=== PATIENT | male | born 1955 | race Caucasian/White ===

== ENCOUNTER 2021-10-06 07:58 | Outpatient (CLI) | payer MEDICARE, SELFPAY | END 2021-10-06 07:59 | disposition home or self-care (01) | LOC: ANHAUDIO 08:00 | PROVIDERS: PCP Physician Assistant; Visit Provider Physician Assistant | DX: H90.3 Sensorineural hearing loss, bilateral (principal) | CPT/HCPCS: 92557; 92567 ==

== ENCOUNTER 2022-01-31 09:22 | Outpatient (CLI) | payer MEDICARE, SELFPAY ==
[2022-01-31 09:41] LABS: Hematocrit 38.2 % (42.0-52.0); Hemoglobin 13.4 g/dL (14.0-18.0); Mean Corpuscular HGB Conc 35.1 g/dl (32-36); Mean Corpuscular Hemoglobin 31.8 pg (26-34); Mean Corpuscular Volume 90.5 fl (80-100); Mean Platelet Volume 9.3 fl (7.4-10.4); Platelet Count Result 197 k/mm3 (150-375); Red Blood Count 4.22 M/mm3 (4.6-6.20); Red Cell Distribution Width 12.7 % (11.5-14.5); White Blood Count 8.3 K/mm3 (4.5-10.0)
[2022-01-31 11:00] LABS: Hepatitis C Virus Antibody Reactive (Negative)
[2022-01-31 11:58] LABS: Alanine Aminotransferase 15 U/L (4-50); Alkaline Phosphatase 75 U/L (38-126); Anion Gap 5 mmol/L (8-16); Aspartate Amino Transferase 23 U/L (17-59); Bilirubin,Total 0.6 mg/dL (0.2-1.3); Blood Urea Nitrogen 18 mg/dL (9-20); Calcium 8.5 mg/dL (8.4-10.2); Carbon Dioxide 29 mmol/L (22-30); Chloride 105 mmol/L (98-107); Cholesterol 138 mg/dL (0-200); Estimated Glomerular Filt Rate 55; Glucose 91 mg/dL (65-110); HDL Direct 40 mg/dL; Potassium 3.2 mmol/L (3.4-5.0); Sodium 139 mmol/L (137-145); Triglycerides 73 mg/dL (<150)
[2022-01-31 12:09] LABS: LDL Cholesterol Direct 70 mg/dL
[2022-01-31 12:27] LABS: Prostate Specific Antigen 1.9 ng/mL (< OR = 4.0)
[2022-01-31 13:02] LABS: Folic Acid 4.2 ng/mL (2.76->20)
== END 2022-01-31 09:23 | disposition home or self-care (01) ==
LOC: ANHLAB 09:26
PROVIDERS: PCP Physician Assistant; Visit Provider Physician Assistant
DX: R53.83 Other fatigue (principal); Z11.59 Encounter for screening for other viral diseases; Z91.89 Other specified personal risk factors, not elsewhere classified; E78.5 Hyperlipidemia, unspecified; Z12.5 Encounter for screening for malignant neoplasm of prostate
CPT/HCPCS: 36415; 80053; 80061; 82607; 82746; 84153; 84443; 85027; 86803; 87522; G0103

== ENCOUNTER 2022-02-15 13:30 | Outpatient (CLI) | payer MEDICARE, SELFPAY ==
--- NOTE | 2022-02-16 10:00 | P.PCNPFT_ITS ---
PFT Procedure Performed PFT Procedure Performed Spirometry with Pre/Post Bronchodilator Plethysmography (Lung Vol) Diffusing Cap (DLCO) Flow Vol Loop PFT Interpretation Lung volumes were measured with the body plethysmography method. The elevated FRC and RV are indicative of air trapping. Spirometry showed diminished e xpiratory flow rates and a diminished FEV1 to FVC ratio 41% consistent with obstructive airway disease. Following administration of a bronchodilator there was no significant increase in expiratory flow rates. Lung diffusion capacity severely reduced at 36% predicted. The flow volume loop is consistent with emphysema. Impression: Moderately severe obstructive airway disease with evidence of air trapping and no response to bronchodilators on this testing. Severely reduced lung diffusion capacity.
== END 2022-02-15 13:31 | disposition home or self-care (01) ==
PROVIDERS: PCP Physician Assistant; Visit Provider Physician Assistant
DX: J44.9 Chronic obstructive pulmonary disease, unspecified (principal); R94.2 Abnormal results of pulmonary function studies
CPT/HCPCS: 94060; 94726; 94729

== ENCOUNTER 2022-05-02 18:21 | Observation (INO) | payer MEDICARE, MEDICAID, SELFPAY ==
[2022-05-02] VITALS (9 sets, daily range): BP systolic 108–147; BP diastolic 68–87; PULSE 83–108; RESP 16–29; TEMP 36.9–37.4; O2SAT 92–98; BMI 29.2
--- NOTE | ~2022-05-02 | XR_ITS ---
EXAMINATION: XR chest 2V Exam Date/Time: 05/02/2022 18:35 CDT HISTORY: shortness of breath, HX COPD Comparison: X-ray RIBS 07/21/2016. RESULT: Lines, tubes, and devices: None. Lungs and pleura: Emphysematous change. Cardiomediastinal silhouette: Stable. Other: No acute osseous or upper abdominal finding. IMPRESSION: No acute cardiopulmonary process. Reviewed, dictated and finalized at location K.
--- NOTE | 2022-05-02 18:32 | ECG_ITS ---
Measurements Intervals [place] Rate: 85 P: 62 TN: 112 QRS: 79 QRSD: 134 T: 37 QT: 379 QTc: 452 Interpretive Statements SINUS RHYTHM WITH SHORT [place] INTERVAL WITH OCCASIONAL PREMATURE ATRIAL AND VENTRICULAR CONTRACTIONS RIGHT BUNDLE BRANCH BLOCK ST DEVIATION AND MARKED T-WAVE ABNORMALITY, CONSIDER ANTERIOR ISCHEMIA ABNORMAL ECG NO PREVIOUS ECG AVAILABLE FOR COMPARISON Electronically Signed On 05-03-2022 12:20:56 CDT by Iván Nicholson M.D.
[2022-05-02 18:49] LABS: Basophils Percent Auto 0.3 % (0.2-1.2); Eosinophils Absolute Auto 0.1 K/mm3 (0-0.3); Eosinophils Percent Auto 0.4 % (0-4.4); Hematocrit 39.4 % (42.0-52.0); Hemoglobin 14.2 g/dL (14.0-18.0); Immature Granulocyte Absolute 0.07 K/mm3 (0.00-0.031); Immature Granulocyte Percent A 0.5 % (0-0.5); Lymphocytes Absolute Auto 2.32 K/mm3 (0.9-3.2); Lymphocytes Percent Auto 16.2 % (18.3-44.2); Mean Corpuscular Hemoglobin 32.2 pg (26-34); Mean Corpuscular Volume 89.3 fl (80-100); Mean Platelet Volume 9.5 fl (7.4-10.4); Monocytes Absolute Auto 1.8 K/mm3 (0.1-0.6); Monocytes Percent Auto 12.9 % (2.6-8.5); Neutrophils Percent Auto 69.7 % (45.5-73.1); Platelet Count Result 219 k/mm3 (150-375); Red Blood Count 4.41 M/mm3 (4.6-6.20); Red Cell Distribution Width 12.2 % (11.5-14.5); White Blood Count 14.3 K/mm3 (4.5-10.0)
--- NOTE | 2022-05-02 18:49 | ED.SOB ---
HPI - SOB/Dyspnea General Chief Complaint: Shortness of Breath/Dyspnea Stated Complaint: Shortnesss of breath Time Seen by Provider: 05/02/22 18:25 History of Present Illness HPI Narrative: Patient is a 66-year-old male with a history of COPD, hypertension, HLD here for evaluation of shortness of breath of the past week. Reports profound dyspnea while doing his daily activities; only able to take several steps before needing to stop. Additionally reports dyspnea at rest which is new over past week. Denies relief after home inhaler and breathing treatments; has no home O2 requirement. Additionally reporting a productive cough of white sputum, and pain diffusely across his lower ribs when he coughs, none at rest. Denies leg swelling, fevers, chills, hemoptysis, immobilization. He has a [id number] smoking history. He had PFTs done at end of January with FEV1 to FVC ratio 41%. Related Data Home Medications Medication Instructions Recorded Confirmed atorvastatin 20 mg tablet 20 mg PO DAILY 04/29/21 05/02/22 finasteride 5 mg tablet 5 mg PO DAILY 04/29/21 05/02/22 tamsulosin 0.4 mg capsule 0.4 mg PO HS 04/29/21 05/02/22 amlodipine 10 mg tablet 10 mg PO DAILY 05/02/22 05/02/22 aspirin 325 mg tablet,delayed 325 mg PO DAILY 05/02/22 05/02/22 release budesonide-formoterol HFA 160 2 puff inhalation BID 05/02/22 05/02/22 mcg-4.5 mcg/actuation aerosol inhaler (Symbicort) glecaprevir 100 mg-pibrentasvir 40 3 tablet PO DAILY 05/02/22 05/02/22 mg tablet (Mavyret) loratadine 10 mg tablet 10 mg PO DAILY 05/02/22 05/02/22 meloxicam 7.5 mg tablet 7.5 mg PO DAILY PRN .arthritis 05/02/22 05/02/22 trazodone 50 mg tablet 0.5 mg PO HS PRN Sleep 05/02/22 05/02/22 Allergies Allergy/AdvReac Type Severity Reaction Status Date / Time codeine Allergy Unknown SEE COMMENT Verified 05/02/22 18:30 No Known Drug Allergies Allergy Unknown .unknown Verified 03/08/22 09:30 Penicillins Allergy Unknown unknown Verified 05/02/22 18:30 Review of Systems Review of Systems: Gen: Denies fevers or chills Eyes: Denies eye pain or visual change ENT: Denies congestion Respiratory: Denies shortness of breath or cough CV: Denies chest pain or palpitations GI: Denies abdominal pain nausea, emesis or diarrhea denies burning, urgency, frequency or hematuria Musculoskeletal: Denies back pain or muscle pain Neuro: Denies numbness, tingling, weakness or focal weakness Skin: Denies rash Except as documented, all other systems reviewed and negative [facility] Past Medical History Medical History (Updated 05/02/22 @ 21:26 by María Elena Bedoya DO) Benign prostatic hyperplasia with nocturia COPD (chronic obstructive pulmonary disease) PFT 02/16/2022: Moderately severe obstructive airway disease with evidence of air trapping without bronchodilator response. Severely reduced lung diffusion capacity. FEV1 to FVC ratio 41% Essential hypertension Hepatitis C Hyperlipidemia Left inguinal hernia Small not surgically corrected Smoker Umbilical hernia without obstruction or gangrene Surgical History Surgical History (Updated 05/02/22 @ 21:19 by María Elena Bedoya DO) History of umbilical hernia repair (01/27/19) With mesh Family History Family History Mother Patient's mother is in good health Sibling Cerebrovascular accident, Onset Age: 57 Diabetes mellitus Hypertension Heart disease Father Diabetes mellitus Hypertension Heart disease Social History Social History (Updated 05/02/22 @ 21:21 by María Elena Bedoya DO) Social History: He has smoked as much as 1 pack of cigarettes per day for 60 years. He is now smoking about half a pack of cigarettes per day. Smoking packs per day: 1 Smoking cigarettes per day: 20.0 Years smoked: 60 Smoking pack-years: 60.00 Smoking status: Current every day smoker Tobacco type: cigarettes Alcohol intake: never Substance use: never
[2022-05-02] MEDS: ALBUTEROL SULFATE NEB 2.5 MG/3 ML INH INHALATION (19:08)
[2022-05-02 19:20] LABS: Lactic Acid Reflex 1.3 mmol/L (0.7-2.0)
[2022-05-02 19:20] LABS: Alveolar/Arterial O2 Gradient 41.1 mmHg; Base Excess ABG 1.4 mEq/l (+/-2.0); Fractional Inspired Oxygen 21 %; HCO3 ABG 24.2 mEq/l (22.0-26.0); Oxygen Saturation ABG 95.1 % (95.0-100.0); Oxyhemoglobin 92.6 % THb (90.0-100.0); PCO2 ABG 33.3 mmHg (35.0-45.0); PO2 ABG 68.8 mmHg (80.0-100.0); PO2 FiO2 Ratio Arterial Blood 3.28 %; Total Hemoglobin 14.6 g/dL (12.0-18.0)
[2022-05-02 19:21] LABS: Device ROOM AIR; Modified Allen's Test Pass; Site Drawn LEFT RADIAL
[2022-05-02 19:22] LABS: INR 1.1
[2022-05-02 19:23] LABS: Partial Thromboplastin Time 33.9 SECONDS (22.3-36.8)
[2022-05-02 19:27] LABS: Alanine Aminotransferase 39 U/L (6-50); Albumin Level 4.3 g/dL (3.5-5.1); Alkaline Phosphatase 151 U/L (38-126); Anion Gap 11 mmol/L (8-16); Aspartate Amino Transferase 28 U/L (17-59); Bilirubin,Total 1.2 mg/dL (0.2-1.3); Blood Urea Nitrogen 30 mg/dL (9-20); Calcium 8.8 mg/dL (8.4-10.2); Carbon Dioxide 26 mmol/L (22-30); Chloride 98 mmol/L (98-107); Estimated CRCL calculation 36 ml/min; Estimated Glomerular Filt Rate 43; Glucose 112 mg/dL (65-110); Potassium 3.6 mmol/L (3.4-5.0); Sodium 135 mmol/L (137-145)
[2022-05-02 19:29] LABS: Troponin I 0.024 ng/mL (0.000-0.034)
[2022-05-02 19:30] LABS: NT Pro B Type Natriuretic Pept 676 pg/mL (5-100)
[2022-05-02 19:46] LABS: SARS-CoV-2 RNA PCR Negative
[2022-05-02] MEDS: SODIUM CHLORIDE 0.9% IV 1,000 ML 999 ML IV CONT (19:51)
[2022-05-02] MEDS: methylPREDNISolone SOD SUCC 125 MG VIAL IV PUSH (19:51)
--- NOTE | 2022-05-02 21:10 | PM.IMHP ---
H&P: HPI History of Present Illness Date/Time: 05/02/22 21:10 Chief Complaint: Shortness of breath Narrative: 66-year-old male with past medical history of COPD, continued tobacco abuse, hyperlipidemia, hypertension, BPH and hepatitis C presented to the ER with shortness of breath. The patient reported that this shortness of breath has been ongoing for the last 4-6 months. He reports that he can usually only walk from the ER bedside to the ER desk before he has to stop to catch his breath. But now at rest he feels significantly more short of breath than when he usually does when he walks. Has acutely worsened the last 1 week. It has been accompanied by a change in his cough. He has new sputum production that is bethea and yellow in color. He denies any fevers. He reports that he is cold natured and is always cold. He denies any or rigors. He denies any chest pain but has been having some lower rib pain associated with increased coughing. He has some tenderness to his abdominal wall associated with increased coughing. His abdomen is slightly distended but he denies any true abdominal pain. He has had significantly decreased appetite over the last week. He has had occasional post-tussive nausea and dry heaves but no emesis. He reports essentially no oral intake for the last week. He has had 1 bowel movement that was nonbloody. He has noticed that his urine has been darker for the last week but denies any dysuria. He does have history of BPH but denies any sensation of incomplete bladder emptying. He has not been vaccinated against COVID and refuses the vaccine. He has never had COVID infection. He still smokes 1 pack per day. He has smoked since the age of 5. He reports that he tries to quit smoking every day. He has not smoked in the last week due to his symptoms. His family reports that the patient's appetite has decreased since he was started on Mavyret for his hepatitis-C. He has been on Mavyret for 3 weeks. He has not taken a dose of this medication in 3 days. He reports that if he tries to take the medication on empty stomach and makes him extremely ill. Since he has not eaten he has not taken the medication. Is chronically hard of hearing and states that his hearing aids are just about ready to so this is made obtaining information more difficult. Source of information: ER records and past medical records. The patient himself is a fair historian at best. His daughter and grandson are at bedside. The patient gave permission to discuss his care with his family members at bedside. Review of Systems Review of Systems: 12 systems were reviewed with pertinent positives and negatives per HPI. Except as documented in the HPI, all other systems were reviewed and are negative. [facility] Past Medical History Medical History (Updated 05/02/22 @ 21:26 by María Elena Bedoya DO) Benign prostatic hyperplasia with nocturia COPD (chronic obstructive pulmonary disease) PFT 02/16/2022: Moderately severe obstructive airway disease with evidence of air trapping without bronchodilator response. Severely reduced lung diffusion capacity. FEV1 to FVC ratio 41% Essential hypertension Hepatitis C Hyperlipidemia Left inguinal hernia Small not surgically corrected Smoker Umbilical hernia without obstruction or gangrene Surgical History Surgical History (Updated 05/02/22 @ 21:19 by María Elena Bedoya DO) History of umbilical hernia repair (01/27/19) With mesh Family History Family History (Updated 05/03/22 @ 00:27 by María Elena Bedoya DO) Mother Cerebrovascular accident Sibling Cerebrovascular accident, Onset Age: 57 Diabetes mellitus Hypertension Heart disease Father Diabetes mellitus Hypertension Heart disease Social History Social History (Updated 05/03/22 @ 00:32 by María Elena Bedoya DO) Social History: He has smoked as much as 1 pack of cigarettes per day for 60 years. He is now smoking ab
[2022-05-02 22:00] LABS: Troponin I 0.019 ng/mL (0.000-0.034)
--- NOTE | 2022-05-02 22:37 | ADMGEN ---
This patient, Seth Guajardo, was admitted to Medical Room 244-. Patient/family oriented to hospital policies and general routines including ID bracelet, bed and alarms, visiting hours, pain management, procedures, bathroom and other care routines, personal items, smoking policy, room service/diet, and visiting hours. Information on how to activate the Rapid Response Team has been discussed. Patient/Family are encouraged to report perceived risks to care and to ask questions if they do not understand what they are told or what they should do.
[2022-05-03] VITALS (16 sets, daily range): BP systolic 106–115; BP diastolic 54–67; PULSE 53–113; RESP 16–20; TEMP 36.2–36.4; O2SAT 92–96
[2022-05-03] MEDS: SODIUM CHLORIDE 0.9% IV 1,000 ML 100 ML IV CONT ×2 (00:45→11:02)
[2022-05-03] MEDS: ALBUTEROL SULFATE NEB 2.5 MG/3 ML INH 5 MG INHALATION ×3 (02:01→20:20)
[2022-05-03] MEDS: IPRATROPIUM BR 0.02% INH SOLN 0.5 MG/2.5 ML VIAL INHALATION ×3 (02:01→20:21)
[2022-05-03 05:36] LABS: Basophils Percent Auto 0.1 % (0.2-1.2); Hematocrit 32.5 % (42.0-52.0); Hemoglobin 11.3 g/dL (14.0-18.0); Immature Granulocyte Absolute 0.06 K/mm3 (0.00-0.031); Immature Granulocyte Percent A 0.6 % (0-0.5); Lymphocytes Absolute Auto 0.77 K/mm3 (0.9-3.2); Lymphocytes Percent Auto 7.8 % (18.3-44.2); Mean Corpuscular HGB Conc 34.8 g/dl (32-36); Mean Corpuscular Hemoglobin 31.6 pg (26-34); Mean Corpuscular Volume 90.8 fl (80-100); Mean Platelet Volume 9.8 fl (7.4-10.4); Monocytes Absolute Auto 0.2 K/mm3 (0.1-0.6); Monocytes Percent Auto 1.8 % (2.6-8.5); Neutrophils Absolute Auto 8.9 K/mm3 (1.3-6.7); Neutrophils Percent Auto 89.7 % (45.5-73.1); Platelet Count Result 171 k/mm3 (150-375); Red Blood Count 3.58 M/mm3 (4.6-6.20); Red Cell Distribution Width 12.5 % (11.5-14.5); White Blood Count 9.9 K/mm3 (4.5-10.0)
[2022-05-03] MEDS: methylPREDNISolone SOD SUCC 125 MG VIAL 60 MG IV PUSH ×3 (05:44→20:59)
[2022-05-03 06:02] LABS: Anion Gap 9 mmol/L (8-16); Blood Urea Nitrogen 27 mg/dL (9-20); Calcium 7.9 mg/dL (8.4-10.2); Carbon Dioxide 24 mmol/L (22-30); Chloride 99 mmol/L (98-107); Estimated CRCL calculation 38 ml/min; Estimated Glomerular Filt Rate 51; Glucose 155 mg/dL (65-110); Potassium 3.3 mmol/L (3.4-5.0); Sodium 132 mmol/L (137-145)
[2022-05-03] MEDS: POTASSIUM CHLORIDE 20 MEQ TABLET 40 MEQ PO (09:21)
[2022-05-03] MEDS: POTASSIUM CHLORIDE 10 MEQ TABLET.ER PO (09:22)
[2022-05-03] MEDS: ATORVASTATIN 20 MG TABLET PO (09:22)
[2022-05-03] MEDS: FINASTERIDE 5 MG TABLET PO (09:22)
[2022-05-03] MEDS: LORATADINE 10 MG TABLET PO (09:23)
[2022-05-03] MEDS: amLODIPine BESYLATE 5 MG TABLET 10 MG PO (09:23)
[2022-05-03] MEDS: PANTOPRAZOLE 40 MG TABLET PO (09:23)
[2022-05-03] MEDS: ENOXAPARIN 40 MG/0.4 ML SYRINGE SUB-Q (09:23)
[2022-05-03] MEDS: ASPIRIN 325 MG ENTERIC TABLET PO (09:23)
--- NOTE | 2022-05-03 16:13 | PM.IMPN ---
Progress Note: A&P Assessment and Plan (1) COPD exacerbation: Code(s): J44.1 - Chronic obstructive pulmonary disease with (acute) exacerbation Status: Acute Assessment and Plan: Patient presented with wheezing, consistent with COPD exacerbation Continue IV Solu-Medrol, wean to 40 mg q8h Will add doxycycline for 5 days due to increased sputum production Continue bronchodilators (2) Acute kidney injury: Code(s): N17.9 - Acute kidney failure, unspecified Status: Acute Assessment and Plan: Creatinine elevated at 1.6 on arrival Baseline appears to be 1.3 Improved to 1.4 today following IV fluid rehydration Will discontinue IV fluids as patient is euvolemic at this time. Continue to encourage PO intake Hold home irbesartan-HCTZ and meloxicam Monitor BMP (3) Abnormal EKG: Code(s): R94.31 - Abnormal electrocardiogram [ECG] [EKG] Status: Acute Assessment and Plan: The patient's EKG is abnormal and demonstrates ST depression and T-wave abnormalities in multiple leads. He is asymptomatic. Denies chest pain. Troponin negative Continue to monitor on telemetry. (4) Hypokalemia: Code(s): E87.6 - Hypokalemia Status: Acute Assessment and Plan: Potassium 3.3 today Received 40 mEq p.o. KCl Continue with daily 10 mEq potassium supplementation= Subjective Date/time seen: 05/03/22 16:13 Interval history: Date of service: 05/03/2022 Seth Guajardo is a 66-year-old male with a history of COPD, continued tobacco abuse, hypertension, hyperlipidemia BPH, hepatitis-C who is seen in follow-up for COPD exacerbation. The patient states he is feeling a bit better today. At the time my evaluation, he states he is feeling pretty good, however he continues to have episodes where he goes back and forth between feeling good and very poorly. He has been having coughing fits every 10-15 minutes that make him feel very bad. He is coughing up copious amounts of yellowish mucus. After a as a coughing spell he feels very short of breath. He also states that he feels hot, sweaty, and clammy after a coughing spell. He denies wheezing. Denies nausea, vomiting, fever, chills, dizziness, lightheadedness, weakness. This morning he states he lost his balance while he was trying to get up to go the bathroom but he was able to regain his balance and has had no further issues. States his appetite is good but he does not like the food here. His family member brought him a burger for lunch and he ate it all. Review of Systems Review of Systems: All systems reviewed & are unremarkable except as noted in HPI and below Exam Narrative: General: Thin, frail 66year-old male, sitting up in bed, comfortable, NARD Neuro: awake, alert and oriented x4, speech clear, no focal neuro deficits noted HEENMT: normocephalic, atraumatic, EOMI, sclerae anicteric, moist oral mucosa Respiratory: Diminished breath sounds bilaterally without crackles, rhonchi, or wheezes, nonlabored breathing Cardio: regular rate, regular rhythm with S1-S2 Abdomen: nondistended, normoactive bowel sounds, soft, nontender to palpation Extremities: no edema, erythema, or tenderness to palpation, DP pulses 2+ bilaterally Skin: no rashes or lesions, warm and dry Psych: appropriate mood and affect, judgment and insight intact Objective Data Vital Signs Vital Signs: Vital Signs - 24 hr 05/02/22 18:25 05/02/22 19:04 05/02/22 18:30 Temperature 99.4 F Pulse Rate 102 H 108 H Respiratory Rate 29 H 24 H Blood Pressure 110/68 110/68 Pulse Oximetry 96 96 98 Oxygen Delivery Room Air Room Air 05/02/22 18:31 05/02/22 18:45 05/02/22 19:00 Temperature Pulse Rate 104 H 95 Respiratory Rate 16 22 H Blood Pressure 108/71 Pulse Oximetry 96 97 92 Oxygen Delivery 05/02/22 19:08 05/02/22 19:25 05/02/22 22:46 Temperature Pulse Rate 83 91 Respiratory Rate 22 H 21 H Blood
[2022-05-03] MEDS: DOXYCYCLINE HYCLATE 100 MG TABLET PO (18:03)
[2022-05-03] MEDS: FLUTICASONE/SALMETEROL 115-21 MCG INHALER 1 PUFF 2 PUFF INHALATION (20:21)
[2022-05-03] MEDS: TAMSULOSIN HCL 0.4 MG CAPSULE PO (20:59)
[2022-05-04] VITALS (17 sets, daily range): BP systolic 113–130; BP diastolic 54–64; PULSE 69–101; RESP 16–20; TEMP 36.4–36.8; O2SAT 93–95
[2022-05-04] MEDS: ALBUTEROL SULFATE NEB 2.5 MG/3 ML INH 5 MG INHALATION ×4 (02:20→20:50)
[2022-05-04] MEDS: IPRATROPIUM BR 0.02% INH SOLN 0.5 MG/2.5 ML VIAL INHALATION ×4 (02:20→20:50)
[2022-05-04 05:31] LABS: Hematocrit 31.2 % (42.0-52.0); Mean Corpuscular HGB Conc 35.3 g/dl (32-36); Mean Corpuscular Volume 90.7 fl (80-100); Mean Platelet Volume 9.7 fl (7.4-10.4); Platelet Count Result 220 k/mm3 (150-375); Red Blood Count 3.44 M/mm3 (4.6-6.20); Red Cell Distribution Width 12.6 % (11.5-14.5); White Blood Count 20.3 K/mm3 (4.5-10.0)
[2022-05-04 05:47] LABS: Anion Gap 10 mmol/L (8-16); Blood Urea Nitrogen 24 mg/dL (9-20); Calcium 8.3 mg/dL (8.4-10.2); Carbon Dioxide 21 mmol/L (22-30); Chloride 104 mmol/L (98-107); Estimated CRCL calculation 40 ml/min; Estimated Glomerular Filt Rate 55; Glucose 180 mg/dL (65-110); Potassium 3.3 mmol/L (3.4-5.0); Sodium 135 mmol/L (137-145)
[2022-05-04] MEDS: DOXYCYCLINE HYCLATE 100 MG TABLET PO ×2 (06:41→17:41)
[2022-05-04] MEDS: methylPREDNISolone SOD SUCC 125 MG VIAL 60 MG IV PUSH (06:41)
[2022-05-04] MEDS: LORATADINE 10 MG TABLET PO (09:16)
[2022-05-04] MEDS: amLODIPine BESYLATE 5 MG TABLET 10 MG PO (09:16)
[2022-05-04] MEDS: guaiFENesin 12 HR 600 MG TABCR PO ×2 (09:16→20:46)
[2022-05-04] MEDS: FINASTERIDE 5 MG TABLET PO (09:16)
[2022-05-04] MEDS: ATORVASTATIN 20 MG TABLET PO (09:16)
[2022-05-04] MEDS: PANTOPRAZOLE 40 MG TABLET PO (09:16)
[2022-05-04] MEDS: ASPIRIN 325 MG ENTERIC TABLET PO (09:16)
[2022-05-04] MEDS: POTASSIUM CHLORIDE 20 MEQ TABLET PO (09:16)
[2022-05-04] MEDS: POTASSIUM CHLORIDE 10 MEQ TABLET.ER PO (09:16)
[2022-05-04] MEDS: ENOXAPARIN 40 MG/0.4 ML SYRINGE SUB-Q (09:17)
[2022-05-04] MEDS: FLUTICASONE/SALMETEROL 115-21 MCG INHALER 1 PUFF 2 PUFF INHALATION ×2 (09:43→20:55)
[2022-05-04] MEDS: methylPREDNISolone SOD SUCC 40 MG VIAL IV PUSH ×2 (14:17→20:47)
--- NOTE | 2022-05-04 16:27 | PM.IMPN ---
Progress Note: A&P Assessment and Plan (1) COPD exacerbation: Code(s): J44.1 - Chronic obstructive pulmonary disease with (acute) exacerbation Status: Acute Assessment and Plan: Patient presented with wheezing, consistent with COPD exacerbation Continue IV Solu-Medrol, wean to 40 mg q812h Plan to transition to p.o. prednisone tomorrow with discharge if continued improvement Continue doxycycline #2 for total of 5 days due to increased sputum production Continue bronchodilators and expectorants Leukocytosis secondary to steroids noted today (2) Acute kidney injury: Code(s): N17.9 - Acute kidney failure, unspecified Status: Acute Assessment and Plan: Creatinine elevated at 1.6 on arrival Renal function appears to be back to baseline following IV fluid hydration Hold home irbesartan-HCTZ and meloxicam Monitor BMP (3) Abnormal EKG: Code(s): R94.31 - Abnormal electrocardiogram [ECG] [EKG] Status: Acute Assessment and Plan: The patient's EKG is abnormal and demonstrates ST depression and T-wave abnormalities in multiple leads. He is asymptomatic. Denies chest pain. Troponin negative Monitored on telemetry overnight. Will discontinue at this time (4) Hypokalemia: Code(s): E87.6 - Hypokalemia Status: Acute Assessment and Plan: Potassium 3.3 today Received 20 mEq p.o. KCl Continue with daily 10 mEq potassium supplementation (5) Tobacco use: Code(s): Z72.0 - Tobacco use Status: Acute Assessment and Plan: Patient has cut down to half a pack a day Continue to encourage complete smoking cessation Subjective Date/time seen: 05/04/22 16:27 Interval history: Date of service: 05/04/2022 Seth Guajardo is a 66-year-old male with a history of COPD, continued tobacco abuse, hypertension, hyperlipidemia BPH, hepatitis-C who is seen in follow-up for COPD exacerbation. He states he feels ?a tousand times better today.? He did have trouble sleeping last night, stating the steroids kept him awake. This morning about 2:30 a.m. he woke up with a coughing fit and felt like he could not breathe and was sweaty. The symptoms resolved after he took a breathing treatment. He has been comfortable today. He still has yellow sputum production. He denies wheezing. Denies nausea, vomiting, fever, chills, dizziness, lightheadedness. Review of Systems Review of Systems: All systems reviewed & are unremarkable except as noted in HPI and below Exam Narrative: General: Thin, frail 66year-old male, sitting up in bed, comfortable, NARD Neuro: awake, alert and oriented x4, speech clear, no focal neuro deficits noted HEENMT: normocephalic, atraumatic, EOMI, sclerae anicteric, moist oral mucosa Respiratory: Clear to auscultation bilaterally without crackles, rhonchi, or wheezes, nonlabored breathing Cardio: regular rate, regular rhythm with S1-S2 Abdomen: nondistended, normoactive bowel sounds, soft, nontender to palpation Extremities: no edema, erythema, or tenderness to palpation, DP pulses 2+ bilaterally Skin: no rashes or lesions, warm and dry Psych: appropriate mood and affect, judgment and insight intact Objective Data Vital Signs Vital Signs: Vital Signs - 24 hr 05/03/22 16:55 05/03/22 17:10 05/03/22 20:21 Temperature Pulse Rate 76 79 64 Respiratory Rate 20 20 20 Blood Pressure Pulse Oximetry Oxygen Delivery 05/03/22 20:26 05/03/22 20:38 05/03/22 22:00 Temperature 97.3 F L Pulse Rate 64 66 94 Respiratory Rate 20 18 Blood Pressure 115/54 L Pulse Oximetry 92 95 Oxygen Delivery Room Air 05/03/22 20:00 05/04/22 00:00 05/04/22 02:20 Temperature Pulse Rate 70 84 101 H Respiratory Rate 20 Blood Pressure Pulse Oximetry Oxygen Delivery 05/04/22 02:30 05/04/22 04:00 05/04/22 06:00 Temperature 97.6 F Pulse Rate 89 70 72 Respiratory Rate 20 16 Blo
[2022-05-04] MEDS: traZODone HCL 25 MG TABLET PO (20:47)
[2022-05-04] MEDS: TAMSULOSIN HCL 0.4 MG CAPSULE PO (20:47)
[2022-05-05] VITALS (9 sets, daily range): BP systolic 137; BP diastolic 63; PULSE 60–108; RESP 18–20; TEMP 36.6; O2SAT 91–96
[2022-05-05] MEDS: ALBUTEROL SULFATE NEB 2.5 MG/3 ML INH 5 MG INHALATION ×2 (02:20→08:07)
[2022-05-05] MEDS: IPRATROPIUM BR 0.02% INH SOLN 0.5 MG/2.5 ML VIAL INHALATION ×2 (02:20→08:07)
[2022-05-05 05:50] LABS: Hemoglobin 11.2 g/dL (14.0-18.0); Mean Corpuscular Hemoglobin 32.3 pg (26-34); Mean Corpuscular Volume 92.2 fl (80-100); Mean Platelet Volume 10.1 fl (7.4-10.4); Platelet Count Result 256 k/mm3 (150-375); Red Blood Count 3.47 M/mm3 (4.6-6.20); White Blood Count 19.1 K/mm3 (4.5-10.0)
[2022-05-05 06:10] LABS: Anion Gap 9 mmol/L (8-16); Blood Urea Nitrogen 22 mg/dL (9-20); Calcium 8.4 mg/dL (8.4-10.2); Carbon Dioxide 22 mmol/L (22-30); Chloride 103 mmol/L (98-107); Estimated CRCL calculation 43 ml/min; Estimated Glomerular Filt Rate 60; Glucose 144 mg/dL (65-110); Sodium 134 mmol/L (137-145)
[2022-05-05] MEDS: DOXYCYCLINE HYCLATE 100 MG TABLET PO (06:43)
[2022-05-05] MEDS: methylPREDNISolone SOD SUCC 40 MG VIAL IV PUSH (06:43)
[2022-05-05] MEDS: FLUTICASONE/SALMETEROL 115-21 MCG INHALER 1 PUFF 2 PUFF INHALATION (08:07)
--- NOTE | 2022-05-05 09:46 | PM.DS ---
DS: Admitting Diagnosis Discharge Date 05/05/2022 Admitting Diagnosis COPD exacerbation DS: Discharge Diagnosis Discharge Diagnosis (1) COPD exacerbation: Code(s): J44.1 - Chronic obstructive pulmonary disease with (acute) exacerbation Status: Acute Assessment and Plan: Patient presented with wheezing, consistent with COPD exacerbation received IV Solu-Medrol with clinical improvement IV steroids weaned inpatient was transition to p.o. prednisone continue p.o. prednisone 40 mg daily for 5 days started on p.o. doxycycline due to increased sputum production and will continue this for a total of 5 days as an outpatient continue albuterol nebs as needed and rescue inhaler may benefit from pulmonology evaluation/referral (2) Acute kidney injury: Code(s): N17.9 - Acute kidney failure, unspecified Status: Acute Assessment and Plan: Creatinine elevated at 1.6 on arrival kidney function returned to baseline following IV fluid rehydration home irbesartan-HCTZ was held to avoid further kidney injury. follow-up with PCP (3) Abnormal EKG: Code(s): R94.31 - Abnormal electrocardiogram [ECG] [EKG] Status: Acute Assessment and Plan: The patient's EKG on presentation was abnormal and demonstrated ST depression and T-wave abnormalities in multiple leads. He is asymptomatic. Denied chest pain. ACS ruled out by negative troponins (4) SVT (supraventricular tachycardia): Code(s): I47.1 - Supraventricular tachycardia Status: Acute Assessment and Plan: noted on telemetry patient entirely asymptomatic reviewed results with Cardiology plan for 48 hour event monitor she be obtained and follow-up with PCP for results patient's PCP made aware (5) Hypokalemia: Code(s): E87.6 - Hypokalemia Status: Acute Assessment and Plan: potassium was monitored and supplemented Continue with daily 10 mEq potassium supplementation (6) Tobacco use: Code(s): Z72.0 - Tobacco use Status: Acute Assessment and Plan: Patient has cut down to half a pack a day patient educated on smoking cessation for 4 minutes he is motivated to quit smoking this is imperative given his COPD DS: Summary Hospital Course Hospital Course: Date of admission: 05/02/2022 Date of discharge: 05/05/2022 Seth Guajardo is a 66-year-old male with a history of COPD, continued tobacco abuse, hypertension, hyperlipidemia BPH, hepatitis-C who presented to the emergency department on 05/02/2022 with complaints of shortness of breath ongoing for 1 week with increased dyspnea with daily activities. Also complained of productive cough. On presentation to the ED, he had mild leukocytosis, creatinine slightly elevated at 1.6, troponin negative, and CXR showed no acute cardiopulmonary findings. He was admitted to the hospitalist service for further evaluation management. Please see above for further details. He had symptomatic improvement following IV steroids and will continue p.o. prednisone to complete a 5 day course at home in addition to p.o. doxycycline. His renal function returned to baseline. Home irbesartan-hydrochlorothiazide was held due to WILLOW and blood pressure was stable off of this medication. He will follow-up with his primary care provider in 1 week and will have a blood pressure check at that time. Patient was educated on smoking cessation. Patient is motivated to quit smoking. He states his hospitalization has been eye opening experience for him and he does plan to quit smoking due to this. he was monitored on telemetry and just prior to discharge had an episode of SVT. patient remained in higher early asymptomatic. Telemetry results reviewed with Cardiology. The patient will have a 48 hour event monitor and will follow-up with his primary care provider. I spoke with his PCP, Hamlet FAROOQ via phone to inform o
[2022-05-05] MEDS: amLODIPine BESYLATE 5 MG TABLET 10 MG PO (10:03)
[2022-05-05] MEDS: POTASSIUM CHLORIDE 10 MEQ TABLET.ER PO (10:03)
[2022-05-05] MEDS: LORATADINE 10 MG TABLET PO (10:04)
[2022-05-05] MEDS: ATORVASTATIN 20 MG TABLET PO (10:04)
[2022-05-05] MEDS: ASPIRIN 325 MG ENTERIC TABLET PO (10:04)
[2022-05-05] MEDS: guaiFENesin 12 HR 600 MG TABCR PO (10:04)
[2022-05-05] MEDS: ENOXAPARIN 40 MG/0.4 ML SYRINGE SUB-Q (10:04)
[2022-05-05] MEDS: FINASTERIDE 5 MG TABLET PO (10:04)
[2022-05-05] MEDS: PANTOPRAZOLE 40 MG TABLET PO (10:05)
== END 2022-05-05 11:24 | disposition home or self-care (01) ==
LOC: ANHED 21:03 → ANH2MED 22:31
PROVIDERS: Physician Assistant; Admitting Provider Internal Medicine; Emergency Provider Family Medicine; PCP Physician Assistant; Visit Provider Family Medicine
DX: J44.1 Chronic obstructive pulmonary disease with (acute) exacerbation (principal); N17.9 Acute kidney failure, unspecified; R94.31 Abnormal electrocardiogram [ECG] [EKG]; E87.6 Hypokalemia; F17.210 Nicotine dependence, cigarettes, uncomplicated; B19.20 Unspecified viral hepatitis C without hepatic coma; I10 Essential (primary) hypertension; I47.1 Supraventricular tachycardia; I45.10 Unspecified right bundle-branch block; E78.5 Hyperlipidemia, unspecified; D72.829 Elevated white blood cell count, unspecified; N40.0 Benign prostatic hyperplasia without lower urinary tract symptoms; K40.90 Unilateral inguinal hernia, without obstruction or gangrene, not specified as recurrent; K42.9 Umbilical hernia without obstruction or gangrene; Z20.822 Contact with and (suspected) exposure to COVID-19; Z79.82 Long term (current) use of aspirin; Z28.310 Unvaccinated for COVID-19; Z79.51 Long term (current) use of inhaled steroids; Z79.899 Other long term (current) drug therapy; Z82.49 Family history of ischemic heart disease and other diseases of the circulatory system
CPT/HCPCS: 36415; 36600; 71046; 80048; 80053; 82805; 83605; 83735; 83880; 84484; 85025; 85027; 85610; 85730; 87040; 93005; 94640; 96361; 96365; 96367; 96372; 96375; 96376; 99285; A9270; C9803; G0378; J0456; J0696; J1650; J2920; J2930; J7030; U0003; U0005

== ENCOUNTER 2022-09-22 21:24 | Observation (INO) | payer MEDICARE, MEDICAID, SELFPAY ==
[2022-09-22] VITALS (7 sets, daily range): BP systolic 139–146; BP diastolic 72–89; PULSE 81–101; RESP 21–28; TEMP 36.4; O2SAT 95–99
--- NOTE | ~2022-09-22 | XR_ITS ---
XR chest 2V DATE: 09/22/2022 22:03 INDICATION: Shortness of breath, cough, dizziness TECHNIQUE: AP and lateral views COMPARISON: 05/02/2022 PA and lateral chest FINDINGS: There is bilateral hyperinflation and relative flattening of the diaphragm, increased retro sternal airspace, consistent with COPD. Normal heart size. Aortic arch calcification. No pulmonary infiltrate or consolidation, pleural effusion or pulmonary vascular congestion or pneumo thorax. Included skeletal structures are unremarkable other than mild degenerative change of the thoracic spi ne, degenerative change at the acromioclavicular joints. IMPRESSION: COPD No active cardiopulmonary disease Reviewed, dictated and finalized at location [facility]
--- NOTE | 2022-09-22 21:46 | ECG_ITS ---
Measurements Intervals [place] Rate: 104 P: 87 [place]: 107 QRS: 79 QRSD: 133 T: 13 QT: 357 QTc: 470 Interpretive Statements SINUS TACHYCARDIA WITH SHORT [place] INTERVAL BASELINE [employer]IF[employer] RIGHT BUNDLE BRANCH BLOCK ST DEVIATION AND MARKED T-WAVE ABNORMALITY, CONSIDER ANTERIOR ISCHEMIA ABNORMAL ECG COMPARED TO ECG 05/02/2022 18:35:05 SINUS TACHYCARDIA NOW PRESENT IN PVCS NO LONGER APPRECIATED Electronically Signed On 09-23-2022 13:32:53 [employer] by Iván Nicholson M.D.
--- NOTE | 2022-09-22 22:13 | ED.SOB ---
HPI - SOB/Dyspnea General Chief Complaint: Shortness of Breath/Dyspnea Stated Complaint: SOB Time Seen by Provider: 09/22/22 22:04 History of Present Illness HPI Narrative: Patient is a 67-year-old male with history of COPD here for evaluation of dyspnea on exertion and at rest for the past 2 weeks, worse over the past day. Patient states that he has been unable to complete his daily activities due to dyspnea. Also notes productive cough of yellow/green sputum. Has been using his inhalers without relief. Was told by PCP to come to the ED for presumed COPD exacerbation. Denies chest pain, leg swelling, fevers, chills. Was hospitalized in May for COPD exacerbation. Still smoking but has cut back significantly. Related Data Home Medications Medication Instructions Recorded Confirmed finasteride 5 mg tablet 5 mg PO DAILY 04/29/21 06/07/22 tamsulosin 0.4 mg capsule 0.4 mg PO HS 04/29/21 09/23/22 loratadine 10 mg tablet 10 mg PO DAILY 05/02/22 06/07/22 trazodone 50 mg tablet 25 mg PO HS PRN Sleep 05/02/22 06/07/22 aspirin 81 mg tablet,delayed 81 mg PO DAILY 05/09/22 09/23/22 release Allergies Allergy/AdvReac Type Severity Reaction Status Date / Time codeine Allergy Unknown SEE COMMENT Verified 09/23/22 02:27 Penicillins Allergy Unknown unknown Verified 09/23/22 02:27 Review of Systems Review of Systems: Gen: Denies fevers or chills Eyes: Denies eye pain or visual change ENT: Denies congestion Respiratory: Reports shortness of breath and cough CV: Denies chest pain or palpitations GI: Denies abdominal pain nausea, emesis or diarrhea : denies burning, urgency, frequency or hematuria Musculoskeletal: Denies back pain or muscle pain Neuro: Denies numbness, tingling, weakness or focal weakness Skin: Denies rash Except as documented, all other systems reviewed and negative [facility] Past Medical History Medical History Benign prostatic hyperplasia with nocturia COPD (chronic obstructive pulmonary disease) PFT 02/16/2022: Moderately severe obstructive airway disease with evidence of air trapping without bronchodilator response. Severely reduced lung diffusion capacity. FEV1 to FVC ratio 41% Essential hypertension Hepatitis C Hyperlipidemia Left inguinal hernia Small not surgically corrected Smoker Umbilical hernia without obstruction or gangrene Surgical History Surgical History History of umbilical hernia repair (01/27/19) With mesh Family History Family History Mother Cerebrovascular accident Sibling Cerebrovascular accident, Onset Age: 57 Diabetes mellitus Hypertension Heart disease Father Diabetes mellitus Hypertension Heart disease Social History Social History Social History: He has smoked as much as 1 pack of cigarettes per day for 60 years. He is now smoking about half a pack of cigarettes per day. He reports that he quit school in the 3rd grade and is functionally illiterate. 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 Code status: DNR/DNI Surrogate decision maker: Daughter Smoking packs per day: 1 Smoking cigarettes per day: 20.0 Years smoked: 60 Smoking pack-years: 60.00 Smoking status: Light tobacco smoker Tobacco type: cigarettes Second hand tobacco smoke exposure: Yes Alcohol intake: never Substance use: never Lack of Transportation: No Lack of Food: Never True Current Housing: I Have Housing Concerned About Future Housing: No Difficulty Paying Gas/Electric Bills: No Difficulty Paying for Meds: No Currently Unemployed: No Education: Grade School Difficulty w/ Childcare or Family Care: No Spiritual care concerns: No Exam Narrative:
[2022-09-22] MEDS: predniSONE 20 MG TABLET 60 MG PO (22:35)
[2022-09-22 22:36] LABS: Basophils Absolute Auto 0.1 K/mm3 (0.0-0.1); Basophils Percent Auto 0.4 % (0.2-1.2); Eosinophils Absolute Auto 0.2 K/mm3 (0-0.3); Eosinophils Percent Auto 1.1 % (0-4.4); Hematocrit 38.5 % (42.0-52.0); Hemoglobin 13.3 g/dL (14.0-18.0); Immature Granulocyte Absolute 0.11 K/mm3 (0.00-0.031); Immature Granulocyte Percent A 0.8 % (0-0.5); Lymphocytes Absolute Auto 1.87 K/mm3 (0.9-3.2); Lymphocytes Percent Auto 14.3 % (18.3-44.2); Mean Corpuscular HGB Conc 34.5 g/dl (32-36); Mean Corpuscular Hemoglobin 30.6 pg (26-34); Mean Corpuscular Volume 88.5 fl (80-100); Mean Platelet Volume 8.9 fl (7.4-10.4); Monocytes Absolute Auto 1.5 K/mm3 (0.1-0.6); Monocytes Percent Auto 11.7 % (2.6-8.5); Neutrophils Absolute Auto 9.4 K/mm3 (1.3-6.7); Neutrophils Percent Auto 71.7 % (45.5-73.1); Platelet Count Result 263 k/mm3 (150-375); Red Blood Count 4.35 M/mm3 (4.6-6.20); Red Cell Distribution Width 13.3 % (11.5-14.5); White Blood Count 13.1 K/mm3 (4.5-10.0)
[2022-09-22] MEDS: IPRATROPIUM BR 0.02% INH SOLN 0.5 MG/2.5 ML VIAL INHALATION (22:43)
[2022-09-22] MEDS: ALBUTEROL SULFATE NEB 2.5 MG/3 ML INH 5 MG INHALATION (22:43)
[2022-09-22 22:49] LABS: Alanine Aminotransferase 15 U/L (6-50); Alkaline Phosphatase 84 U/L (38-126); Anion Gap 7 mmol/L (8-16); Aspartate Amino Transferase 18 U/L (17-59); Bilirubin,Total 0.7 mg/dL (0.2-1.3); Blood Urea Nitrogen 23 mg/dL (9-20); Calcium 8.4 mg/dL (8.4-10.2); Carbon Dioxide 29 mmol/L (22-30); Chloride 104 mmol/L (98-107); Estimated CRCL calculation 39 ml/min; Estimated Glomerular Filt Rate 51; Glucose 112 mg/dL (65-110); Potassium 3.6 mmol/L (3.4-5.0); Sodium 140 mmol/L (137-145)
[2022-09-22 22:59] LABS: Troponin I 0.015 ng/mL (0.000-0.034)
--- NOTE | 2022-09-22 23:10 | PC.NURSE ---
Report received from VELVET Dewitt. Assumed care of patient at this time.
[2022-09-22 23:13] LABS: Influenza A QL RT-PCR Negative (Negative); Influenza B QL RT-PCR Negative (Negative); RSV RNA, RT-PCR Negative (Negative); SARS-CoV-2 RNA PCR Negative
[2022-09-23] VITALS (23 sets, daily range): BP systolic 119–136; BP diastolic 46–77; PULSE 62–992; RESP 14–26; TEMP 36.2–36.8; O2SAT 93–98; BMI 23.8
[2022-09-23] MEDS: SODIUM CHLORIDE 0.9% IV 1,000 ML 999 ML IV CONT (00:18)
[2022-09-23] MEDS: MAGNESIUM SULF 2 GM/WATER 50ML 2 GM/50 ML BAG IVPB (00:46)
--- NOTE | 2022-09-23 01:41 | ADMGEN ---
This patient, Seth Guajardo, was admitted to Medical Room 251-. Patient/family oriented to hospital policies and general routines including ID bracelet, bed and alarms, visiting hours, pain management, procedures, bathroom and other care routines, personal items, smoking policy, room service/diet, and visiting hours. Information on how to activate the Rapid Response Team has been discussed. Patient/Family are encouraged to report perceived risks to care and to ask questions if they do not understand what they are told or what they should do.
[2022-09-23] MEDS: IPRATROPIUM BR 0.02% INH SOLN 0.5 MG/2.5 ML VIAL INHALATION ×3 (03:28→15:56)
[2022-09-23] MEDS: ALBUTEROL SULFATE NEB 2.5 MG/3 ML INH 5 MG INHALATION ×3 (03:28→15:55)
[2022-09-23 03:42] LABS: Troponin I 0.013 ng/mL (0.000-0.034)
--- NOTE | 2022-09-23 04:13 | PM.IMHP ---
H&P: HPI History of Present Illness Date/Time: 09/23/22 04:13 Chief Complaint: Shortness of breath and cough Narrative: 67-year-old male with past medical history of COPD with continued tobacco use who presented to the ER with shortness of breath and cough ongoing for 3 weeks. The patient reports that he called his primary care doctor proximally 2 weeks ago and his primary care doctor would not give him prescriptions for prednisone and were antibiotics over the phone sella patient refused to come in for evaluation. He did manage to get a refill on his albuterol and Atrovent nebulizers at home but has only been using these once a day. Is nebulizers warm providing much in form of relief. He denies any fevers or chills. He denies any recent ill contacts. He refuses to received the influenza or COVID vaccines. His influenza and flu PCR were negative in the ER. The patient received albuterol and Atrovent treatment in the ER and 1 dose of Rocephin and azithromycin as well as 60 mg of prednisone. The patient reports that since he received his 2nd albuterol treatment after arriving on the medical floor he has managed to clear a lot of his mucus after a significant coughing episode. He reports that he feels remarkably better compared to when he came in. The patient would be interested in going home if he remains stable this afternoon. He reports that he has been compliant with his long-acting inhalers but had not been using his nebulizers except for once a day. He reports that he has successfully quit smoking will for in the past but when he sits at home alone he gets stressed out and or board and start smoking again. He is truly interested in quitting smoking at this time and does not want a nicotine patch as he states that he is not interested in smoking lays in the hospital. His last cigarette was 6 days ago. He reports perceptual disturbances with prednisone use. He denies actual hallucinations but states that when he wakes up he feels like he has to repeat the same actions that he did as he fell asleep. He denies any recent confusion. He denies any falls or head injury. Review of Systems Review of Systems: 12 systems were reviewed with pertinent positives and negatives per HPI. Except as documented in the HPI, all other systems were reviewed and are negative. [facility] Past Medical History Medical History (Updated 09/23/22 @ 11:33 by Usha Silvestre PA-C) Benign prostatic hyperplasia with nocturia Chronic kidney disease, stage 3 COPD (chronic obstructive pulmonary disease) PFT 02/16/2022: Moderately severe obstructive airway disease with evidence of air trapping without bronchodilator response. Severely reduced lung diffusion capacity. FEV1 to FVC ratio 41% Essential hypertension Hepatitis C Hyperlipidemia Left inguinal hernia Small not surgically corrected Smoker SVT (supraventricular tachycardia) Umbilical hernia without obstruction or gangrene Surgical History Surgical History History of umbilical hernia repair (01/27/19) With mesh Family History Family History Mother Cerebrovascular accident Sibling Cerebrovascular accident, Onset Age: 57 Diabetes mellitus Hypertension Heart disease Father Diabetes mellitus Hypertension Heart disease Social History Social History Social History: He has smoked as much as 1 pack of cigarettes per day for 60 years. He is now smoking about half a pack of cigarettes per day. He reports that he quit school in the 3rd grade and is functionally illiterate. 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 Code status: DNR/DNI Surrogate decision maker: Daughter Smoking packs per day: 1 Smoking cigarettes per day: 20.0 Years smoked: 60 Smoking pack-
[2022-09-23 05:30] LABS: Troponin I 0.013 ng/mL (0.000-0.034)
[2022-09-23] MEDS: FLUTICASONE/UMECLIDIN/VILANTER 100-62.5-25 MCG ELLIPTA 1 PUFF INHALATION (09:20)
[2022-09-23] MEDS: predniSONE 20 MG TABLET 40 MG PO (09:41)
[2022-09-23] MEDS: ASPIRIN 81 MG ENTERIC TABLET PO (09:42)
[2022-09-23] MEDS: IRBESARTAN 150 MG TABLET 300 MG PO (09:42)
[2022-09-23] MEDS: hydroCHLOROthiazide 12.5 MG CAPSULE PO (09:42)
--- NOTE | 2022-09-23 11:26 | PM.IMPN ---
Progress Note: A&P Assessment and Plan (1) COPD exacerbation: Code(s): J44.1 - Chronic obstructive pulmonary disease with (acute) exacerbation Status: Acute Assessment and Plan: X-ray:no evidence of pneumonia, no active cardiopulmonary process No fever leukocytosis Patient given 1 dose of Rocephin and azithromycin in the ER Continue on azithromycin Prednisone 40 mg a day for 5 days Encouraged more frequent use of nebulizer machine when ill at home Patient has diffuse mild wheezing on auscultation Continue current treatment regimen (2) Tobacco use: Code(s): Z72.0 - Tobacco use Status: Acute Assessment and Plan: Patient interested in quitting Last cigarette 6 days ago Denies nicotine patch (3) Headache: Code(s): R51.9 - Headache, unspecified Status: Acute Assessment and Plan: Tylenol p.r.n. Time Spent With Patient Time with patient: Greater than 35 minutes Subjective Date/time seen: 09/23/22 11:26 Interval history: 67-year-old with history of COPD, hepatitis-C and chronic tobacco use. Patient admitted due to COPD exacerbation. When interviewed the patient he is sitting up in bed comfortably with breathing treatment on. Patient states that he does feel much better with the breathing treatments. States that he is no longer short of breath and has been able to cough up some ?gunk?. Although patient shortness of breath has not improved he is still having diffuse wheezing throughout the lungs. Patient denies fever, nausea, vomiting, diarrhea. Review of Systems Review of Systems: All systems reviewed & are unremarkable except as noted in HPI and below Exam Narrative: GENERAL: Comfortable, no acute distress HENMT: moist mucous membranes EYES: EOM intact b/l NECK: no lymphadenopathy RESPIRATORY: Mild diffuse wheezing, distant lung sounds CARDIO: Distant heart sounds, RRR GI: soft, nontender, bowel sounds present SKIN: no rashes EXTREMITIES: no edema, redness or tenderness Objective Data Vital Signs Vital Signs: Vital Signs - 24 hr 09/22/22 21:29 09/22/22 21:38 09/22/22 22:30 Temperature 97.6 F Pulse Rate 100 96 95 Respiratory Rate 28 H 25 H Blood Pressure 146/72 H 139/81 Pulse Oximetry 95 98 97 Oxygen Delivery Room Air 09/22/22 22:15 09/22/22 22:47 09/23/22 00:25 Temperature Pulse Rate 101 H 87 Respiratory Rate 27 H 21 H Blood Pressure 140/89 Pulse Oximetry 97 95 Oxygen Delivery Room Air 09/22/22 23:07 09/22/22 23:15 09/23/22 00:21 Temperature Pulse Rate 84 81 88 Respiratory Rate 21 H 23 H 23 H Blood Pressure 129/73 Pulse Oximetry 99 95 97 Oxygen Delivery 09/23/22 00:30 09/23/22 00:31 09/23/22 00:57 Temperature Pulse Rate 80 94 84 Respiratory Rate 23 H 22 H Blood Pressure 125/59 L Pulse Oximetry 94 93 94 Oxygen Delivery 09/23/22 01:00 09/23/22 01:01 09/23/22 01:15 Temperature Pulse Rate 82 81 100 Respiratory Rate 21 H 22 H 26 H Blood Pressure 121/73 Pulse Oximetry 93 Oxygen Delivery 09/23/22 01:30 09/23/22 03:29 09/23/22 03:29 Temperature 98 F Pulse Rate 97 992 H Respiratory Rate 14 20 Blood Pressure 132/77 Pulse Oximetry 97 97 Oxygen Delivery Room Air 09/23/22 03:59 09/23/22 04:16 09/23/22 05:20 Temperature 97.4 F L Pulse Rate 82 84 85 Respiratory Rate 14 Blood Pressure 128/68 Pulse Oximetry 98 Oxygen Delivery 09/23/22 09:14 09/23/22 09:14 09/23/22 09:28 Temperature Pulse Rate 70 78 Respiratory Rate 20 20 Blood Pressure Pulse Oximetry 95 Oxygen Delivery Room Air Intake/Output Intake/Output: Intake & Output 09/20/22 09/21/22 09/22/22 09/23/22 23:59 23:59 23:59 23:59 Intake Total 1390 Balance 1390 Meds/Results Medications: Active Medications Generic Name Dose Route Start Last Admin Trade Name Freq PRN Reason Stop Dose Admin Albuterol 5 mg 09/23/22 02:00 09/23/22 09:13 Albut
[2022-09-23] MEDS: TAMSULOSIN HCL 0.4 MG CAPSULE PO (20:59)
[2022-09-24] VITALS: PULSE 73
[2022-09-24 03:02] VITALS: BP 128/55; PULSE 74; RESP 18; TEMP 36.6; O2SAT 98
[2022-09-24 04:00] VITALS: PULSE 54
[2022-09-24 05:11] LABS: Hematocrit 29.9 % (42.0-52.0); Hemoglobin 10.5 g/dL (14.0-18.0); Mean Corpuscular HGB Conc 35.1 g/dl (32-36); Mean Corpuscular Hemoglobin 30.3 pg (26-34); Mean Corpuscular Volume 86.4 fl (80-100); Mean Platelet Volume 9.5 fl (7.4-10.4); Platelet Count Result 256 k/mm3 (150-375); Red Blood Count 3.46 M/mm3 (4.6-6.20); Red Cell Distribution Width 13.1 % (11.5-14.5); White Blood Count 12.6 K/mm3 (4.5-10.0)
[2022-09-24 05:33] LABS: Alanine Aminotransferase 15 U/L (6-50); Albumin Level 3.2 g/dL (3.5-5.1); Alkaline Phosphatase 57 U/L (38-126); Anion Gap 5 mmol/L (8-16); Aspartate Amino Transferase 18 U/L (17-59); Bilirubin,Total 0.5 mg/dL (0.2-1.3); Blood Urea Nitrogen 20 mg/dL (9-20); Calcium 8.2 mg/dL (8.4-10.2); Carbon Dioxide 29 mmol/L (22-30); Chloride 100 mmol/L (98-107); Estimated CRCL calculation 50 ml/min; Estimated Glomerular Filt Rate > 60; Glucose 108 mg/dL (65-110); Potassium 3.3 mmol/L (3.4-5.0); Sodium 134 mmol/L (137-145)
[2022-09-24] MEDS: IRBESARTAN 150 MG TABLET 300 MG PO (09:01)
[2022-09-24] MEDS: ASPIRIN 81 MG ENTERIC TABLET PO (09:01)
[2022-09-24] MEDS: hydroCHLOROthiazide 12.5 MG CAPSULE PO (09:01)
[2022-09-24] MEDS: predniSONE 20 MG TABLET 40 MG PO (09:01)
[2022-09-24 09:14] VITALS: PULSE 74; RESP 20; O2SAT 94
[2022-09-24] MEDS: IPRATROPIUM BR 0.02% INH SOLN 0.5 MG/2.5 ML VIAL INHALATION (09:14)
[2022-09-24] MEDS: ALBUTEROL SULFATE NEB 2.5 MG/3 ML INH 5 MG INHALATION (09:14)
[2022-09-24 09:32] VITALS: PULSE 81; RESP 22
--- NOTE | 2022-09-24 10:33 | PM.DS ---
DS: Admitting Diagnosis Discharge Date 09/24/22 Admitting Diagnosis COPD exacerbation DS: Discharge Diagnosis Discharge Diagnosis (1) COPD exacerbation: Code(s): J44.1 - Chronic obstructive pulmonary disease with (acute) exacerbation Status: Acute Assessment and Plan: X-ray:no evidence of pneumonia, no active cardiopulmonary process No fever leukocytosis Patient given 1 dose of Rocephin and azithromycin in the ER Continue on azithromycin Prednisone 40 mg a day for 5 days Encouraged more frequent use of nebulizer machine when ill at home Patient has diffuse mild wheezing on auscultation Continue current treatment regimen (2) Tobacco use: Code(s): Z72.0 - Tobacco use Status: Acute Assessment and Plan: Patient interested in quitting Last cigarette 6 days ago Denies nicotine patch (3) Headache: Code(s): R51.9 - Headache, unspecified Status: Acute Assessment and Plan: Tylenol p.r.n. DS: Summary Hospital Course Reason for hospitalization: COPD exacerbation Hospital Course: C7 year old male with history of COPD arrived to the ER on 09/22/2022 due to dip see a on exertion. Patient unable to complete ADLs due to dyspnea. Patient also states he has a productive cough of yellow-green sputum. Patient using inhalers without relief at home although is only using inhalers once a day. Patient admitted and given nebulizer treatment. Treatments provided relief. Patient put on azithromycin and prednisone for 5 days. When patient seen next day he was still having diffuse wheezing. Patient did not require any additional oxygen and was satting in the 90s on room air. Patient was eager to be discharge and he was stable. Discussed with him the importance of using home inhalers. Patient is a current cigarette smoker but is trying to quit. Patient was wanting to try Chantix. Discussed with patient the risks and benefits on this medication. Patient verbalizes understanding and is willing to try medication for smoking cessation. Time spent discussing smoking cessation with patient: more than 10 minutes Time Spent with Patient Time attestation: Total time spent providing and/or coordinating discharge services: DS: Data Data Completed and Pending Labs on day of discharge: Labs from last 24 hours 09/24/22 09/24/22 04:45 04:45 WBC 12.6 H RBC 3.46 L Hgb 10.5 L Hct 29.9 L MCV 86.4 MCH 30.3 MCHC 35.1 RDW 13.1 Plt Count 256 MPV 9.5 Sodium 134 L Potassium 3.3 L Chloride 100 Carbon Dioxide 29 Anion Gap 5 L BUN 20 Creatinine 1.10 Estim Creat Clear Calc 50 Estimated GFR > 60 Glucose 108 Calcium 8.2 L Total Bilirubin 0.5 AST 18 ALT 15 Alkaline Phosphatase 57 Total Protein 6.0 L Albumin 3.2 L Preliminary micro results at discharge 09/23/22 02:59 Sputum Culture - Preliminary Sputum 09/23/22 00:02 Blood Culture - Preliminary Blood 09/23/22 00:13 Blood Culture - Preliminary Blood Discharge Plan Discharge Attending physician on discharge: Jannet Springer Discharging Clinician: Usha Silvestre Patient Disposition: Home, Self-Care Activity: as tolerated Diet: as tolerated Discharge Instructions: Discharge disposition: Take medications as prescribed Increase use of home inhalers as needed. Encourage smoking cessation. Prescribed Varenicline (Chantix) for smoking cessation. Follow the instructions on the dose pack. Side affects: abnormal dreams and nightmares, nausea, depression, suicidal ideation, suicidal behavior, seizures. Most of these side effects are present in high medication doses and/or during the first 1-2 months of medication use. If experiencing any of these side effects please contact your provider and discontinue the medication. Avoid social areas, you wear a mask when in social settings Encouraged to continue with yearly vaccinations Return to the emergency d
== END 2022-09-24 11:38 | disposition home or self-care (01) ==
LOC: ANHED 23:29 → ANH2MED 09-23 02:22
PROVIDERS: Internal Medicine Critical Care Medicine; Physician Assistant; Admitting Provider Internal Medicine; Emergency Provider Emergency Medicine; PCP Physician Assistant; Visit Provider Student in an Organized Health Care Education/Training Program
DX: J44.1 Chronic obstructive pulmonary disease with (acute) exacerbation (principal); N40.0 Benign prostatic hyperplasia without lower urinary tract symptoms; K40.90 Unilateral inguinal hernia, without obstruction or gangrene, not specified as recurrent; K42.9 Umbilical hernia without obstruction or gangrene; E78.5 Hyperlipidemia, unspecified; I10 Essential (primary) hypertension; R51.9 Headache, unspecified; R94.31 Abnormal electrocardiogram [ECG] [EKG]; R06.82 Tachypnea, not elsewhere classified; Z20.822 Contact with and (suspected) exposure to COVID-19; F17.210 Nicotine dependence, cigarettes, uncomplicated; Z86.19 Personal history of other infectious and parasitic diseases; Z66 Do not resuscitate; R00.0 Tachycardia, unspecified; I45.10 Unspecified right bundle-branch block; Z71.6 Tobacco abuse counseling; Z79.51 Long term (current) use of inhaled steroids; Z79.82 Long term (current) use of aspirin; Z79.52 Long term (current) use of systemic steroids; Z79.899 Other long term (current) drug therapy; Z82.49 Family history of ischemic heart disease and other diseases of the circulatory system
CPT/HCPCS: 36415; 71046; 80053; 84484; 85025; 85027; 87040; 87070; 87205; 87637; 93005; 94640; 96361; 96365; 96375; 96376; 99285; A9270; G0378; J0456; J0696; J3475; J7030; J7512

== ENCOUNTER 2022-10-21 14:56 | Observation (INO) | payer MEDICARE, MEDICAID, SELFPAY ==
[2022-10-21] VITALS (11 sets, daily range): BP systolic 93–123; BP diastolic 62–73; PULSE 63–85; RESP 16–20; TEMP 36.2–36.4; O2SAT 97–100; BMI 23.3
--- NOTE | ~2022-10-21 | US_ITS ---
EXAMINATION: US carotid duplex BI DATE: 10/22/2022 09:51 INDICATION: Syncope. TECHNIQUE: Grayscale, color Doppler, and pulsed Doppler images of the cervical carotid arteries were obtained. The degree of vessel stenosis is placed in one of the following categories: normal, <50%, 5 0-69%, >=70% but less than near-occlusion, near-occlusion, or total occlusion. Note that percent sten osis relative to normal distal artery lumen diameter is indirectly measured from velocity measurement s as described by Josr, et al. Radiology 2003; 229:[id number]. COMPARISON: None. FINDINGS: RIGHT: The right common carotid artery (CCA) peak systolic velocity (PSV) is 58 cm/s. The right internal car otid artery (ICA) PSV is 81 cm/s. The right ICA end-diastolic velocity (EDV) is 32 cm/s. The right IC A/CCA PSV ratio is 1.4. Grayscale and color Doppler images yield an estimate of <50% diameter reducti on from plaque in the ICA. There is antegrade flow in the right vertebral artery. LEFT: The left CCA PSV is 65 cm/s. The left ICA PSV is 92 cm/s. The left ICA EDV is 35 cm/s. The left ICA/C CA PSV ratio is 1.4. Grayscale and color Doppler images yield an estimate of <50% diameter reduction from plaque in the ICA. There is antegrade flow in the left vertebral artery. IMPRESSION: 1. <50% stenosis in the right internal carotid artery. 2. <50% stenosis in the left internal carotid artery. Reviewed, dictated and finalized at location A. OR HRIS ANALYST
--- NOTE | ~2022-10-21 | XR_ITS ---
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 RESULT: Lines, tubes, and devices: None. Lungs and pleura: Emphysematous/senescent change. No focal consolidation, pneumothorax, or large eff usion. Cardiomediastinal silhouette: Stable. Other: No acute osseous or upper abdominal finding. IMPRESSION: No acute cardiopulmonary process. Reviewed, dictated and finalized at location K. SEAM ENVELOPE MACHINE OPERATOR
--- NOTE | 2022-10-21 15:20 | ECG_ITS ---
Measurements Intervals [place] Rate: 62 P: -62 MT: 126 QRS: 85 QRSD: 142 T: 68 QT: 426 QTc: 433 Interpretive Statements SINUS OR ECTOPIC ATRIAL RHYTHM WITH SHORT MT INTERVAL RIGHT BUNDLE BRANCH BLOCK BASELINE ARTIFACT- I, II, III, AVR, AVL, AVF ABNORMAL ECG COMPARED TO ECG 09/22/2022 22:16:31 NO SIGNIFICANT CHANGES Electronically Signed On 10-21-2022 17:32:03 [place] [employer] by Edmar Zhou D.O.
[2022-10-21 15:29] LABS: Glucose Point of Care 113 mg/dl (65-105)
[2022-10-21] MEDS: SODIUM CHLORIDE 0.9% IV 1,000 ML 999 ML IV CONT ×2 (15:38→16:34)
[2022-10-21] MEDS: ASPIRIN 81 MG CHEWABLE TABLET 324 MG PO (15:39)
[2022-10-21 15:50] LABS: Basophils Percent Auto 0.3 % (0.2-1.2); Eosinophils Absolute Auto 0.1 K/mm3 (0-0.3); Eosinophils Percent Auto 1.7 % (0-4.4); Hematocrit 37.9 % (42.0-52.0); Hemoglobin 13.6 g/dL (14.0-18.0); Immature Granulocyte Absolute 0.02 K/mm3 (0.00-0.031); Immature Granulocyte Percent A 0.3 % (0-0.5); Immature Platelet Fraction Pct 4.5 % (0.9-11.2); Lymphocytes Absolute Auto 3.18 K/mm3 (0.9-3.2); Lymphocytes Percent Auto 48.4 % (18.3-44.2); Mean Corpuscular HGB Conc 35.9 g/dl (32-36); Mean Corpuscular Hemoglobin 30.4 pg (26-34); Mean Corpuscular Volume 84.6 fl (80-100); Mean Platelet Volume 10.4 fl (7.4-10.4); Monocytes Absolute Auto 0.7 K/mm3 (0.1-0.6); Monocytes Percent Auto 11.3 % (2.6-8.5); Neutrophils Absolute Auto 2.5 K/mm3 (1.3-6.7); Platelet Count Result 146 k/mm3 (150-375); Red Blood Count 4.48 M/mm3 (4.6-6.20); Red Cell Distribution Width 13.5 % (11.5-14.5); White Blood Count 6.6 K/mm3 (4.5-10.0)
[2022-10-21 16:00] LABS: Alanine Aminotransferase 21 U/L (6-50); Albumin Level 3.7 g/dL (3.5-5.1); Alkaline Phosphatase 79 U/L (38-126); Anion Gap 9 mmol/L (8-16); Aspartate Amino Transferase 31 U/L (17-59); Bilirubin,Total 0.3 mg/dL (0.2-1.3); Blood Urea Nitrogen 31 mg/dL (9-20); Calcium 7.9 mg/dL (8.4-10.2); Carbon Dioxide 21 mmol/L (22-30); Chloride 102 mmol/L (98-107); Estimated CRCL calculation 32 ml/min; Estimated Glomerular Filt Rate 36; Glucose 102 mg/dL (65-110); Lipase 140 U/L (23-300); Potassium 4.1 mmol/L (3.4-5.0); Sodium 132 mmol/L (137-145)
[2022-10-21 16:03] LABS: INR 0.9; Partial Thromboplastin Time 27.1 SECONDS (22.3-36.8); Prothrombin Time 12.2 Seconds (11.1-14.7)
[2022-10-21 16:11] LABS: Troponin I 0.032 ng/mL (0.000-0.034)
--- NOTE | 2022-10-21 16:43 | ED.CHESTPAIN ---
HPI - Chest Pain General Chief Complaint: Chest Pain Stated Complaint: chest pain Time Seen by Provider: 10/21/22 15:28 History of Present Illness HPI narrative: Patient is a 67-year-old male who presents ER with chest pain. Reports chest pain for 3 days. Central and burning. No radiation. Patient was then waiting room and went to triage when he had a syncopal episode and was brought to the back. Patient incontinent of urine. Partial while in the 90s. Patient woke up after lying down and being put in Trendelenburg. Patient reports pain is been continuous. Cannot describe aggravating or alleviating factors. Reports he had a heart cath 8 years ago that showed a 70% lesion but he has no stents. He does not follow with a doctor. Patient has had a couple admissions in the last year for COPD. Related Data Home Medications Medication Instructions Recorded Confirmed tamsulosin 0.4 mg capsule 0.4 mg PO HS 04/29/21 10/06/22 loratadine 10 mg tablet 10 mg PO DAILY 05/02/22 10/06/22 trazodone 50 mg tablet 25 mg PO HS PRN Sleep 05/02/22 10/06/22 aspirin 81 mg tablet,delayed 81 mg PO DAILY 05/09/22 10/06/22 release Allergies Allergy/AdvReac Type Severity Reaction Status Date / Time Penicillins Allergy Unknown unknown Verified 10/21/22 15:53 Review of Systems Review of Systems: All systems reviewed & are unremarkable except as noted in HPI and below Constitutional: Constitutional: Denies chills, Denies fatigue and Denies fever(s) ENT: Denies nasal congestion and Denies sore throat Cardiovascular: Cardiovascular: Reports chest pain, Denies rapid heart rate and Denies radiating jaw, neck or arm pain Respiratory: Respiratory: Denies cough and Denies wheezing Gastrointestinal: Gastrointestinal: Denies abdominal pain, Denies nausea and Denies vomiting Neurologic: Reports syncope, Denies focal weakness and Denies numbness PMF Past Medical History Medical History Benign prostatic hyperplasia with nocturia Chronic kidney disease, stage 3 COPD (chronic obstructive pulmonary disease) PFT 02/16/2022: Moderately severe obstructive airway disease with evidence of air trapping without bronchodilator response. Severely reduced lung diffusion capacity. FEV1 to FVC ratio 41% Essential hypertension Hepatitis C Hyperlipidemia Left inguinal hernia Small not surgically corrected Smoker SVT (supraventricular tachycardia) Umbilical hernia without obstruction or gangrene Surgical History Surgical History History of umbilical hernia repair (01/27/19) With mesh Family History Family History Mother Cerebrovascular accident Sibling Cerebrovascular accident, Onset Age: 57 Diabetes mellitus Hypertension Heart disease Father Diabetes mellitus Hypertension Heart disease Social History Social History Social History: He has smoked as much as 1 pack of cigarettes per day for 60 years. He is now smoking about half a pack of cigarettes per day. He reports that he quit school in the 3rd grade and is functionally illiterate. 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 Code status: DNR/DNI Surrogate decision maker: Daughter Smoking packs per day: 1 Smoking cigarettes per day: 20.0 Years smoked: 60 Smoking pack-years: 60.00 Smoking status: Light tobacco smoker Tobacco type: cigarettes Second hand tobacco smoke exposure: Yes Alcohol intake: never Substance use: never Lack of Transportation: No Lack of Food: Never True Current Housing: I Have Housing Concerned About Future Housing: No Difficulty Paying Gas/Electric Bills: No Difficulty Paying for Meds: No Currently Unemployed: No Education: Grade School
[2022-10-21 17:23] LABS: Influenza A QL RT-PCR Negative (Negative); Influenza B QL RT-PCR Negative (Negative); SARS-CoV-2 RNA PCR Positive
--- NOTE | 2022-10-21 17:30 | PM.IMHP ---
H&P: HPI History of Present Illness Date/Time: 10/21/22 17:30 Chief Complaint: Chest pain and weakness. Narrative: This is a pleasant 67-year-old male smoker with COPD, chronic kidney disease stage 3, hypertension, and coronary artery disease who presented to the emergency department from home for evaluation of chest pain and weakness. The patient provides the following history though he is somewhat vague with his complaints. From what I can gather he has not been feeling well for about 3 days with decreased appetite and poor oral intake, decreased smell and taste, and generalized malaise and weakness. He has also been experiencing discomfort in the mid to lower chest region that he has difficulties describing to me however he told the ED physician that it felt like a burning discomfort. It does not radiate and he has not noticed any significant aggravating or alleviating factors. He has not been taking any medications at home for his symptoms and he has not been previously evaluated. His sister encouraged him to come in today for evaluation. The patient was in the waiting room for quite some time before being called back to triage and when he got into triage she started to feel very weak and lightheaded and he had a syncopal episode. He came to quite quickly after being placed in Trendelenburg. Blood pressure at that time was 96/67 and it has improved with IV fluids. The rest of his vital signs were stable. Labs were significant for WBC of 6.6, sodium 132, BUN 31, creatinine 1.90 (baseline 1.10 to 1.30), troponin 0.032, lipase 140. He was positive for SARS-CoV-2 by PCR. Chest x-ray showed no acute cardiopulmonary process. EKG showed sinus or ectopic atrial rhythm with short [place] interval and right bundle branch block, not significantly changed from prior tracings. At the time my evaluation he is in his room in IMU and is feeling a bit better. He has no specific complaints. Review of Systems Review of Systems: Twelve systems were reviewed. No fever. No significant sinus congestion or sore throat. He denies productive cough. No vomiting or diarrhea. No dysuria. No melena or hematochezia. He has occasional sensations of racing heart and was previously hospitalized and noted to have paroxysmal supraventricular tachycardia. He was supposed to follow-up with cardiology as an outpatient for an event monitor but that never came to fruition. Except as documented, all other systems were reviewed and are negative. [facility] Past Medical History Medical History Benign prostatic hyperplasia with nocturia Chronic kidney disease, stage 3 COPD (chronic obstructive pulmonary disease) PFT 02/16/2022: Moderately severe obstructive airway disease with evidence of air trapping without bronchodilator response. Severely reduced lung diffusion capacity. FEV1 to FVC ratio 41% Coronary artery disease Per patient a cardiac catheterization done 8 years ago showed 70% blockage in an unknown artery, no intervention undertaken. Essential hypertension Hepatitis C Hyperlipidemia Left inguinal hernia Small not surgically corrected Smoker SVT (supraventricular tachycardia) Umbilical hernia without obstruction or gangrene Surgical History Surgical History History of cardiac catheterization History of umbilical hernia repair (01/27/19) With mesh Family History Family History Mother Cerebrovascular accident Sibling Cerebrovascular accident, Onset Age: 57 Diabetes mellitus Hypertension Heart disease Father Diabetes mellitus Hypertension Heart disease Social History Social History Social History: He has smoked as much as 1 pack of cigarettes per day for 60 years. He is now smoking about half a pack of cigarettes
--- NOTE | 2022-10-21 18:40 | ADMGEN ---
This patient, Seth Guajardo, was admitted to IMU Room 231-01. Patient/family oriented to hospital policies and general routines including ID bracelet, bed and alarms, visiting hours, pain management, procedures, bathroom and other care routines, personal items, smoking policy, room service/diet, and visiting hours. Information on how to activate the Rapid Response Team has been discussed. Patient/Family are encouraged to report perceived risks to care and to ask questions if they do not understand what they are told or what they should do.
[2022-10-21 19:06] LABS: Troponin I 0.027 ng/mL (0.000-0.034)
[2022-10-21] MEDS: SODIUM CHLORIDE 0.9% IV 1,000 ML 125 ML IV CONT (21:28)
[2022-10-21 22:23] LABS: Troponin I 0.024 ng/mL (0.000-0.034)
[2022-10-22] VITALS (17 sets, daily range): BP systolic 114–142; BP diastolic 62–75; PULSE 59–92; RESP 16–20; TEMP 35.9–36.9; O2SAT 98–100
[2022-10-22] MEDS: SODIUM CHLORIDE 0.9% IV 1,000 ML 125 ML IV CONT (05:18)
[2022-10-22 06:44] LABS: Hematocrit 31.6 % (42.0-52.0); Hemoglobin 10.9 g/dL (14.0-18.0); Immature Platelet Fraction Pct 3.4 % (0.9-11.2); Mean Corpuscular HGB Conc 34.5 g/dl (32-36); Mean Corpuscular Hemoglobin 30.3 pg (26-34); Mean Corpuscular Volume 87.8 fl (80-100); Mean Platelet Volume 9.6 fl (7.4-10.4); Platelet Count Result 105 k/mm3 (150-375); Red Cell Distribution Width 13.7 % (11.5-14.5); White Blood Count 2.9 K/mm3 (4.5-10.0)
[2022-10-22 06:58] LABS: Anion Gap 2 mmol/L (8-16); Blood Urea Nitrogen 20 mg/dL (9-20); Calcium 7.2 mg/dL (8.4-10.2); Carbon Dioxide 23 mmol/L (22-30); Chloride 106 mmol/L (98-107); Estimated CRCL calculation 40 ml/min; Estimated Glomerular Filt Rate 51; Glucose 84 mg/dL (65-110); Magnesium 1.9 mg/dL (1.6-2.3); Sodium 131 mmol/L (137-145)
[2022-10-22] MEDS: FLUTICASONE/UMECLIDIN/VILANTER 100-62.5-25 MCG ELLIPTA 1 PUFF INHALATION (09:16)
--- NOTE | 2022-10-22 09:25 | PM.CNCAR ---
Assessment and Plan Assessment and plan (1) Coronary artery disease: Code(s): I25.10 - Atherosclerotic heart disease of [place] coronary artery without angina pectoris Status: Acute Assessment and Plan: soft reported history of CAD on left heart catheterization approximately 10 years ago he reports 70% blockage without intervention has not followed with Cardiology in several years. Continue aspirin 81 mg daily, statin therapy with goal LDL less than 70. Smoking cessation counseling performed. Advised patient will require ongoing cardiovascular follow-up in the future. He is welcome to follow with us as an outpatient he desires. -2D echocardiogram to assess LV size/ function, valve pathology, chamber size and pulmonary pressures. Recommendation to follow. -No indication to proceed with ischemic evaluation at this time as patient has atypical likely noncardiac symptoms without new or acute ECG changes and negative serial troponins with admission. Continue aggressive secondary risk factor modification as discussed. Given the extent of his wheezing will hold off beta-reina therapy at this time. RBBB on ECG is chronic. -Reduce aspirin to 81 mg daily. -Continue telemetry for now. -Check fasting lipid panel in a.m.. (2) Chest pain: Code(s): R07.9 - Chest pain, unspecified Status: Acute Assessment and Plan: No evidence patient ss suffering from acute myocardial infarction at this time. While his chest pain Persists this is improved and is atypical most likely musculoskeletal less likely cardiac or anginal equivalent. However, given reported underlying CAD with risk factors outpatient ischemic evaluation warranted for further risk stratification but would recommend after further recovery from COVID and stabilization in this regard provided patient remains stable. (3) Syncope: Code(s): R55 - Syncope and collapse Status: Acute Assessment and Plan: Clinically consistent with vasovagal etiology and orthostatic hypotension in setting of intravascular volume depletion consistent with acute on chronic renal failure, relative hypotension due to COVID. hemodynamically stable with IV fluid resuscitation. Ambulate with caution. Check orthostatic vital signs. Hold diuretic therapy and antihypertensives until BP is further stabilized. (4) Acute on chronic kidney failure: Code(s): N17.9 - Acute kidney failure, unspecified; N18.9 - Chronic kidney disease, unspecified Status: Acute Assessment and Plan: Improved with IV fluids. Hold antihypertensive and avoid nephrotoxic agents. Continue to monitor renal function electrolytes closely. If patient becomes hypertensive may consider resumption of antihypertensive therapy without hydrochlorothiazide initially. (5) COVID-19: Code(s): U07.1 - COVID-19 Status: Acute Assessment and Plan: Reasonably stable. Continue supportive care, isolation, remdesivir. Telemetry. DVT prophylaxis. (6) COPD exacerbation: Code(s): J44.1 - Chronic obstructive pulmonary disease with (acute) exacerbation Status: Acute Assessment and Plan: Continue bronchodilator therapy, supportive care as above. Smoking cessation counseling. (7) Tobacco use: Code(s): Z72.0 - Tobacco use Status: Acute Assessment and Plan: Smoking cessation counseling. (8) Thrombocytopenia: Code(s): D69.6 - Thrombocytopenia, unspecified Status: Acute Assessment and Plan: monitor closely. May be secondary to acute illness along with leukopenia. No evidence for bleeding , continue to monitor. Continue to follow H&H and platelet count. Reasonable to continue aspirin daily but would reduce to 81 mg. History of Present Illness History of Present Illness Consult date/time: Date of service: 10/22/22 09:25 Requesting physician: Lucie Barraza PA-C Consult reason: chest pain Reason Fo
--- NOTE | 2022-10-22 09:36 | PM.IMPN ---
Progress Note: A&P Assessment and Plan (1) Syncope: Code(s): R55 - Syncope and collapse Status: Acute (2) COVID-19: Code(s): U07.1 - COVID-19 Status: Acute (3) Chest pain: Code(s): R07.9 - Chest pain, unspecified Status: Acute (4) [place] (acute kidney injury): Code(s): N17.9 - Acute kidney failure, unspecified Status: Acute (5) COPD exacerbation: Code(s): J44.1 - Chronic obstructive pulmonary disease with (acute) exacerbation Status: Acute (6) Coronary artery disease: Code(s): I25.10 - Atherosclerotic heart disease of [place] coronary artery without angina pectoris Status: Acute Plan Patient admitted with a syncope episode. Cardiology consult. 2D echo, carotid Dopplers. Resume all home medications. Patient has COVID but is not hypoxic ambulating well no need for remdesivir or steroids. Resume atorvastatin, aspirin, Proscar, Protonix Patient advice to quit smoking. Bronchodilators. As home chest x-ray no acute findings H&H 10.9/31.6 creatinine 1.9-1.4 Avoid nephrotoxic drugs. Monitor antihypertensive drugs Avoid NSAIDs. Routine CMP monitor GFR. 51 Monitor electrolytes potassium levels. Smoking cessation counseling For disease management to follow GOLD guidelines. Screen for Vitamine D deficency. Repeat hospitilaztion risk evaluation per CAT. Evaluation for home O2 if saturations less than 88% on room air Subjective Date/time seen: 10/22/22 09:36 Objective Data Vital Signs Vital Signs: Vital Signs - 24 hr 10/21/22 15:16 10/21/22 15:32 10/21/22 15:50 Temperature 36.2 C L Pulse Rate 78 76 Respiratory Rate 16 Blood Pressure Pulse Oximetry 97 97 Oxygen Delivery Room Air 10/21/22 15:53 10/21/22 15:54 10/21/22 18:07 Temperature Pulse Rate 63 85 Respiratory Rate 16 18 Blood Pressure 96/67 L 93/63 L Pulse Oximetry 100 100 97 Oxygen Delivery Room Air 10/21/22 18:14 10/21/22 19:04 10/21/22 20:06 Temperature 36.3 C L Pulse Rate 85 76 Respiratory Rate 20 20 Blood Pressure 113/70 123/73 Pulse Oximetry 100 99 Oxygen Delivery Room Air 10/21/22 23:33 10/21/22 20:00 10/21/22 20:00 Temperature 36.4 C Pulse Rate 77 68 Respiratory Rate 20 Blood Pressure 120/62 Pulse Oximetry 99 Oxygen Delivery Room Air 10/21/22 22:00 10/22/22 00:00 10/22/22 00:00 Temperature Pulse Rate 71 62 Respiratory Rate Blood Pressure Pulse Oximetry Oxygen Delivery Room Air 10/22/22 02:00 10/22/22 05:17 10/22/22 04:00 Temperature 36.4 C Pulse Rate 60 66 59 L Respiratory Rate 20 Blood Pressure 116/70 Pulse Oximetry 98 Oxygen Delivery 10/22/22 04:00 10/22/22 06:00 10/22/22 08:00 Temperature 36.7 C Pulse Rate 67 75 Respiratory Rate 20 Blood Pressure 131/69 Pulse Oximetry 99 Oxygen Delivery Room Air 10/22/22 08:00 10/22/22 09:35 10/22/22 09:36 Temperature 35.9 C L Pulse Rate 63 Respiratory Rate Blood Pressure 138/68 119/74 114/70 Pulse Oximetry 98 Oxygen Delivery Intake/Output Intake/Output: Intake & Output 10/19/22 10/20/22 10/21/22 10/22/22 23:59 23:59 23:59 23:59 Intake Total 1999 1400 Output Total 450 Balance 1999 950 Meds/Results Medications: Active Medications Generic Name Dose Route Start Last Admin Trade Name Freq PRN Reason Stop Dose Admin Acetaminophen 650 mg 10/21/22 23:38 Acetaminophen 325 Mg Tablet PO Q6H PRN Mild Pain (1-3) or Fever Hydrocodone Bitart/Acetaminophen 1 tab 10/21/22 16:49 Hydrocodone/Acetaminophen (*Crx) 5-325 Mg Tablet PO Q4H PRN Pain Rated 4-6 Aspirin 325 mg 10/22/22 09:00 Aspirin 325 Mg Enteric Tablet PO DAILY [facility] Atorvastatin Calcium 20 mg 10/22/22 09:00 Atorvastatin 20 Mg Tablet BY MOUTH DAILY [facility] Finasteride 5 mg 10/22/22 09:00 Finasteride 5 Mg Tablet PO DAILY [facility] Fluticasone/Ume
[2022-10-22] MEDS: POTASSIUM CHLORIDE 10 MEQ TABLET.ER PO (09:58)
[2022-10-22] MEDS: PANTOPRAZOLE 40 MG TABLET PO (09:58)
[2022-10-22] MEDS: FINASTERIDE 5 MG TABLET PO (09:58)
[2022-10-22] MEDS: ASPIRIN 325 MG ENTERIC TABLET PO (09:58)
[2022-10-22] MEDS: ATORVASTATIN 20 MG TABLET BY MOUTH (09:58)
[2022-10-22] MEDS: VARENICLINE 1 MG TABLET PO (10:00)
[2022-10-22 11:35] LABS: Cholesterol 108 mg/dL (0-200); HDL Direct 23 mg/dL; Triglycerides 161 mg/dL (<150)
[2022-10-22 11:45] LABS: LDL Cholesterol Direct 55 mg/dL
[2022-10-23] VITALS (10 sets, daily range): BP systolic 139–145; BP diastolic 74–79; PULSE 49–71; RESP 18–22; TEMP 36.4–36.9; O2SAT 99–100
[2022-10-23] MEDS: POTASSIUM CHLORIDE 10 MEQ TABLET.ER PO (09:29)
[2022-10-23] MEDS: FINASTERIDE 5 MG TABLET PO (09:29)
[2022-10-23] MEDS: ASPIRIN 325 MG ENTERIC TABLET PO (09:29)
[2022-10-23] MEDS: PANTOPRAZOLE 40 MG TABLET PO (09:29)
[2022-10-23] MEDS: VARENICLINE 1 MG TABLET PO (09:29)
[2022-10-23] MEDS: ATORVASTATIN 20 MG TABLET BY MOUTH (09:29)
[2022-10-23] MEDS: FLUTICASONE/UMECLIDIN/VILANTER 100-62.5-25 MCG ELLIPTA 1 PUFF INHALATION (09:45)
--- NOTE | 2022-10-23 14:07 | PM.DS ---
DS: Admitting Diagnosis Discharge Date 10/24/2022 Admitting Diagnosis Chest pain and weakness. DS: Discharge Diagnosis Discharge Diagnosis (1) Syncope: Code(s): R55 - Syncope and collapse Status: Acute Assessment and Plan: Patient has COVID but is not hypoxic ambulating well no need for remdesivir or steroids.? Resume atorvastatin, aspirin, Proscar, Protonix Patient advice to quit smoking. Bronchodilators.? As home chest x-ray no acute findings (2) Acute on chronic kidney failure: Code(s): N17.9 - Acute kidney failure, unspecified; N18.9 - Chronic kidney disease, unspecified Status: Acute Assessment and Plan: creatinine 1.4 (3) Chest pain: Code(s): R07.9 - Chest pain, unspecified Status: Acute Assessment and Plan: Patient admitted with a syncope episode.? Cardiology consult.? 2D echo, carotid Dopplers.? Resume all home medications.? smoking cessation adviced ? (4) COVID-19: Code(s): U07.1 - COVID-19 Status: Acute Assessment and Plan: This is a pleasant 67-year-old male smoker with COPD, chronic kidney disease stage 3, hypertension, and coronary artery disease who presented to the emergency department from home for evaluation of chest pain and weakness. The patient provides the following history though he is somewhat vague with his complaints. From what I can gather he has not been feeling well for about 3 days with decreased appetite and poor oral intake, decreased smell and taste, and generalized malaise and weakness. He has also been experiencing discomfort in the mid to lower chest region that he has difficulties describing to me however he told the ED physician that it felt like a burning discomfort. It does not radiate and he has not noticed any significant aggravating or alleviating factors. He has not been taking any medications at home for his symptoms and he has not been previously evaluated. His sister encouraged him to come in today for evaluation. The patient was in the waiting room for quite some time before being called back to triage and when he got into triage she started to feel very weak and lightheaded and he had a syncopal episode. He came to quite quickly after being placed in Trendelenburg. Blood pressure at that time was 96/67 and it has improved with IV fluids. The rest of his vital signs were stable. Labs were significant for WBC of 6.6, sodium 132, BUN 31, creatinine 1.90 (baseline 1.10 to 1.30), troponin 0.032, lipase 140. He was positive for SARS-CoV-2 by PCR. Chest x-ray showed no acute cardiopulmonary process. EKG showed sinus or ectopic atrial rhythm with short [place] interval and right bundle branch block, not significantly changed from prior tracings. Pt stable or dc not needing oxygen cardiology have reviewed his echo and recommend discharge. Pt has a history of CAD on left heart catheterization approximately 10 years ago he reports 70% blockage without intervention has not followed with Cardiology in several years.? Continue aspirin 81 mg daily, statin therapy with goal LDL less than 70.? Smoking cessation and pt is welcome to follow with us as an outpatient he desires. (5) Mild dehydration: Code(s): E86.0 - Dehydration Status: Resolved Assessment and Plan: Resolved with iv fluids (6) Tobacco use: Code(s): Z72.0 - Tobacco use Status: Acute (7) Coronary artery disease: Code(s): I25.10 - Atherosclerotic heart disease of [place] coronary artery without angina pectoris Status: Acute DS: Summary Hospital Course Hospital Course: The patient presented to the emergency department for evaluation of mid to lower chest pain and weakness the last several days. His appetite has also been poor with decreased smell and taste and generalized weakness and malaise. He tested positive for COVID which may very well explain some of his symptoms. Patient may benefit from remdesivir as he is at higher r
--- NOTE | 2022-10-23 23:39 | ECHO_ITS ---
Patient Info Name: Seth Guajardo Age: 67 years : 1955 Gender: Male Ht: 65 in Wt: 140 lbs BSA: 1.71 m2 HR: 61 bpm BP: 145 / 74 mmHg Heart Rhythm: Sinus Rhythm Exam Date: 10/23/2022 10:21 AM Exam Location: [facility] Pulmonary Patient Status: Inpatient Admit Date: 10/21/2022 Staff Ordering Physician: Lucie Barraza PA-C Milk Tanker Driver: Star Chaney, MIAN, RT Attending Provider: Kenneth Lau MD Referring Physician: Christi ALCOCER; Exam Type: CA echo doppler color flow Study Info Indications I10 - Essential (primary) hypertension - CAD R07.9 - Chest pain, unspecified Complete two-dimensional, color flow and Doppler transthoracic echocardiogram is performed. Strain analysis performed. Summary 1. Complete two-dimensional, color flow and Doppler transthoracic echocardiogram is performed. 2. Normal left ventricular size thickness and systolic function. 3. Normal diastolic function. 4. Trivial amounts of mitral regurgitation. 5. Mild tricuspid and pulmonic regurgitation. Left Ventricle Left ventricular chamber dimension is normal. Left ventricular systolic function is normal, estimated at 50-55%. The left ventricular diastolic function is normal. Right Ventricle Right ventricular chamber dimension is normal. Left Atria Left atrial chamber dimension is normal. Right Atria Right atrial chamber dimension is normal. Aortic Valve The aortic valve is normal. Pulmonic Valve The pulmonic valve is normal. There is mild pulmonic regurgitation. Mitral Valve The mitral valve has normal leaflets. There is trace mitral valve regurgitation. Tricuspid Valve The tricuspid valve leaflets are normal. There is mild tricuspid valve regurgitation. Pericardium/Pleural The pericardium appears normal. Aorta The aortic root size at the sinus of Valsalva is normal. Left Ventricular Outflow Tract Name Value Normal LVOT 2D LVOT Diameter 2.0 cm LVOT Doppler LVOT Peak Gradient 3 mmHg LVOT Mean Gradient 1 mmHg LVOT VTI 18 cm LVOT VTI/AV VTI Ratio 0.6 LVOT Stroke Volume 53 ml LVOT CO 2.9 l/min LVOT CI 1.7 l/min/m2 Mitral Valve Name Value Normal MV Doppler MV Decel [place] 297 cm/s2 MV PHT 76 ms MV Area (PHT) 2.9 cm2 4.0-5.0 MV Diastolic Function MV E Peak Velocity 77 cm/s MV A Peak Velocity 35 cm/s MV E/A 2.2 MV Decel Time
== END 2022-10-23 14:59 | disposition home or self-care (01) ==
LOC: ANHED 17:13 → ANHIMU 19:05
PROVIDERS: Internal Medicine Cardiovascular Disease; Physician Assistant; Admitting Provider Family Medicine; Emergency Provider Emergency Medicine; PCP Physician Assistant; Visit Provider Family Medicine
DX: R55 Syncope and collapse (principal); N17.9 Acute kidney failure, unspecified; R07.9 Chest pain, unspecified; U07.1 COVID-19; E86.0 Dehydration; I12.9 Hypertensive chronic kidney disease with stage 1 through stage 4 chronic kidney disease, or unspecified chronic kidney disease; N18.30 Chronic kidney disease, stage 3 unspecified; I25.10 Atherosclerotic heart disease of native coronary artery without angina pectoris; I07.1 Rheumatic tricuspid insufficiency; I37.1 Nonrheumatic pulmonary valve insufficiency; J44.1 Chronic obstructive pulmonary disease with (acute) exacerbation; D69.6 Thrombocytopenia, unspecified; N40.1 Benign prostatic hyperplasia with lower urinary tract symptoms; R35.1 Nocturia; Z86.19 Personal history of other infectious and parasitic diseases; E78.5 Hyperlipidemia, unspecified; K40.90 Unilateral inguinal hernia, without obstruction or gangrene, not specified as recurrent; I47.1 Supraventricular tachycardia; I45.10 Unspecified right bundle-branch block; K42.9 Umbilical hernia without obstruction or gangrene; R94.31 Abnormal electrocardiogram [ECG] [EKG]; Z66 Do not resuscitate; F17.210 Nicotine dependence, cigarettes, uncomplicated; Z79.82 Long term (current) use of aspirin; Z79.899 Other long term (current) drug therapy; Z82.49 Family history of ischemic heart disease and other diseases of the circulatory system
CPT/HCPCS: 36415; 71046; 80048; 80053; 80061; 82948; 83690; 83735; 84484; 85025; 85027; 85055; 85610; 85730; 86850; 86900; 86901; 87636; 93005; 93306; 93880; 96360; 96361; 99285; A9270; G0378; G0379; J7030

== ENCOUNTER 2022-12-14 07:52 | Outpatient (CLI) | payer MEDICARE, MEDICAID, SELFPAY ==
--- NOTE | ~2022-12-14 | CT_ITS ---
CT Scan of the Chest without Contrast: Clinical Indication: Lung cancer screening, current smoker Technique: Contiguous sections were acquired throughout the chest without intravenous contrast. Dose reduction technique was used on this scan by utilizing automated exposure control and iterative recon struction technique. The dose-length product (DLP) was 89.42 mGy-cm. Findings: There is no evidence of any significant mediastinal, hilar or axillary lymphadenopathy. Coronary nani ry calcifications are present. There are atherosclerotic calcifications of the aorta. There is no evidence of pleural or pericardial effusion. Calcified right upper lobe granuloma noted. Probable mild emphysema. Images through the upper abdomen reveal probable tiny gallstones. Impression: Lung-RADS 2: Benign appearance. [address] advised. Probable mild emphysema. Reviewed, dictated and finalized at location . Impression: Lung-RADS 2: Benign appearance. [address] advised. Probable mild emphysema.
--- NOTE | 2022-12-14 13:57 | WPDSIXMINUTE ---
Six Minute Walk Procedure Procedure Performed Pulmonary Stress Test (6 min walk) Six Minute Walk Six Minute Walk: This is a 6 minute walk test. The test was performed and interpreted in accordance with the 2014 ERS/ATS task force guidelines. Findings: The patient's resting room air oxygen saturation measured by pulse oximetry was 95% and heart rate was 75 bpm. Patient ambulated for 366 meters and oxygen saturation remained 93 to 96%. Heart rate at the end of the study was 103 bpm. The patient did not qualify for supplemental oxygen at rest or with ambulation. There are no prior studies for comparison.
== END 2022-12-14 07:53 | disposition home or self-care (01) ==
LOC: ANHPFT 07:53
PROVIDERS: PCP Physician Assistant; Visit Provider Internal Medicine Pulmonary Disease
DX: Z12.2 Encounter for screening for malignant neoplasm of respiratory organs (principal); Z87.891 Personal history of nicotine dependence
CPT/HCPCS: 71271; 94618

== ENCOUNTER 2023-04-17 13:21 | Outpatient (CLI) | payer MEDICARE, MEDICAID, SELFPAY ==
--- NOTE | ~2023-04-17 | XR_ITS ---
Right Shoulder Technique: AP and scapular Y views were obtained. Clinical History: Pain Findings: No fracture or dislocation is seen. Osseous alignment is anatomic. Mild AC joint degenerati ve changes present. Soft tissues are unremarkable. Impression: Mild AC joint degenerative change. Reviewed, dictated and finalized at location . Impression: Mild AC joint degenerative change.
--- NOTE | ~2023-04-17 | XR_ITS ---
Right wrist Technique: PA, oblique, lateral, and ulnar deviation views were obtained. Clinical History: Pain Findings: No acute fracture or dislocation is seen. Questional subtle erosions at the lunate and triq uetrum. Osseous alignment is anatomic. Joint spaces are preserved. Soft tissues are unremarkable. Impression: No fracture or dislocation. Questionable subtle erosive changes at the lunate and triquetrum. Correlate for any possibility of in flammatory arthropathy. Reviewed, dictated and finalized at location M. Impression: No fracture or dislocation. Questionable subtle erosive changes at the lunate and triquetrum. Correlate for any possibility of inflammatory arthropathy.
--- NOTE | ~2023-04-17 | XR_ITS ---
Left Shoulder Technique: AP and scapular Y views were obtained. Clinical History: Pain Findings: No fracture or dislocation is seen. Osseous alignment is anatomic. There is minimal AC join t degenerative change. Soft tissues are unremarkable. Impression: Minimal AC joint degenerative change. Reviewed, dictated and finalized at location . Impression: Minimal AC joint degenerative change.
== END 2023-04-17 13:22 | disposition home or self-care (01) ==
PROVIDERS: PCP Physician Assistant; Visit Provider Physician Assistant
DX: M25.531 Pain in right wrist (principal); M19.011 Primary osteoarthritis, right shoulder; M19.012 Primary osteoarthritis, left shoulder
CPT/HCPCS: 73030; 73110

== ENCOUNTER 2023-12-06 09:59 | Outpatient (CLI) | payer MEDICARE, MEDICAID, SELFPAY ==
--- NOTE | ~2023-12-06 | CT_ITS ---
CT of the Abdomen and Pelvis: Indication: Abdominal pain Technique: 2.5 mm axial scans were obtained through the abdomen and pelvis prior to and following in travenous administration of 100 cc of Omnipaque 350. Dose reduction technique was used on this scan b y utilizing automated exposure control and iterative reconstruction technique. The dose-length produc t (DLP) was 389.18 mGy-cm. Findings: Scans through the lung bases are unremarkable. Several tiny hypodense hepatic lesions are present, too small to accurately characterize. The spleen, pancreas, gallbladder, adrenals and kidneys are within normal limits. Infrarenal abdominal aortic an eurysm measures up to 4.2 cm in diameter extending to the bifurcation. There are extensive atheroscle rotic calcifications of the aorta and iliac vessels. No lymphadenopathy. There is circumferential area of wall thickening at the distal sigmoid colon with shouldering, highly suspicious for colonic adenocarcinoma, measuring approximately 4.5 cm in length (axial image 136). T here is large amount of stool obscuring from this lesion, compatible with constipation, but no alexi high-grade bowel obstruction evident at this time. Small fat-containing umbilical hernia noted. Images through the pelvis were performed. Probable urinary bladder wall thickening. Prostate gland is enlarged and appears to and into the bladder base. Impression: Findings most consistent with colonic adenocarcinoma at the distal sigmoid colon, as detailed above, measuring approximately 4.5 cm in length. There is large amount of stool upstream from this lesion, s uggestive of possible early partial obstruction. No high-grade large bowel obstruction present at thi s time. 4.2 cm infrarenal abdominal aortic aneurysm. Possible cystitis. Enlarged prostate gland indents the bladder base. Reviewed, dictated and finalized at location . 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 There is large amount of stool upstream from this lesion, suggestive of possible early partial obstruction. No high-grade large bowel obstruction present at this time. 4.2 cm infrarenal abdominal aortic aneurysm. Possible cystitis. Enlarged prostate gland indents the bladder base.
[2023-12-06 10:28] LABS: Estimated Glomerular Filt Rate 50
== END 2023-12-06 10:00 | disposition home or self-care (01) ==
LOC: ANHIMG 10:01
PROVIDERS: PCP Physician Assistant; Visit Provider Physician Assistant
DX: K52.9 Noninfective gastroenteritis and colitis, unspecified (principal); R10.9 Unspecified abdominal pain; R19.5 Other fecal abnormalities; I71.43 Infrarenal abdominal aortic aneurysm, without rupture
CPT/HCPCS: 74178; Q9967

== ENCOUNTER 2023-12-06 17:06 | Emergency (ER) | payer MEDICARE, MEDICAID, SELFPAY ==
[2023-12-06 18:48] VITALS: BP 136/104; PULSE 78; RESP 16; TEMP 36.4; O2SAT 96
[2023-12-06 20:38] VITALS: BP 147/75; PULSE 88; RESP 18; TEMP 36.8; O2SAT 97
--- NOTE | 2023-12-06 21:00 | PC.NURSE ---
Patient to the desk and states he is done waiting . Patient was A&Ox4 and ambulated out of department with steady gate. This RN tried to talk to patient to stay, but patient walked out of department.
== END 2023-12-06 21:21 | disposition left against medical advice (07) ==
LOC: ANHED 21:18
PROVIDERS: PCP Physician Assistant
DX: K63.9 Disease of intestine, unspecified (principal)
CPT/HCPCS: 99199

== ENCOUNTER 2023-12-07 10:44 | Emergency (ER) | payer MEDICARE, MEDICAID, SELFPAY ==
[2023-12-07 11:02] VITALS: BP 115/75; PULSE 86; RESP 20; TEMP 36.2; O2SAT 96
--- NOTE | 2023-12-07 12:08 | ED.GENADULT ---
HPI - General Adult General Chief complaint: Recheck/Abnormal Lab/Rx Stated complaint: colon mass Time Seen by Provider: 12/07/23 11:19 History of Present Illness HPI narrative: Patient 68-year-old gentleman who presents emergency department with chief complaint of abnormal CT scan. The patient was found to have a 4.5 cm mass in the sigmoid patient is having no abdominal pain no vomiting and is still having bowel movements. Patient was sent to the emergency department try to set up for earlier follow-up. Related Data Home Medications Medication Instructions Recorded Confirmed aspirin 81 mg tablet,delayed 325 mg PO DAILY 05/09/22 11/28/23 release Allergies Allergy/AdvReac Type Severity Reaction Status Date / Time Penicillins Allergy Unknown unknown Verified 12/07/23 10:45 Review of Systems Review of Systems: A 10 system review of systems was completed on the patient and is negative except for what is stated in the HPI. Nursing and ancillary documentation was reviewed. [facility] Past Medical History Medical History Benign prostatic hyperplasia with nocturia Chronic kidney disease, stage 3 COPD (chronic obstructive pulmonary disease) PFT 02/16/2022: Moderately severe obstructive airway disease with evidence of air trapping without bronchodilator response. Severely reduced lung diffusion capacity. FEV1 to FVC ratio 41% Coronary artery disease Per patient a cardiac catheterization done 8 years ago showed 70% blockage in an unknown artery, no intervention undertaken. Essential hypertension Family history of lupus erythematosus Hepatitis C Hyperlipidemia Left inguinal hernia Small not surgically corrected Smoker SVT (supraventricular tachycardia) Syncope Umbilical hernia without obstruction or gangrene Surgical History Surgical History History of cardiac catheterization History of umbilical hernia repair (01/27/19) With mesh Family History Family History Mother Cerebrovascular accident Sibling Cerebrovascular accident, Onset Age: 57 Diabetes mellitus Hypertension Heart disease Father Diabetes mellitus Hypertension Heart disease Other Family history of lupus erythematosus Social History Social History Social History: He has smoked as much as 1 pack of cigarettes per day for 60 years. He is now smoking about half a pack of cigarettes per day. He reports that he quit school in the 3rd grade and is functionally illiterate. 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 Code status: DNR/DNI Surrogate decision maker: Daughter Smoking packs per day: 1 Smoking cigarettes per day: 20.0 Years smoked: 60 Smoking pack-years: 60.00 Smoking status: Former smoker (quit 3 days ago) Tobacco type: cigarettes Second hand tobacco smoke exposure: Yes Alcohol intake: never Substance use: never Substance use type: does not use Lack of Transportation: No Lack of Food: Never True Current Housing: I Have Housing Concerned About Future Housing: No Difficulty Paying Gas/Electric Bills: No Difficulty Paying for Meds: No Currently Unemployed: No Education: Don't Know Difficulty w/ Childcare or Family Care: No Spiritual care concerns: No Exam Narrative: GENERAL: Well-appearing, well-nourished, and in no acute distress. HEAD: Normocephalic, atraumatic. EYES: PERRLA and EOMI. ENT: Nares clear, no rhinorrhea or epistaxis. Mucous membranes moist. NECK: Supple. CHEST: Clear to auscultation. No respiratory distress. HEART: Regular rate and rhythm. No murmur heard. Normal peripheral pulses. ABDOMEN: Soft, nontender, nondistended, normal active bowel sounds
[2023-12-07 12:36] VITALS: BP 132/80; PULSE 82; RESP 16; TEMP 36.6; O2SAT 98
== END 2023-12-07 12:38 | disposition home or self-care (01) ==
LOC: ANHED 12:19
PROVIDERS: Emergency Provider Emergency Medicine; PCP Physician Assistant
DX: K63.89 Other specified diseases of intestine (principal); J44.9 Chronic obstructive pulmonary disease, unspecified; I12.9 Hypertensive chronic kidney disease with stage 1 through stage 4 chronic kidney disease, or unspecified chronic kidney disease; N18.30 Chronic kidney disease, stage 3 unspecified; I25.10 Atherosclerotic heart disease of native coronary artery without angina pectoris; E78.5 Hyperlipidemia, unspecified; N40.1 Benign prostatic hyperplasia with lower urinary tract symptoms; R35.1 Nocturia; F17.210 Nicotine dependence, cigarettes, uncomplicated; Z86.19 Personal history of other infectious and parasitic diseases; Z66 Do not resuscitate; Z79.82 Long term (current) use of aspirin
CPT/HCPCS: 99281

== ENCOUNTER 2023-12-17 02:03 | Day surgery (SDC) | payer MEDICARE, MEDICAID, SELFPAY ==
[2023-12-10 16:09] VITALS: BMI 21.2
--- NOTE | 2023-12-14 09:21 | SUR.PREOP ---
Patient called regarding upcoming procedure. Voicemail left regarding appointment times.
[2023-12-17 09:07] VITALS: BP 166/102; PULSE 105; RESP 16; TEMP 36.3; O2SAT 97
[2023-12-17] MEDS: LACTATED RINGERS 1,000 ML 150 ML IV CONT (09:18)
--- NOTE | 2023-12-17 09:22 | WPDANESEPPF ---
Anes - Initial Pre Proc Eval Procedure: Operation Date: 12/17/23 10:00 Proposed Procedures p Colonoscopy - Trenton Miramontes MD Date/Time: 12/17/23 09:22 Surgeon: Trenton Miramontes MD Pre Op Diagnosis: abnormal findings on Imaging Patient Data Age: 68 Gender: M Height: 1.65 m Weight: 55.8 kg Last Vital Signs Temp 97.4 F L 12/17/23 09:07 Pulse 105 H 12/17/23 09:07 Resp 16 12/17/23 09:07 BP 166/102 H 12/17/23 09:07 Pulse Ox 97 12/17/23 09:07 O2 Del Method Room Air 12/17/23 09:07 Allergies Allergy/AdvReac Type Severity Reaction Status Date / Time Penicillins Allergy Severe Swelling Verified 12/17/23 09:04 Home Medications Medication Instructions Recorded Confirmed Type aspirin 81 mg tablet,delayed 81 mg PO DAILY 05/09/22 12/17/23 History release albuterol sulfate 90 mcg/actuation See Rx Instructions .Route 08/27/23 12/17/23 Rx aerosol inhaler .COMPLEX #8.5 ea budesonide 160 mcg-glycopyr 9 2 inh inhalation BID #32.1 grams 10/16/23 12/17/23 Rx mcg-formot 4.8 mcg/actuation HFA inhaler ([employer]) atorvastatin 20 mg tablet See Rx Instructions .Route 10/18/23 12/17/23 Rx .COMPLEX #90 tabs finasteride 5 mg tablet 5 mg PO DAILY #90 tabs 10/18/23 12/17/23 Rx tamsulosin 0.4 mg capsule 0.4 mg PO HS #90 caps 10/18/23 12/17/23 Rx irbesartan 300 1 tablet PO DAILY #90 tabs 11/14/23 12/17/23 Rx mg-hydrochlorothiazide 12.5 mg tablet omeprazole 40 mg capsule,delayed 40 mg PO DAILY #90 caps 11/14/23 12/17/23 Rx release potassium chloride 10 mEq 10 meq PO DAILY #90 tabs 11/14/23 12/17/23 Rx tablet,extended release albuterol sulfate 2.5 mg/3 mL 2.5 mg (3 mL) inhalation Q6H PRN 11/27/23 12/17/23 Rx (0.083 %) solution for nebulization shortness of breath or wheezing #180 mL diphenhydramine 25 1 - 2 tablet PO HS PRN Insomnia 12/10/23 12/17/23 History mg-acetaminophen 500 mg tablet (Tylenol PM Extra Strength) Patient hx anesthesia problems: none Family hx anesthesia problems: none Results Review: All pre-operative results and documents have been reviewed as part of the pre-operative evaluation. [facility] Past Medical History Medical History Benign prostatic hyperplasia with nocturia Chronic kidney disease, stage 3 COPD (chronic obstructive pulmonary disease) PFT 02/16/2022: Moderately severe obstructive airway disease with evidence of air trapping without bronchodilator response. Severely reduced lung diffusion capacity. FEV1 to FVC ratio 41% Coronary artery disease Per patient a cardiac catheterization done 8 years ago showed 70% blockage in an unknown artery, no intervention undertaken. Essential hypertension Family history of lupus erythematosus Hepatitis C Hyperlipidemia Left inguinal hernia Small not surgically corrected Smoker SVT (supraventricular tachycardia) Syncope Umbilical hernia without obstruction or gangrene Surgical History Surgical History History of cardiac catheterization History of umbilical hernia repair (01/27/19) With mesh Family History Family History Mother Cerebrovascular accident Sibling Cerebrovascular accident, Onset Age: 57 Diabetes mellitus Hypertension Heart disease Father Diabetes mellitus Hypertension Heart disease Other Family history of lupus erythematosus Social History Social History Social History: He has smoked as much as 1 pack of cigarettes per day for 60 years. He is now smoking about half a pack of cigarettes per day. He reports that he quit school in the 3rd grade and is functionally illiterate. 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
[2023-12-17] MEDS: ONDANSETRON INJ 4 MG/2 ML VIAL IV PUSH (09:27)
--- NOTE | 2023-12-17 09:30 | PM.HPGS ---
History of Present Illness History of Present Illness Consent: Risks, benefits, and alternatives have been discussed and questions answered. Patient agrees to proceed with procedure. Chief complaint: abnormal findings on Imaging Narrative: Seth Guajardo is a 68 year old male with abdominal pain and change in bowel habits (last few weeks noted loose stool), also weight loss last 6 months, never had colonoscopy. Finally had CT scan that showed mass in sigmoid concerning for malignancy. He took bowel prep but did not have much of bm. Here for colonoscopy. Review of Systems Review of Systems: All systems reviewed & are unremarkable except as noted in HPI and below PMFSH Past Medical History Medical History Benign prostatic hyperplasia with nocturia Chronic kidney disease, stage 3 COPD (chronic obstructive pulmonary disease) PFT 02/16/2022: Moderately severe obstructive airway disease with evidence of air trapping without bronchodilator response. Severely reduced lung diffusion capacity. FEV1 to FVC ratio 41% Coronary artery disease Per patient a cardiac catheterization done 8 years ago showed 70% blockage in an unknown artery, no intervention undertaken. Essential hypertension Family history of lupus erythematosus Hepatitis C Hyperlipidemia Left inguinal hernia Small not surgically corrected Smoker SVT (supraventricular tachycardia) Syncope Umbilical hernia without obstruction or gangrene Surgical History Surgical History History of cardiac catheterization History of umbilical hernia repair (01/27/19) With mesh Family History Family History Mother Cerebrovascular accident Sibling Cerebrovascular accident, Onset Age: 57 Diabetes mellitus Hypertension Heart disease Father Diabetes mellitus Hypertension Heart disease Other Family history of lupus erythematosus Social History Social History Social History: He has smoked as much as 1 pack of cigarettes per day for 60 years. He is now smoking about half a pack of cigarettes per day. He reports that he quit school in the 3rd grade and is functionally illiterate. 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 Code status: DNR/DNI Surrogate decision maker: Daughter Smoking packs per day: 1 Smoking cigarettes per day: 20.0 Years smoked: 60 Smoking pack-years: 60.00 Smoking status: Current every day smoker Tobacco type: cigarettes Second hand tobacco smoke exposure: Yes Alcohol intake: never Substance use: never Substance use type: does not use Lack of Transportation: No Lack of Food: Never True Current Housing: I Have Housing Concerned About Future Housing: No Difficulty Paying Gas/Electric Bills: No Difficulty Paying for Meds: No Currently Unemployed: No Education: Don't Know Difficulty w/ Childcare or Family Care: No Living arrangements: alone Spiritual care concerns: No Meds Home Medications and Allergies Home Medications Medication Instructions Recorded Confirmed Type aspirin 81 mg tablet,delayed 81 mg PO DAILY 05/09/22 12/17/23 History release albuterol sulfate 90 mcg/actuation See Rx Instructions .Route 08/27/23 12/17/23 Rx aerosol inhaler .COMPLEX #8.5 ea budesonide 160 mcg-glycopyr 9 2 inh inhalation BID #32.1 grams 10/16/23 12/17/23 Rx mcg-formot 4.8 mcg/actuation HFA inhaler ([employer]) atorvastatin 20 mg tablet See Rx Instructions .Route 10/18/23 12/17/23 Rx .COMPLEX #90 tabs finasteride 5 mg tablet 5 mg PO DAILY #90 tabs 10/18/23 12/17/23 Rx tamsulosin 0.4 mg capsule 0.4 mg PO HS #90 caps 10/18/23 12/17/23 Rx irbesartan 300 1 tablet PO DAILY #90 tabs 11/14
[2023-12-17 09:57] VITALS: BP 142/72; PULSE 102; RESP 24; O2SAT 100
[2023-12-17 10:07] VITALS: BP 148/63; PULSE 110; RESP 18; O2SAT 95
[2023-12-17 10:17] VITALS: BP 130/75; PULSE 111; RESP 21; O2SAT 98
== END 2023-12-17 10:42 | disposition home or self-care (01) ==
PROVIDERS: PCP Physician Assistant; Visit Provider Internal Medicine Gastroenterology
PROC: 0DJD8ZZ Inspection of Lower Intestinal Tract, Via Natural or Artificial Opening Endoscopic (ICD-10-PCS; CPT 45378; principal; 2023-12-17 10:00)
DX: C18.7 Malignant neoplasm of sigmoid colon (principal); E78.5 Hyperlipidemia, unspecified; I12.9 Hypertensive chronic kidney disease with stage 1 through stage 4 chronic kidney disease, or unspecified chronic kidney disease; N18.30 Chronic kidney disease, stage 3 unspecified; N40.1 Benign prostatic hyperplasia with lower urinary tract symptoms; F17.210 Nicotine dependence, cigarettes, uncomplicated; Z79.82 Long term (current) use of aspirin; Z79.51 Long term (current) use of inhaled steroids; Z98.61 Coronary angioplasty status; Z86.79 Personal history of other diseases of the circulatory system; Z82.49 Family history of ischemic heart disease and other diseases of the circulatory system
CPT/HCPCS: 45331; 45335; 88305; 88342; J0330; J2405; J2704; J7120

== ENCOUNTER 2023-12-27 10:22 | Outpatient (CLI) | payer MEDICARE, MEDICAID, SELFPAY ==
--- NOTE | ~2023-12-27 | CT_ITS ---
EXAMINATION: CT diagnostic chest w con DATE: 12/27/2023 10:47 INDICATION: Malignant neoplasm of the sigmoid colon TECHNIQUE: Transaxial computed tomographic images of the chest were obtained after the administration of 75 cc of Omnipaque 350 intravenous contrast. The dose-length product (DLP) was 139.51 mGy-cm. Ite rative reconstruction was used. COMPARISON: 12/14/2022 FINDINGS: There is moderate emphysema. There is a stable 3 mm nodule of the left lower lobe. The lung s are free of acute opacities. No pleural effusion or pneumothorax. There is moderate thoracic spondy losis. The colon is distended and fluid-filled. Stones are present in the gallbladder. IMPRESSION: 1. No evidence of thoracic metastatic disease. 2. Distended fluid-filled colon, likely at least partial distal obstruction. Reviewed, dictated and finalized at location A.
== END 2023-12-27 10:23 | disposition home or self-care (01) ==
PROVIDERS: PCP Physician Assistant; Visit Provider Surgery
DX: C18.7 Malignant neoplasm of sigmoid colon (principal)
CPT/HCPCS: 71260; Q9967

== ENCOUNTER 2023-12-28 09:58 | Outpatient (CLI) | payer MEDICARE, MEDICAID, SELFPAY ==
--- NOTE | 2023-12-28 11:08 | ECG_ITS ---
Measurements Intervals [place] Rate: 81 P: 81 ID: 125 QRS: 82 QRSD: 145 T: 62 QT: 420 QTc: 488 Interpretive Statements SINUS RHYTHM TRANSIENT ATRIAL TACHYCARDIA AND ATRIAL PREMATURE COMPLEX RIGHT BUNDLE BRANCH BLOCK BASELINE ARTIFACT- I, II, III, AVR, AVL, AVF, V4-V6 ABNORMAL ECG COMPARED TO ECG 10/21/2022 15:29:30 TRANSIENT ATRIAL TACHYCARDIA NOW PRESENT Electronically Signed On 12-28-2023 11:59:04 CDT by Edmar Zhou D.O.
[2023-12-28 11:51] LABS: Anion Gap 5 mmol/L (4-12); Blood Urea Nitrogen 14 mg/dL (9-20); Calcium 8.4 mg/dL (8.4-10.2); Carbon Dioxide 30 mmol/L (22-30); Chloride 100 mmol/L (98-107); Estimated Glomerular Filt Rate > 60; Glucose 94 mg/dL (65-110); Potassium 2.5 mmol/L (3.4-5.0); Sodium 135 mmol/L (137-145)
[2023-12-28 12:12] LABS: Partial Thromboplastin Time 30.6 Seconds (22.3-36.8)
[2023-12-28 12:19] LABS: Carcinoembryonic Antigen 4.8 ng/mL (0.0-3.0)
== END 2023-12-28 09:59 | disposition home or self-care (01) ==
LOC: ANHSURGERY 10:04
PROVIDERS: Anesthesiology; PCP Physician Assistant; Visit Provider Surgery
DX: C18.7 Malignant neoplasm of sigmoid colon (principal); N28.9 Disorder of kidney and ureter, unspecified; I12.9 Hypertensive chronic kidney disease with stage 1 through stage 4 chronic kidney disease, or unspecified chronic kidney disease; Z51.81 Encounter for therapeutic drug level monitoring
CPT/HCPCS: 36415; 80048; 82378; 85610; 85730; 86850; 86900; 86901; 93005

== ENCOUNTER 2023-12-31 09:31 | Inpatient (IN) | payer MEDICARE, MEDICAID, SELFPAY ==
[2023-12-28 10:25] VITALS: BP 119/78; PULSE 68; RESP 16; TEMP 36.5; O2SAT 100; BMI 20.7
--- NOTE | 2023-12-28 10:45 | PC.NURSE ---
Report to the Outpatient Waiting Room, entrance under the green pavilion located off [facility], at time ___7:00AM____ on date ___12/31/23____. Planned Procedure Time: __9:00AM . Time changes happen often and if your time is changed the preop area will call you the afternoon before. - You and your visitor will be asked to self-screen and do not enter if you have any COVID symptoms. - A mask is optional within the hospital at this time. BOWEL PREP PER DR RODRIGES Patients may have clear liquids (water, carbonated beverages, clear teas, apple juice) until 3 hours prior to surgery with a maximum of 20 ounces. Take the following medications with a SIP of water the morning of surgery: __BRESTRI INHALER. USE ALBUTEROL INHALER NEEDED DO NOT STOP ANY OF YOUR OTHER PRESCRIPTION MEDICATIONS PRIOR TO SURGERY ?EXCEPT THE FOLLOWING Medications to discontinue per physician NONE Date to take last dose Please no make-up, nail romanian, hairspray, perfume, deodorant, or body powder the day of surgery. No jewelry (including any body piercings) or valuables the day of surgery, leave them at home. Please take a shower or bath the night before, or the morning of, surgery with an antibacterial soap. Wear comfortable, loose fitting clothing. - Jewelry must be removed prior to entering the operating room. Rings and piercings that are not removed may be cut off. - The hospital will not accept responsibility for valuables. - Please leave all valuables, including medications, at home the day of surgery. If you are going home after surgery, a licensed intermodal owner operator truck driver must drive you home. - NO public transportation without another adult if you receive anesthesia. - We recommend that an adult stay with you for 24 hours following discharge. - We also recommend that you do not drive, make important decision, drink alcoholic beverages, or take any drugs that were not prescribed by your health care provider for at least 24 hours after your discharge time. Follow any additional instructions given to you from your surgeon. ENSURE BUNDLE ANTIBIOTICS FOR DAY BEFORE SURGERY HIBICLENS SHOWER DAY BEFORE AND MORNING OF SURGERY BOWEL PREP If you or anyone in your household have experienced Covid symptoms in the past week, please notify your surgeon or the nurse liaison at the phone number below for possible testing. Telephone instructions given to ___PATIENT & DAUGHTER and asked if any additional questions and then verbalized understanding. Patient advised to call surgeon office or pre surgery nurse liaison [phone] if any additional questions.
--- NOTE | 2023-12-28 12:33 | SUR.PREOP ---
1225 - Dr. Gimenez notified of critical potassium of 2.5. Verbal orders for pt to hold HCTZ and take 20 meq of KCl this weekend. Spoke with pt daughter, Valentina, and notified of results and orders. Valentina states understanding.
[2023-12-31] VITALS (12 sets, daily range): BP systolic 54–156; BP diastolic 40–93; PULSE 64–148; RESP 14–40; TEMP 36.3–36.8; O2SAT 92–100; BMI 20.3
--- NOTE | 2023-12-31 | ECG_ITS ---
Measurements Intervals [place] Rate: 132 P: 76 AR: 102 QRS: 83 QRSD: 122 T: 60 QT: 292 QTc: 433 Interpretive Statements SINUS TACHYCARDIA WITH SHORT AR INTERVAL WITH OCCASIONAL SUPRAVENTRICULAR PREMATURE COMPLEXES RIGHT BUNDLE BRANCH BLOCK [120+ ms QRS DURATION, UPRIGHT V1, 40+ ms S IN I/aVL/V4/V5/V6] COMPARED TO ECG 12/31/2023 10:19:48 SINUS TACHYCARDIA NOW PRESENT Electronically Signed On 01-01-2024 8:50:26 CDT by Fili Rudolph M.D.
--- NOTE | ~2023-12-31 | XR_ITS ---
EXAM: XR abdomen gastric tube insert DATE: 12/31/2023 21:09 HISTORY: NG TUBE PLACEMENT . COMPARISON: X-ray chest and obstructive series, same date. FINDINGS: NG tube tip terminates at the GE junction. Clear lung bases. Dilated loops of large bowel in the upper abdomen. Positive Rigler's sign. No organomegaly. No abnormal abdominal calcification. R egional bones and soft tissues normal for age. IMPRESSION: Shallow positioning of the NG tube, consider advancing by 8 cm. Pneumoperitoneum. Dilated large bowel. Reviewed, dictated and finalized at location K. IMPRESSION: Shallow positioning of the NG tube, consider advancing by 8 cm. Pne umoperitoneum. Dilated large bowel.
--- NOTE | ~2023-12-31 | XR_ITS ---
Portable chest x-ray Comparison: 01/01/2024 Clinical History: Tube placement Findings: Endotracheal tube, NG tube, and right IJ line are in satisfactory positions. Lungs remain clear. Cardiomediastinal silhouette is stable. Bones and soft tissues are unremarkable. Impression: Clear lungs. Stable support tubes. Reviewed, dictated and finalized at location . Impression: Clear lungs. Stable support tubes.
--- NOTE | ~2023-12-31 | XR_ITS ---
XR chest 1V portable 01/11/2024 14:08 Indication: Aspiration pneumonia Procedure: AP portable chest Comparison: Comparison to multiple prior studies sequentially, with oldest reviewed study dated 12/2023. Findings: Left basilar infiltrates. Heart size normal. No pleural effusion, edema or pneumothorax. Impression: 1: Left basilar infiltrates may represent atelectasis or developing pneumonia. Reviewed, dictated and finalized at location A. Impression: 1: Left basilar infiltrates may represent atelectasis or developing pneumonia.
--- NOTE | ~2023-12-31 | XR_ITS ---
Portable chest x-ray Comparison: 01/05/2024 Clinical History: Shortness of breath Findings: Right IJ line is unchanged. Lungs are clear, without focal consolidation or definite pleur al effusion. Cardiomediastinal silhouette is stable. Bones and soft tissues are unremarkable. Impression: Clear lungs. Right IJ line in place. Reviewed, dictated and finalized at location . Impression: Clear lungs. Right IJ line in place.
--- NOTE | ~2023-12-31 | US_ITS ---
Renal-Bladder ultrasound Clinical History: Acute renal sufficiency Technique: Real-time sonographic imaging of the kidneys and urinary bladder was performed. Findings: The right kidney measures 10.6 cm in length and the left kidney measures 11.4 cm. There is no hydronephrosis or renal calculus identified. Renal cortical echogenicity is within normal limits. No renal mass lesion is identified. The urinary bladder is collapsed around a Arguello catheter, limiting evaluation. Impression: Unremarkable ultrasound of the kidneys. Collapsed urinary bladder limits evaluation. Reviewed, dictated and finalized at location M. Impression: Unremarkable ultrasound of the kidneys. Collapsed urinary bladder limits evalua tion.
--- NOTE | ~2023-12-31 | XR_ITS ---
EXAMINATION: XR abdomen obstructive series DATE: 12/31/2023 12:29 INDICATION: Abdominal distention. TECHNIQUE: Upright and supine views of the abdomen were obtained. COMPARISON: CT abdomen and pelvis 12/06/2023 FINDINGS: There is gaseous distention of the colon. There is liquid stool in colon suggesting diarrhe a. The small bowel is normal in caliber. No free intraperitoneal gas. IMPRESSION: 1. Gaseous distention of the colon, consistent with distal obstruction. Reviewed, dictated and finalized at location A.
--- NOTE | ~2023-12-31 | XR_ITS ---
EXAMINATION: XR barium swallow modified DATE: 01/10/2024 10:58 INDICATION: Choking. TECHNIQUE: The patient was given barium-containing material of multiple consistencies to swallow by t keiko speech pathologist while I performed fluoroscopy. Fluoroscopy exposure time was 0.8 minutes. The n umber of fluoroscopy images saved to the PACS was 1. Dose-area product was 0.42 Gy-cm^2. FINDINGS: There is reduced laryngeal elevation, reduced laryngeal adduction, and reduced tongue base retraction . There is aspiration of thin liquids via spoon and cup. There is laryngeal penetration with mildly a nd moderately thick liquids by spoon and cup. IMPRESSION: 1. Aspiration. 2. Please refer to the speech therapy report for recommendations. Reviewed, dictated and finalized at location A.
--- NOTE | ~2023-12-31 | XR_ITS ---
Portable chest x-ray Comparison: 12/31/2023 Clinical History: Tube placement Findings: Endotracheal tube, NG tube, and right IJ line are in satisfactory positions. Lungs are karoline ar, without focal consolidation or pleural effusion. Cardiomediastinal silhouette is stable. Bones a nd soft tissues are unremarkable. Impression: Support tubes, as above. Clear lungs. Reviewed, dictated and finalized at location M. Impression: Support tubes, as above. Clear lungs.
--- NOTE | ~2023-12-31 | XR_ITS ---
EXAMINATION: XR chest 1V portable DATE: 01/04/2024 05:41 INDICATION: Intubation. TECHNIQUE: A single frontal view of the chest was obtained on 2 radiographs. COMPARISON: Chest view 01/03/2024, chest CT 11/2723 FINDINGS: The patient is rotated to his right. There are lucencies in the lungs, consistent with emph ysema. There are airspace opacities in the lower lung zones. No pleural effusion or pneumothorax. The heart size is normal. The endotracheal tube tip is 4.4 cm above the kandace. A right internal jugular central venous catheter is seen with tip at the superior cavoatrial junction. The nasogastric tube t ip is in the stomach. IMPRESSION: 1. Airspace opacities in the lower lung zones, consistent with atelectasis versus pneumonia. 2. Emphysema. Reviewed, dictated and finalized at location A. IMPRESSION: 1. Airspace opacities in the lower lung zones, consistent with atelectasis vers us pneumonia. 2. Emphysema.
--- NOTE | ~2023-12-31 | CT_ITS ---
EXAMINATION: CT brain wo con DATE: 01/10/2024 22:11 INDICATION: Dysphagia TECHNIQUE: Computed tomography (CT) of the head was performed without intravenous contrast. The dose- length product was 605.33 mGy-cm. Automated exposure control and iterative reconstruction technique were employed. COMPARISON: None FINDINGS: There are scattered moderate periventricular and subcortical white matter changes, most lik aliya related to small vessel ischemic disease (microangiopathy). No ventriculomegaly or midline shift. Basilar cisterns are patent. There is intracranial atherosclerosis. Paranasal sinuses and mastoids a re pneumatized. No depressed skull fractures. No acute infarction, hemorrhage, mass or mass effect. IMPRESSION: 1. No acute intracranial abnormality. 2: Chronic age-related findings. Reviewed, dictated and finalized at location A.
--- NOTE | ~2023-12-31 | XR_ITS ---
Portable chest x-ray Comparison: 01/11/2024 Clinical History: Shortness of breath Findings: Lungs are clear, without focal consolidation or pleural effusion. Cardiomediastinal silho uette is stable. Bones and soft tissues are unremarkable. Impression: Clear lungs. Reviewed, dictated and finalized at location . Impression: Clear lungs.
--- NOTE | ~2023-12-31 | XR_ITS ---
XR chest 1V portable DATE: 01/05/2024 08:15 INDICATION: Cough, wheezing TECHNIQUE: Portable AP chest on January 05, 2024 at 0813 hours COMPARISON: January 04, 2024 portable AP chest at 0515 hours FINDINGS: Right internal jugular central venous catheter tip overlies the lower superior vena cava. NG tube in stomach. Normal heart size. There is mild pulmonary vascular prominence, mild prominence of the minor fissure and some Nnamdi B-l richie, minimal blunting of the costophrenic angles, suggesting congestive changes including subpleural and pulmonary interstitial edema. Mild infiltrate or atelectasis in the left lower lung and to a lesser extent right lower lung. IMPRESSION: Congestive changes and mild infiltrate or atelectasis in the left and to a lesser extent right lower lungs Reviewed, dictated and finalized at location A. IMPRESSION: Congestive changes and mild infiltrate or atelectasis in the left a nd to a lesser extent right lower lungs
--- NOTE | ~2023-12-31 | XR_ITS ---
EXAMINATION: XR chest ET placement Exam Date/Time: 12/31/2023 21:00 CDT HISTORY: intubation Comparison: Same date at 7:11 PM. RESULT: Lines, tubes, and devices: Endotracheal tube, terminating 4.9 cm above the kandace. Shallow positione d NG tube. Right IJ central line terminating in the distal SVC. Lungs and pleura: Clear. Cardiomediastinal silhouette: Stable. Other: No acute osseous or upper abdominal finding. IMPRESSION: No acute cardiopulmonary process. Endotracheal tube, 4.9 cm above the kandace. Shallow NG tube, consid er advancing by 8 cm. Right IJ central venous line in good position Reviewed, dictated and finalized at location K. IMPRESSION: No acute cardiopulmonary process. Endotracheal tube, 4.9 cm above the kandace. S hallow NG tube, consider advancing by 8 cm. Right IJ central venous line in goo d position
--- NOTE | ~2023-12-31 | XR_ITS ---
Portable chest x-ray Comparison: 01/02/2024 Clinical History: Tube placement Findings: Endotracheal tube, NG tube, and right IJ line remain in place. Lungs remain clear. Cardio mediastinal silhouette is stable. Bones and soft tissues are unremarkable. Impression: Clear lungs. Stable support tubes. Reviewed, dictated and finalized at [facility]. Impression: Clear lungs. Stable support tubes.
--- NOTE | ~2023-12-31 | XR_ITS ---
MODIFIED ESOPHAGRAM HISTORY: Dysphagia. TECHNIQUE: Modified barium esophagram was performed on 01/16/2024. I administered fluoroscopy and perf ormed the exam with speech pathologist. Patient was seated for lateral fluoroscopic imaging for lindsay stion of thin liquids, pudding, solids and quantified amounts, followed by thin liquids in uncontroll ed amounts. This was recorded on tape. A single fluoroscopic spot image was also recorded. The DAP fo r this procedure was 0.432 Gycm2. The amount of fluoroscopy time used during this procedure was 0.6 m inutes. FINDINGS: Oral stage: Adequate function. Pharyngeal stage: Reduced laryngeal elevation, tongue base retraction and pharyngeal squeeze. There i s piriform sinus and pharyngeal wall residue. There is laryngeal penetration which is expected to isaias ntually result in aspiration. Cervical/esophageal stage: Adequate function. IMPRESSION: Pharyngeal dysphagia with laryngeal penetration which is expected to result in aspiration . Please correlate with speech pathologist findings and specific feeding recommendations. Reviewed, dictated and finalized at location A. IMPRESSION: Pharyngeal dysphagia with laryngeal penetration which is expected t o result in aspiration. Please correlate with speech pathologist findings and s pecific feeding recommendations.
--- NOTE | ~2023-12-31 | CT_ITS ---
EXAMINATION: CT chest abdomen pelvis wo con DATE: 01/05/2024 09:51 INDICATION: Post op, Leukocytosis . TECHNIQUE: Computed tomography (CT) of the chest, abdomen, and pelvis was performed with 100 mL Omnip aque-350 intravenous contrast. Automated exposure control and iterative reconstruction technique were employed. The dose-length product was 574.43 mGy-cm. COMPARISON: X-ray chest, same date; CT chest 12/27/2023; CT abdomen pelvis 12/06/2023 FINDINGS: CHEST: Thoracic aorta: No significant dilation. Low-density blood pool as can be seen with anemia. Lung parenchyma and airways: Airway debris in the distal trachea right mainstem bronchus and right in terlobar bronchi. Emphysematous change. Dependent atelectasis. Thoracic inlet, axillae and chest wall: No thyroid or soft tissue mass. No axillary lymphadenopathy. Diffuse thoracic wall edema. Right IJ central line, terminating in the distal SVC. Mediastinum: No mass or lymphadenopathy. Heart and pericardium: Mild cardiomegaly. No pericardial effusion. Aortic valve calcification. Coronary artery calcifications: Mild. Pleura: Small volume left and moderate volume right simple appearing pleural fluid collections. Thoracic bones: No acute osseous finding in the chest. ABDOMEN/PELVIS: Liver: Normal. Biliary/Gallbladder: Gallbladder contains excreted contrast and likely gallstones. No wall thickening or inflammatory change. No bile duct dilation. Pancreas: Mild atrophy and fatty infiltration. No mass or duct dilation. Spleen: Granulomatous calcifications. Adrenals:No mass. Kidneys: No suspicious mass, obstructing stone, or hydronephrosis. GI tract: NG tube terminates in the gastric antrum. No small or large bowel dilation. Appendix not co nfidently visualized. Uncomplicated appearing cecal anastomosis. Uncomplicated suture line at the dis dario sigmoid. Moderate colonic wall edema. Left lower quadrant colostomy. Mesentery/Peritoneum: Small volume free air. Mild diffuse mesenteric edema. Minimal peritoneal fluid. Surgical drain in the left lower quadrant. Retroperitoneum: No mass Atherosclerotic abdominal aortic and/or arterial calcifications. Fusiform di lation of the distal aorta and iliac bifurcation measuring up to 4.2 cm. 20 mm distal right iliac art marcio aneurysm. Pelvis: The urinary bladder is drained by a Arguello catheter. Prostatomegaly. Presacral edema. Soft Tissues: Severe diffuse body wall edema. Midline surgical incision with skin randal. Mild anter ior subcutaneous gas. Small fat-containing incisional and umbilical hernias. Abdominopelvic bones: No acute osseous finding in the abdomen/pelvis. IMPRESSION: Airway debris/secretions in the distal trachea, right main stem bronchus and right interlobar bronchu s. Moderate right and small left pleural effusions. 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 Postsurgical changes in the abdomen status post partial colonic resection and diverting colostomy. Diffuse colonic wall edema may reflect a component of colitis. Mild mesenteric edema and diffuse body wall edema. Reviewed, dictated and finalized at location K. IMPRESSION: Airway debris/secretions in the distal trachea, right main stem bronchus and ri ght interlobar bronchus. Moderate right and small left pleural effusions. 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 Postsurgical changes in the abdomen status post partial colonic resection and d iverting colostomy. Diffuse colonic wall edema may reflect a component of colitis. Mild mesenteric edema and diffuse body wall edema.
--- NOTE | ~2023-12-31 | XR_ITS ---
EXAMINATION: XR chest 1V portable Exam Date/Time: 12/31/2023 19:10 CDT HISTORY: hypoxia Comparison: X-ray obstructive series same date, images only; CT chest 12/27/2023. RESULT: Lines, tubes, and devices: None. Lungs and pleura: Clear. Cardiomediastinal silhouette: Stable. Other: Moderate volume free air under the diaphragm. No acute osseous finding. IMPRESSION: No acute cardiopulmonary process. Moderate pneumoperitoneum. Results reported telephonically to Lee Agarwal RN by Dr. Venegas at 7:52 PM on 12/31/2023. Reviewed, dictated and finalized at location K.
[2023-12-31 07:41] LABS: Hematocrit 36.7 % (42.0-52.0); Hemoglobin 12.7 g/dL (14.0-18.0)
[2023-12-31] MEDS: KETOROLAC 15 MG/ML VIAL (*BKC) IV PUSH (07:50)
[2023-12-31] MEDS: ACETAMINOPHEN 500 MG TABLET 1000 MG PO (07:50)
[2023-12-31 07:56] LABS: Anion Gap 6 mmol/L (4-12); Blood Urea Nitrogen 12 mg/dL (9-20); Calcium 8.5 mg/dL (8.4-10.2); Carbon Dioxide 27 mmol/L (22-30); Chloride 102 mmol/L (98-107); Estimated CRCL calculation 51 ml/min; Estimated Glomerular Filt Rate > 60; Glucose 98 mg/dL (65-110); Potassium 2.8 mmol/L (3.4-5.0); Sodium 135 mmol/L (137-145)
--- NOTE | 2023-12-31 08:19 | SUR.PREOP ---
dr vanessa aware of critical low potassium. pt is being admitted by dr vanessa.
--- NOTE | 2023-12-31 09:33 | ECG_ITS ---
Measurements Intervals [place] Rate: 75 P: 82 VA: 136 QRS: 83 QRSD: 128 T: 63 QT: 409 QTc: 458 Interpretive Statements SINUS RHYTHM WITH OCCASIONAL SUPRAVENTRICULAR PREMATURE COMPLEXES RIGHT BUNDLE BRANCH BLOCK [120+ ms QRS DURATION, UPRIGHT V1, 40+ ms S IN I/aVL/V4/V5/V6] ABNORMAL ECG COMPARED TO ECG 12/28/2023 11:29:29 NO SIGNIFICANT CHANGES Electronically Signed On 12-31-2023 13:13:14 CDT by Rodger Mcnair M.D.
--- NOTE | 2023-12-31 10:19 | PM.IMHP ---
H&P: HPI History of Present Illness Date/Time: 12/31/23 10:19 Chief Complaint: sigmoid colon cancer, hypokalemia Narrative: this is a 68-year-old man who is being directly admitted for treatment of his colon cancer. He was scheduled for hand assisted laparoscopic sigmoid colectomy today, but surgery was canceled due to critically low potassium levels. Since his preoperative labs showed a potassium level of 2.5, and it only came up to 2.8 by this morning. He is being admitted for treatment of his hypokalemia prior to proceeding with sigmoid colectomy. The patient was complaining of some abdominal pain recently and underwent CT of his abdomen and pelvis which showed evidence of the near obstructing mass in his sigmoid colon. He then underwent flexible sigmoidoscopy and was found to have a near obstructing mass in the sigmoid that could not be traversed with the scope. Biopsies confirmed adenocarcinoma. He has no other signs of metastatic disease on his imaging. The patient has been experiencing significant problems with eating ever since the colonoscopy. He states that he can only tolerate small amounts liquid without feeling very bloated and nauseated. He is still having some small bowel movements. He denies any vomiting. Review of Systems Review of Systems: All systems reviewed & are unremarkable except as noted in HPI and below Eyes: Eyes: Denies change in vision ENT: Denies hearing loss, Denies neck pain and Denies sore throat Cardiovascular: Cardiovascular: Denies chest pain and Denies dyspnea Respiratory: Respiratory: Denies cough, Denies dyspnea and Denies wheezing Gastrointestinal: Gastrointestinal: Reports as per HPI Genitourinary: Genitourinary: Denies hematuria and Denies dysuria Musculoskeletal: Musculoskeletal: Denies arthralgias, Denies joint swelling and Denies neck pain Allergic/Immunologic: Allergic/Immunologic: Denies wheezing [facility] Past Medical History Medical History Abnormal CT scan, colon Benign prostatic hyperplasia with nocturia Cancer of sigmoid Chronic kidney disease, stage 3 COPD (chronic obstructive pulmonary disease) PFT 02/16/2022: Moderately severe obstructive airway disease with evidence of air trapping without bronchodilator response. Severely reduced lung diffusion capacity. FEV1 to FVC ratio 41% Coronary artery disease Per patient a cardiac catheterization done 8 years ago showed 70% blockage in an unknown artery, no intervention undertaken. Essential hypertension Family history of lupus erythematosus Hepatitis C Hyperlipidemia Left inguinal hernia Small not surgically corrected Smoker SVT (supraventricular tachycardia) Syncope Umbilical hernia without obstruction or gangrene Surgical History Surgical History History of cardiac catheterization History of umbilical hernia repair (01/27/19) With mesh Family History Family History Mother Cerebrovascular accident Sibling Cerebrovascular accident, Onset Age: 57 Diabetes mellitus Hypertension Heart disease Father Diabetes mellitus Hypertension Heart disease Other Family history of lupus erythematosus Social History Social History Social History: He has smoked as much as 1 pack of cigarettes per day for 60 years. He is now smoking about half a pack of cigarettes per day. He reports that he quit school in the 3rd grade and is functionally illiterate. 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 Code status: DNR/DNI Surrogate decision maker: Daughter Smoking packs per day: 1 Smoking cigarettes per day: 20.0 Years smoked: 60 Smoking pack-years: 60.00 Smoking status: Current every day smoker Tobacco type: cigarett
[2023-12-31 10:22] LABS: Magnesium 1.7 mg/dL (1.6-2.3); Phosphorus 2.8 mg/dL (2.5-4.5)
[2023-12-31] MEDS: KCL 20 MEQ/D5/0.45% SOD CHL 1,000 ML 100 ML IV CONT (11:01)
[2023-12-31] MEDS: FINASTERIDE 5 MG TABLET PO (11:02)
[2023-12-31] MEDS: POTASSIUM CHLORIDE INJ 40 MEQ in SODIUM CHLORIDE 0.9% IV 500 ML 130 MEQ IVPB (11:02)
[2023-12-31] MEDS: hydroCHLOROthiazide 12.5 MG CAPSULE PO (11:02)
[2023-12-31] MEDS: ASPIRIN 81 MG ENTERIC TABLET PO (11:03)
[2023-12-31] MEDS: IRBESARTAN 150 MG TABLET 300 MG PO (11:03)
[2023-12-31] MEDS: PANTOPRAZOLE 40 MG TABLET PO (11:04)
[2023-12-31] MEDS: ATORVASTATIN 20 MG TABLET PO (11:04)
[2023-12-31] MEDS: TAMSULOSIN HCL 0.4 MG CAPSULE PO (11:04)
--- NOTE | 2023-12-31 13:48 | WPDCN ---
Assessment and Plan Assessment and plan (1) Perforated viscus: Code(s): R19.8 - Other specified symptoms and signs involving the digestive system and abdomen Status: Acute Assessment and Plan: Patient has a firm, rigid abdomen on exam and chest x-ray showed free air under the diaphragm. Call placed to the surgeon immediately after this was seen. Plans for emergent surgery tonight. (2) Septic shock: Code(s): A41.9 - Sepsis, unspecified organism; R65.21 - Severe sepsis with septic shock Status: Acute Assessment and Plan: Patient is in septic shock from perforated viscus with hypotension, tachycardia, and lactic acidosis. Central line inserted and he has been started on vasopressors. Maintain systolic blood pressures of at least 95 with a goal MAP of 70 for adequate end-organ perfusion. Blood cultures have been obtained and are pending. Continue cefepime and metronidazole. (3) Acute respiratory failure: Code(s): J96.00 - Acute respiratory failure, unspecified whether with hypoxia or hypercapnia Status: Acute Assessment and Plan: Patient was intubated for impending respiratory failure. Vent settings and sedation per fire technology instructor. (4) Hypokalemia: Code(s): E87.6 - Hypokalemia Status: Acute Assessment and Plan: Preop potassium was 2.5 but only improved to 2.8 after supplementation. 40 mEq potassium chloride IV x1. Repeat potassium and magnesium thereafter. Hold hydrochlorothiazide. (5) Cancer of sigmoid colon: Code(s): C18.7 - Malignant neoplasm of sigmoid colon Status: Acute Assessment and Plan: Nearly obstructing mass noted in the distal sigmoid colon noted on recent imaging and sigmoidoscopy. (6) Chronic obstructive pulmonary disease: Code(s): J44.9 - Chronic obstructive pulmonary disease, unspecified Status: Acute Assessment and Plan: No acute issues; continue maintenance inhalers. (7) Tobacco abuse: Code(s): Z72.0 - Tobacco use Status: Acute Assessment and Plan: Smoking cessation is encouraged and was discussed. Plan Thank you for allowing us to participate in this patient's care. Please do not hesitate to contact us with any questions. HPI Data of Consult Date/Time: 12/31/23 18:30 Requesting Physician: To Pinto, Consult Narrative Reason for consult: Hypokalemia. Narrative: This is a 68-year-old male with recent diagnosis of sigmoid colon cancer, chronic obstructive pulmonary disease, coronary artery disease, abdominal aortic aneurysm, hypertension, and chronic kidney disease whom the hospitalist service has been consulted after he was found to have pretty significant hypokalemia. The patient provides the following history. He was seen by his primary care provider about 6 months ago for evaluation of abdominal discomfort, decreased appetite, and weight loss. Abdominal CT showed findings consistent with colonic adenocarcinoma at the distal sigmoid colon and the area was biopsied via flexible sigmoidoscopy shortly thereafter confirming moderately differentiated invasive adenocarcinoma. He was scheduled for hand assisted laparoscopic sigmoid colectomy today but surgery was canceled due to critically low potassium levels. EKG demonstrated a sinus rhythm with a rate of 75 without T-wave changes. At the time of my evaluation he complains of severe abdominal pain and abdominal distension which started about an hour and a half prior to my entering the room. He complains of being ?freezing? and says that he thinks he is dying. He has severe nausea but continues to refuse NG-tube insertion. He has had a few small, soft stools but nothing significant even know he has been doing bowel prep for a couple of days. He feels more short of breath when compared to his baseline. He denies chest and pleuritic pain, palpitations, cough, and vomiting. STAT KUB and chest x
--- NOTE | 2023-12-31 17:00 | PC.NURSE ---
Pt C/O increased abdominal pain rated 10/10. Nausea but no emesis. Zofran given IVP. Call out to surgeon for orders for pain meds.
[2023-12-31] MEDS: ONDANSETRON INJ 4 MG/2 ML VIAL IV PUSH (17:04)
--- NOTE | 2023-12-31 17:20 | PC.NURSE ---
Pt assisted to BR with SBA. Small, mushy BM. Assisted back to bed.
[2023-12-31] MEDS: MORPHINE SULFATE (*CRX) 2 MG/ML INJ IV PUSH ×2 (17:38→19:11)
[2023-12-31 19:12] LABS: Alveolar/Arterial O2 Gradient 39.7 mmHg; Base Excess ABG -4.1 mEq/l (+/-2.0); Carboxyhemoglobin 0.6 % THb (0-2.0); Fractional Inspired Oxygen 21 %; HCO3 ABG 19.6 mEq/l (22.0-26.0); Methemoglobin ABG 0.4 %THb (0-1.5); Oxygen Content ABG 19.6 %vol (16.0-22.0); Oxygen Saturation ABG 94.6 % (95.0-100.0); Oxyhemoglobin 92.3 % THb (90.0-100.0); PCO2 ABG 32.2 mmHg (35.0-45.0); PO2 ABG 71.5 mmHg (80.0-100.0); Reduced Hemoglobin 6.7 %THb (0-5.0); Site Drawn RIGHT BRACHIAL; Total Hemoglobin 15.1 g/dL (12.0-18.0); pH ABG 7.402 (7.350-7.450)
[2023-12-31 19:13] LABS: Device ROOM AIR
[2023-12-31 19:23] LABS: Basophils Percent Auto 0.3 % (0.2-1.2); Eosinophils Absolute Auto 0.1 K/mm3 (0-0.3); Hematocrit 46.1 % (42.0-52.0); Hemoglobin 15.2 g/dL (14.0-18.0); Immature Granulocyte Absolute 0.03 K/mm3 (0.00-0.031); Immature Granulocyte Percent A 0.3 % (0-0.5); Lymphocytes Absolute Auto 1.58 K/mm3 (0.9-3.2); Mean Corpuscular Volume 93.9 fl (80-100); Mean Platelet Volume 8.9 fl (7.4-10.4); Monocytes Absolute Auto 0.1 K/mm3 (0.1-0.6); Monocytes Percent Auto 1.5 % (2.6-8.5); Neutrophils Absolute Auto 7.4 K/mm3 (1.3-6.7); Neutrophils Percent Auto 79.9 % (45.5-73.1); Platelet Count Result 339 k/mm3 (150-375); Red Blood Count 4.91 M/mm3 (4.6-6.20); Red Cell Distribution Width 13.8 % (11.5-14.5); White Blood Count 9.3 K/mm3 (4.5-10.0)
[2023-12-31 19:38] LABS: Lactic Acid Reflex 3.6 mmol/L (0.7-2.0)
[2023-12-31 19:39] LABS: Alanine Aminotransferase 14 U/L (6-50); Albumin Level 3.6 g/dL (3.5-5.1); Alkaline Phosphatase 104 U/L (38-126); Anion Gap 9 mmol/L (4-12); Aspartate Amino Transferase 22 U/L (17-59); Bilirubin,Total 1.2 mg/dL (0.2-1.3); Blood Urea Nitrogen 13 mg/dL (9-20); Calcium 8.3 mg/dL (8.4-10.2); Carbon Dioxide 23 mmol/L (22-30); Chloride 104 mmol/L (98-107); Estimated CRCL calculation 42 ml/min; Estimated Glomerular Filt Rate 60; Glucose 114 mg/dL (65-110); Magnesium 1.7 mg/dL (1.6-2.3); Potassium 3.6 mmol/L (3.4-5.0); Sodium 136 mmol/L (137-145)
--- NOTE | 2023-12-31 20:15 | PC.NURSE ---
pt transfered into room for intubation and central line placement pt alert with eyes closed complaining of abdominal pain. place on monitor first bp 54/[address] davidson for levo and dolores
[2023-12-31] MEDS: PHENYLEPHRINE 1,000 MCG/10 ML SYRINGE 100 MCG IV PUSH (20:30)
[2023-12-31] MEDS: NOREPINEPHRINE 8 MG/D5W 250 ML 8 MG/250 ML BAG 9.38 MG IV CONT (20:30)
[2023-12-31] MEDS: VASOPRESSIN INJ 100 UNITS in DEXTROSE 5% 95 ML IV CONT (20:55)
[2023-12-31] MEDS: SODIUM CHLORIDE 0.9% IV 1,000 ML 999 ML IV CONT ×2 (20:57→21:00)
--- NOTE | 2023-12-31 21:10 | SUR.OPER ---
[id number]-Called ICU for report. Spoke with Tyler. He said pt is not ready to come down yet and they will call when he is ready. Ext [phone] given for callback [id number]-Called ICU back. Still have not received a callback from ICU. Pt ready now. Waiting for pt to be transferred to OR
--- NOTE | 2023-12-31 21:30 | WPDPROCEDUR ---
Procedures Central Line Placement Right IJ: Central Line Date: 12/31/23 Central Line Time: 20:45 Consent: I have discussed with the patient and/or surrogate, the non-emergent placement of a central venous catheter, including its clinical necessity/indication and associated potential risks and complications. The patient and/or surrogate understand(s) and acknowledge(s) the need to proceed with central venous catheter insertion as an important element of the patient's clinical management. Time Out Performed: Yes Patient Position: other (Vascular) Patient placed on monitor/pulse ox: Yes Provider Prep: mask, sterile gown, sterile gloves, Max. sterile barrier precautions, cap and hand hygiene with conventional soap/water or alcohol based hand rub Central line prep: 2% Chlorhexidine scrub Sterile US Technique with sterile gel/sterile probe covers: Yes Central line lumen inserted: triple Bahraini: 7 Length (cm): 20 Depth of Insertion (cm): 16 Post Procedure: sutured in place, good blood return, all ports aspirated, flushed, capped, transparent dressing, hemostatic product, antimicrobial product, securement product and aseptic technique maintained throughout procedure Post procedure x-ray: tip of catheter in good position and no pneumothorax seen Patient tolerated procedure: no complications Additional comments: Chest x-ray personally reviewed no pneumothorax line in appropriate position
--- NOTE | 2023-12-31 21:45 | PC.NURSE ---
matheus pt to OR on vent with levo and vasopressing going via central line rt IJ. Report given to Dr Gimenez
--- NOTE | 2023-12-31 21:45 | WPDPROCEDUR ---
Procedures Intubation Intubation Date: 12/31/23 Intubation Time: 20:30 Consent: Patient gave verbal consent. A pre-procedural Time-Out was completed immediately before starting the procedure and confirmed: Patient Identification, Site, Procedure, Patient Position and the Availability of Requisite Equipment: Yes Sedative: etomidate Mg given: 20 Paralytic: succinylcholine Mg given: 100 Laryngoscope: fiber optic video scope Assist device used: fiber optic device ET tube size: 7.5 Tube secured depth (cm): 24 Tube secured location: lips Tube placement confirmation: visualized tube passing through cords, no breath sounds over epigastrium and confirmation by capnometry Patient tolerated procedure: well Intubation complications: none
--- NOTE | 2023-12-31 21:50 | SUR.OPER ---
7-Continue to wait for ICU to bring pt to OR
--- NOTE | 2023-12-31 22:01 | WPDANESEPP ---
Anes - Eval Pre Procedure Procedure: Operation Date: 12/31/23 21:00 Proposed Procedures p Exploratory Laparotomy with possible Bowel Resection, possible ostomy placement - Britney Paris MD Operation Date: 01/01/24 12:00 Proposed Procedures p Hand Assisted Laparoscopic Sigmoidectomy, Possible Open - To Pinto DO Date/Time: 12/31/23 22:01 Pre Op Diagnosis: Sigmoid Colon Cancer Patient Data Age: 68 Gender: M Height: 1.67 m Weight: 56.8 kg Last Vital Signs Temp 36.8 C 12/31/23 20:45 Pulse 125 H 12/31/23 21:00 Resp 22 H 12/31/23 21:00 BP 107/74 12/31/23 20:45 Pulse Ox 100 12/31/23 21:00 O2 Del Method Mechanical Ventilation 12/31/23 21:00 FiO2 100 12/31/23 21:00 Allergies Allergy/AdvReac Type Severity Reaction Status Date / Time Penicillins Allergy Severe Swelling Verified 12/31/23 08:19 Home Medications Medication Instructions Recorded Confirmed Type aspirin 81 mg tablet,delayed 81 mg PO DAILY 05/09/22 12/28/23 History release budesonide 160 mcg-glycopyr 9 2 inh inhalation BID #32.1 grams 10/16/23 12/28/23 Rx mcg-formot 4.8 mcg/actuation HFA inhaler (Breztri Aerosphere) atorvastatin 20 mg tablet See Rx Instructions .Route 10/18/23 12/28/23 Rx .COMPLEX #90 tabs finasteride 5 mg tablet 5 mg PO DAILY #90 tabs 10/18/23 12/28/23 Rx omeprazole 40 mg capsule,delayed 40 mg PO DAILY #90 caps 11/14/23 12/28/23 Rx release potassium chloride 10 mEq 10 meq PO DAILY #90 tabs 11/14/23 12/28/23 Rx tablet,extended release albuterol sulfate 2.5 mg/3 mL 2.5 mg (3 mL) inhalation Q6H PRN 11/27/23 12/28/23 Rx (0.083 %) solution for nebulization shortness of breath or wheezing #180 mL diphenhydramine 25 2 tablet PO HS PRN Insomnia 12/10/23 12/28/23 History mg-acetaminophen 500 mg tablet (Tylenol PM Extra Strength) ciprofloxacin HCl 500 mg tablet 500 mg PO .COMPLEX #1 tablet 12/26/23 12/28/23 Rx metronidazole 500 mg tablet 500 mg PO .COMPLEX #3 tabs 12/26/23 12/28/23 Rx albuterol sulfate 2.5 mg/3 mL 2.5 mg inhalation Q4-6H PRN 12/28/23 12/28/23 History (0.083 %) solution for nebulization Shortness Of Breath Or Wheezing irbesartan 300 1 tablet PO QAM 12/28/23 12/28/23 History mg-hydrochlorothiazide 12.5 mg tablet tamsulosin 0.4 mg capsule 0.4 mg PO QAM 12/28/23 12/28/23 History Laboratory Tests 12/31/23 12/31/23 12/31/23 07:36 19:00 19:03 WBC 9.3 K/mm3 (4.5-10.0) RBC 4.91 M/mm3 (4.6-6.20) Hgb 12.7 L g/dL 15.2 g/dL (14.0-18.0) (14.0-18.0) Hct 36.7 L % 46.1 % (42.0-52.0) (42.0-52.0) MCV 93.9 fl (80-100) MCH 31.0 pg (26-34) MCHC 33.0 g/dl (32-36) RDW 13.8 % (11.5-14.5) Plt Count 339 D k/mm3 (150-375) MPV 8.9 fl (7.4-10.4) Immature Gran % (Auto) 0.3 % (0-0.5) Neut % (Auto) 79.9 H % (45.5-73.1) Lymph % (Auto) 17.0 L % (18.3-44.2) [place] % (Auto) 1.5 L % (2.6-8.5) Eos % (Auto) 1.0 % (0-4.4) Baso % (Auto) 0.3 % (0.2-1.2) Lymph # (Auto) 1.58 K/mm3 (0.9-3.2) [place] # (Auto) 0.1 K/mm3 (0.1-0.6) Eos # (Auto) 0.1 K/mm3 (0-0.3) Baso # (Auto) 0.0 K/mm3 (0.0-0.1) Abs Immat Gran (auto) 0.03 K/mm3 (0.00-0.031) Absolute Neuts (auto) 7.4 H K/mm3 (1.3-6.7) Absolute Nucleated RBC 0.000 K/mm3 (0.0-0.012) Nucleated RBC % 0.0 % (0.0-0.2) Puncture Site Right brachial ABG pH 7.402 (7.350-7.450) ABG pCO2 32.2 L mmHg (35.0-45.0) ABG pO2 71.5 L mmHg (80.0-100.0) ABG PO2/FiO2 Ratio 3.40 % ABG HCO3 19.6 L mEq/l (22.0-26.0) ABG O2 Saturation 94.6 L % (95.0-100.0) ABG O2 Content 19.6 %vol (16.0-22.0) ABG Base Excess -4.1 mEq/l (+/-2.0) A-a Gradient 39.7 mmHg Oxyhemoglobin
[2023-12-31 22:20] LABS: Reflex Lactic Acid Yes or No Add Lactic
[2023-12-31] MEDS: ceFAZolin 2 GM/D5W 50 ML 2 GM/50 ML BAG IVPB (22:20)
[2023-12-31] MEDS: metroNIDAZOLE 500 MG/ISO 100ML 500 MG/100 ML BAG 100 MG IVPB (22:25)
--- NOTE | 2023-12-31 22:28 | P.PNAN_ITS ---
Anes - Initial Pre Proc Eval Procedure: Operation Date: 12/31/23 21:00 Proposed Procedures p Exploratory Laparotomy with possible Bowel Resection, possible ostomy placement - Britney Paris MD Operation Date: 01/01/24 12:00 Proposed Procedures p Hand Assisted Laparoscopic Sigmoidectomy, Possible Open - To Pinto DO Date/Time: 12/31/23 22:28 Surgeon: To Pinto DO Pre Op Diagnosis: Sigmoid Colon Cancer Patient Data Age: 68 Gender: M Height: 1.67 m Weight: 56.8 kg Last Vital Signs Temp 36.8 C 12/31/23 20:45 Pulse 125 H 12/31/23 21:00 Resp 22 H 12/31/23 21:00 BP 107/74 12/31/23 20:45 Pulse Ox 100 12/31/23 21:00 O2 Del Method Mechanical Ventilation 12/31/23 21:00 FiO2 100 12/31/23 21:00 Allergies Allergy/AdvReac Type Severity Reaction Status Date / Time Penicillins Allergy Severe Swelling Verified 12/31/23 08:19 Home Medications Medication Instructions Recorded Confirmed Type aspirin 81 mg tablet,delayed 81 mg PO DAILY 05/09/22 12/28/23 History release budesonide 160 mcg-glycopyr 9 2 inh inhalation BID #32.1 grams 10/16/23 12/28/23 Rx mcg-formot 4.8 mcg/actuation HFA inhaler (Breztri Aerosphere) atorvastatin 20 mg tablet See Rx Instructions .Route 10/18/23 12/28/23 Rx .COMPLEX #90 tabs finasteride 5 mg tablet 5 mg PO DAILY #90 tabs 10/18/23 12/28/23 Rx omeprazole 40 mg capsule,delayed 40 mg PO DAILY #90 caps 11/14/23 12/28/23 Rx release potassium chloride 10 mEq 10 meq PO DAILY #90 tabs 11/14/23 12/28/23 Rx tablet,extended release albuterol sulfate 2.5 mg/3 mL 2.5 mg (3 mL) inhalation Q6H PRN 11/27/23 12/28/23 Rx (0.083 %) solution for nebulization shortness of breath or wheezing #180 mL diphenhydramine 25 2 tablet PO HS PRN Insomnia 12/10/23 12/28/23 History mg-acetaminophen 500 mg tablet (Tylenol PM Extra Strength) ciprofloxacin HCl 500 mg tablet 500 mg PO .COMPLEX #1 tablet 12/26/23 12/28/23 Rx metronidazole 500 mg tablet 500 mg PO .COMPLEX #3 tabs 12/26/23 12/28/23 Rx albuterol sulfate 2.5 mg/3 mL 2.5 mg inhalation Q4-6H PRN 12/28/23 12/28/23 History (0.083 %) solution for nebulization Shortness Of Breath Or Wheezing irbesartan 300 1 tablet PO QAM 12/28/23 12/28/23 History mg-hydrochlorothiazide 12.5 mg tablet tamsulosin 0.4 mg capsule 0.4 mg PO QAM 12/28/23 12/28/23 History Laboratory Tests 12/31/23 12/31/23 12/31/23 07:36 19:00 19:03 WBC 9.3 K/mm3 (4.5-10.0) RBC 4.91 M/mm3 (4.6-6.20) Hgb 12.7 L g/dL 15.2 g/dL (14.0-18.0) (14.0-18.0) Hct 36.7 L % 46.1 % (42.0-52.0) (42.0-52.0) MCV 93.9 fl (80-100) MCH 31.0 pg (26-34) MCHC 33.0 g/dl (32-36) RDW 13.8 % (11.5-14.5) Plt Count 339 D k/mm3 (150-375) MPV 8.9 fl (7.4-10.4) Immature Gran % (Auto) 0.3 % (0-0.5) Neut % (Auto) 79.9 H % (45.5-73.1)
--- NOTE | 2023-12-31 22:30 | P.PCNANE_ITS ---
Arterial Cath Proc Note Consent: Given emergent patient conditions, temporal constraints may have precluded informed consent. Time-Out: A pre-procedural Time-Out was completed immediately before starting the procedure and confirmed: Patient Identification, Site, Procedure, Patient Position and the Availability of Requisite Equipment. Procedure Note Problems: hypotension pressors Patient position: supine Insertion site: right radial (placed one attempt) Method of insertion: surface landmarks Glue Jointer Feeder prep: mask and hat Site prep: chlorahexadine Skin anesthesia: general anesthesia Gauge: 20 gauge Length (cm): 4.4 cm Closure/Dressing: antimicrobial disc and tegaderm Complications: None immediately noted/suspected. left attempted no access to artery
--- NOTE | 2023-12-31 23:29 | W.PM.PROC2 ---
Procedure Note - Detailed Date of Procedure 12/31/23 Pre-op Diagnosis septic shock secondary to bowel perforation, obstructing sigmoid colon cancer Post-op Diagnosis Other ( perforated cecum, obstructing sigmoid colon cancer) Procedure Performed exploratory laparotomy, right colectomy with ileocolic anastomosis, sigmoid colectomy, creation of end colostomy Surgeon Britney Paris MD Anesthesia General Indications 68-year-old male with septic shock secondary to bowel perforation. Patient was set up for sigmoid colectomy secondary to obstructing sigmoid colon cancer. Findings Perforation of the cecum, obstructing mass in the distal sigmoid colon Description of Procedure The patient was taken to the operating room and placed in the supine position. Please note the patient was severely ill prior to surgery and was transferred from the intensive care unit intubated and on pressor support. The patient had a previously placed right internal jugular central venous catheter. After adequate induction of general anesthesia, the patient was prepped and draped in the normal sterile fashion. A time-out was then done to verify the patient's identity, as well as the procedure being performed. A generous midline incision was made to gain access into the peritoneal cavity. There was noted to be a piece of midline mesh around the periumbilical area. Upon getting into the peritoneal cavity, there was noted to be a gush pneumoperitoneum and a moderate amount of feculent contamination. There were some adhesions to the midline and these were taken down sharply with the Bovie. I was able to quickly identify the area of perforation in the cecum. Using a 3-0 silk suture, I quickly whipstitched the area closed. I then proceeded to free up the ileocecal area which was noted to be very dilated. There was also quite an amount of inflammation secondary to the perforation in the area. I took down the lateral attachments of the right colon by taking down the white line of Toldt. I did go ahead and free up the hepatic flexure at this point as well. I was able to transect the terminal ileum approximate 5-10 cm from the ileo colic valve. The ileum was largely unremarkable although dilated. I then transected the ascending colon distally using the 75 DYLAN stapler. I then took down the mesenteric attachments using the LigaSure device. I then completed [id number] functional end-to-end ileocolic anastomosis using the 75 DYLAN stapler followed by the TX 60. I then oversewed the staple line using interrupted 3-0 silk sutures. The anastomosis was noted to be widely patent and tension-free. I then copiously washed out the abdominal cavity. No other areas of perforation were noted. I then was able to identify the area of obstruction in the distal sigmoid colon. This was approximately 15-20 cm from the upper rectum. Using very careful dissection, I was able to free the distal sigmoid colon from the lateral attachments. I was also able to free up the upper rectum. I then freed up the lateral attachments of the sigmoid colon as well as the descending colon by taking down the white line of Toldt. I was then able to identify the left ureter and kept this posterior to our dissection field. I was then able to transect the distal sigmoid using a blue contour stapler. This was done approximately 5-10 cm distal to tumor. I then transected proximally at the proximal sigmoid/ distal ascending colon approximately 10-15 cm to the tumor using a 75 DYLAN stapler. At this point I marked the rectal stump using Prolene suture x2. I again copiously irrigated the abdomen and a 19 Belgian drain was left in the pelvis. I then picked a left lower quadrant colostomy site through the rectus muscle and the incision was made for the colostomy. I was able to easily bring the colostomy through this site. I then closed the fascia including the old mesh using a 0 looped PDS suture x2. The skin was closed with skin
[2024-01-01] VITALS (107 sets, daily range): BP systolic 53–172; BP diastolic 37–93; PULSE 68–124; RESP 20–28; TEMP 36.1–38.1; O2SAT 92–100
[2024-01-01] MEDS: SODIUM CHLORIDE 0.9% IV 1,000 ML 999 ML IV CONT (00:10)
[2024-01-01] MEDS: CEFEPIME 2 GM/NS 50 ML 2 GM/50 ML BAG IVPB ×2 (00:30→11:03)
[2024-01-01 00:32] LABS: Alveolar/Arterial O2 Gradient 77.1 mmHg; Base Excess ABG -8.5 mEq/l (+/-2.0); Carboxyhemoglobin 0.2 % THb (0-2.0); Fractional Inspired Oxygen 30 %; HCO3 ABG 20.1 mEq/l (22.0-26.0); Methemoglobin ABG 0.4 %THb (0-1.5); Oxygen Content ABG 17.1 %vol (16.0-22.0); Oxygen Saturation ABG 90.7 % (95.0-100.0); Oxyhemoglobin 89.4 % THb (90.0-100.0); PCO2 ABG 54.2 mmHg (35.0-45.0); PO2 ABG 73.1 mmHg (80.0-100.0); PO2 FiO2 Ratio Arterial Blood 2.44 %; Total Hemoglobin 13.6 g/dL (12.0-18.0)
[2024-01-01 00:36] LABS: Site Drawn ARTLINE; pH ABG 7.186 (7.350-7.450)
[2024-01-01 00:37] LABS: Arterial Blood Gas Ventilator rate 22 /MIN; Device VENTILATOR; Modified Allen's Test Pass
[2024-01-01 00:38] LABS: Arterial Blood Gas PEEP 5 cmH2O; Arterial Blood Gas Tidal Volume 380 ml; Arterial Blood Gas Vent Mode CMV
[2024-01-01] MEDS: CENTRAL LINE FLUSH 10 ML IV PUSH ×4 (00:50→21:13)
[2024-01-01] MEDS: MINERAL OIL/WHITE PETROLATUM OINTMENT 1 APPLIC EACH EYE ×3 (00:50→21:13)
[2024-01-01] MEDS: FENTANYL 2,500MCG/NS250ML(*CRX 2,500 MCG/250 ML BAG IV CONT (00:53)
[2024-01-01] MEDS: MIDAZOLAM 100MG/NS 100ML(*CRX) 100 MG/100 ML BAG IV CONT (00:54)
--- NOTE | 2024-01-01 01:52 | P.PNCROSS_ITS ---
Event Note Event Note Event Note: Prior to going to surgery the patient was started on Levophed. While was placed in the central line patient's blood pressures were still in the 70s systolic. I ordered vasopressin. Patient was receiving a L fluid bolus at the time. I provided initial ventilator settings tidal volume 380 rate 22 peep of 500%. Central line placement was confirmed. The patient went to surgery. Have bowel resection with ostomy placement. When patient came back from surgery was on 30/5 Levophed and vasopressin. Pressures were still dropping into the 70s. An order was given for 2 amps of sodium bicarb and Jw-Synephrine. ABG was obtained which demonstrated pH 7.18 pCO2 54 PO2 of 73 and bicarb of 20. I increase the patient's rate on ventilator to 26 and repeat ABG has been ordered for a.m. will start the patient on bicarb drip. Repeat lactic acid has been ordered. Repeat CBC CMP and ABG have been ordered for a.m.. The did call and update paper cone machine tender as to the patient's clinical condition just prior to the patient departing for surgery. 35 minute spent in critical care activities. Due to a high probability of clinically significant, life threatening deterioration, the patient required my highest level of preparedness to intervene emergently and I personally spent this critical care time directly and personally managing the patient. This critical care time included obtaining a history; examining the patient; pulse oximetry; ordering and review of studies; arranging urgent treatment with development of a management plan; evaluation of patient's response to treatment; frequent reassessment; and discussions with other providers. It was exclusive of separately billable procedures and treating other patients and teaching time. Please see Assessment and Plan section and the rest of the note for further information on patient assessment and treatment.
[2024-01-01 01:54] LABS: Hematocrit 37.9 % (42.0-52.0); Hemoglobin 12.7 g/dL (14.0-18.0); Mean Corpuscular HGB Conc 33.5 g/dl (32-36); Mean Corpuscular Hemoglobin 31.3 pg (26-34); Mean Corpuscular Volume 93.3 fl (80-100); Platelet Count Result 190 k/mm3 (150-375); Red Blood Count 4.06 M/mm3 (4.6-6.20); Red Cell Distribution Width 14.1 % (11.5-14.5); White Blood Count 5.7 K/mm3 (4.5-10.0)
[2024-01-01] MEDS: HYDROCORTISONE SODIUM SUCCINATE 100 MG/2 ML VIAL IV PUSH ×3 (02:11→17:32)
[2024-01-01] MEDS: SODIUM BICARBONATE 8.4% 50 MEQ/50 ML SYRINGE 100 MEQ IV PUSH (02:11)
[2024-01-01 02:12] LABS: Lactic Acid 2.7 mmol/L (0.7-2.0)
[2024-01-01] MEDS: SODIUM BICARBONATE 8.4% 150 MEQ in DEXTROSE 5% 1,000 ML 950 ML 100 MEQ IV CONT (02:30)
[2024-01-01 03:03] LABS: INR 1.4; Prothrombin Time 17.7 Seconds (11.1-14.7)
[2024-01-01 03:04] LABS: Partial Thromboplastin Time 37.5 Seconds (22.3-36.8)
[2024-01-01] MEDS: NOREPINEPHRINE 8 MG/D5W 250 ML 8 MG/250 ML BAG 93.75 MG IV CONT ×2 (03:51→06:06)
[2024-01-01 04:22] LABS: Alanine Aminotransferase 10 U/L (6-50); Albumin Level 1.7 g/dL (3.5-5.1); Alkaline Phosphatase 48 U/L (38-126); Anion Gap 1 mmol/L (4-12); Aspartate Amino Transferase 23 U/L (17-59); Bilirubin,Total 0.6 mg/dL (0.2-1.3); Blood Urea Nitrogen 14 mg/dL (9-20); Calcium 6.6 mg/dL (8.4-10.2); Carbon Dioxide 25 mmol/L (22-30); Chloride 109 mmol/L (98-107); Estimated CRCL calculation 42 ml/min; Estimated Glomerular Filt Rate 60; Glucose 145 mg/dL (65-110); Magnesium 1.5 mg/dL (1.6-2.3); Potassium 3.8 mmol/L (3.4-5.0); Sodium 135 mmol/L (137-145)
[2024-01-01 05:39] LABS: Alveolar/Arterial O2 Gradient 247.2 mmHg; Base Excess ABG -15.5 mEq/l (+/-2.0); Carboxyhemoglobin 0.1 % THb (0-2.0); Fractional Inspired Oxygen 75 %; HCO3 ABG 9.1 mEq/l (22.0-26.0); Oxygen Content ABG 9.4 %vol (16.0-22.0); Oxygen Saturation ABG 99.6 % (95.0-100.0); Oxyhemoglobin 96.5 % THb (90.0-100.0); PO2 ABG 268.4 mmHg (80.0-100.0); PO2 FiO2 Ratio Arterial Blood 3.58 %; Reduced Hemoglobin 2.4 %THb (0-5.0); pH ABG 7.322 (7.350-7.450)
[2024-01-01] MEDS: metroNIDAZOLE 500 MG/ISO 100ML 500 MG/100 ML BAG 100 MG IVPB ×3 (05:41→21:13)
[2024-01-01 05:44] LABS: Total Hemoglobin 6.4 g/dL (12.0-18.0)
[2024-01-01 05:47] LABS: Arterial Blood Gas Ventilator rate 26 /MIN; Device VENTILATOR; Modified Allen's Test Pass; Site Drawn ARTLINE
[2024-01-01 05:48] LABS: Arterial Blood Gas PEEP 5 cmH2O; Arterial Blood Gas Tidal Volume 420 ml; Arterial Blood Gas Vent Mode CMV
[2024-01-01 06:00] LABS: Alveolar/Arterial O2 Gradient 87.3 mmHg; Base Excess ABG -5.4 mEq/l (+/-2.0); Fractional Inspired Oxygen 30 %; HCO3 ABG 21.1 mEq/l (22.0-26.0); Methemoglobin ABG 0.4 %THb (0-1.5); Oxygen Content ABG 17.9 %vol (16.0-22.0); Oxygen Saturation ABG 93.2 % (95.0-100.0); Oxyhemoglobin 92.6 % THb (90.0-100.0); PCO2 ABG 44.9 mmHg (35.0-45.0); PO2 ABG 73.8 mmHg (80.0-100.0); PO2 FiO2 Ratio Arterial Blood 2.46 %; Total Hemoglobin 13.7 g/dL (12.0-18.0)
[2024-01-01] MEDS: ALBUMIN HUMAN 25% 25 GM/100 ML 100 ML IVPB ×3 (06:00→17:32)
[2024-01-01 06:04] LABS: Device VENTILATOR; Modified Allen's Test Pass; Site Drawn ARTLINE
[2024-01-01 06:05] LABS: Arterial Blood Gas PEEP 5 cmH2O; Arterial Blood Gas Tidal Volume 420 ml; Arterial Blood Gas Vent Mode CMV; Arterial Blood Gas Ventilator rate 26 /MIN
[2024-01-01] MEDS: MAGNESIUM SULF 2 GM/WATER 50ML 2 GM/50 ML BAG IVPB ×2 (06:19→08:11)
--- NOTE | 2024-01-01 07:46 | WPDANESPN ---
Anes - Prog Note Post-Op Date/Time: 01/01/24 07:46 Cardiovascular status: normal Respiratory status: other (intubated) Airway patency: other Mental status: other (shaina) Post-Op hydration status: other Vital Signs: Last Vital Signs Temp 100.3 F H 01/01/24 05:44 Pulse 109 H 01/01/24 06:08 Resp 26 H 01/01/24 06:08 BP 104/57 L 01/01/24 06:06 Pulse Ox 100 01/01/24 05:51 O2 Del Method Mechanical Ventilation 01/01/24 05:51 FiO2 30 01/01/24 05:51 Pain Score (VAS): SHAINA I/O: Intake & Output 12/31/23 12/31/23 01/01/24 15:59 23:59 07:59 Intake Total 520 2851.4 1097.1 Output Total 400 380 Balance 520 2451.4 717.1 Laboratory Tests 01/01/24 01:41 01/01/24 01:41 12/31/23 12/31/23 12/31/23 07:36 19:00 19:03 WBC 9.3 RBC 4.91 Hgb 15.2 Hct 46.1 MCV 93.9 MCH 31.0 MCHC 33.0 RDW 13.8 Plt Count 339 D MPV 8.9 Immature Gran % (Auto) 0.3 Neut % (Auto) 79.9 H Lymph % (Auto) 17.0 L [place] % (Auto) 1.5 L Eos % (Auto) 1.0 Baso % (Auto) 0.3 Lymph # (Auto) 1.58 [place] # (Auto) 0.1 Eos # (Auto) 0.1 Baso # (Auto) 0.0 Abs Immat Gran (auto) 0.03 Absolute Neuts (auto) 7.4 H Absolute Nucleated RBC 0.000 Nucleated RBC % 0.0 PT INR APTT Puncture Site Right brachial ABG pH 7.402 ABG pCO2 32.2 L ABG pO2 71.5 L ABG PO2/FiO2 Ratio 3.40 ABG HCO3 19.6 L ABG O2 Saturation 94.6 L ABG O2 Content 19.6 ABG Base Excess -4.1 A-a Gradient 39.7 Oxyhemoglobin 92.3 Carboxyhemoglobin 0.6 Methemoglobin 0.4 Reduced Hemoglobin 6.7 H Total Hemoglobin 15.1 O2 Delivery Device Room air O2 Liters/Min Not Reportable Minute Volume Vent Rate Vent Mode FiO2 21 Tidal Volume PEEP Peak Inspir Pressure Pressure Support Sodium 135 L Potassium 2.8 L* Chloride 102 Carbon Dioxide 27 Anion Gap 6 L BUN 12 Creatinine 1.00 Estim Creat Clear Calc 51 Estimated GFR > 60 Glucose 98 Lactic Acid 3.6 H Calcium 8.5 Phosphorus 2.8 Magnesium 1.7 Total Bilirubin AST ALT Alkaline Phosphatase Total Protein Albumin 12/31/23 01/01/24 01/01/24 19:04 00:24 01:40 WBC RBC Hgb Hct MCV MCH MCHC RDW Plt Count MPV Immature Gran % (Auto) Neut % (Auto) Lymph % (Auto) [place] % (Auto) Eos % (Auto) Baso % (Auto) Lymph # (Auto) [place] # (Auto) Eos # (Auto) Baso # (Auto) Abs Immat Gran (auto) Absolute Neuts (auto) Absolute Nucleated RBC Nucleated RBC % PT INR APTT Puncture Site Artline ABG pH 7.186 L* ABG pCO2 54.2 H ABG pO2 73.1 L ABG PO2/FiO2 Ratio 2.44 ABG HCO3 20.1 L ABG O2 Saturation 90.7 L ABG O2 Content 17.1 ABG Base Excess -8.5 A-a Gradient 77.1 Oxyhemoglobin 89.4 L Carboxyhemoglobin 0.2 Methemoglobin 0.4 Reduced Hemoglobin 10.0 H Total Hemoglobin 13.6 O2 Delivery Device Ventilator O2 Liters/Min Not Reportable Minute Volume Not Reportable Vent Rate 22 Vent Mode Cmv FiO2 30 Tidal Volume 380 PEEP 5 Peak Inspir Pressure Not Reportable Pressure Support Not Reportable Sodium 136 L Potassium 3.6 Chloride 104 Carbon Dioxide 23 Anion Gap 9 BUN 13 Creatinine 1.20 Estim Creat Clear Calc 42 Estimated GFR 60 Glucose 114 H Lactic Acid 2.7 H Calcium 8.3 L Phosphorus Magnesium 1.7 Total Bilirubin 1.2 AST 22 ALT 14 Alkaline Phosphatase 104 Total Protein 6.0 L Albumin 3.6 01/01/24 01/01/24 01/01/24 01:41 05:28 05:56 WBC 5.7 RBC 4.06 L Hgb 12.7 L Hct 37.9 L MCV 93.3 MCH 31.3 MCHC 33.5 RDW 14.1 Plt Count 190 MPV 9.0 Immature Gran % (Auto) Neut % (Auto) Lymph % (Auto) [place] % (Auto) Eos % (Auto) Baso % (Auto) Lymph # (Auto) M
--- NOTE | 2024-01-01 07:58 | ECG_ITS ---
Measurements Intervals [place] Rate: 98 P: 87 MI: 131 QRS: 73 QRSD: 120 T: 34 QT: 298 QTc: 382 Interpretive Statements SINUS RHYTHM WITH SINUS ARRHYTHMIA RIGHT BUNDLEBRANCH BLOCK WARNING: DATA QUALITY MAY AFFECT INTERPRETATION INTERPRETATION BASED ON A DEFAULT AGE OF 40 YEARS COMPARED TO ECG 12/31/2023 18:53:03 SINUS RHYTHM NOW PRESENT Electronically Signed On 01-01-2024 8:54:22 CDT by Fili Rudolph M.D.
[2024-01-01] MEDS: PANTOPRAZOLE SODIUM IV 40 MG VIAL IV PUSH (08:09)
[2024-01-01] MEDS: LACTATED RINGERS 1,000 ML 100 ML IV CONT ×2 (08:10→17:32)
[2024-01-01] MEDS: LACTATED RINGERS 1,000 ML 999 ML IV CONT (08:10)
[2024-01-01] MEDS: ENOXAPARIN 40 MG/0.4 ML SYRINGE SUB-Q (08:11)
--- NOTE | 2024-01-01 08:23 | WPDCNINT ---
Assessment and Plan Assessment and plan (1) Septic shock: Code(s): A41.9 - Sepsis, unspecified organism; R65.21 - Severe sepsis with septic shock Status: Acute Assessment and Plan: Secondary to perforated viscus and peritonitis Now status post exploratory laparotomy, right colectomy with ileocolic anastomosis, sigmoid colectomy, creation of end colostomy continue Levophed vasopressin and phenylephrine DC IV fluids with bicarb and switch to LR 1 L LR bolus Stress dose hydrocortisone and albumin Continue fluid resuscitation and frequent evaluation for titration of the vasopressors to maintain perfusion of vital organs and prevent end organ ischemia and (2) Acute respiratory failure: Code(s): J96.00 - Acute respiratory failure, unspecified whether with hypoxia or hypercapnia Status: Acute Assessment and Plan: Acute Respiratory failure secondary to perforated viscus, septic shock, general anesthesia Continue full mechanical ventilation support to prevent hypoxemia/hypercarbia and end organ damage. ABG and PCXR reviewed and will repeat in am. Increase tidal volume to 450 and rate to 28 Will wait for hemodynamic stabilization before attempting SBT Added Bronchodilators (3) Perforated viscus: Code(s): R19.8 - Other specified symptoms and signs involving the digestive system and abdomen Status: Acute Assessment and Plan: See above (4) Chronic obstructive pulmonary disease: Code(s): J44.9 - Chronic obstructive pulmonary disease, unspecified Status: Acute Assessment and Plan: Bronchodilators (5) Cancer of sigmoid colon: Code(s): C18.7 - Malignant neoplasm of sigmoid colon Status: Acute Assessment and Plan: Status post exploratory laparotomy, right colectomy with ileocolic anastomosis, sigmoid colectomy, creation of end colostomy Colostomy management per General surgery (6) Metabolic acidosis: Code(s): E87.20 - Acidosis, unspecified Status: Acute Assessment and Plan: Improved. Will discontinue IV fluids with bicarb (7) Electrolyte abnormality: Code(s): E87.8 - Other disorders of electrolyte and fluid balance, not elsewhere classified Status: Acute Assessment and Plan: Replace low calcium and magnesium Plan DVT prophylaxis -Lovenox Stress ulcer prophylaxis -Protonix Nutrition - npo Code Status - Full Code Spoke patient's family at bedside updated them with patient's current status including septic shock respiratory failure and guarded prognosis Total Critical Care Time - 35 minutes Due to a high probability of clinically significant, life threatening deterioration, the patient required my highest level of preparedness to intervene emergently and I personally spent this critical care time directly and personally managing the patient. This critical care time included obtaining a history; examining the patient; pulse oximetry; ordering and review of studies; arranging urgent treatment with development of a management plan; evaluation of patient's response to treatment; frequent reassessment; and discussions with other providers. It was exclusive of separately billable procedures and treating other patients and teaching time. Please see Assessment and Plan section and the rest of the note for further information on patient assessment and treatment Cnc Specialist Consult Note Consult date: 01/01/24 Reason for consult: Respiratory failure, septic shock HPI: Seth Guajardo is a 68 year old male who was recently diagnosed with sigmoid colon cancer, chronic obstructive pulmonary disease, coronary artery disease, abdominal aortic aneurysm, hypertension, and chronic kidney disease was admitted yesterday on the floor prior to his elective colectomy due to hyperkalemia. Patient was seen by his primary care provider about 6 months ago for evaluation of abdominal discomfort, decreased appetite, and weight l
[2024-01-01] MEDS: CALCIUM CHLOR 1,000MG/100ML NS 1,000 MG/100 ML BAG 100 MG IVPB (08:25)
[2024-01-01] MEDS: NOREPINEPHRINE 8 MG/D5W 250 ML 8 MG/250 ML BAG 84.38 MG IV CONT (08:38)
[2024-01-01] MEDS: IPRATROPIUM 0.5 MG/ALBUTEROL SULFATE 2.5 MG AMPUL.NEB 3 ML INHALATION ×2 (09:00→20:04)
--- NOTE | 2024-01-01 11:17 | PCFNICU ---
ICU Rounding Note: Pt current nutrition is NPO. Last recorded weight is 58.6 kg. Bowel Motility: Last reported BM 12/30 Labs Reviewed:Mg 1.5, Glu 145, Na 135, Alb 1.7, Hct 37.9,Hgb 12.7 Meds Noted: Vasopressin, Fentanyl, Levophed, Versed, Phenylephrine. Skin: WNL Additional Notes: Patient is current with mechanical vent. No plans for nutrition today. Will continue to monitor for daily with plan of care. Following daily in ICU rounds. .
[2024-01-01 11:52] LABS: Glucose Point of Care 210 mg/dl (65-105)
[2024-01-01 12:01] LABS: Alveolar/Arterial O2 Gradient 83.2 mmHg; Base Excess ABG -7.1 mEq/l (+/-2.0); Fractional Inspired Oxygen 30 %; HCO3 ABG 16.1 mEq/l (22.0-26.0); Oxygen Content ABG 14.5 %vol (16.0-22.0); Oxygen Saturation ABG 97.8 % (95.0-100.0); Oxyhemoglobin 96.1 % THb (90.0-100.0); PCO2 ABG 25.4 mmHg (35.0-45.0); PO2 ABG 100.9 mmHg (80.0-100.0); PO2 FiO2 Ratio Arterial Blood 3.36 %; Total Hemoglobin 10.6 g/dL (12.0-18.0); pH ABG 7.419 (7.350-7.450)
[2024-01-01 12:02] LABS: Device VENTILATOR; Modified Allen's Test Pass; Site Drawn RIGHT RADIAL
[2024-01-01 12:03] LABS: Arterial Blood Gas PEEP 5 cmH2O; Arterial Blood Gas Vent Mode CMV; Arterial Blood Gas Ventilator rate 28 /MIN
[2024-01-01 12:04] LABS: Arterial Blood Gas Tidal Volume 450 ml
[2024-01-01 12:11] LABS: Hematocrit 30.3 % (42.0-52.0); Hemoglobin 10.1 g/dL (14.0-18.0); Mean Corpuscular HGB Conc 33.3 g/dl (32-36); Mean Corpuscular Hemoglobin 31.7 pg (26-34); Mean Platelet Volume 9.9 fl (7.4-10.4); Platelet Count Result 138 k/mm3 (150-375); Red Blood Count 3.19 M/mm3 (4.6-6.20); Red Cell Distribution Width 14.1 % (11.5-14.5); White Blood Count 13.1 K/mm3 (4.5-10.0)
[2024-01-01 12:19] LABS: Lactic Acid Reflex 3.9 mmol/L (0.7-2.0)
[2024-01-01 12:21] LABS: Anion Gap 5 mmol/L (4-12); Blood Urea Nitrogen 16 mg/dL (9-20); Calcium 6.9 mg/dL (8.4-10.2); Carbon Dioxide 18 mmol/L (22-30); Chloride 106 mmol/L (98-107); Estimated CRCL calculation 40 ml/min; Estimated Glomerular Filt Rate 55; Glucose 194 mg/dL (65-110); Magnesium 2.3 mg/dL (1.6-2.3); Potassium 3.4 mmol/L (3.4-5.0); Sodium 129 mmol/L (137-145)
[2024-01-01] MEDS: NOREPINEPHRINE 8 MG/D5W 250 ML 8 MG/250 ML BAG 56.25 MG IV CONT (13:26)
--- NOTE | 2024-01-01 13:29 | PM.PNGS ---
Progress Note: A&P Assessment and Plan (1) Septic shock: Code(s): A41.9 - Sepsis, unspecified organism; R65.21 - Severe sepsis with septic shock Status: Acute Assessment and Plan: Secondary to bowel perforation, peritonitis. S/p?exploratory laparotomy, right colectomy with ileocolic anastomosis, sigmoid colectomy, creation of end colostomy. Continue IV antibiotics, critical care management. Wean vasopressors as tolerated. 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 Pathology pending. Await return of bowel function. Continue NG tube decompression, bowel rest, IV fluids. (3) Acute respiratory failure: Code(s): J96.00 - Acute respiratory failure, unspecified whether with hypoxia or hypercapnia Status: Acute Assessment and Plan: Continue critical care management per Application Integration Engineer, wean vent as tolerated (4) Perforated viscus: Code(s): R19.8 - Other specified symptoms and signs involving the digestive system and abdomen Status: Acute Assessment and Plan: Cecal perforation with right colectomy emergently last night. Continue IV antibiotics, see plan above. Await return of bowel function, continue NG tube decompression, IV fluids, and bowel rest (5) COPD (chronic obstructive pulmonary disease): Qualifiers: COPD type: unspecified COPD Qualified Code(s): J44.9 - Chronic obstructive pulmonary disease, unspecified Code(s): J44.9 - Chronic obstructive pulmonary disease, unspecified Status: Acute Plan I have discussed the patient's case and plan of care with Dr. Paris. Subjective Subjective Date/Time Seen: 01/01/24 13:29 Post Op day: 1 ( exploratory laparotomy, right colectomy with ileocolic anastomosis, sigmoid colectomy, creation of end colostomy) Interval history: This is a 68-year-old man who was directly admitted yesterday from our service for treatment of his colon cancer. He was scheduled for a hand assisted laparoscopic sigmoid colectomy yesterday but surgery was canceled due to critically low potassium levels. Potassium was being replaced an on a chest x-ray ordered for hypoxia from the hospitalist last night, he was found to have moderate pneumoperitoneum. He developed septic shock secondary to bowel perforation was taken to the OR last night. He was found to have a cecal perforation as well as an obstructing mass in the distal sigmoid colon. He remained intubated after surgery and was transferred to the ICU. He is now seen in the ICU intubated and sedated. Per nursing, they have been able to wean down on some of his vasopressors. He is currently on 3 separate vasopressors. He is receiving additional IV fluids today. Review of Systems Review of Systems: ROS unobtainable: Yes unobtainable due to endotracheal tube Exam Const: General: ill appearing Orientation/consciousness: patient obtunded Other: Intubated and sedated GI: Inspection: incision (dressing dry and intact) and other (ostomy dusky, no stool or gas ) GI Palp: Yes Soft to palpation and Yes Tenderness to palpation present (GI) (limited exam, but patient guarding and very agitated when palpating the abd) Auscultation: absent bowel sounds Urinary Catheter: Urinary Catheter: patent and draining Objective Data Vital Signs Vital Signs: Vital Signs - 24 hr 12/31/23 19:59 12/31/23 20:30 12/31/23 20:45 Temperature 97.8 F 98.2 F Pulse Rate 148 H 129 H 125 H Respiratory Rate 40 H 22 H Blood Pressure 81/68 L 107/74 Pulse Oximetry 97 100 100 Oxygen Delivery Mechanical Ventilation Fraction of Inspired Oxygen 100 12/31/23 20:15 12/31/23 21:00 12/31/23 20:30 Temperature Pulse Rate 135 H 125 H 124 H Respiratory Rate 28 H 22 H Blood Pressure 55/40 L 5
[2024-01-01 15:08] LABS: Reflex Lactic Acid Yes or No Add Lactic
[2024-01-01 16:11] LABS: Lactic Acid 3.3 mmol/L (0.7-2.0)
[2024-01-01] MEDS: NOREPINEPHRINE 8 MG/D5W 250 ML 8 MG/250 ML BAG 16.88 MG IV CONT (22:05)
[2024-01-02] VITALS (98 sets, daily range): BP systolic 80–126; BP diastolic 42–87; PULSE 66–119; RESP 9–27; TEMP 36.2–37.9; O2SAT 96–99; BMI 21.9
[2024-01-02] MEDS: ALBUMIN HUMAN 25% 25 GM/100 ML 100 ML IVPB (00:07)
[2024-01-02] MEDS: CEFEPIME 2 GM/NS 50 ML 2 GM/50 ML BAG IVPB ×2 (00:07→12:46)
[2024-01-02] MEDS: IPRATROPIUM 0.5 MG/ALBUTEROL SULFATE 2.5 MG AMPUL.NEB 3 ML INHALATION ×4 (02:07→20:22)
[2024-01-02] MEDS: HYDROCORTISONE SODIUM SUCCINATE 100 MG/2 ML VIAL IV PUSH ×3 (02:18→18:38)
[2024-01-02 04:24] LABS: Hematocrit 26.8 % (42.0-52.0); Hemoglobin 9.1 g/dL (14.0-18.0); Immature Platelet Fraction Pct 7.1 % (0.9-11.2); Mean Corpuscular Hemoglobin 31.4 pg (26-34); Mean Corpuscular Volume 92.4 fl (80-100); Mean Platelet Volume 10.4 fl (7.4-10.4); Platelet Count Result 112 k/mm3 (150-375); Red Cell Distribution Width 14.4 % (11.5-14.5); White Blood Count 16.3 K/mm3 (4.5-10.0)
[2024-01-02 04:30] LABS: Alanine Aminotransferase 15 U/L (6-50); Albumin Level 2.9 g/dL (3.5-5.1); Alkaline Phosphatase 29 U/L (38-126); Anion Gap 7 mmol/L (4-12); Aspartate Amino Transferase 70 U/L (17-59); Bilirubin,Total 0.9 mg/dL (0.2-1.3); Blood Urea Nitrogen 21 mg/dL (9-20); Calcium 7.4 mg/dL (8.4-10.2); Carbon Dioxide 21 mmol/L (22-30); Chloride 100 mmol/L (98-107); Estimated CRCL calculation 35 ml/min; Estimated Glomerular Filt Rate 47; Glucose 85 mg/dL (65-110); Magnesium 2.3 mg/dL (1.6-2.3); Phosphorus 3.7 mg/dL (2.5-4.5); Potassium 4.2 mmol/L (3.4-5.0); Sodium 128 mmol/L (137-145)
[2024-01-02 05:18] LABS: Alveolar/Arterial O2 Gradient 100.9 mmHg; Base Excess ABG -4.7 mEq/l (+/-2.0); Carboxyhemoglobin 0.3 % THb (0-2.0); Fractional Inspired Oxygen 30 %; HCO3 ABG 19.3 mEq/l (22.0-26.0); Methemoglobin ABG 0.3 %THb (0-1.5); Oxygen Content ABG 13.3 %vol (16.0-22.0); Oxygen Saturation ABG 95.4 % (95.0-100.0); Oxyhemoglobin 92.7 % THb (90.0-100.0); PCO2 ABG 31.8 mmHg (35.0-45.0); PO2 ABG 75.6 mmHg (80.0-100.0); PO2 FiO2 Ratio Arterial Blood 2.52 %; Reduced Hemoglobin 6.7 %THb (0-5.0); Total Hemoglobin 10.1 g/dL (12.0-18.0); pH ABG 7.401 (7.350-7.450)
[2024-01-02 05:19] LABS: Device VENTILATOR; Site Drawn ARTLINE
[2024-01-02 05:20] LABS: Arterial Blood Gas PEEP 5 cmH2O; Arterial Blood Gas Tidal Volume 450 ml; Arterial Blood Gas Vent Mode CMV; Arterial Blood Gas Ventilator rate 22 /MIN
[2024-01-02] MEDS: metroNIDAZOLE 500 MG/ISO 100ML 500 MG/100 ML BAG 100 MG IVPB ×3 (05:32→21:39)
[2024-01-02] MEDS: LACTATED RINGERS 1,000 ML 100 ML IV CONT (05:32)
[2024-01-02] MEDS: CENTRAL LINE FLUSH 10 ML IV PUSH ×3 (05:33→21:39)
[2024-01-02] MEDS: CALCIUM GLUC 2,000 MG/NS 100ML 2,000 MG/100 ML BAG 100 MG IVPB (08:33)
[2024-01-02] MEDS: ENOXAPARIN 40 MG/0.4 ML SYRINGE SUB-Q (08:33)
[2024-01-02] MEDS: PANTOPRAZOLE SODIUM IV 40 MG VIAL IV PUSH (08:33)
[2024-01-02] MEDS: MINERAL OIL/WHITE PETROLATUM OINTMENT 1 APPLIC EACH EYE ×2 (08:33→21:39)
--- NOTE | 2024-01-02 09:03 | WPDINTPN ---
Progress Note: A&P Assessment and Plan (1) Septic shock: Code(s): A41.9 - Sepsis, unspecified organism; R65.21 - Severe sepsis with septic shock Status: Acute Assessment and Plan: Secondary to perforated viscus and peritonitis Now status post exploratory laparotomy, right colectomy with ileocolic anastomosis, sigmoid colectomy, creation of end colostomy continue Levophed. Will DC Vasopressin. off phenylephrine now Continue LR but decrease rate Stress dose hydrocortisone and albumin Continue fluid resuscitation and frequent evaluation for titration of the vasopressors to maintain perfusion of vital organs and prevent end organ ischemia and (2) Acute respiratory failure: Code(s): J96.00 - Acute respiratory failure, unspecified whether with hypoxia or hypercapnia Status: Acute Assessment and Plan: Acute Respiratory failure secondary to perforated viscus, septic shock, general anesthesia Continue full mechanical ventilation support to prevent hypoxemia/hypercarbia and end organ damage. ABG and PCXR reviewed and will repeat in am. Decreased tidal volume to 420 and rate rate is at 22 Will do sedation holiday and evaluate for SBT Continue Bronchodilators (3) Perforated viscus: Code(s): R19.8 - Other specified symptoms and signs involving the digestive system and abdomen Status: Acute Assessment and Plan: See above (4) Chronic obstructive pulmonary disease: Code(s): J44.9 - Chronic obstructive pulmonary disease, unspecified Status: Acute Assessment and Plan: Bronchodilators (5) Cancer of sigmoid colon: Code(s): C18.7 - Malignant neoplasm of sigmoid colon Status: Acute Assessment and Plan: Status post exploratory laparotomy, right colectomy with ileocolic anastomosis, sigmoid colectomy, creation of end colostomy Colostomy management per General surgery (6) Metabolic acidosis: Code(s): E87.20 - Acidosis, unspecified Status: Acute Assessment and Plan: Improved. Off IV fluids with bicarb (7) Electrolyte abnormality: Code(s): E87.8 - Other disorders of electrolyte and fluid balance, not elsewhere classified Status: Acute Assessment and Plan: Replace low calcium Plan DVT prophylaxis -Lovenox Stress ulcer prophylaxis -Protonix Nutrition - npo Code Status - Full Code Total Critical Care Time - 32 minutes Due to a high probability of clinically significant, life threatening deterioration, the patient required my highest level of preparedness to intervene emergently and I personally spent this critical care time directly and personally managing the patient. This critical care time included obtaining a history; examining the patient; pulse oximetry; ordering and review of studies; arranging urgent treatment with development of a management plan; evaluation of patient's response to treatment; frequent reassessment; and discussions with other providers. It was exclusive of separately billable procedures and treating other patients and teaching time. Please see Assessment and Plan section and the rest of the note for further information on patient assessment and treatment Subjective Date/time seen: 01/02/24 Overnight events reviewed. Afebrile Continues to be on mechanical ventilation 30% FiO2 Continues to be on vasopressors but decrease requirement of Levophed, continues to be on vasopressin, off Jw-Synephrine Continues to be sedated with Versed and fentanyl Other Vitals acceptable Low urine output Patient is arousable and moving all 4 extremity but does not follow any commands Review of Systems Review of Systems: ROS unobtainable: Yes unobtainable due to endotracheal tube, unobtainable due to medical condition and unobtainable due to mental status Exam Narrative: General: Pt is sedated, intubated and on mechanical ventilation Lungs/Chest: Trachea central Coarse BS B/L, No crackles o
[2024-01-02] MEDS: fentaNYL CITRATE INJ (*CRX) 100 MCG/2 ML VIAL 25 MCG IV PUSH (09:45)
[2024-01-02] MEDS: dexmedeTOMIDine 400 MCG/100 ML 400 MCG/100 ML BAG IV CONT (10:26)
[2024-01-02] MEDS: MICAFUNGIN SODIUM 100 MG in SODIUM CHLORIDE 0.9% IV 100 ML IVPB (11:07)
[2024-01-02] MEDS: NOREPINEPHRINE 8 MG/D5W 250 ML 8 MG/250 ML BAG 18.75 MG IV CONT (12:45)
--- NOTE | 2024-01-02 13:46 | PM.PNGS ---
Progress Note: A&P Assessment and Plan (1) Septic shock: Code(s): A41.9 - Sepsis, unspecified organism; R65.21 - Severe sepsis with septic shock Status: Acute Assessment and Plan: Secondary to bowel perforation, peritonitis. S/p?exploratory laparotomy, right colectomy with ileocolic anastomosis, sigmoid colectomy, creation of end colostomy. Improving, vasopressors continue to wean down. Only requiring one vasopressor today. Continue IV antibiotics, critical care management. Wean vasopressors as tolerated. 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 Pathology pending. Ostomy with some stool today. Will start trickle tube feedings. (3) Acute respiratory failure: Code(s): J96.00 - Acute respiratory failure, unspecified whether with hypoxia or hypercapnia Status: Acute Assessment and Plan: Continue critical care management per Analytical Lead, wean vent as tolerated (4) Perforated viscus: Code(s): R19.8 - Other specified symptoms and signs involving the digestive system and abdomen Status: Acute Assessment and Plan: Cecal perforation with right colectomy emergently. Continue IV antibiotics, see plan above. Bowel function returning. Start trickle feeding through NG (5) COPD (chronic obstructive pulmonary disease): Qualifiers: COPD type: unspecified COPD Qualified Code(s): J44.9 - Chronic obstructive pulmonary disease, unspecified Code(s): J44.9 - Chronic obstructive pulmonary disease, unspecified Status: Acute Plan I have discussed the patient's case and plan of care with Dr. Paris. Subjective Subjective Date/Time Seen: 01/02/24 13:46 Post Op day: 2 (exploratory laparotomy, right colectomy with ileocolic anastomosis, sigmoid colectomy, creation of end colostomy) Interval history: Patient intubated and sedated. No acute events overnight per nursing staff. Vasopressors being weaned down and only requiring 1 vasopressor this morning. Two vasopressors have been completely weaned off. He failed his breathing trial this morning. Review of Systems Review of Systems: ROS unobtainable: Yes unobtainable due to endotracheal tube Exam Const: General: ill appearing Orientation/consciousness: patient obtunded Other: Intubated and sedated GI: Inspection: incision ([place] intact, no erythema or drainage) and other (Mildly distended) GI Palp: Yes Soft to palpation and Yes Tenderness to palpation present (GI) Auscultation: Hypoactive bowel sounds present Other: colostomy dark and dusky, still viable, has scant stool in bag Objective Data Vital Signs Vital Signs: Vital Signs - 24 hr 01/01/24 14:00 01/01/24 14:00 01/01/24 14:00 Temperature 100.2 F H Pulse Rate 86 84 84 Respiratory Rate 22 H Blood Pressure 104/62 104/62 Pulse Oximetry 100 Oxygen Delivery Fraction of Inspired Oxygen 01/01/24 14:05 01/01/24 14:30 01/01/24 14:15 Temperature Pulse Rate 84 85 85 Respiratory Rate Blood Pressure 107/63 107/64 105/63 Pulse Oximetry Oxygen Delivery Fraction of Inspired Oxygen 01/01/24 14:00 01/01/24 14:00 01/01/24 14:00 Temperature Pulse Rate 84 84 84 Respiratory Rate 22 H 22 H Blood Pressure 104/62 Pulse Oximetry Oxygen Delivery Fraction of Inspired Oxygen 01/01/24 14:40 01/01/24 14:46 01/01/24 16:00 Temperature Pulse Rate 86 86 88 Respiratory Rate Blood Pressure 108/65 110/66 Pulse Oximetry 99 Oxygen Delivery Mechanical Ventilation Fraction of Inspired Oxygen 30 01/01/24 15:00 01/01/24 15:05 01/01/24 15:10 Temperature Pulse Rate 85 86 84 Respiratory Rate Blood Pressure 112/66 111/66 112/66 Pulse Oximetry Oxygen Delivery Fraction of
[2024-01-02] MEDS: FENTANYL 2,500MCG/NS250ML(*CRX 2,500 MCG/250 ML BAG IV CONT (14:25)
[2024-01-03] VITALS (56 sets, daily range): BP systolic 79–123; BP diastolic 58–79; PULSE 59–105; RESP 8–22; TEMP 36.8–37.5; O2SAT 22–100
--- NOTE | 2024-01-03 | ECHO_ITS ---
Patient Info Name: Seth Guajardo Age: 68 years : 1955 Gender: Male Ht: 65 in Wt: 137 lbs BSA: 1.69 m2 HR: 71 bpm BP: 113 / 78 mmHg Heart Rhythm: Sinus Rhythm Technical Quality: Fair Exam Date: 01/03/2024 11:11 AM Exam Location: Echo Lab Patient Status: Inpatient Admit Date: 12/31/2023 Staff Ordering Physician: Johnny Clemente MD [employer]il[employer]aker Ship: Danita Wilson RDCS Attending Provider: To Pinto DO Exam Type: CA echo doppler color flow Study Info Indications - SHOCK Complete two-dimensional, color flow and Doppler transthoracic echocardiogram is performed. Summary 1. Complete two-dimensional, color flow and Doppler transthoracic echocardiogram is performed. 2. Left ventricular chamber dimension is normal. 3. Left ventricular systolic function is mildly reduced, estimated at 40-45%. 4. The left ventricular diastolic function is grade I diastolic dysfunction. 5. Right ventricular systolic function is normal. 6. There is mild tricuspid valve regurgitation. Left Ventricle Left ventricular chamber dimension is normal. Left ventricular systolic function is mildly reduced, estimated at 40-45%. There is no increased left ventricular wall thickness. The left ventricular diastolic function is grade I diastolic dysfunction. Right Ventricle Right ventricular chamber dimension is normal. Right ventricular systolic function is normal. Left Atria Left atrial chamber dimension is normal. Right Atria Right atrial chamber dimension is normal. Atrial Septum Intact interatrial septum visualized by color flow imaging. Aortic Valve The aortic valve is trileaflet. There is no aortic valve stenosis. There is no aortic valve regurgitation. There is mild aortic valve calcification. Pulmonic Valve The pulmonic valve is not well visualized. Mitral Valve There is trace mitral valve regurgitation. Tricuspid Valve There is mild tricuspid valve regurgitation. Pericardium/Pleural There is no pericardial effusion. Inferior Vena Cava Dilated inferior vena cava with <50% collapse upon inspiration consistent with elevated right atrial pressure, 15 mmHg. Aorta The aortic root size at the sinus of Valsalva is normal. Left Ventricular Outflow Tract Name Value Normal LVOT 2D LVOT Diameter 2.0 cm LVOT Doppler LVOT Peak Gradient 1 mmHg LVOT Mean Gradient 1 mmHg LVOT VTI 11 cm LVOT VTI/AV VTI Ratio 0.5 LVOT Stroke Volume 34 ml LVOT CO 2.1 l/min LVOT CI 1.2 l/min/m2 Pulmonic Valve Name Value Normal RVOT Doppler RVOT Peak Gradient 0 mmHg PV Doppler PV Peak Gradient 2 mmHg Mitral Valve
[2024-01-03] MEDS: CEFEPIME 2 GM/NS 50 ML 2 GM/50 ML BAG IVPB ×3 (00:35→23:57)
[2024-01-03] MEDS: HYDROCORTISONE SODIUM SUCCINATE 100 MG/2 ML VIAL IV PUSH ×3 (02:06→17:16)
[2024-01-03] MEDS: IPRATROPIUM 0.5 MG/ALBUTEROL SULFATE 2.5 MG AMPUL.NEB 3 ML INHALATION ×4 (02:41→19:56)
[2024-01-03] MEDS: LACTATED RINGERS 1,000 ML 50 ML IV CONT (02:55)
[2024-01-03 05:25] LABS: Alveolar/Arterial O2 Gradient 83.6 mmHg; Base Excess ABG -0.6 mEq/l (+/-2.0); Carboxyhemoglobin 0.3 % THb (0-2.0); Fractional Inspired Oxygen 30 %; HCO3 ABG 23.7 mEq/l (22.0-26.0); Methemoglobin ABG 0.3 %THb (0-1.5); Oxygen Content ABG 13.8 %vol (16.0-22.0); Oxygen Saturation ABG 96.7 % (95.0-100.0); Oxyhemoglobin 94.8 % THb (90.0-100.0); PCO2 ABG 37.7 mmHg (35.0-45.0); PO2 FiO2 Ratio Arterial Blood 2.87 %; Reduced Hemoglobin 4.6 %THb (0-5.0); Total Hemoglobin 10.3 g/dL (12.0-18.0); pH ABG 7.416 (7.350-7.450)
[2024-01-03 05:27] LABS: Device VENTILATOR; Modified Allen's Test Pass; Site Drawn LEFT RADIAL
[2024-01-03 05:28] LABS: Arterial Blood Gas PEEP 5 cmH2O; Arterial Blood Gas Tidal Volume 420 ml; Arterial Blood Gas Vent Mode CMV; Arterial Blood Gas Ventilator rate 20 /MIN
[2024-01-03] MEDS: metroNIDAZOLE 500 MG/ISO 100ML 500 MG/100 ML BAG 100 MG IVPB ×3 (05:48→21:23)
[2024-01-03 06:09] LABS: Hematocrit 27.1 % (42.0-52.0); Hemoglobin 9.1 g/dL (14.0-18.0); Immature Platelet Fraction Pct 8.3 % (0.9-11.2); Mean Corpuscular HGB Conc 33.6 g/dl (32-36); Mean Corpuscular Hemoglobin 31.4 pg (26-34); Mean Corpuscular Volume 93.4 fl (80-100); Platelet Count Result 79 k/mm3 (150-375); Red Cell Distribution Width 14.3 % (11.5-14.5)
[2024-01-03 06:57] LABS: Alanine Aminotransferase 24 U/L (6-50); Albumin Level 2.7 g/dL (3.5-5.1); Alkaline Phosphatase 48 U/L (38-126); Anion Gap 6 mmol/L (4-12); Aspartate Amino Transferase 150 U/L (17-59); Blood Urea Nitrogen 34 mg/dL (9-20); Calcium 7.4 mg/dL (8.4-10.2); Carbon Dioxide 24 mmol/L (22-30); Chloride 100 mmol/L (98-107); Estimated CRCL calculation 31 ml/min; Estimated Glomerular Filt Rate 38; Glucose 103 mg/dL (65-110); Magnesium 2.4 mg/dL (1.6-2.3); Phosphorus 4.3 mg/dL (2.5-4.5); Potassium 3.9 mmol/L (3.4-5.0); Sodium 130 mmol/L (137-145)
[2024-01-03] MEDS: dexmedeTOMIDine 400 MCG/100 ML 400 MCG/100 ML BAG IV CONT (07:01)
--- NOTE | 2024-01-03 08:26 | WPDINTPN ---
Progress Note: A&P Assessment and Plan (1) Septic shock: Code(s): A41.9 - Sepsis, unspecified organism; R65.21 - Severe sepsis with septic shock Status: Acute Assessment and Plan: Secondary to perforated viscus and peritonitis Now status post exploratory laparotomy, right colectomy with ileocolic anastomosis, sigmoid colectomy, creation of end colostomy continue Levophed titration which is currently pause. Off Vasopressin and phenylephrine now DC LR Will wean off Stress dose hydrocortisone and albumin is now off Continue cefepime and Flagyl. Micafungin was added 4/3 Cultures negative till now (2) Acute respiratory failure: Code(s): J96.00 - Acute respiratory failure, unspecified whether with hypoxia or hypercapnia Status: Acute Assessment and Plan: Acute Respiratory failure secondary to perforated viscus, septic shock, general anesthesia Continue full mechanical ventilation support to prevent hypoxemia/hypercarbia and end organ damage. ABG and PCXR reviewed and will repeat in am. Decreased tidal volume to 420 and rate rate is at 20 Patient failed his SBT yesterday and will try again today Continue Bronchodilators (3) Perforated viscus: Code(s): R19.8 - Other specified symptoms and signs involving the digestive system and abdomen Status: Acute Assessment and Plan: See above (4) Chronic obstructive pulmonary disease: Code(s): J44.9 - Chronic obstructive pulmonary disease, unspecified Status: Acute Assessment and Plan: Patient has history of COPD but not in exacerbation at this time. 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 Off IV fluids with bicarb (7) Electrolyte abnormality: Code(s): E87.8 - Other disorders of electrolyte and fluid balance, not elsewhere classified Status: Acute Assessment and Plan: Replace low calcium (8) WILLOW (acute kidney injury): Code(s): N17.9 - Acute kidney failure, unspecified Status: Acute Assessment and Plan: Creatinine further increased to 1.8 today. Likely secondary to sepsis and shock Check CK urine electrolytes renal ultrasound Monitor urine output electrolytes and creatinine Plan DVT prophylaxis -Lovenox Stress ulcer prophylaxis -Protonix Nutrition -trickle tube feeds as per surgery Code Status - Full Code Spoke to patient's daughter and sister at bedside updated them with patient's current status including respiratory failure, septic shock, worsening renal function, thrombocytopenia, plan to do a weaning trial today Total Critical Care Time - 30 minutes Due to a high probability of clinically significant, life threatening deterioration, the patient required my highest level of preparedness to intervene emergently and I personally spent this critical care time directly and personally managing the patient. This critical care time included obtaining a history; examining the patient; pulse oximetry; ordering and review of studies; arranging urgent treatment with development of a management plan; evaluation of patient's response to treatment; frequent reassessment; and discussions with other providers. It was exclusive of separately billable procedures and treating other patients and teaching time. Please see Assessment and Plan section and the rest of the note for further information on patient assessment and treatment Subjective Date/time seen: 01/03/24 Overnight events reviewed. Afebrile Continues to be on mechanical ventilation 30% FiO2 and 5 of PEEP Lev
[2024-01-03] MEDS: PANTOPRAZOLE SODIUM IV 40 MG VIAL IV PUSH (08:39)
[2024-01-03] MEDS: MICAFUNGIN SODIUM 100 MG in SODIUM CHLORIDE 0.9% IV 100 ML IVPB (08:39)
[2024-01-03] MEDS: MINERAL OIL/WHITE PETROLATUM OINTMENT 1 APPLIC EACH EYE ×2 (08:40→20:48)
[2024-01-03] MEDS: ENOXAPARIN 40 MG/0.4 ML SYRINGE SUB-Q (09:04)
[2024-01-03 09:38] LABS: Creatinine Urine 140.3 mg/dL; Sodium Urine Random 14 meq/L
--- NOTE | 2024-01-03 12:41 | PM.PNGS ---
Progress Note: A&P Assessment and Plan (1) Cancer of sigmoid colon: Code(s): C18.7 - Malignant neoplasm of sigmoid colon Status: Acute Assessment and Plan: path reviewed, ostomy +fxn, hopefully will be extubated today and can start clears, trickle feeds fo now (2) Perforated viscus: Code(s): R19.8 - Other specified symptoms and signs involving the digestive system and abdomen Status: Acute Assessment and Plan: path reviewed, exam benign, cont abx, local wound care (3) Septic shock: Code(s): A41.9 - Sepsis, unspecified organism; R65.21 - Severe sepsis with septic shock Status: Acute Assessment and Plan: resolving, cont abx, supportive care Subjective Subjective Date/Time Seen: 01/03/24 12:41 Interval history: no acute issues, doing SBT this am, off all pressors, rachel trickle feeds but high residuals, +ostomy fxn Review of Systems Review of Systems: ROS unobtainable: Yes unobtainable due to endotracheal tube Exam Const: General: cooperative, comfortable and no acute distress Resp: Auscultation: diminished lung sounds Cardio: Rate: regular rate Rhythm: regular rhythm GI: Inspection: normal to inspection, distended and incision GI Palp: Yes abdominal tenderness, Yes Soft to palpation and Yes Tenderness to palpation present (GI) Other: incision C/D/I, ostomy - +fxn Objective Data Vital Signs Vital Signs: Vital Signs - 24 hr 01/02/24 12:45 01/02/24 12:45 01/02/24 13:00 Temperature Pulse Rate 103 H 103 H 84 Respiratory Rate Blood Pressure 89/64 L 89/64 L 109/71 Pulse Oximetry Oxygen Delivery Fraction of Inspired Oxygen 01/02/24 13:15 01/02/24 13:24 01/02/24 13:24 Temperature Pulse Rate 92 103 H 103 H Respiratory Rate 22 H 22 H Blood Pressure 101/72 Pulse Oximetry Oxygen Delivery Fraction of Inspired Oxygen 01/02/24 13:30 01/02/24 13:37 01/02/24 13:41 Temperature Pulse Rate 79 84 86 Respiratory Rate 25 H Blood Pressure 87/57 L Pulse Oximetry 97 Oxygen Delivery Mechanical Ventilation Fraction of Inspired Oxygen 30 01/02/24 13:47 01/02/24 13:45 01/02/24 14:00 Temperature Pulse Rate 93 85 81 Respiratory Rate 20 Blood Pressure 93/60 L 93/63 L Pulse Oximetry Oxygen Delivery Fraction of Inspired Oxygen 01/02/24 14:25 01/02/24 14:25 01/02/24 14:15 Temperature Pulse Rate 77 77 84 Respiratory Rate 22 H 22 H Blood Pressure 94/67 L Pulse Oximetry Oxygen Delivery Fraction of Inspired Oxygen 01/02/24 14:30 01/02/24 14:45 01/02/24 15:00 Temperature Pulse Rate 88 80 76 Respiratory Rate Blood Pressure 101/69 89/61 L 108/68 Pulse Oximetry Oxygen Delivery Fraction of Inspired Oxygen 01/02/24 13:00 01/02/24 14:00 01/02/24 15:00 Temperature 37.3 C 37.4 C 37.4 C Pulse Rate 84 81 103 H Respiratory Rate 22 H 24 H 24 H Blood Pressure 109/71 93/63 L 108/68 Pulse Oximetry 96 97 98 Oxygen Delivery Fraction of Inspired Oxygen 01/02/24 15:15 01/02/24 15:30 01/02/24 14:00 Temperature Pulse Rate 78 75 81 Respiratory Rate Blood Pressure 92/64 L 93/64 L Pulse Oximetry Oxygen Delivery Fraction of Inspired Oxygen 01/02/24 16:35 01/02/24 16:00 01/02/24 16:00 Temperature Pulse Rate 85 78 Respiratory Rate Blood Pressure Pulse Oximetry 97 98 Oxygen Delivery Mechanical Ventilation Mechanical Ventilation Fraction of Inspired Oxygen 30 30 01/02/24 16:00 01/02/24 16:00 01/02/24 15:45 Temperature 37.4 C Pulse Rate 77 79 Respiratory Rate 20 Blood Pressure 100/67 97/71 L Pulse Oximetry 98 Oxygen Delivery Fraction of Inspired Oxygen 30 01/02/24 16:00 01/02/24 16:15 01/02/24 16:30 Temperature Pulse Rate 77 71 77 Respiratory Rate Blood Pressure 100/67 104/74 98/68 L Pulse Oximetry Oxygen Delivery Fraction of Inspired Oxygen 01/02/24 17:00 01/02/24
--- NOTE | 2024-01-03 13:12 | PCFNICU ---
ICU Rounding Note: Pt current nutrition is Vital AF 1.2 at 10 ml/hr. Last recorded weight is 62.2 kg up from 58.6 kg on admit. Bowel Motility: +BM reported 4/ Labs Reviewed:Cr 1.8,BUN 34, GFR 38, Alb 2.7,Na 130 Meds Noted: Precedex, Flagyl, Protonix Skin: WNL Additional Notes: Patient remains on mechanical vent. Breathing trail again today. Tube feedings continue at 10 ml/hr. Machine Repairman to discuss nutrition with Surgery today. Patient did have 250 ml and 170 ml residuals noted. If patient remains on tube feedings goal rate is recommended at 50 ml/hr at this time. Flush 30 ml q 4 hours. Following daily in ICU rounds. Will monitor weight, labs, skin, diet orders, meds every Sunday and Sunday.
--- NOTE | 2024-01-03 14:13 | PCRCNOTE ---
RT returned patient to CMV settings due to apenic episodes on spont trial that Dr. Brito placed patient on at 1245. ABG cancelled due to patient failing trial. RN informed. Dr. Clemente stated patient will be trialed on spont vent settings tomorrow 01/03.
[2024-01-03] MEDS: CENTRAL LINE FLUSH 10 ML IV PUSH ×2 (14:59→21:23)
[2024-01-03 20:39] LABS: Creatine Kinase 2006 U/L (55-170)
[2024-01-04] VITALS (39 sets, daily range): BP systolic 92–138; BP diastolic 57–85; PULSE 51–159; RESP 15–28; TEMP 36.3–37; O2SAT 90–100
[2024-01-04] MEDS: dexmedeTOMIDine 400 MCG/100 ML 400 MCG/100 ML BAG IV CONT (01:21)
[2024-01-04] MEDS: IPRATROPIUM 0.5 MG/ALBUTEROL SULFATE 2.5 MG AMPUL.NEB 3 ML INHALATION ×3 (02:03→13:15)
[2024-01-04 05:33] LABS: Hematocrit 26.5 % (42.0-52.0); Mean Corpuscular Hemoglobin 30.9 pg (26-34); Mean Corpuscular Volume 91.1 fl (80-100); Mean Platelet Volume 12.1 fl (7.4-10.4); Platelet Count Result 65 k/mm3 (150-375); Red Blood Count 2.91 M/mm3 (4.6-6.20); Red Cell Distribution Width 14.1 % (11.5-14.5); White Blood Count 17.8 K/mm3 (4.5-10.0)
[2024-01-04 05:38] LABS: Alveolar/Arterial O2 Gradient 92.5 mmHg; Base Excess ABG -2.7 mEq/l (+/-2.0); Carboxyhemoglobin 0.2 % THb (0-2.0); Fractional Inspired Oxygen 30 %; HCO3 ABG 20.3 mEq/l (22.0-26.0); Methemoglobin ABG 0.3 %THb (0-1.5); Oxygen Content ABG 13.9 %vol (16.0-22.0); Oxygen Saturation ABG 97.1 % (95.0-100.0); Oxyhemoglobin 94.6 % THb (90.0-100.0); PCO2 ABG 29.4 mmHg (35.0-45.0); PO2 ABG 86.9 mmHg (80.0-100.0); Reduced Hemoglobin 4.9 %THb (0-5.0); Total Hemoglobin 10.4 g/dL (12.0-18.0); pH ABG 7.457 (7.350-7.450)
[2024-01-04 05:51] LABS: Arterial Blood Gas Ventilator rate 20 /MIN; Device VENTILATOR; Modified Allen's Test Pass; Site Drawn LEFT RADIAL
[2024-01-04 05:52] LABS: Arterial Blood Gas PEEP 5 cmH2O; Arterial Blood Gas Tidal Volume 420 ml; Arterial Blood Gas Vent Mode CMV
[2024-01-04 05:52] LABS: Alanine Aminotransferase 29 U/L (6-50); Albumin Level 2.6 g/dL (3.5-5.1); Alkaline Phosphatase 79 U/L (38-126); Anion Gap 6 mmol/L (4-12); Aspartate Amino Transferase 120 U/L (17-59); Blood Urea Nitrogen 46 mg/dL (9-20); Carbon Dioxide 23 mmol/L (22-30); Chloride 100 mmol/L (98-107); Estimated CRCL calculation 33 ml/min; Estimated Glomerular Filt Rate 40; Glucose 105 mg/dL (65-110); Magnesium 2.8 mg/dL (1.6-2.3); Phosphorus 4.3 mg/dL (2.5-4.5); Potassium 3.9 mmol/L (3.4-5.0); Sodium 129 mmol/L (137-145)
[2024-01-04] MEDS: CENTRAL LINE FLUSH 10 ML IV PUSH ×3 (06:19→21:40)
[2024-01-04] MEDS: metroNIDAZOLE 500 MG/ISO 100ML 500 MG/100 ML BAG 100 MG IVPB ×3 (06:19→21:40)
--- NOTE | 2024-01-04 08:17 | PCWOUND ---
WOCN NOTE Patient still in ICU and not able to receive ostomy teaching at this time.
[2024-01-04] MEDS: PANTOPRAZOLE SODIUM IV 40 MG VIAL IV PUSH (08:27)
[2024-01-04] MEDS: ASPIRIN 325 MG TABLET FEED TUBE (08:28)
[2024-01-04] MEDS: MINERAL OIL/WHITE PETROLATUM OINTMENT 1 APPLIC EACH EYE ×2 (08:30→20:36)
[2024-01-04] MEDS: LACTATED RINGERS 1,000 ML 50 ML IV CONT (08:30)
[2024-01-04] MEDS: MICAFUNGIN SODIUM 100 MG in SODIUM CHLORIDE 0.9% IV 100 ML IVPB (08:30)
[2024-01-04 08:42] LABS: Base Excess ABG -0.7 mEq/l (+/-2.0); Fractional Inspired Oxygen 30 %; HCO3 ABG 22.6 mEq/l (22.0-26.0); Oxygen Content ABG 13.6 %vol (16.0-22.0); Oxygen Saturation ABG 95.4 % (95.0-100.0); Oxyhemoglobin 92.2 % THb (90.0-100.0); PCO2 ABG 32.3 mmHg (35.0-45.0); Total Hemoglobin 10.4 g/dL (12.0-18.0); pH ABG 7.462 (7.350-7.450)
[2024-01-04 08:43] LABS: Arterial Blood Gas PEEP 5 cmH2O; Arterial Blood Gas Pressure Support 5 cmH2O; Arterial Blood Gas Vent Mode SPONTANEOUS; Device VENTILATOR; Site Drawn RIGHT BRACHIAL
--- NOTE | 2024-01-04 08:51 | WPDINTPN ---
Progress Note: A&P Assessment and Plan (1) Septic shock: Code(s): A41.9 - Sepsis, unspecified organism; R65.21 - Severe sepsis with septic shock Status: Acute Assessment and Plan: Secondary to perforated viscus and peritonitis Now status post exploratory laparotomy, right colectomy with ileocolic anastomosis, sigmoid colectomy, creation of end colostomy Off vasopressors now Off IV fluid Off Stress dose hydrocortisone and albumin is now off Continue cefepime and Flagyl. Micafungin was added 4/3 Cultures negative till now WBC slightly elevated but patient was also on steroids Afebrile (2) Acute respiratory failure: Code(s): J96.00 - Acute respiratory failure, unspecified whether with hypoxia or hypercapnia Status: Acute Assessment and Plan: Acute Respiratory failure secondary to perforated viscus, septic shock, general anesthesia Continue full mechanical ventilation support to prevent hypoxemia/hypercarbia and end organ damage. ABG and PCXR reviewed and will repeat in am. Patient failed his SBT over last 2 days due to apnea events 4/5 5/5 PSV SBT done for more than 30 minutes. RSBI, ABGI and Vitals acceptable. Pt awake and following commands. Will extubate and monitor. NPO for now. Continue Bronchodilators (3) Perforated viscus: Code(s): R19.8 - Other specified symptoms and signs involving the digestive system and abdomen Status: Acute Assessment and Plan: See above (4) Chronic obstructive pulmonary disease: Code(s): J44.9 - Chronic obstructive pulmonary disease, unspecified Status: Acute Assessment and Plan: Patient has history of COPD but not in exacerbation at this time. 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 Off IV fluids with bicarb (7) Electrolyte abnormality: Code(s): E87.8 - Other disorders of electrolyte and fluid balance, not elsewhere classified Status: Acute Assessment and Plan: Replace low calcium (8) WILLOW (acute kidney injury): Code(s): N17.9 - Acute kidney failure, unspecified Status: Acute Assessment and Plan: Creatinine further increased to 1.8 today. Likely secondary to sepsis and shock CK 1999 renal ultrasound unremarkable Monitor urine output electrolytes and creatinine Will start LR at low rate (9) Rhabdomyolysis: Code(s): M62.82 - Rhabdomyolysis Status: Acute Assessment and Plan: CK 2000 Will start IV fluids at low rate as patient overall has significant why fluids Monitor CK level (10) Thrombocytopenia: Code(s): D69.6 - Thrombocytopenia, unspecified Status: Acute Assessment and Plan: Platelets worse today at 65. Likely secondary to sepsis and medication Hold Lovenox Monitor Plan DVT prophylaxis -hold Lovenox due to thrombocytopenia, SCDs Stress ulcer prophylaxis -Protonix Nutrition -on trickle tube feeds as per surgery. Post extubation will get a swallow evaluation Code Status - Full Code Total Critical Care Time - 30 minutes Due to a high probability of clinically significant, life threatening deterioration, the patient required my highest level of preparedness to intervene emergently and I personally spent this critical care time directly and personally managing the patient. This critical care time included obtaining a history; examining the patient; pulse oximetry; ordering and review of studies; arranging urgent treatment with development of a management plan; evaluation of patient's response to treatment; f
[2024-01-04] MEDS: METOPROLOL TARTRATE 25 MG TABLET PO ×2 (10:25→20:36)
--- NOTE | 2024-01-04 11:56 | PCNFU ---
Nutrition Follow-Up Complete: Increased Energy Needs as related to mechanical ventilation/colon cancer as evidenced by NPO. (Continue) Goal: meet estimated nutritional needs Pt current nutrition is no diet ordered. Nutrition recommendation: Advance diet as medically able to general (monitor for heart-healthy). Diet consistency per speech therapy. Send a oral nutrition supplement to help meet estimated nutrition needs with diet advancement. Last recorded weight is 63.1 kg. Patient weight is up 14 lbs/11% x 4 days. No edema documented per latest progress note. Bowel Motility: GI abd WNL. Hypoactive bowel sounds. Last BM: 01/03. Colostomy (functioning without problems per family) Labs Reviewed: Na 129, BUN 46, Cr 1.70 Meds Noted: Flagyl, Zofran, Protonix, [place] Skin: abdominal incision Additional Notes: Patient s/p exploratory laparotomy, right colectomy with ileocolic anastomosis, sigmoid colectomy, creation of end colostomy. Patient extubated today and TF held. Patient off vasopressors. Patient drinking Ensure Clear while appeals writer was in room this a.m. Patient requesting a ham and cheese sandwich. Speech ordered to see patient to evaluate swallow. NKFA. UBW: 150 lbs (per patient). NFPE: Patient with mild/moderate muscle loss in temporalis/clavicle region. Patient with mild fat loss in buccal fat pads. Will monitor diet advancement, weight, labs, skin, diet orders, medication every 3 days.
[2024-01-04] MEDS: CEFEPIME 2 GM/NS 50 ML 2 GM/50 ML BAG IVPB (12:23)
--- NOTE | 2024-01-04 13:14 | PM.PNGS ---
Progress Note: A&P Assessment and Plan (1) Perforated viscus: Code(s): R19.8 - Other specified symptoms and signs involving the digestive system and abdomen Status: Acute Assessment and Plan: cont to wean vent and hopefully extubate today, rachel trickle feeds, would increase if not extubated, cont abx, wound/ostomy care Subjective Subjective Date/Time Seen: 01/04/24 13:14 Interval history: no acute issues yesterday, still trying to wean off vent Review of Systems Review of Systems: ROS unobtainable: Yes unobtainable due to endotracheal tube Exam Const: General: cooperative, comfortable, no acute distress and ill appearing Resp: Auscultation: diminished lung sounds Cardio: Rate: tachycardic Rhythm: regular rhythm GI: Inspection: normal to inspection, distended and incision GI Palp: Yes abdominal tenderness, Yes Soft to palpation and Yes Tenderness to palpation present (GI) Other: ostomy - +output Objective Data Vital Signs Vital Signs: Vital Signs - 24 hr 01/03/24 13:15 01/03/24 13:16 01/03/24 13:22 Temperature Pulse Rate 59 L 67 66 Respiratory Rate 10 L 8 L Blood Pressure Pulse Oximetry 97 Oxygen Delivery Mechanical Ventilation Oxygen Flow Rate Fraction of Inspired Oxygen 30 01/03/24 14:11 01/03/24 13:30 01/03/24 15:30 Temperature Pulse Rate 63 88 105 H Respiratory Rate 15 18 Blood Pressure Pulse Oximetry 97 Oxygen Delivery Mechanical Ventilation Oxygen Flow Rate Fraction of Inspired Oxygen 30 01/03/24 14:00 01/03/24 15:00 01/03/24 16:00 Temperature 36.9 C 36.9 C 36.9 C Pulse Rate 80 70 64 Respiratory Rate 18 19 20 Blood Pressure 123/70 106/79 96/72 L Pulse Oximetry 98 96 100 Oxygen Delivery Oxygen Flow Rate Fraction of Inspired Oxygen 01/03/24 14:00 01/03/24 16:00 01/03/24 16:00 Temperature Pulse Rate 80 64 Respiratory Rate Blood Pressure Pulse Oximetry Oxygen Delivery Oxygen Flow Rate Fraction of Inspired Oxygen 30 01/03/24 16:00 01/03/24 17:00 01/03/24 17:21 Temperature 36.8 C Pulse Rate 64 72 70 Respiratory Rate 20 18 Blood Pressure 106/76 Pulse Oximetry 100 99 99 Oxygen Delivery Mechanical Ventilation Mechanical Ventilation Oxygen Flow Rate Fraction of Inspired Oxygen 30 30 01/03/24 17:30 01/03/24 17:46 01/03/24 18:00 Temperature Pulse Rate 71 102 H 67 Respiratory Rate 14 18 Blood Pressure Pulse Oximetry Oxygen Delivery Oxygen Flow Rate Fraction of Inspired Oxygen 01/03/24 18:00 01/03/24 19:29 01/03/24 19:34 Temperature 36.8 C Pulse Rate 67 69 61 Respiratory Rate 18 20 Blood Pressure 107/66 Pulse Oximetry 96 99 Oxygen Delivery Mechanical Ventilation Oxygen Flow Rate Fraction of Inspired Oxygen 30 01/03/24 19:37 01/03/24 19:00 01/03/24 20:06 Temperature 36.9 C Pulse Rate 61 73 Respiratory Rate 19 18 Blood Pressure 103/73 Pulse Oximetry 98 Oxygen Delivery Oxygen Flow Rate Fraction of Inspired Oxygen 30 01/03/24 20:20 01/03/24 20:10 01/03/24 20:00 Temperature 36.9 C Pulse Rate 74 74 63 Respiratory Rate 18 20 Blood Pressure 102/72 Pulse Oximetry 100 99 Oxygen Delivery Mechanical Ventilation Oxygen Flow Rate Fraction of Inspired Oxygen 30 01/03/24 20:00 01/03/24 20:00 01/03/24 21:00 Temperature 37.0 C Pulse Rate 66 66 65 Respiratory Rate 22 H 20 20 Blood Pressure 115/74 Pulse Oximetry 98 Oxygen Delivery Oxygen Flow Rate Fraction of Inspired Oxygen 01/03/24 22:00 01/03/24 22:00 01/03/24 22:11 Temperature 37.0 C Pulse Rate 60 62 67 Respiratory Rate 20 20 Blood Pressure 113/76 Pulse Oximetry 98 Oxygen Delivery Oxygen Flow Rate Fraction of Inspired Oxygen 01/03/24 22:00 01/03/24 23:06 01/03/24 23:00 Temperature 37.0 C Pulse Rate 62 61 59 L Respiratory Rate 20 20 Blood Pressure 113/73 Pulse Oximetry 99 99 Oxy
[2024-01-04] MEDS: MORPHINE SULFATE (*CRX) 2 MG/ML INJ IV PUSH (13:30)
--- NOTE | 2024-01-04 17:38 | PM.IMPN ---
Progress Note: A&P Assessment and Plan (1) Perforated viscus: Code(s): R19.8 - Other specified symptoms and signs involving the digestive system and abdomen Status: Acute (2) Septic shock: Code(s): A41.9 - Sepsis, unspecified organism; R65.21 - Severe sepsis with septic shock Status: Acute (3) Acute respiratory failure: Code(s): J96.00 - Acute respiratory failure, unspecified whether with hypoxia or hypercapnia Status: Acute (4) Hypokalemia: Code(s): E87.6 - Hypokalemia Status: Acute (5) Cancer of sigmoid colon: Code(s): C18.7 - Malignant neoplasm of sigmoid colon Status: Acute (6) Chronic obstructive pulmonary disease: Code(s): J44.9 - Chronic obstructive pulmonary disease, unspecified Status: Acute (7) Tobacco abuse: Code(s): Z72.0 - Tobacco use Status: Acute Plan 68-year-old male with recent diagnosis sigmoid colon COPD artery disease aneurysm hypertension CKD was scheduled for hand assisted laparoscopic sigmoid colectomy however was canceled due to critical low potassium. 2.5. Hospice team was consulted time admission started having severe abdominal pain. He had previously near obstructing mass in sigmoid colon biopsies confirmed adenocarcinoma. Surgeon x-ray was obtained which showed pneumoperitoneum and subsequently taken for urgent exploratory laparotomy. This was performed on 12/31/2023. With findings of perforated cecum an obstructing sigmoid colon cancer. He is status post right colectomy with ileocolic anastomosis, sigmoid colectomy and creation of end colostomy. He was subsequent admitted to ICU with septic shock and respiratory failure. On broad-spectrum antibiotics with cefepime Flagyl and micafungin. Status post extubation on 01/04/2024. Underlying COPD thrombocytopenia DVT prophylaxis hold Lovenox due to thrombocytopenia Code status full code Subjective Date/time seen: 01/04/24 17:38 Interval history: Patient extubated earlier today. Tried to get out of the bed. Discussed with nursing staff. Review of Systems Review of Systems: All systems reviewed & are unremarkable except as noted in HPI and below Exam Narrative: General: Pt is awake and alert not in acute distress Lungs/Chest: Trachea central Coarse BS B/L, No crackles or wheezing. Decreased air entry throughout Cardiac: RRR. Normal S1 S2. No murmurs Abdomen: Dressing in the midline, ELIANE drain with serosanguineous output, colostomy in the left lower quadrant with small amount of brownish fluid output, bowel sounds present but decreased Soft. Extremities: No clubbing, cyanosis or edema. : Arguello in place Neurologic: Alert and conversant no gross motor deficit Objective Data Vital Signs Vital Signs: Vital Signs - 24 hr 01/03/24 17:46 01/03/24 18:00 01/03/24 18:00 Temperature 98.3 F Pulse Rate 102 H 67 67 Respiratory Rate 18 18 Blood Pressure 107/66 Pulse Oximetry 96 Oxygen Delivery Oxygen Flow Rate Fraction of Inspired Oxygen 01/03/24 19:29 01/03/24 19:34 01/03/24 19:37 Temperature Pulse Rate 69 61 Respiratory Rate 20 Blood Pressure Pulse Oximetry 99 Oxygen Delivery Mechanical Ventilation Oxygen Flow Rate Fraction of Inspired Oxygen 30 30 01/03/24 19:00 01/03/24 20:06 01/03/24 20:20 Temperature 98.4 F Pulse Rate 61 73 74 Respiratory Rate 19 18 18 Blood Pressure 103/73 Pulse Oximetry 98 Oxygen Delivery Oxygen Flow Rate Fraction of Inspired Oxygen 01/03/24 20:10 01/03/24 20:00 01/03/24 20:00 Temperature 98.4 F Pulse Rate 74 63 66 Respiratory Rate 20 22 H Blood Pressure 102/72 Pulse Oximetry 100 99 Oxygen Delivery Mechanical Ventilation Oxygen Flow Rate Fraction of Inspired Oxygen 30 01/03/24 20:00 01/03/24 21:00 01/03/24 22:00 Temperature 98.6 F Pulse Rate 66 65 60 Respiratory Rate 20 20 Blood Pressure 115/74 Pulse Oximetry 98 Oxy
[2024-01-05] VITALS (19 sets, daily range): BP systolic 116–150; BP diastolic 71–101; PULSE 60–92; RESP 18–25; TEMP 36.9–37.3; O2SAT 90–99
[2024-01-05] MEDS: CEFEPIME 2 GM/NS 50 ML 2 GM/50 ML BAG IVPB ×2 (00:49→11:49)
[2024-01-05] MEDS: LACTATED RINGERS 1,000 ML 50 ML IV CONT (05:58)
[2024-01-05] MEDS: metroNIDAZOLE 500 MG/ISO 100ML 500 MG/100 ML BAG 100 MG IVPB ×3 (05:59→21:25)
[2024-01-05] MEDS: CENTRAL LINE FLUSH 10 ML IV PUSH ×3 (05:59→21:26)
[2024-01-05 06:15] LABS: Hematocrit 33.3 % (42.0-52.0); Hemoglobin 11.2 g/dL (14.0-18.0); Immature Platelet Fraction Pct 11.6 % (0.9-11.2); Mean Corpuscular HGB Conc 33.6 g/dl (32-36); Mean Corpuscular Hemoglobin 30.7 pg (26-34); Mean Corpuscular Volume 91.2 fl (80-100); Mean Platelet Volume 12.1 fl (7.4-10.4); Platelet Count Result 97 k/mm3 (150-375); Red Blood Count 3.65 M/mm3 (4.6-6.20); Red Cell Distribution Width 14.6 % (11.5-14.5); White Blood Count 33.7 K/mm3 (4.5-10.0)
[2024-01-05 06:22] LABS: Alanine Aminotransferase 39 U/L (6-50); Alkaline Phosphatase 113 U/L (38-126); Anion Gap 6 mmol/L (4-12); Aspartate Amino Transferase 162 U/L (17-59); Bilirubin,Total 1.2 mg/dL (0.2-1.3); Blood Urea Nitrogen 49 mg/dL (9-20); Calcium 8.5 mg/dL (8.4-10.2); Carbon Dioxide 23 mmol/L (22-30); Chloride 106 mmol/L (98-107); Creatine Kinase 1479 U/L (55-170); Estimated CRCL calculation 47 ml/min; Estimated Glomerular Filt Rate 60; Glucose 89 mg/dL (65-110); Magnesium 2.7 mg/dL (1.6-2.3); Phosphorus 3.8 mg/dL (2.5-4.5); Potassium 3.5 mmol/L (3.4-5.0); Sodium 135 mmol/L (137-145)
--- NOTE | 2024-01-05 07:28 | PC.NURSE ---
Updated sister, Huma, on patient condition.
[2024-01-05] MEDS: METOPROLOL TARTRATE 25 MG TABLET PO ×2 (08:01→21:26)
[2024-01-05] MEDS: ASPIRIN 325 MG TABLET FEED TUBE (08:01)
[2024-01-05] MEDS: PANTOPRAZOLE SODIUM IV 40 MG VIAL IV PUSH (08:01)
[2024-01-05] MEDS: IPRATROPIUM 0.5 MG/ALBUTEROL SULFATE 2.5 MG AMPUL.NEB 3 ML INHALATION (08:02)
[2024-01-05] MEDS: MICAFUNGIN SODIUM 100 MG in SODIUM CHLORIDE 0.9% IV 100 ML IVPB (08:30)
--- NOTE | 2024-01-05 09:13 | WPDINTPN ---
Progress Note: A&P Assessment and Plan (1) Septic shock: Code(s): A41.9 - Sepsis, unspecified organism; R65.21 - Severe sepsis with septic shock Status: Acute Assessment and Plan: Secondary to perforated viscus and peritonitis Now status post exploratory laparotomy, right colectomy with ileocolic anastomosis, sigmoid colectomy, creation of end colostomy Off vasopressors now and Off IV fluid Off Stress dose hydrocortisone and albumin is now off Continue cefepime and Flagyl. Micafungin was added 4/3 Cultures negative till now Patient is afebrile but WBC further increased today. Will repeat CT to re-evaluate Afebrile (2) Acute respiratory failure: Code(s): J96.00 - Acute respiratory failure, unspecified whether with hypoxia or hypercapnia Status: Acute Assessment and Plan: Acute Respiratory failure secondary to perforated viscus, septic shock, general anesthesia Continue full mechanical ventilation support to prevent hypoxemia/hypercarbia and end organ damage. ABG and PCXR reviewed and will repeat in am. Patient failed his SBT over last 2 days due to apnea events 4/5 5/5 PSV SBT done for more than 30 minutes. RSBI, ABGI and Vitals acceptable. Pt awake and following commands. Will extubate and monitor. NPO for now. 4/6 wheezing on exam today. Chest x-ray shows congestion and on exam patient has wheezing. Will start steroids and Continue Bronchodilators. He is saturating well on nasal cannula but has slightly increased work of breathing although he does not complain of any shortness of breath. I will hold IV fluids and will give a dose of Lasix (3) Perforated viscus: Code(s): R19.8 - Other specified symptoms and signs involving the digestive system and abdomen Status: Acute Assessment and Plan: See above (4) Chronic obstructive pulmonary disease: Code(s): J44.9 - Chronic obstructive pulmonary disease, unspecified Status: Acute Assessment and Plan: Patient has history of COPD and is on Bronchodilators He is weaning today (5) Cancer of sigmoid colon: Code(s): C18.7 - Malignant neoplasm of sigmoid colon Status: Acute Assessment and Plan: Status post exploratory laparotomy, right colectomy with ileocolic anastomosis, sigmoid colectomy, creation of end colostomy Colostomy management and feeding per General surgery (6) Metabolic acidosis: Code(s): E87.20 - Acidosis, unspecified Status: Acute Assessment and Plan: Improved. Off IV fluids with bicarb (7) Electrolyte abnormality: Code(s): E87.8 - Other disorders of electrolyte and fluid balance, not elsewhere classified Status: Acute Assessment and Plan: Replace low potassium (8) WILLOW (acute kidney injury): Code(s): N17.9 - Acute kidney failure, unspecified Status: Acute Assessment and Plan: Likely secondary to sepsis and shock CK 2000 renal ultrasound unremarkable Creatinine has improved and normalized Monitor urine output electrolytes and creatinine Hold further IV fluids (9) Rhabdomyolysis: Code(s): M62.82 - Rhabdomyolysis Status: Acute Assessment and Plan: CK improved Hold further IV fluid due to congestive changes on the chest x-ray Monitor CK level (10) Thrombocytopenia: Code(s): D69.6 - Thrombocytopenia, unspecified Status: Acute Assessment and Plan: Likely secondary to sepsis and medication Platelet count improving Resume Lovenox Monitor Plan DVT prophylaxis -resume Lovenox SCDs Stress ulcer prophylaxis -Protonix Nutrition -clear liquid diet. Further advancement per General surgery Code Status - Full Code Incentive spirometry Total Critical Care Time - 30 minutes Due to a high probability of clinically significant, life threatening deterioration, the patient required my highest level of preparedness to intervene emergently and I personally spent this critical care time
--- NOTE | 2024-01-05 10:08 | PC.NURSE ---
Transported to CT without issue. Returned to room without issue.
[2024-01-05] MEDS: FUROSEMIDE INJ 40 MG/4 ML VIAL IV PUSH (11:49)
[2024-01-05] MEDS: methylPREDNISolone SOD SUCC 40 MG VIAL IV PUSH (11:49)
[2024-01-05] MEDS: POTASSIUM CHLORIDE 20 MEQ PACKET (FOR LIQUID) 40 MEQ FEED TUBE (11:49)
[2024-01-05] MEDS: ENOXAPARIN 40 MG/0.4 ML SYRINGE SUB-Q (12:07)
--- NOTE | 2024-01-05 14:35 | PC.NURSE ---
Patient transfered back to bed with RN x 2. No issues noted.
--- NOTE | 2024-01-05 14:55 | PC.NURSE ---
RN to bedside, ELIANE drain dislodged from site. Dr Perry and Dr. Olivares notified of ELIANE removal. No new orders given.
--- NOTE | 2024-01-05 16:24 | PM.IMPN ---
Progress Note: A&P Assessment and Plan (1) Perforated viscus: Code(s): R19.8 - Other specified symptoms and signs involving the digestive system and abdomen Status: Acute (2) Septic shock: Code(s): A41.9 - Sepsis, unspecified organism; R65.21 - Severe sepsis with septic shock Status: Acute (3) Acute respiratory failure: Code(s): J96.00 - Acute respiratory failure, unspecified whether with hypoxia or hypercapnia Status: Acute (4) Hypokalemia: Code(s): E87.6 - Hypokalemia Status: Acute (5) Cancer of sigmoid colon: Code(s): C18.7 - Malignant neoplasm of sigmoid colon Status: Acute (6) Chronic obstructive pulmonary disease: Code(s): J44.9 - Chronic obstructive pulmonary disease, unspecified Status: Acute (7) Tobacco abuse: Code(s): Z72.0 - Tobacco use Status: Acute Plan 68-year-old male with recent diagnosis sigmoid colon COPD artery disease aneurysm hypertension CKD was scheduled for hand assisted laparoscopic sigmoid colectomy however was canceled due to critical low potassium. 2.5. Hospitalist team was consulted on admission started having severe abdominal pain. He had previously near obstructing mass in sigmoid colon biopsies confirmed adenocarcinoma. Abdominal x-ray was obtained which showed pneumoperitoneum and subsequently taken for urgent exploratory laparotomy. This was performed on 12/31/2023. With findings of perforated cecum an obstructing sigmoid colon cancer. He is status post right colectomy with ileocolic anastomosis, sigmoid colectomy and creation of end colostomy. He was subsequent admitted to ICU with septic shock and respiratory failure. On broad-spectrum antibiotics with cefepime Flagyl and micafungin. Status post extubation on 01/04/2024. On oxygen supplementation via nasal cannula. Chest x-ray with congestive changes and mild infiltrate and atelectasis in the left and to the lesser extent right lower lungs Worsening leukocytosis 01/05/2024 CT chest abdomen pelvis has been done which is pending which is awaited UnderlyingCOPD thrombocytopenia DVT prophylaxis hold Lovenox due to thrombocytopenia Code status full code Subjective Date/time seen: 01/05/24 16:24 Interval history: No overnight events. WBC count jumped up to 33,000 today. Reports soreness in his abdomen otherwise no other complaints, discussed with nursing staff Review of Systems Review of Systems: All systems reviewed & are unremarkable except as noted in HPI and below Exam Narrative: General: Pt is awake and alert not in acute distress Lungs/Chest: Trachea central Coarse BS B/L, No crackles or wheezing. Decreased air entry throughout Cardiac: RRR. Normal S1 S2. No murmurs Abdomen: Dressing in the midline, ELIANE drain with serosanguineous output, colostomy in the left lower quadrant with small amount of brownish fluid output, bowel sounds present but decreased Soft. Extremities: No clubbing, cyanosis or edema. : Arguello in place Neurologic: Alert and conversant no gross motor deficit Objective Data Vital Signs Vital Signs: Vital Signs - 24 hr 01/04/24 17:00 01/04/24 18:00 01/04/24 18:00 Temperature 98.1 F 98.1 F Pulse Rate 87 82 82 Respiratory Rate 21 H 20 Blood Pressure 138/85 130/70 Pulse Oximetry 100 100 Oxygen Delivery Oxygen Flow Rate Fraction of Inspired Oxygen 01/04/24 19:00 01/04/24 19:50 01/04/24 20:00 Temperature 98.2 F Pulse Rate 88 88 76 Respiratory Rate 23 H 23 H Blood Pressure 126/79 Pulse Oximetry 95 95 Oxygen Delivery Nasal Cannula Oxygen Flow Rate 1 Fraction of Inspired Oxygen 30 01/04/24 20:00 01/04/24 22:00 01/04/24 22:00 Temperature 98.3 F 98.5 F Pulse Rate 76 83 83 Respiratory Rate 19 18 Blood Pressure 132/79 124/77 Pulse Oximetry 97 90 Oxygen Delivery Oxygen Flow Rate Fraction of Inspired Oxygen 01/04/24 20:36 01/05/24 00:00 01/05/24 00:00 Temperat
--- NOTE | 2024-01-05 19:22 | PC.NURSE ---
This patient, Seth Guajardo, was transferred to [facility] on 01/05/24 at 1915. Personal belongings sent with patient. Report given to VELVET Gill. Appropriate documentation sent with patient.
--- NOTE | 2024-01-05 23:15 | WPDPN ---
Progress Note: A&P Assessment and Plan (1) Acute respiratory failure: Code(s): J96.00 - Acute respiratory failure, unspecified whether with hypoxia or hypercapnia Status: Acute Assessment and Plan: Pt successfully extubated yesterday. Bilateral pleural effusions on CXR and CT scan today. ? [place] [id number]?, continue IV abx, may need thoracentesis of fluid to determine if infected. Otherwise continue aggressive diuresis. (2) Cancer of sigmoid: Code(s): C18.7 - Malignant neoplasm of sigmoid colon Status: Acute Assessment and Plan: Resected, Will remove NGT today as there is stool output from colostomy. Advance to full liquids and Ensure. Ok to transfer out of ICU today from general surgery standpoint. (3) Perforated viscus: Code(s): R19.8 - Other specified symptoms and signs involving the digestive system and abdomen Status: Acute Assessment and Plan: Continue IV abx, no evidence of abd/pelvic abscess on CT today. Subjective Date/time seen: 01/05/24 23:15 Interval history: Pt was successfully extubated yesterday. Sitting up in chair today. No significant abd pain. Having liquid stool output from colostomy. Tolerated clear liquids. [place] [id number] today, no obvious source. CT Chest/abdomen/pelvis today shows bilateral pleural effusions, post op changes in the abd, no abdominal abscess or suggestion of anastomotic leak. He was transferred out of ICU today. Unfortunately during transfer, his abdominal/pelvic drain pulled out. Prior output was mostly serous without any pus or feculent material. Exam GI: Other: Abdomen nondistended, soft, incision C/D/I, no drainage. LLQ colostomy viable, no retraction, + stool output. Objective Data Vital Signs Vital Signs: Vital Signs - 24 hr 01/05/24 00:00 01/05/24 00:00 01/05/24 00:00 Temperature 37.1 C Pulse Rate 75 83 76 Respiratory Rate 18 18 Blood Pressure 129/81 Pulse Oximetry 90 90 Oxygen Delivery Room Air Oxygen Flow Rate Fraction of Inspired Oxygen 30 01/05/24 02:00 01/05/24 02:00 01/05/24 04:00 Temperature 37.1 C Pulse Rate 90 60 60 Respiratory Rate 20 20 Blood Pressure 134/86 Pulse Oximetry 91 91 Oxygen Delivery Room Air Oxygen Flow Rate Fraction of Inspired Oxygen 30 01/05/24 04:00 01/05/24 04:00 01/05/24 06:00 Temperature 37.0 C Pulse Rate 79 79 74 Respiratory Rate 19 Blood Pressure 139/91 H Pulse Oximetry 93 Oxygen Delivery Oxygen Flow Rate Fraction of Inspired Oxygen 01/05/24 06:00 01/05/24 07:58 01/05/24 08:06 Temperature 36.9 C Pulse Rate 86 88 Respiratory Rate 19 23 H Blood Pressure 143/99 H Pulse Oximetry 95 98 Oxygen Delivery Nasal Cannula Oxygen Flow Rate 1 Fraction of Inspired Oxygen 01/05/24 08:01 01/05/24 08:00 01/05/24 08:20 Temperature 36.9 C Pulse Rate 79 85 75 Respiratory Rate 23 H 21 H Blood Pressure 136/87 Pulse Oximetry 99 Oxygen Delivery Oxygen Flow Rate Fraction of Inspired Oxygen 01/05/24 08:00 01/05/24 08:00 01/05/24 09:33 Temperature Pulse Rate 87 Respiratory Rate Blood Pressure Pulse Oximetry 99 94 Oxygen Delivery Nasal Cannula Room Air Oxygen Flow Rate 1 Fraction of Inspired Oxygen 01/05/24 09:59 01/05/24 10:14 01/05/24 10:00 Temperature Pulse Rate 73 Respiratory Rate Blood Pressure Pulse Oximetry Oxygen Delivery Room Air Room Air Oxygen Flow Rate Fraction of Inspired Oxygen 01/05/24 10:00 01/05/24 12:00 01/05/24 12:00 Temperature 36.9 C 37.2 C Pulse Rate 73 65 69 Respiratory Rate 23 H 20 Blood Pressure 138/71 139/82 Pulse Oximetry 91 91 Oxygen Delivery Oxygen Flow Rate Fraction of Inspired Oxygen 01/05/24 12:00 01/05/24 14:00 01/05/24 14:00 Temperature 37.3 C Pulse Rate 77 75 Respiratory Rate 25 H Blood Pressure 116/77 Pulse
[2024-01-06] VITALS (17 sets, daily range): BP systolic 145–158; BP diastolic 93–101; PULSE 71–103; RESP 16–24; TEMP 36.1–36.5; O2SAT 90–98
[2024-01-06] MEDS: CEFEPIME 2 GM/NS 50 ML 2 GM/50 ML BAG IVPB ×2 (00:41→13:56)
[2024-01-06 04:08] LABS: Hematocrit 37.7 % (42.0-52.0); Hemoglobin 12.6 g/dL (14.0-18.0); Mean Corpuscular HGB Conc 33.4 g/dl (32-36); Mean Corpuscular Hemoglobin 30.7 pg (26-34); Mean Platelet Volume 12.6 fl (7.4-10.4); Platelet Count Result 109 k/mm3 (150-375); Red Cell Distribution Width 14.4 % (11.5-14.5); White Blood Count 19.9 K/mm3 (4.5-10.0)
[2024-01-06 04:16] LABS: Alanine Aminotransferase 39 U/L (6-50); Albumin Level 2.9 g/dL (3.5-5.1); Alkaline Phosphatase 106 U/L (38-126); Anion Gap 8 mmol/L (4-12); Aspartate Amino Transferase 95 U/L (17-59); Bilirubin,Total 1.2 mg/dL (0.2-1.3); Blood Urea Nitrogen 55 mg/dL (9-20); Calcium 8.3 mg/dL (8.4-10.2); Carbon Dioxide 23 mmol/L (22-30); Chloride 104 mmol/L (98-107); Creatine Kinase 642 U/L (55-170); Estimated CRCL calculation 47 ml/min; Estimated Glomerular Filt Rate 60; Glucose 102 mg/dL (65-110); Magnesium 2.4 mg/dL (1.6-2.3); Phosphorus 4.6 mg/dL (2.5-4.5); Potassium 3.7 mmol/L (3.4-5.0); Sodium 135 mmol/L (137-145)
[2024-01-06] MEDS: metroNIDAZOLE 500 MG/ISO 100ML 500 MG/100 ML BAG 100 MG IVPB ×3 (06:49→21:44)
[2024-01-06] MEDS: CENTRAL LINE FLUSH 10 ML IV PUSH ×3 (06:54→21:48)
[2024-01-06] MEDS: MICAFUNGIN SODIUM 100 MG in SODIUM CHLORIDE 0.9% IV 100 ML IVPB (09:14)
[2024-01-06] MEDS: ENOXAPARIN 40 MG/0.4 ML SYRINGE SUB-Q (09:15)
[2024-01-06] MEDS: methylPREDNISolone SOD SUCC 40 MG VIAL IV PUSH (09:15)
[2024-01-06] MEDS: PANTOPRAZOLE SODIUM IV 40 MG VIAL IV PUSH (09:15)
[2024-01-06] MEDS: HYDROcodone/acetaminophen (*CRX) 5-325 MG TABLET 1 TAB PO (13:56)
[2024-01-06] MEDS: IPRATROPIUM 0.5 MG/ALBUTEROL SULFATE 2.5 MG AMPUL.NEB 3 ML INHALATION ×2 (14:14→20:15)
[2024-01-06] MEDS: DORNASE ALFA INH SOLN 1 MG/ML 2.5 ML AMP 2.5 MG INHALATION (14:15)
--- NOTE | 2024-01-06 15:48 | PM.IMPN ---
Progress Note: A&P Assessment and Plan (1) Perforated viscus: Code(s): R19.8 - Other specified symptoms and signs involving the digestive system and abdomen Status: Acute (2) Septic shock: Code(s): A41.9 - Sepsis, unspecified organism; R65.21 - Severe sepsis with septic shock Status: Acute (3) Acute respiratory failure: Code(s): J96.00 - Acute respiratory failure, unspecified whether with hypoxia or hypercapnia Status: Acute (4) Hypokalemia: Code(s): E87.6 - Hypokalemia Status: Acute (5) Cancer of sigmoid colon: Code(s): C18.7 - Malignant neoplasm of sigmoid colon Status: Acute (6) Chronic obstructive pulmonary disease: Code(s): J44.9 - Chronic obstructive pulmonary disease, unspecified Status: Acute (7) Tobacco abuse: Code(s): Z72.0 - Tobacco use Status: Acute Plan 68-year-old male with recent diagnosis sigmoid colon COPD artery disease aneurysm hypertension CKD was scheduled for hand assisted laparoscopic sigmoid colectomy however was canceled due to critical low potassium. 2.5. Hospitalist team was consulted on admission started having severe abdominal pain. He had previously near obstructing mass in sigmoid colon biopsies confirmed adenocarcinoma. Abdominal x-ray was obtained which showed pneumoperitoneum and subsequently taken for urgent exploratory laparotomy. This was performed on 12/31/2023. With findings of perforated cecum an obstructing sigmoid colon cancer. He is status post right colectomy with ileocolic anastomosis, sigmoid colectomy and creation of end colostomy. He was subsequent admitted to ICU with septic shock and respiratory failure. On broad-spectrum antibiotics with cefepime Flagyl and micafungin. Status post extubation on 01/04/2024. On oxygen supplementation via nasal cannula. Chest x-ray with congestive changes and mild infiltrate and atelectasis in the left and to the lesser extent right lower lungs Worsening leukocytosis 01/05/2024 CT chest abdomen pelvis has been done showed airway debris/secretions the disc ER right main stem bronchus and right interlobar bronchus. Moderate right and small left pleural effusions. 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 Postsurgical changes in the abdomen with show colonic resection and diverting colostomy with diffuse colon wall edema reflecting component of colitis, mild mesenteric edema and diffuse body wall edema. S. Add Pulmozyme will also diurese him with Lasix 40 mg IV x1 today. UnderlyingCOPD with possible COPD exacerbation on steroid IV. Leukocytosis: Improving cefepime a with micafungin. WILLOW improved being which is post surgical Thrombocytopenia improving DVT prophylaxis on Lovenox Code status full code Subjective Date/time seen: 01/06/24 15:48 Interval history: No overnight events. Remains afebrile. Off oxygen this a.m.. ELIANE drain has been accidentally removed yesterday. Some abdominal soreness which is similar to yesterday. Review of Systems Review of Systems: All systems reviewed & are unremarkable except as noted in HPI and below Exam Narrative: General: Pt is awake and alert not in acute distress Lungs/Chest: Trachea central Coarse BS B/L, No crackles or wheezing. Decreased air entry throughout Cardiac: RRR. Normal S1 S2. No murmurs Abdomen: Dressing in the midline, ELIANE drain with serosanguineous output, colostomy in the left lower quadrant with small amount of brownish fluid output, bowel sounds present Extremities: No clubbing, cyanosis or edema. : Arguello in place Neurologic: Alert and conversant no gross motor deficit Objective Data Vital Signs Vital Signs: Vital Signs - 24 hr 01/05/24 16:00 01/05/24 16:00 01/05/24 16:00 Temperature 99.1 F Pulse Rate 71 71 70 Respiratory Rate 22 H 22 H Blood Pressure 143/101 H Pulse Oximetry 97 97 Oxygen Delivery Nasal Cannula Oxyge
[2024-01-06] MEDS: FUROSEMIDE INJ 40 MG/4 ML VIAL IV PUSH (17:23)
--- NOTE | 2024-01-06 18:42 | PC.NURSE ---
This patient, Seth Guajardo, was received from [ [facility]] on 01/06/24 at 1840. Patient/family oriented to unit policies and routines
--- NOTE | 2024-01-06 18:52 | PC.NURSE ---
This patient, Seth Guajardo, was transferred to [[id number] ] on 01/06/24 at 1840. Personal belongings sent with patient. Report given to [Shahnaz VERDIN ]. Appropriate documentation sent with patient.
[2024-01-06] MEDS: ACETAMINOPHEN ELIXIR 325 MG/10.15 ML UDC 650 MG PO (20:11)
[2024-01-06] MEDS: METOPROLOL TARTRATE 25 MG TABLET PO (21:44)
[2024-01-07] VITALS (13 sets, daily range): BP systolic 140–147; BP diastolic 82–91; PULSE 61–79; RESP 16–20; TEMP 36.3–36.8; O2SAT 91–95
[2024-01-07] MEDS: CEFEPIME 2 GM/NS 50 ML 2 GM/50 ML BAG IVPB ×3 (00:13→23:33)
[2024-01-07] MEDS: IPRATROPIUM 0.5 MG/ALBUTEROL SULFATE 2.5 MG AMPUL.NEB 3 ML INHALATION ×4 (02:30→21:07)
[2024-01-07] MEDS: metroNIDAZOLE 500 MG/ISO 100ML 500 MG/100 ML BAG 100 MG IVPB ×3 (05:56→21:11)
[2024-01-07] MEDS: CENTRAL LINE FLUSH 10 ML IV PUSH ×3 (06:16→21:16)
[2024-01-07 06:59] LABS: Basophils Absolute Auto 0.1 K/mm3 (0.0-0.1); Basophils Percent Auto 0.4 % (0.2-1.2); Hematocrit 34.1 % (42.0-52.0); Hemoglobin 11.7 g/dL (14.0-18.0); Immature Granulocyte Absolute 0.65 K/mm3 (0.00-0.031); Immature Granulocyte Percent A 3.2 % (0-0.5); Lymphocytes Absolute Auto 1.38 K/mm3 (0.9-3.2); Lymphocytes Percent Auto 6.8 % (18.3-44.2); Mean Corpuscular HGB Conc 34.3 g/dl (32-36); Mean Corpuscular Hemoglobin 31.2 pg (26-34); Mean Corpuscular Volume 90.9 fl (80-100); Mean Platelet Volume 11.3 fl (7.4-10.4); Monocytes Absolute Auto 1.7 K/mm3 (0.1-0.6); Monocytes Percent Auto 8.2 % (2.6-8.5); Neutrophils Absolute Auto 16.6 K/mm3 (1.3-6.7); Neutrophils Percent Auto 81.4 % (45.5-73.1); Nucleated Red Blood Cells Perc 1.4 % (0.0-0.2); Platelet Count Result 135 k/mm3 (150-375); Red Blood Count 3.75 M/mm3 (4.6-6.20); Red Cell Distribution Width 14.6 % (11.5-14.5); White Blood Count 20.4 K/mm3 (4.5-10.0)
[2024-01-07 07:32] LABS: Alanine Aminotransferase 32 U/L (6-50); Albumin Level 2.5 g/dL (3.5-5.1); Alkaline Phosphatase 86 U/L (38-126); Anion Gap 5 mmol/L (4-12); Aspartate Amino Transferase 48 U/L (17-59); Blood Urea Nitrogen 64 mg/dL (9-20); Calcium 7.9 mg/dL (8.4-10.2); Carbon Dioxide 27 mmol/L (22-30); Chloride 104 mmol/L (98-107); Creatine Kinase 330 U/L (55-170); Estimated CRCL calculation 46 ml/min; Estimated Glomerular Filt Rate 60; Glucose 163 mg/dL (65-110); Magnesium 2.3 mg/dL (1.6-2.3); Potassium 2.7 mmol/L (3.4-5.0); Sodium 136 mmol/L (137-145)
[2024-01-07] MEDS: METOPROLOL TARTRATE 25 MG TABLET PO ×2 (08:29→21:09)
[2024-01-07] MEDS: KCL 40 MEQ/WATER 100 ML 100 ML 25 ML IVPB (08:29)
[2024-01-07] MEDS: POTASSIUM CHLORIDE 20 MEQ PACKET (FOR LIQUID) 40 MEQ PO (08:29)
[2024-01-07] MEDS: ENOXAPARIN 40 MG/0.4 ML SYRINGE SUB-Q (08:30)
[2024-01-07] MEDS: methylPREDNISolone SOD SUCC 40 MG VIAL IV PUSH (08:30)
[2024-01-07] MEDS: ASPIRIN 325 MG TABLET FEED TUBE (08:30)
[2024-01-07] MEDS: PANTOPRAZOLE SODIUM IV 40 MG VIAL IV PUSH (08:31)
[2024-01-07] MEDS: MICAFUNGIN SODIUM 100 MG in SODIUM CHLORIDE 0.9% IV 100 ML IVPB (08:32)
[2024-01-07] MEDS: DORNASE ALFA INH SOLN 1 MG/ML 2.5 ML AMP 2.5 MG INHALATION ×2 (09:10→21:07)
--- NOTE | 2024-01-07 09:42 | PM.PNGS ---
Progress Note: A&P Assessment and Plan (1) Acute respiratory failure: Code(s): J96.00 - Acute respiratory failure, unspecified whether with hypoxia or hypercapnia Status: Acute Assessment and Plan: Resolved. Extubated and moved out of ICU over the weekend. CT scan 2 days ago showed moderate right and small left pleural effusions. Diuresed yesterday. May need more diuresis today. Could consider thoracentesis to see if fluid is infected if leukocytosis does not improve. (2) Cancer of sigmoid: Code(s): C18.7 - Malignant neoplasm of sigmoid colon Status: Acute Assessment and Plan: S/p sigmoidectomy on 12/30 with path showing adenocarcinoma pT3 pN0 pM. ELIANE drain accidentally removed over the weekend. Ostomy functioning. Tolerating solid foods, but poor intake. Drinking plenty of fluids. Will change dietary supplements and encouraged PO intake. Albumin only 2.5. Potassium 2.7 and being replaced this morning. (3) Perforated viscus: Code(s): R19.8 - Other specified symptoms and signs involving the digestive system and abdomen Status: Acute Assessment and Plan: WBC count still at 20k today. CT from 2 days ago showed no intraabdominal source for the leukocytosis. Seems to be doing well from a surgical standpoint. Abdominal exam is benign. Incision healing well. Could be pulmonary related? Also he is still on IV steroids, which could be playing a role. Repeat labs again tomorrow. Continue IV antibiotics. Plan I have discussed the patient's case and plan of care with Dr. Paris. Subjective Subjective Date/Time Seen: 01/07/24 09:42 Post Op day: 7 (exploratory laparotomy, right colectomy with ileocolic anastomosis, sigmoid colectomy, creation of end colostomy) Interval history: Patient seen on the medical floor. Chart reviewed since seen last week. He was extubated and moved out of ICU. His diet has been advanced to low fiber. He is not eating much, less than 50% of meals. He denies poor appetite. He is drinking plenty of fluids. He does not like the Ensure clears and is not liking the food they are bringing him. Ostomy functioning well. He has some incisional soreness, but no abdominal pain, nausea or vomiting. He appears tachypneic with some labored breathing after talking. He is on room air. He does report some mild shortness of breath, but mostly is concerned about his dry mouth. Review of Systems Review of Systems: All systems reviewed & are unremarkable except as noted in HPI and below Exam Const: General: comfortable, no acute distress and tired appearing Orientation/consciousness: patient oriented x3 Resp: Effort & Inspection: able to speak in complete sentences, not labored and tachypneic Auscultation: rhonchi and wheezes expiratory wheezes and throughout Other: RLQ dressing dry and intact from previous ELIANE drain removal GI: Inspection: non-distended, incision (dry and randal intact, no erythema,part of incision covered by ostomy drsg) and other (ostomy viable and functioning with stool in bag) GI Palp: Yes Soft to palpation, Yes Tenderness to palpation present (GI) (incisional, mild RLQ tenderness), No Guarding due to palpation present (GI) and No Rebound tenderness present Auscultation: normal bowel sounds Objective Data Vital Signs Vital Signs: Vital Signs - 24 hr 01/06/24 12:00 01/06/24 14:17 01/06/24 15:25 Temperature 96.9 F L 97.3 F L Pulse Rate 82 81 91 Respiratory Rate 24 H 20 16 Blood Pressure 158/101 H 153/93 H Pulse Oximetry 90 98 Oxygen Delivery 01/06/24 10:00 01/06/24 12:00 01/06/24 12:00 Temperature Pulse Rate 89 77 Respiratory Rate Blood Pressure Pulse Oximetry Oxygen Delivery Room Air 01/06/24 18:58 01/06/24 19:55 01/06/24 20:00 Temperature 97.7 F 97.7 F Pulse Rate 103 H 89 Respiratory Rate 20 18 Blood Pressure 155/97 H 149/93 H Pulse Oximetry 94 94 Oxygen Delivery Room Air 01/06/24 21:44
--- NOTE | 2024-01-07 12:16 | PM.IMPN ---
Progress Note: A&P Assessment and Plan (1) Perforated viscus: Code(s): R19.8 - Other specified symptoms and signs involving the digestive system and abdomen Status: Acute (2) Septic shock: Code(s): A41.9 - Sepsis, unspecified organism; R65.21 - Severe sepsis with septic shock Status: Acute (3) Acute respiratory failure: Code(s): J96.00 - Acute respiratory failure, unspecified whether with hypoxia or hypercapnia Status: Acute (4) Hypokalemia: Code(s): E87.6 - Hypokalemia Status: Acute (5) Cancer of sigmoid colon: Code(s): C18.7 - Malignant neoplasm of sigmoid colon Status: Acute (6) Chronic obstructive pulmonary disease: Code(s): J44.9 - Chronic obstructive pulmonary disease, unspecified Status: Acute (7) Tobacco abuse: Code(s): Z72.0 - Tobacco use Status: Acute Plan 68-year-old male with recent diagnosis sigmoid colon COPD artery disease aneurysm hypertension CKD was scheduled for hand assisted laparoscopic sigmoid colectomy however was canceled due to critical low potassium. 2.5. Hospitalist team was consulted on admission started having severe abdominal pain. He had previously near obstructing mass in sigmoid colon biopsies confirmed adenocarcinoma. Abdominal x-ray was obtained which showed pneumoperitoneum and subsequently taken for urgent exploratory laparotomy. This was performed on 12/31/2023. With findings of perforated cecum an obstructing sigmoid colon cancer. He is status post right colectomy with ileocolic anastomosis, sigmoid colectomy and creation of end colostomy. He was subsequent admitted to ICU with septic shock and respiratory failure. On broad-spectrum antibiotics with cefepime Flagyl and micafungin. Status post extubation on 01/04/2024. On oxygen supplementation via nasal cannula. Chest x-ray with congestive changes and mild infiltrate and atelectasis in the left and to the lesser extent right lower lungs Worsening leukocytosis 01/05/2024 CT chest abdomen pelvis has been done showed airway debris/secretions the disc ER right main stem bronchus and right interlobar bronchus. Moderate right and small left pleural effusions. 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 Postsurgical changes in the abdomen with show colonic resection and diverting colostomy with diffuse colon wall edema reflecting component of colitis, mild mesenteric edema and diffuse body wall edema. S. Add Pulmozyme will also diurese him with Lasix 40 mg IV x1 4. Leukocytosis still persists could also be related to steroid use will continue to monitor. Replace Potassium. Hypoxemia has resolved and is been on room air UnderlyingCOPD with possible COPD exacerbation on steroid IV. Leukocytosis: Improving cefepime a with micafungin. WILLOW improved being which is post surgical Thrombocytopenia improving DVT prophylaxis on Lovenox Code status full code Subjective Date/time seen: 01/07/24 12:16 Interval history: Feels stronger. Feels better. Labs reviewed. Discussed with nursing staff. Leukocytosis still persists. Review of Systems Review of Systems: All systems reviewed & are unremarkable except as noted in HPI and below Exam Narrative: General: Pt is awake and alert not in acute distress Lungs/Chest: Trachea central Coarse BS B/L, No crackles or wheezing. Decreased air entry throughout Cardiac: RRR. Normal S1 S2. No murmurs Abdomen: Dressing in the midline, ELIANE drain with serosanguineous output, colostomy in the left lower quadrant with small amount of brownish fluid output, bowel sounds present Extremities: No clubbing, cyanosis or edema. : Arguello in place Neurologic: Alert and conversant no gross motor deficit Objective Data Vital Signs Vital Signs: Vital Signs - 24 hr 01/06/24 14:17 01/06/24 15:25 01/06/24 18:58 Temperature 97.3 F L 97.7 F Pulse Rate 81 91 103 H Respiratory
--- NOTE | 2024-01-07 13:08 | PCNFU ---
Nutrition Follow-Up Complete: Increased Energy Needs as related to mechanical ventilation as evidenced by NPO. - resolved Inadequate oral intake related to loss of appetite, altered GI function as evidenced by meal intake 0-10% Meet estimated nutritional needs - not meeting goal PO currently. Continue with same goal Goal: Pt current nutrition is Regular diet. Ensure Compact TID for additional 220 kcal and 9 g protein each. Nutrition recommendation: No new nutrition recommendations. Continue current nutrition care plan and orders. Last recorded weight is 62 kg. Bowel Motility: +1 BM 01/07/24 Labs Reviewed: Hgb 11.7, Hct 34.1, Alb 2.5, Na 136, K+ 2.7, BUN 64 Meds Noted: Precedex, flagyl, protonix Skin: No pressure injuries Additional Notes: Spoke to patient, he was not able to answer many questions about his appetite. He does not like the food. Just advanced to regular diet. Continue same nutrition care plan. Will monitor weight, labs, skin, diet orders, meds every 5 days.
--- NOTE | 2024-01-07 14:25 | PCWOUND ---
WOCN NOTE Patient not able to do ostomy teaching today, not able to focus or use scissors. Will try again.
[2024-01-07 14:36] LABS: Toxigenic C. Diff NEGATIVE (NEGATIVE)
[2024-01-07 23:40] LABS: Potassium 2.8 mmol/L (3.4-5.0)
[2024-01-08] VITALS (15 sets, daily range): BP systolic 142–164; BP diastolic 75–86; PULSE 68–90; RESP 15–22; TEMP 36–36.8; O2SAT 92–97
[2024-01-08] MEDS: POTASSIUM CHLORIDE 20 MEQ PACKET (FOR LIQUID) 40 MEQ PO (00:01)
[2024-01-08] MEDS: KCL 20 MEQ/SW 100 ML 100 ML 50 MEQ IVPB (00:03)
[2024-01-08] MEDS: IPRATROPIUM 0.5 MG/ALBUTEROL SULFATE 2.5 MG AMPUL.NEB 3 ML INHALATION ×4 (03:00→20:59)
[2024-01-08 05:19] LABS: Basophils Absolute Auto 0.1 K/mm3 (0.0-0.1); Basophils Percent Auto 0.3 % (0.2-1.2); Hematocrit 30.7 % (42.0-52.0); Hemoglobin 10.4 g/dL (14.0-18.0); Immature Granulocyte Absolute 0.64 K/mm3 (0.00-0.031); Immature Granulocyte Percent A 3.2 % (0-0.5); Lymphocytes Absolute Auto 0.74 K/mm3 (0.9-3.2); Lymphocytes Percent Auto 3.7 % (18.3-44.2); Mean Corpuscular HGB Conc 33.9 g/dl (32-36); Mean Corpuscular Hemoglobin 31.3 pg (26-34); Mean Corpuscular Volume 92.5 fl (80-100); Monocytes Absolute Auto 1.2 K/mm3 (0.1-0.6); Monocytes Percent Auto 6.1 % (2.6-8.5); Neutrophils Absolute Auto 17.5 K/mm3 (1.3-6.7); Neutrophils Percent Auto 86.7 % (45.5-73.1); Nucleated Red Blood Cells Perc 0.5 % (0.0-0.2); Platelet Count Result 108 k/mm3 (150-375); Red Blood Count 3.32 M/mm3 (4.6-6.20); Red Cell Distribution Width 15.1 % (11.5-14.5); White Blood Count 20.2 K/mm3 (4.5-10.0)
[2024-01-08 05:34] LABS: Anion Gap 6 mmol/L (4-12); Blood Urea Nitrogen 54 mg/dL (9-20); Calcium 8.1 mg/dL (8.4-10.2); Carbon Dioxide 25 mmol/L (22-30); Chloride 109 mmol/L (98-107); Creatine Kinase 239 U/L (55-170); Estimated CRCL calculation 55 ml/min; Estimated Glomerular Filt Rate > 60; Glucose 111 mg/dL (65-110); Magnesium 2.2 mg/dL (1.6-2.3); Phosphorus 3.5 mg/dL (2.5-4.5); Potassium 3.2 mmol/L (3.4-5.0); Sodium 140 mmol/L (137-145)
[2024-01-08] MEDS: metroNIDAZOLE 500 MG/ISO 100ML 500 MG/100 ML BAG 100 MG IVPB (05:59)
[2024-01-08] MEDS: CENTRAL LINE FLUSH 10 ML IV PUSH (06:02)
[2024-01-08] MEDS: DORNASE ALFA INH SOLN 1 MG/ML 2.5 ML AMP 2.5 MG INHALATION ×2 (07:15→21:10)
[2024-01-08] MEDS: METOPROLOL TARTRATE 25 MG TABLET PO ×2 (09:44→20:47)
[2024-01-08] MEDS: ASPIRIN 81 MG ENTERIC TABLET PO (09:45)
[2024-01-08] MEDS: ENOXAPARIN 40 MG/0.4 ML SYRINGE SUB-Q (09:49)
[2024-01-08] MEDS: PANTOPRAZOLE SODIUM IV 40 MG VIAL IV PUSH (09:56)
--- NOTE | 2024-01-08 09:58 | PC.NURSE ---
attempted to give pt PO potassium pills x2. pt attempted to swallow without success. pt spit pills back into medicine cup, states they dissolve too fast. i can't take them if they don't stay a pill. offered to give pt pudding to help with medication, pt refuses. will speak with RN about alternate form of potassium for pt
[2024-01-08] MEDS: MICAFUNGIN SODIUM 100 MG in SODIUM CHLORIDE 0.9% IV 100 ML IVPB (10:08)
--- NOTE | 2024-01-08 10:45 | PCOTNOTE ---
Attempted to see Patient for OT treatment session. Patient was required to have a dressing on his colostomy. Per RN, she is waiting for a part to be sent down to be able to change.
[2024-01-08] MEDS: KCL 40 MEQ/WATER 100 ML 100 ML 25 ML IVPB (11:20)
[2024-01-08] MEDS: CEFEPIME 2 GM/NS 50 ML 2 GM/50 ML BAG IVPB (11:35)
--- NOTE | 2024-01-08 13:29 | PM.PNGS ---
Progress Note: A&P Assessment and Plan (1) Acute respiratory failure: Code(s): J96.00 - Acute respiratory failure, unspecified whether with hypoxia or hypercapnia Status: Acute Assessment and Plan: Resolved. CXR yesterday showed clear lungs. Currently on room air. (2) Cancer of sigmoid: Code(s): C18.7 - Malignant neoplasm of sigmoid colon Status: Acute Assessment and Plan: S/p sigmoidectomy on 12/30 with path showing adenocarcinoma pT3 pN0 pM, path discussed with patient in detail. Ostomy functioning. Poor oral intake. Encouraged increasing intake for nutrition and supplements are ordered. Encouraged increasing activity, PT/OT following. CC discussed SNF options with patient. (3) Perforated viscus: Code(s): R19.8 - Other specified symptoms and signs involving the digestive system and abdomen Status: Acute Assessment and Plan: WBC count still at 20k today. Could be related to IV steroids that are now stopped. Chest x-ray negative. Continue to trend labs. Continue IV antibiotics. Plan I have discussed the patient's case and plan of care with Dr. Paris. Subjective Subjective Date/Time Seen: 01/08/24 13:29 Post Op day: 8 (exploratory laparotomy, right colectomy with ileocolic anastomosis, sigmoid colectomy, creation of end colostomy) Patient reports: no new complaints and afebrile Interval history: Patient with no specific complaints today. He reports having incisional pain only with movement. No abdominal pain while resting. No nausea, vomiting, or bloating. He tells me he is tolerating his diet and trying to eat, but it appears he has refused or only had 5% of his meals from yesterday and so far today. He feels that his breathing is improving daily. No diuresis yesterday. CXR yesterday showed lungs were clear. He is still on room air. Review of Systems Review of Systems: All systems reviewed & are unremarkable except as noted in HPI and below Exam Const: General: comfortable; No acute distress Orientation/consciousness: patient oriented x3 GI: Inspection: non-distended GI Palp: Yes Soft to palpation, Yes Tenderness to palpation present (GI) (incisional) and No Guarding due to palpation present (GI) Auscultation: normal bowel sounds Other: RLQ dressing removed, ELIANE drain site healing well and dry with no erythema. Suture still in place, asked nursing to remove. Scant cloudy serosanguineous drainage noted from bottom of incision and stool leaking around colostomy bag onto midline incision, ostomy appliance removed with stool overlying the incision, his entire abdomen was cleaned up. Stoma is viable and functioning with stool in the bag. There is another area of cloudy serosanguineous drainage from the middle of the incision, no surrounding erythema. Winnie intact. Extrem: General: no calf tenderness and edema bilateral (1-2+ pitting edema of bilateral lower extremities) Objective Data Vital Signs Vital Signs: Vital Signs - 24 hr 01/07/24 14:59 01/07/24 15:08 01/07/24 15:24 Temperature 98.3 F Pulse Rate 75 79 77 Respiratory Rate 20 20 16 Blood Pressure 147/91 H Pulse Oximetry 95 Oxygen Delivery 01/07/24 19:53 01/07/24 21:07 01/07/24 21:07 Temperature 98.3 F Pulse Rate 71 75 Respiratory Rate 17 20 Blood Pressure 143/84 H Pulse Oximetry 95 91 Oxygen Delivery Room Air 01/07/24 21:09 01/07/24 21:20 01/08/24 03:01 Temperature Pulse Rate 70 79 75 Respiratory Rate 20 22 H Blood Pressure Pulse Oximetry Oxygen Delivery 01/08/24 04:24 01/08/24 07:15 01/08/24 07:15 Temperature 98.3 F Pulse Rate 73 82 82 Respiratory Rate 17 18 18 Blood Pressure 144/75 H Pulse Oximetry 94 94 Oxygen Delivery Room Air 01/08/24 07:25 01/08/24 07:56 01/08/24 09:44 Temperature 96.8 F L Pulse Rate 84 88 88 Respiratory Rate 20 15 Blood Pressure 164/86 H Pulse Oximetry 96 Oxygen Delivery 01/08/24 08:00 T
--- NOTE | 2024-01-08 13:43 | PM.IMPN ---
Progress Note: A&P Assessment and Plan (1) Perforated viscus: Code(s): R19.8 - Other specified symptoms and signs involving the digestive system and abdomen Status: Acute (2) Septic shock: Code(s): A41.9 - Sepsis, unspecified organism; R65.21 - Severe sepsis with septic shock Status: Acute (3) Acute respiratory failure: Code(s): J96.00 - Acute respiratory failure, unspecified whether with hypoxia or hypercapnia Status: Acute (4) Hypokalemia: Code(s): E87.6 - Hypokalemia Status: Acute (5) Cancer of sigmoid colon: Code(s): C18.7 - Malignant neoplasm of sigmoid colon Status: Acute (6) Chronic obstructive pulmonary disease: Code(s): J44.9 - Chronic obstructive pulmonary disease, unspecified Status: Acute (7) Tobacco abuse: Code(s): Z72.0 - Tobacco use Status: Acute Plan 68-year-old male with recent diagnosis sigmoid colon COPD artery disease aneurysm hypertension CKD was scheduled for hand assisted laparoscopic sigmoid colectomy however was canceled due to critical low potassium. 2.5. Hospitalist team was consulted on admission started having severe abdominal pain. He had previously near obstructing mass in sigmoid colon biopsies confirmed adenocarcinoma. Abdominal x-ray was obtained which showed pneumoperitoneum and subsequently taken for urgent exploratory laparotomy. This was performed on 12/31/2023. With findings of perforated cecum an obstructing sigmoid colon cancer. He is status post right colectomy with ileocolic anastomosis, sigmoid colectomy and creation of end colostomy. He was subsequent admitted to ICU with septic shock and respiratory failure. On broad-spectrum antibiotics with cefepime Flagyl and micafungin. Status post extubation on 01/04/2024. On oxygen supplementation via nasal cannula. Chest x-ray with congestive changes and mild infiltrate and atelectasis in the left and to the lesser extent right lower lungs Worsening leukocytosis 01/05/2024 CT chest abdomen pelvis has been done showed airway debris/secretions the disc ER right main stem bronchus and right interlobar bronchus. Moderate right and small left pleural effusions. 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 Postsurgical changes in the abdomen with show colonic resection and diverting colostomy with diffuse colon wall edema reflecting component of colitis, mild mesenteric edema and diffuse body wall edema. S. Add Pulmozyme will also diurese him with Lasix 40 mg IV intermittently. Leukocytosis still persists could also be related to steroid use. Will since no wheezing will stop steroid today Replace Potassium. Hypoxemia has resolved and is been on room air UnderlyingCOPD with possible COPD exacerbation on steroid IV. Stop steroid and monitor Leukocytosis: Improving cefepime a with micafungin. Micafungin 7 days course. Will switch antibiotics to oral metronidazole and cefdinir WILLOW improved being which is post surgical Thrombocytopenia improving DVT prophylaxis on Lovenox Code status full code Subjective Date/time seen: 01/08/24 13:43 Interval history: No overnight events. Weak but getting stronger. Cough is improving. Abdominal soreness present Review of Systems Review of Systems: All systems reviewed & are unremarkable except as noted in HPI and below Exam Narrative: General: Pt is awake and alert not in acute distress Lungs/Chest: Trachea central Coarse BS B/L, No crackles or wheezing. Decreased air entry throughout Cardiac: RRR. Normal S1 S2. No murmurs Abdomen: Dressing in the midline, ELIANE drain with serosanguineous output, colostomy in the left lower quadrant with small amount of brownish fluid output, bowel sounds present Extremities: No clubbing, cyanosis or edema. : Arguello in place Neurologic: Alert and conversant no gross motor deficit Objective Data Vital Signs Vital Signs: Melissa
[2024-01-08] MEDS: metroNIDAZOLE 500 MG TABLET PO ×2 (13:52→20:47)
--- NOTE | 2024-01-08 14:39 | PCOTNOTE ---
Attempted occupational therapy treatment this date, first attempt dressing was being changed by RN, second attempt pt was in a meeting with his physicians. Following.
[2024-01-08] MEDS: CEFDINIR 300 MG CAPSULE PO (20:47)
[2024-01-09] VITALS (13 sets, daily range): BP systolic 132–139; BP diastolic 64–72; PULSE 63–78; RESP 16–18; TEMP 36.5–37.1; O2SAT 91–98
[2024-01-09] MEDS: IPRATROPIUM 0.5 MG/ALBUTEROL SULFATE 2.5 MG AMPUL.NEB 3 ML INHALATION ×4 (03:38→20:53)
[2024-01-09] MEDS: metroNIDAZOLE 500 MG TABLET PO ×3 (05:10→21:12)
[2024-01-09 05:11] LABS: Basophils Percent Auto 0.2 % (0.2-1.2); Eosinophils Percent Auto 0.1 % (0-4.4); Hematocrit 32.6 % (42.0-52.0); Hemoglobin 10.4 g/dL (14.0-18.0); Immature Granulocyte Absolute 0.29 K/mm3 (0.00-0.031); Immature Granulocyte Percent A 1.7 % (0-0.5); Lymphocytes Absolute Auto 1.12 K/mm3 (0.9-3.2); Lymphocytes Percent Auto 6.6 % (18.3-44.2); Mean Corpuscular HGB Conc 31.9 g/dl (32-36); Monocytes Percent Auto 6.1 % (2.6-8.5); Neutrophils Absolute Auto 14.4 K/mm3 (1.3-6.7); Neutrophils Percent Auto 85.3 % (45.5-73.1); Nucleated Red Blood Cells Perc 0.2 % (0.0-0.2); Platelet Count Result 67 k/mm3 (150-375); Red Blood Count 3.36 M/mm3 (4.6-6.20); Red Cell Distribution Width 16.8 % (11.5-14.5); White Blood Count 16.9 K/mm3 (4.5-10.0)
[2024-01-09 05:28] LABS: Alanine Aminotransferase 27 U/L (6-50); Albumin Level 2.6 g/dL (3.5-5.1); Alkaline Phosphatase 61 U/L (38-126); Anion Gap 4 mmol/L (4-12); Aspartate Amino Transferase 40 U/L (17-59); Bilirubin,Total 1.4 mg/dL (0.2-1.3); Blood Urea Nitrogen 42 mg/dL (9-20); Calcium 7.8 mg/dL (8.4-10.2); Carbon Dioxide 21 mmol/L (22-30); Chloride 111 mmol/L (98-107); Estimated CRCL calculation 67 ml/min; Estimated Glomerular Filt Rate > 60; Glucose 94 mg/dL (65-110); Magnesium 2.3 mg/dL (1.6-2.3); Potassium 3.3 mmol/L (3.4-5.0); Sodium 136 mmol/L (137-145)
[2024-01-09 05:54] LABS: Burr Cells 3+; Platelet Estimate Decreased (Adequate)
[2024-01-09 05:55] LABS: Anisocytosis 1+; Schistocytes Rare
[2024-01-09] MEDS: METOPROLOL TARTRATE 25 MG TABLET PO ×2 (08:28→21:11)
[2024-01-09] MEDS: ASPIRIN 81 MG ENTERIC TABLET PO (08:29)
[2024-01-09] MEDS: CEFDINIR 300 MG CAPSULE PO ×2 (08:30→21:11)
[2024-01-09] MEDS: PANTOPRAZOLE SODIUM IV 40 MG VIAL IV PUSH (08:30)
[2024-01-09] MEDS: DORNASE ALFA INH SOLN 1 MG/ML 2.5 ML AMP 2.5 MG INHALATION (09:03)
--- NOTE | 2024-01-09 10:16 | PCOTNOTE ---
Patient refused treatment this session. Patient was educated on the importance of continuing to participate in therapy.
--- NOTE | 2024-01-09 13:42 | PM.IMPN ---
Progress Note: A&P Assessment and Plan (1) Perforated viscus: Code(s): R19.8 - Other specified symptoms and signs involving the digestive system and abdomen Status: Acute (2) Septic shock: Code(s): A41.9 - Sepsis, unspecified organism; R65.21 - Severe sepsis with septic shock Status: Acute (3) Acute respiratory failure: Code(s): J96.00 - Acute respiratory failure, unspecified whether with hypoxia or hypercapnia Status: Acute (4) Hypokalemia: Code(s): E87.6 - Hypokalemia Status: Acute (5) Cancer of sigmoid colon: Code(s): C18.7 - Malignant neoplasm of sigmoid colon Status: Acute (6) Chronic obstructive pulmonary disease: Code(s): J44.9 - Chronic obstructive pulmonary disease, unspecified Status: Acute (7) Tobacco abuse: Code(s): Z72.0 - Tobacco use Status: Acute Plan 68-year-old male with recent diagnosis sigmoid colon COPD artery disease aneurysm hypertension CKD was scheduled for hand assisted laparoscopic sigmoid colectomy however was canceled due to critical low potassium. 2.5. Hospitalist team was consulted on admission started having severe abdominal pain. He had previously near obstructing mass in sigmoid colon biopsies confirmed adenocarcinoma. Abdominal x-ray was obtained which showed pneumoperitoneum and subsequently taken for urgent exploratory laparotomy. This was performed on 12/31/2023. With findings of perforated cecum an obstructing sigmoid colon cancer. He is status post right colectomy with ileocolic anastomosis, sigmoid colectomy and creation of end colostomy. He was subsequent admitted to ICU with septic shock and respiratory failure. On broad-spectrum antibiotics with cefepime Flagyl and micafungin. Status post extubation on 01/04/2024. On oxygen supplementation via nasal cannula. Chest x-ray with congestive changes and mild infiltrate and atelectasis in the left and to the lesser extent right lower lungs Worsening leukocytosis 01/05/2024 CT chest abdomen pelvis has been done showed airway debris/secretions the disc ER right main stem bronchus and right interlobar bronchus. Moderate right and small left pleural effusions. 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 Postsurgical changes in the abdomen with show colonic resection and diverting colostomy with diffuse colon wall edema reflecting component of colitis, mild mesenteric edema and diffuse body wall edema. S. Add Pulmozyme will also diurese him with Lasix 40 mg IV intermittently. Leukocytosis still persists could also be related to steroid use. Will since no wheezing will stop steroid today Replace Potassium. Hypoxemia has resolved and is been on room air UnderlyingCOPD with possible COPD exacerbation on steroid IV. Stop steroid and monitor Leukocytosis: Improving cefepime a with micafungin. Micafungin 7 days course. Will switch antibiotics to oral metronidazole and cefdinir WILLOW improved being which is post surgical Assuming care. Chart reviewed. White count trending downward. Steroids were stopped yesterday. He completed course of micafungin. She is on oral antibiotics. Platelet count is worse today. Lovenox has been stopped. Potassium low again and this was replaced. Platelet antibodies ordered. The weakness in the right arm probably related to extension of the right arm during surgery possibly. No focal weakness but will monitor with therapy. Will back down on his nebulizer treatments. Okay to stop Pulmozyme. Encouraged him to increase his oral intake. Encouraged patient to go to rehab after discharge. DVT prophylaxis on Lovenox Code status full code Subjective Date/time seen: 01/09/24 13:42 Interval history: 68yo male with CKD, COPD, HTN, HepC and recently diagnosed colon CA here for colon CA resection and hypokalemia. Assuming care. Chart reviewed. Some dehiscence with suture removal an
--- NOTE | 2024-01-09 14:25 | PM.PNGS ---
Progress Note: A&P Assessment and Plan (1) Perforated viscus: Code(s): R19.8 - Other specified symptoms and signs involving the digestive system and abdomen Status: Acute Assessment and Plan: stable, wound dehiscence, will proceed with local wound care, possible vac, cont to encourage po, OOB/IS, will likely need acute rehab Subjective Subjective Date/Time Seen: 01/09/24 14:25 Interval history: no acute issues, increased wound drainage Review of Systems Review of Systems: All systems reviewed & are unremarkable except as noted in HPI and below Exam Const: General: cooperative, comfortable and no acute distress Resp: Auscultation: diminished lung sounds Cardio: Rate: regular rate Rhythm: regular rhythm GI: Inspection: normal to inspection and incision GI Palp: No abdominal tenderness, Yes Soft to palpation, No Tenderness to palpation present (GI), No Guarding due to palpation present (GI) and No Rigid due to palpation Other: randal removed and superficial wound dehiscence, no s/s infection, fascia intact Objective Data Vital Signs Vital Signs: Vital Signs - 24 hr 01/08/24 15:35 01/08/24 16:50 01/08/24 21:10 Temperature 36.4 C L 36.8 C Pulse Rate 72 76 Respiratory Rate 16 16 Blood Pressure 157/83 H 154/81 H Pulse Oximetry 97 93 92 Oxygen Delivery Room Air Fraction of Inspired Oxygen 01/08/24 21:02 01/08/24 20:00 01/08/24 22:09 Temperature 36.5 C Pulse Rate 69 69 68 Respiratory Rate 18 18 17 Blood Pressure 142/75 H Pulse Oximetry 92 94 Oxygen Delivery Room Air Fraction of Inspired Oxygen 30 01/08/24 21:20 01/09/24 03:41 01/09/24 03:51 Temperature Pulse Rate 73 72 74 Respiratory Rate 18 18 18 Blood Pressure Pulse Oximetry Oxygen Delivery Fraction of Inspired Oxygen 01/09/24 05:08 01/09/24 08:28 01/09/24 09:00 Temperature 36.5 C Pulse Rate 63 77 75 Respiratory Rate 17 18 Blood Pressure 138/64 Pulse Oximetry 94 Oxygen Delivery Fraction of Inspired Oxygen 01/09/24 09:14 01/09/24 08:00 Temperature Pulse Rate 77 Respiratory Rate 18 Blood Pressure Pulse Oximetry Oxygen Delivery Room Air Fraction of Inspired Oxygen Intake/Output Intake/Output: Intake & Output 01/06/24 01/07/24 01/08/24 01/09/24 23:59 23:59 23:59 23:59 Intake Total 1050 1150 1390 450 Output Total 400 833 950 260 Balance 650 317 440 190 Meds/Results Medications: Active Medications Generic Name Dose Route Start Last Admin Trade Name Freq PRN Reason Stop Dose Admin Acetaminophen 650 mg 01/05/24 20:04 01/06/24 20:11 Acetaminophen Elixir 325 Mg/10.15 Ml Udc PO 650 mg Q6H PRN Administration Mild Pain (1-3) or Fever Hydrocodone Bitart/Acetaminophen 1 tab 01/04/24 10:20 01/06/24 13:56 Hydrocodone/Acetaminophen (*Crx) 5-325 Mg Tablet PO 1 tab Q4H PRN Administration Pain Rated 4-6 Albuterol/Ipratropium 3 ml 01/09/24 14:00 Ipratropium 0.5 Mg/Albuterol Sulfate 2.5 Mg Ampul.Neb 3 Ml INHALATION [id number] SABAS Aspirin 81 mg 01/08/24 09:00 01/09/24 08:29 Aspirin 81 Mg Enteric Tablet PO 81 mg QAM SABAS Administration Cefdinir 300 mg 01/08/24 21:00 01/09/24 08:30 Cefdinir 300 Mg Capsule PO 300 mg Q12HR SABAS Administration Metoprolol Tartrate 25 mg 01/04/24 10:20 01/09/24 08:28 Metoprolol Tartrate 25 Mg Tablet PO 25 mg Q12HR SABAS Administration Metronidazole 500 mg 01/08/24 14:00 01/09/24 14:11 Metronidazole 500 Mg Tablet PO 500 mg Q8HR SABAS Administration Miscellaneous Information 1 each 01/08/24 00:01 Dornase Needs To Be Renewed Or It Will Automatically Discontinue. XX 02/07/24 00:00 CLARIFY SABAS Morphine Sulfate 2 mg 01/04/24 10:20 01/04/24 13:30 Morphine Sulfate (*Crx) 2 Mg/Ml Inj IV PUSH 2 mg Q2H PRN Administration Pain Rated 7-10 Ondansetron HCl 4 mg 12/31/23 09:31 12/31/23 17:04 Ondansetron Inj 4 Mg/2 Ml
[2024-01-10] VITALS (12 sets, daily range): BP systolic 131–166; BP diastolic 70–74; PULSE 65–94; RESP 18; TEMP 36.3–36.5; O2SAT 91–99
[2024-01-10] MEDS: metroNIDAZOLE 500 MG TABLET PO ×3 (05:44→21:35)
[2024-01-10 06:24] LABS: Basophils Percent Auto 0.2 % (0.2-1.2); Eosinophils Percent Auto 0.2 % (0-4.4); Hematocrit 35.1 % (42.0-52.0); Hemoglobin 11.6 g/dL (14.0-18.0); Immature Granulocyte Absolute 0.36 K/mm3 (0.00-0.031); Immature Platelet Fraction Pct 7.5 % (0.9-11.2); Lymphocytes Absolute Auto 1.28 K/mm3 (0.9-3.2); Lymphocytes Percent Auto 7.1 % (18.3-44.2); Mean Corpuscular Hemoglobin 31.3 pg (26-34); Mean Corpuscular Volume 94.6 fl (80-100); Mean Platelet Volume 11.4 fl (7.4-10.4); Monocytes Absolute Auto 1.2 K/mm3 (0.1-0.6); Monocytes Percent Auto 6.5 % (2.6-8.5); Neutrophils Absolute Auto 15.1 K/mm3 (1.3-6.7); Platelet Count Result 84 k/mm3 (150-375); Red Blood Count 3.71 M/mm3 (4.6-6.20); Red Cell Distribution Width 16.7 % (11.5-14.5); White Blood Count 17.9 K/mm3 (4.5-10.0)
[2024-01-10 06:45] LABS: Albumin Level 2.8 g/dL (3.5-5.1); Anion Gap 8 mmol/L (4-12); Blood Urea Nitrogen 31 mg/dL (9-20); Calcium 8.2 mg/dL (8.4-10.2); Carbon Dioxide 23 mmol/L (22-30); Chloride 108 mmol/L (98-107); Estimated CRCL calculation 67 ml/min; Estimated Glomerular Filt Rate > 60; Glucose 82 mg/dL (65-110); Magnesium 2.1 mg/dL (1.6-2.3); Phosphorus 2.8 mg/dL (2.5-4.5); Potassium 2.8 mmol/L (3.4-5.0); Sodium 139 mmol/L (137-145)
[2024-01-10] MEDS: POTASSIUM CHLORIDE 20 MEQ ER TABLET 40 MEQ PO (07:01)
[2024-01-10] MEDS: IPRATROPIUM 0.5 MG/ALBUTEROL SULFATE 2.5 MG AMPUL.NEB 3 ML INHALATION ×3 (07:54→20:22)
--- NOTE | 2024-01-10 09:08 | PC.NURSE ---
Pt was ordered potassium pills this morning due to critically low potassium. Night nurse said he took one pill this morning and had to wait a little bit to take before taking the pills. Morning rounds were done this morning and patient had both pills still on the table, pt said he was waiting for his sister to bring his slushie to take them. Went back in the pt's room to find the pills in the trash can. Called provider.
[2024-01-10] MEDS: PANTOPRAZOLE SODIUM IV 40 MG VIAL IV PUSH (09:30)
[2024-01-10] MEDS: METOPROLOL TARTRATE 25 MG TABLET PO ×2 (09:31→21:36)
[2024-01-10] MEDS: ASPIRIN 81 MG ENTERIC TABLET PO (09:31)
[2024-01-10] MEDS: POTASSIUM CHLORIDE INJ 40 MEQ in SODIUM CHLORIDE 0.9% IV 500 ML 130 MEQ IVPB (09:32)
--- NOTE | 2024-01-10 09:47 | PCSTNOTE ---
Bedside swallowing evaluation completed. Patient seen bedside, sitting up in bed with breakfast tray on bedside table in front of patient. Not eating and only taking occasional sips of liquids and bites of ice. Cursory oral peripheral examination results within functional limits. No coughing or choking observed with single thin liquid bolus, and voice clear afterwards. Patient refused to eat or drink anything else during the evaluation and said he needs a lot of time in between bites. Per nurse he is taking his medications orally. Based on this bedside evaluation patient demonstrates refusal to eat or drink but no signs of aspiration or choking with single liquid bolus he accepted. A modified barium swallow study is recommended to evaluate for any signs of aspiration or obstruction in swallowing mechanism. Thank you for the referral of this patient. [ End ]
--- NOTE | 2024-01-10 09:49 | PM.PNGS ---
Progress Note: A&P Assessment and Plan (1) Perforated viscus: Code(s): R19.8 - Other specified symptoms and signs involving the digestive system and abdomen Status: Acute Assessment and Plan: doing well, cont vac, d/w pt that he will need acute rehab, cont to encourage po, PT/OT Subjective Subjective Date/Time Seen: 01/10/24 09:49 Interval history: feels good, wants to go home Review of Systems Review of Systems: All systems reviewed & are unremarkable except as noted in HPI and below Exam Const: General: cooperative, comfortable and no acute distress Resp: Auscultation: diminished lung sounds Cardio: Rate: regular rate Rhythm: regular rhythm GI: Inspection: normal to inspection, non-distended and incision GI Palp: No abdominal tenderness, Yes Soft to palpation and No Tenderness to palpation present (GI) Other: ostomy good fxn, vac C/D/I Objective Data Vital Signs Vital Signs: Vital Signs - 24 hr 01/09/24 14:23 01/09/24 15:22 01/09/24 15:29 Temperature 36.9 C Pulse Rate 70 74 76 Respiratory Rate 16 18 18 Blood Pressure 132/72 Pulse Oximetry 98 Oxygen Delivery Fraction of Inspired Oxygen 01/09/24 20:55 01/09/24 20:55 01/09/24 21:07 Temperature Pulse Rate 75 78 Respiratory Rate 18 18 Blood Pressure Pulse Oximetry 91 Oxygen Delivery Room Air Fraction of Inspired Oxygen 01/09/24 21:11 01/09/24 21:26 01/10/24 06:59 Temperature 37.1 C 36.5 C Pulse Rate 75 65 65 Respiratory Rate 18 18 Blood Pressure 139/68 166/74 H Pulse Oximetry 96 95 Oxygen Delivery Fraction of Inspired Oxygen 01/10/24 07:54 01/10/24 07:54 01/10/24 08:02 Temperature Pulse Rate 93 90 Respiratory Rate 18 18 Blood Pressure Pulse Oximetry 91 Oxygen Delivery Room Air Fraction of Inspired Oxygen 21 Intake/Output Intake/Output: Intake & Output 01/07/24 01/08/24 01/09/24 01/10/24 23:59 23:59 23:59 23:59 Intake Total 1150 1390 900 540 Output Total 833 950 685 675 Balance 317 440 215 -135 Meds/Results Medications: Active Medications Generic Name Dose Route Start Last Admin Trade Name Freq PRN Reason Stop Dose Admin Acetaminophen 650 mg 01/05/24 20:04 01/06/24 20:11 Acetaminophen Elixir 325 Mg/10.15 Ml Udc PO 650 mg Q6H PRN Administration Mild Pain (1-3) or Fever Hydrocodone Bitart/Acetaminophen 1 tab 01/04/24 10:20 01/06/24 13:56 Hydrocodone/Acetaminophen (*Crx) 5-325 Mg Tablet PO 1 tab Q4H PRN Administration Pain Rated 4-6 Albuterol/Ipratropium 3 ml 01/09/24 14:00 01/10/24 07:54 Ipratropium 0.5 Mg/Albuterol Sulfate 2.5 Mg Ampul.Neb 3 Ml INHALATION 3 ml [id number] SABAS Administration Aspirin 81 mg 01/08/24 09:00 01/09/24 08:29 Aspirin 81 Mg Enteric Tablet PO 81 mg QAM SABAS Administration Cefdinir 300 mg 01/08/24 21:00 01/09/24 21:11 Cefdinir 300 Mg Capsule PO 300 mg Q12HR SABAS Administration Potassium Chloride 40 meq/ 520 mls @ 130 mls/hr 01/10/24 10:00 Sodium Chloride IVPB 01/10/24 13:59 ONCE ONE Metoprolol Tartrate 25 mg 01/04/24 10:20 01/09/24 21:11 Metoprolol Tartrate 25 Mg Tablet PO 25 mg Q12HR SABAS Administration Metronidazole 500 mg 01/08/24 14:00 01/10/24 05:44 Metronidazole 500 Mg Tablet PO 500 mg Q8HR SABAS Administration Miscellaneous Information 1 each 01/08/24 00:01 Dornase Needs To Be Renewed Or It Will Automatically Discontinue. XX 02/07/24 00:00 CLARIFY [facility] Morphine Sulfate 2 mg 01/04/24 10:20 01/04/24 13:30 Morphine Sulfate (*Crx) 2 Mg/Ml Inj IV PUSH 2 mg Q2H PRN Administration Pain Rated 7-10 Ondansetron HCl 4 mg 12/31/23 09:31 12/31/23 17:04 Ondansetron Inj 4 Mg/2 Ml Vial IV PUSH 4 mg Q6H PRN Administration Nausea And Vomiting Ondansetron HCl 4 mg 12/31/23 23:37 Ondansetron Inj 4 Mg/2 Ml Vial IV PUSH Q4H PRN Nausea And Vomiting Pantoprazole Sodium
--- NOTE | 2024-01-10 11:27 | PCSTNOTE ---
Modified barium swallow study completed. Patient seen in radiology suite positioned in [facility] chair with lateral view from left. Trials of thin liquid by spoon and cup, mildly thickened liquids by spoon, moderately thickened liquids by spoon, and pureed consistency by spoon were given. Aspiration occurred with thin liquids by spoon and by cup. Penetration of material into airway above vocal folds which was not ejected occured with mildly and moderately thickened liquids. Pureed consistency food by spoon was within functional limits, no aspiration. Mixed consistency and solid consistency food was not trialed because patient states he is unable to swallow those, and has experienced a reported witnessed choking episode recently. Recommendations: pureed consistency diet with mildly thickened liquids (Food level 4 and liquid level 2). Speech therapy is recommended to address tongue base strengthening, increased laryngeal elevation, and increased vocal fold adduction. Swallowing precaution recommendations placed in chart. Thank you for the referral of this patient.
[2024-01-10] MEDS: CEFDINIR 300 MG CAPSULE PO ×2 (12:15→21:35)
--- NOTE | 2024-01-10 13:15 | PCNFU ---
Nutrition Follow-Up Complete: Increased Energy Needs as related to mechanical ventilation as evidenced by NPO. goal: Meet estimated nutritional needs Patient has limited progress on goal. We will continue current goal. Pt current nutrition is Pureed, Level 4 with Moderately Thick liquids, Level 2. Last recorded weight is 62 kg, up from 58.6 kg on admit. Bowel Motility: ostomy Labs Reviewed: BUN 31, K 2.8,Hct 35.1,Hgb 11.6 Meds Noted:Flagyl, Protonix, Lopressor. Skin:wound vac- medical abdomen. Additional Notes: Patient reported to nursing swallowing difficulties. Speech therapy ordered for MBS. Diet order changed to Pureed, Level 4 with Moderately Thick liquids, Level 2. Diet supplement orders modified to Ensure Enlive TID today 2/2 to Level 2 consistencies on liquids. PO intake encouraged. Will monitor weight, labs, skin, diet orders, meds every 5 days.
--- NOTE | 2024-01-10 14:34 | PC.NURSE ---
On 01/10/24, the student, [Altagracia Matthews], provided care and completed [facility] on [facility] patient. I have reviewed the student's documentation and agree with the findings.
--- NOTE | 2024-01-10 18:19 | PC.NURSE ---
Pt had a modified barium swallow done today. Findings showed that he needs a pureed diet and mildly thick liquids. Pt is refusing thick liquids and won't do anything until we give him thin liquids. Educated patient on importance of thick liquids but still refusing.
--- NOTE | 2024-01-10 18:43 | PM.IMPN ---
Progress Note: A&P Assessment and Plan (1) Perforated viscus: Code(s): R19.8 - Other specified symptoms and signs involving the digestive system and abdomen Status: Acute (2) Septic shock: Code(s): A41.9 - Sepsis, unspecified organism; R65.21 - Severe sepsis with septic shock Status: Acute (3) Acute respiratory failure: Code(s): J96.00 - Acute respiratory failure, unspecified whether with hypoxia or hypercapnia Status: Acute (4) Hypokalemia: Code(s): E87.6 - Hypokalemia Status: Acute (5) Cancer of sigmoid colon: Code(s): C18.7 - Malignant neoplasm of sigmoid colon Status: Acute (6) Chronic obstructive pulmonary disease: Code(s): J44.9 - Chronic obstructive pulmonary disease, unspecified Status: Acute (7) Tobacco abuse: Code(s): Z72.0 - Tobacco use Status: Acute (8) Dysphagia: Code(s): R13.10 - Dysphagia, unspecified Status: Acute (9) Rhabdomyolysis: Code(s): M62.82 - Rhabdomyolysis Status: Acute Plan 68-year-old male with recent diagnosis sigmoid colon COPD artery disease aneurysm hypertension CKD was scheduled for hand assisted laparoscopic sigmoid colectomy however was canceled due to critical low potassium. 2.5. Hospitalist team was consulted on admission started having severe abdominal pain. He had previously near obstructing mass in sigmoid colon biopsies confirmed adenocarcinoma. Abdominal x-ray was obtained which showed pneumoperitoneum and subsequently taken for urgent exploratory laparotomy. This was performed on 12/31/2023. With findings of perforated cecum an obstructing sigmoid colon cancer. He is status post right colectomy with ileocolic anastomosis, sigmoid colectomy and creation of end colostomy. He was subsequent admitted to ICU with septic shock and respiratory failure. On broad-spectrum antibiotics with cefepime Flagyl and micafungin. Status post extubation on 01/04/2024. On oxygen supplementation via nasal cannula. Chest x-ray with congestive changes and mild infiltrate and atelectasis in the left and to the lesser extent right lower lungs Worsening leukocytosis 01/05/2024 CT chest abdomen pelvis has been done showed airway debris/secretions the disc ER right main stem bronchus and right interlobar bronchus. Moderate right and small left pleural effusions. 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 Postsurgical changes in the abdomen with show colonic resection and diverting colostomy with diffuse colon wall edema reflecting component of colitis, mild mesenteric edema and diffuse body wall edema. S. Add Pulmozyme will also diurese him with Lasix 40 mg IV intermittently. Leukocytosis still persists could also be related to steroid use. Will since no wheezing will stop steroid today Replace Potassium. Hypoxemia has resolved and is been on room air UnderlyingCOPD with possible COPD exacerbation on steroid IV. Stop steroid and monitor Leukocytosis: Improving cefepime a with micafungin. Micafungin 7 days course. Will switch antibiotics to oral metronidazole and cefdinir WILLOW improved being which is post surgical Assuming care. Chart reviewed. White count trending downward. Steroids were stopped yesterday. He completed course of micafungin. She is on oral antibiotics. Platelet count is worse today. Lovenox has been stopped. Potassium low again and this was replaced. Platelet antibodies ordered. The weakness in the right arm probably related to extension of the right arm during surgery possibly. No focal weakness but will monitor with therapy. Will back down on his nebulizer treatments. Okay to stop Pulmozyme. Encouraged him to increase his oral intake. Encouraged patient to go to rehab after discharge. WBC still climbing to 18K now. Plt count better at 84K. Potassium low again and he was refusing oral potassium so IV ordered. Mag level good. P
[2024-01-11] VITALS (15 sets, daily range): BP systolic 120–156; BP diastolic 59–68; PULSE 65–86; RESP 16–21; TEMP 36.4–36.7; O2SAT 94–98
--- NOTE | 2024-01-11 01:41 | PC.NURSE ---
Pt tolerating thickened liquids poorly, pt frequently calling attempting to get water without thickener from multiple staff members. Pt educated multiple times of the risks associated with aspirating and his high risk level for aspirating thin liquids.
[2024-01-11 05:23] LABS: Alanine Aminotransferase 21 U/L (6-50); Albumin Level 2.5 g/dL (3.5-5.1); Alkaline Phosphatase 64 U/L (38-126); Anion Gap 0 mmol/L (4-12); Aspartate Amino Transferase 31 U/L (17-59); Bilirubin,Total 1.3 mg/dL (0.2-1.3); Blood Urea Nitrogen 27 mg/dL (9-20); Calcium 7.8 mg/dL (8.4-10.2); Carbon Dioxide 27 mmol/L (22-30); Chloride 109 mmol/L (98-107); Estimated CRCL calculation 68 ml/min; Estimated Glomerular Filt Rate > 60; Glucose 94 mg/dL (65-110); Potassium 3.1 mmol/L (3.4-5.0); Sodium 136 mmol/L (137-145)
[2024-01-11] MEDS: metroNIDAZOLE 500 MG TABLET PO ×3 (05:49→21:50)
[2024-01-11 07:11] LABS: Basophils Percent Auto 0.1 % (0.2-1.2); Eosinophils Percent Auto 0.3 % (0-4.4); Hematocrit 34.4 % (42.0-52.0); Hemoglobin 11.2 g/dL (14.0-18.0); Immature Granulocyte Absolute 0.19 K/mm3 (0.00-0.031); Immature Granulocyte Percent A 1.3 % (0-0.5); Immature Platelet Fraction Pct 7.9 % (0.9-11.2); Lymphocytes Absolute Auto 0.97 K/mm3 (0.9-3.2); Lymphocytes Percent Auto 6.5 % (18.3-44.2); Mean Corpuscular HGB Conc 32.6 g/dl (32-36); Mean Corpuscular Hemoglobin 31.5 pg (26-34); Mean Corpuscular Volume 96.9 fl (80-100); Mean Platelet Volume 11.8 fl (7.4-10.4); Monocytes Absolute Auto 1.3 K/mm3 (0.1-0.6); Monocytes Percent Auto 8.9 % (2.6-8.5); Neutrophils Absolute Auto 12.4 K/mm3 (1.3-6.7); Neutrophils Percent Auto 82.9 % (45.5-73.1); Platelet Count Result 91 k/mm3 (150-375); Red Blood Count 3.55 M/mm3 (4.6-6.20); White Blood Count 14.9 K/mm3 (4.5-10.0)
[2024-01-11] MEDS: IPRATROPIUM 0.5 MG/ALBUTEROL SULFATE 2.5 MG AMPUL.NEB 3 ML INHALATION ×3 (08:08→20:10)
[2024-01-11] MEDS: POTASSIUM CHLORIDE INJ 40 MEQ in SODIUM CHLORIDE 0.9% IV 500 ML 130 MEQ IVPB (09:55)
[2024-01-11] MEDS: ASPIRIN 81 MG ENTERIC TABLET PO (09:59)
[2024-01-11] MEDS: CEFDINIR 300 MG CAPSULE PO ×2 (09:59→21:50)
[2024-01-11] MEDS: METOPROLOL TARTRATE 25 MG TABLET PO ×2 (10:00→21:49)
[2024-01-11] MEDS: PANTOPRAZOLE 40 MG TABLET PO (10:00)
--- NOTE | 2024-01-11 12:06 | P.PNIM_ITS ---
Progress Note: A&P Assessment and Plan (1) Perforated viscus: Code(s): R19.8 - Other specified symptoms and signs involving the digestive system and abdomen Status: Acute (2) Septic shock: Code(s): A41.9 - Sepsis, unspecified organism; R65.21 - Severe sepsis with septic shock Status: Acute (3) Acute respiratory failure: Code(s): J96.00 - Acute respiratory failure, unspecified whether with hypoxia or hypercapnia Status: Acute (4) Hypokalemia: Code(s): E87.6 - Hypokalemia Status: Acute (5) Cancer of sigmoid colon: Code(s): C18.7 - Malignant neoplasm of sigmoid colon Status: Acute (6) Chronic obstructive pulmonary disease: Code(s): J44.9 - Chronic obstructive pulmonary disease, unspecified Status: Acute (7) Tobacco abuse: Code(s): Z72.0 - Tobacco use Status: Acute (8) Dysphagia: Code(s): R13.10 - Dysphagia, unspecified Status: Acute (9) Rhabdomyolysis: Code(s): M62.82 - Rhabdomyolysis Status: Acute Plan 68-year-old male with recent diagnosis sigmoid colon COPD artery disease aneurysm hypertension CKD was scheduled for hand assisted laparoscopic sigmoid colectomy however was canceled due to critical low potassium. 2.5. Hospitalist team was consulted on admission started having severe abdominal pain. He had previously near obstructing mass in sigmoid colon biopsies confirmed adenocarcinoma. Abdominal x-ray was obtained which showed pneumoperitoneum and subsequently taken for urgent exploratory laparotomy. This was performed on 12/31/2023. With findings of perforated cecum an obstructing sigmoid colon cancer. He is status post right colectomy with ileocolic anastomosis, sigmoid colectomy and creation of end colostomy. He was subsequent admitted to ICU with septic shock and respiratory failure. On broad-spectrum antibiotics with cefepime Flagyl and micafungin. Status post extubation on 01/04/2024. On oxygen supplementation via nasal cannula. Chest x-ray with congestive changes and mild infiltrate and atelectas is in the left and to the lesser extent right lower lungs Worsening leukocytosis 01/05/2024 CT chest abdomen pelvis has been done showed airway debris/secretions the disc ER right main stem bronchus and right interlobar bronchus. Moderate right and small left pleural effusions. 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 Postsurgical changes in the abdomen with show colonic resection and diverting colostomy with diffuse colon wall edema reflecting component of colitis, mild mesenteric edema and diffuse body wall edema. S. Add Pulmozyme will also diurese him with Lasix 40 mg IV intermittently. Leukocytosis still persists could also be related to steroid use. Will since no wheezing will stop steroid today Replace Potassium. Hypoxemia has resolved and is been on room air UnderlyingCOPD with possible COPD exacerbation on steroid IV. Stop steroid and monitor Leukocytosis: Improving cefepime a with micafungin. Micafungin 7 days course. Will switch antibiotics to oral metronidazole and cefdinir WILLOW improved being which is post surgical Assuming care. Chart reviewed. White count trending downward. Steroids were stopped yesterday. He completed course of micafungin. She is on oral antibiotics. Platelet count is worse today. Lovenox has been stopped. Potassium low again and this was replaced. Platelet antibodies ordered. The weakness in the right arm probably related to extension of the right arm during surgery possibly. No focal weakness but will monitor with therapy. Will back down o
--- NOTE | 2024-01-11 17:08 | PM.PNGS ---
Progress Note: A&P Assessment and Plan (1) Perforated viscus: Code(s): R19.8 - Other specified symptoms and signs involving the digestive system and abdomen Status: Acute Assessment and Plan: stable, await disposition, cont abx for now, vac, ostomy care, encourage PT/OT, OOB, etc Subjective Subjective Date/Time Seen: 01/11/24 17:08 Interval history: no acute issues, still refusing PT/OT, OOB, etc Review of Systems Review of Systems: All systems reviewed & are unremarkable except as noted in HPI and below Exam Const: General: comfortable and no acute distress Resp: Auscultation: diminished lung sounds Cardio: Rate: regular rate Rhythm: regular rhythm GI: Inspection: normal to inspection and non-distended GI Palp: Yes abdominal tenderness and Yes Soft to palpation Other: vac - C/D/I ostomy - +fxn Objective Data Vital Signs Vital Signs: Vital Signs - 24 hr 01/10/24 20:23 01/10/24 20:23 01/10/24 21:06 Temperature 36.4 C Pulse Rate 77 77 78 Respiratory Rate 18 18 Blood Pressure 145/70 H Pulse Oximetry 96 99 Oxygen Delivery Room Air 01/10/24 21:36 01/10/24 21:30 01/10/24 20:30 Temperature Pulse Rate 78 74 Respiratory Rate 18 Blood Pressure Pulse Oximetry Oxygen Delivery Room Air 01/11/24 05:06 01/11/24 08:08 01/11/24 08:11 Temperature 36.4 C Pulse Rate 72 78 78 Respiratory Rate 18 18 18 Blood Pressure 156/67 H Pulse Oximetry 96 95 Oxygen Delivery Room Air 01/11/24 08:16 01/11/24 10:00 01/11/24 09:45 Temperature Pulse Rate 69 84 Respiratory Rate 18 Blood Pressure Pulse Oximetry 94 Oxygen Delivery Room Air 01/11/24 13:38 01/11/24 13:45 01/11/24 16:00 Temperature 36.7 C Pulse Rate 65 68 81 Respiratory Rate 18 18 21 H Blood Pressure 120/59 L Pulse Oximetry 98 Oxygen Delivery Intake/Output Intake/Output: Intake & Output 01/08/24 01/09/24 01/10/24 01/11/24 23:59 23:59 23:59 23:59 Intake Total 1390 900 780 580 Output Total 950 685 925 300 Balance 440 215 -145 280 Meds/Results Medications: Active Medications Generic Name Dose Route Start Last Admin Trade Name Freq PRN Reason Stop Dose Admin Acetaminophen 650 mg 01/05/24 20:04 01/06/24 20:11 Acetaminophen Elixir 325 Mg/10.15 Ml Udc PO 650 mg Q6H PRN Administration Mild Pain (1-3) or Fever Hydrocodone Bitart/Acetaminophen 1 tab 01/04/24 10:20 01/06/24 13:56 Hydrocodone/Acetaminophen (*Crx) 5-325 Mg Tablet PO 1 tab Q4H PRN Administration Pain Rated 4-6 Albuterol/Ipratropium 3 ml 01/09/24 14:00 01/11/24 13:38 Ipratropium 0.5 Mg/Albuterol Sulfate 2.5 Mg Ampul.Neb 3 Ml INHALATION 3 ml [id number] SABAS Administration Aspirin 81 mg 01/08/24 09:00 01/11/24 09:59 Aspirin 81 Mg Enteric Tablet PO 81 mg QAM SABAS Administration Cefdinir 300 mg 01/08/24 21:00 01/11/24 09:59 Cefdinir 300 Mg Capsule PO 300 mg Q12HR SABAS Administration Metoprolol Tartrate 25 mg 01/04/24 10:20 01/11/24 10:00 Metoprolol Tartrate 25 Mg Tablet PO 25 mg Q12HR SABAS Administration Metronidazole 500 mg 01/08/24 14:00 01/11/24 14:36 Metronidazole 500 Mg Tablet PO 500 mg Q8HR SABAS Administration Miscellaneous Information 1 each 01/08/24 00:01 Dornase Needs To Be Renewed Or It Will Automatically Discontinue. XX 02/07/24 00:00 CLARIFY [facility] Morphine Sulfate 2 mg 01/04/24 10:20 01/04/24 13:30 Morphine Sulfate (*Crx) 2 Mg/Ml Inj IV PUSH 2 mg Q2H PRN Administration Pain Rated 7-10 Ondansetron HCl 4 mg 12/31/23 09:31 12/31/23 17:04 Ondansetron Inj 4 Mg/2 Ml Vial IV PUSH 4 mg Q6H PRN Administration Nausea And Vomiting Ondansetron HCl 4 mg 12/31/23 23:37 Ondansetron Inj 4 Mg/2 Ml Vial IV PUSH Q4H PRN Nausea And Vomiting Pantoprazole Sodium 40 mg 01/11/24 09:00 01/11/24 10:00 Pantoprazole 40 Mg Tablet PO 40 mg QAM SABAS Administrat
--- NOTE | 2024-01-11 19:59 | PC.NURSE ---
Dr Bedoya notified of sepsis alert 01/10, not Dr Kim as charted.
[2024-01-12] VITALS (12 sets, daily range): BP systolic 139–157; BP diastolic 64–81; PULSE 60–88; RESP 16–20; TEMP 36.4–36.6; O2SAT 96–100
[2024-01-12] MEDS: metroNIDAZOLE 500 MG TABLET PO ×3 (05:20→20:45)
[2024-01-12] MEDS: IPRATROPIUM 0.5 MG/ALBUTEROL SULFATE 2.5 MG AMPUL.NEB 3 ML INHALATION ×3 (07:50→20:51)
[2024-01-12] MEDS: CEFDINIR 300 MG CAPSULE PO ×2 (09:03→20:45)
[2024-01-12] MEDS: ASPIRIN 81 MG ENTERIC TABLET PO (09:03)
[2024-01-12] MEDS: PANTOPRAZOLE 40 MG TABLET PO (09:03)
[2024-01-12] MEDS: METOPROLOL TARTRATE 25 MG TABLET PO ×2 (09:03→20:45)
--- NOTE | 2024-01-12 12:37 | PM.PNGS ---
Progress Note: A&P Assessment and Plan (1) Perforated viscus: Code(s): R19.8 - Other specified symptoms and signs involving the digestive system and abdomen Status: Acute Assessment and Plan: doing well, cont PT/OT, will try to dc c home health early next week Subjective Subjective Date/Time Seen: 01/12/24 12:37 Interval history: feels good, wants to go home Review of Systems Review of Systems: All systems reviewed & are unremarkable except as noted in HPI and below Exam Const: General: cooperative, comfortable and no acute distress Resp: Auscultation: diminished lung sounds Cardio: Rate: regular rate Rhythm: regular rhythm GI: Inspection: normal to inspection, non-distended and incision GI Palp: No abdominal tenderness and Yes Soft to palpation Other: vac C/D/I, ostomy +fxn Objective Data Vital Signs Vital Signs: Vital Signs - 24 hr 01/11/24 13:38 01/11/24 13:45 01/11/24 16:00 Temperature 36.7 C Pulse Rate 65 68 81 Respiratory Rate 18 18 21 H Blood Pressure 120/59 L Pulse Oximetry 98 Oxygen Delivery Fraction of Inspired Oxygen 01/11/24 19:52 01/11/24 20:10 01/11/24 20:12 Temperature Pulse Rate 75 Respiratory Rate 20 18 Blood Pressure Pulse Oximetry 95 Oxygen Delivery Room Air Fraction of Inspired Oxygen 01/11/24 20:17 01/11/24 21:10 01/11/24 21:49 Temperature 36.6 C Pulse Rate 79 86 86 Respiratory Rate 18 16 Blood Pressure 141/68 H Pulse Oximetry 96 Oxygen Delivery Fraction of Inspired Oxygen 01/11/24 21:50 01/12/24 05:31 01/12/24 07:50 Temperature 36.6 C Pulse Rate 60 Respiratory Rate 16 Blood Pressure 140/81 Pulse Oximetry 96 97 Oxygen Delivery Room Air Room Air Fraction of Inspired Oxygen 21 01/12/24 07:50 01/12/24 08:02 01/12/24 09:03 Temperature Pulse Rate 64 66 88 Respiratory Rate 18 18 Blood Pressure Pulse Oximetry Oxygen Delivery Fraction of Inspired Oxygen 01/12/24 08:58 Temperature Pulse Rate Respiratory Rate Blood Pressure Pulse Oximetry Oxygen Delivery Room Air Fraction of Inspired Oxygen Intake/Output Intake/Output: Intake & Output 01/09/24 01/10/24 01/11/24 01/12/24 23:59 23:59 23:59 23:59 Intake Total 900 780 580 100 Output Total 685 925 300 200 Balance 215 -145 280 -100 Meds/Results Medications: Active Medications Generic Name Dose Route Start Last Admin Trade Name Freq PRN Reason Stop Dose Admin Acetaminophen 650 mg 01/05/24 20:04 01/06/24 20:11 Acetaminophen Elixir 325 Mg/10.15 Ml Udc PO 650 mg Q6H PRN Administration Mild Pain (1-3) or Fever Hydrocodone Bitart/Acetaminophen 1 tab 01/04/24 10:20 01/06/24 13:56 Hydrocodone/Acetaminophen (*Crx) 5-325 Mg Tablet PO 1 tab Q4H PRN Administration Pain Rated 4-6 Albuterol/Ipratropium 3 ml 01/09/24 14:00 01/12/24 07:50 Ipratropium 0.5 Mg/Albuterol Sulfate 2.5 Mg Ampul.Neb 3 Ml INHALATION 3 ml [id number] SABAS Administration Aspirin 81 mg 01/08/24 09:00 01/12/24 09:03 Aspirin 81 Mg Enteric Tablet PO 81 mg QAM SABAS Administration Cefdinir 300 mg 01/08/24 21:00 01/12/24 09:03 Cefdinir 300 Mg Capsule PO 300 mg Q12HR SABAS Administration Metoprolol Tartrate 25 mg 01/04/24 10:20 01/12/24 09:03 Metoprolol Tartrate 25 Mg Tablet PO 25 mg Q12HR SABAS Administration Metronidazole 500 mg 01/08/24 14:00 01/12/24 05:20 Metronidazole 500 Mg Tablet PO 500 mg Q8HR SABAS Administration Miscellaneous Information 1 each 01/08/24 00:01 Dornase Needs To Be Renewed Or It Will Automatically Discontinue. XX 02/07/24 00:00 CLARIFY SABAS Morphine Sulfate 2 mg 01/04/24 10:20 01/04/24 13:30 Morphine Sulfate (*Crx) 2 Mg/Ml Inj IV PUSH 2 mg Q2H PRN Administration Pain Rated 7-10 Ondansetron HCl 4 mg 12/31/23 09:31 12/31/23 17:04 Ondansetron Inj 4 Mg/2 Ml Vial IV PUSH 4 mg Q6H PRN Adminis
[2024-01-13] VITALS (11 sets, daily range): BP systolic 131–158; BP diastolic 55–86; PULSE 72–102; RESP 14–20; TEMP 36.4–37; O2SAT 96–97
[2024-01-13] MEDS: metroNIDAZOLE 500 MG TABLET PO ×3 (05:12→20:03)
[2024-01-13 05:13] LABS: Basophils Percent Auto 0.1 % (0.2-1.2); Eosinophils Percent Auto 0.3 % (0-4.4); Hematocrit 31.8 % (42.0-52.0); Hemoglobin 10.4 g/dL (14.0-18.0); Immature Granulocyte Absolute 0.23 K/mm3 (0.00-0.031); Immature Granulocyte Percent A 1.5 % (0-0.5); Lymphocytes Absolute Auto 0.98 K/mm3 (0.9-3.2); Lymphocytes Percent Auto 6.2 % (18.3-44.2); Mean Corpuscular HGB Conc 32.7 g/dl (32-36); Mean Corpuscular Hemoglobin 31.5 pg (26-34); Mean Corpuscular Volume 96.4 fl (80-100); Mean Platelet Volume 10.6 fl (7.4-10.4); Monocytes Absolute Auto 1.6 K/mm3 (0.1-0.6); Monocytes Percent Auto 10.4 % (2.6-8.5); Neutrophils Absolute Auto 12.9 K/mm3 (1.3-6.7); Neutrophils Percent Auto 81.5 % (45.5-73.1); Platelet Count Result 122 k/mm3 (150-375); White Blood Count 15.8 K/mm3 (4.5-10.0)
[2024-01-13 05:34] LABS: Alanine Aminotransferase 16 U/L (6-50); Albumin Level 2.3 g/dL (3.5-5.1); Alkaline Phosphatase 61 U/L (38-126); Anion Gap 6 mmol/L (4-12); Aspartate Amino Transferase 26 U/L (17-59); Bilirubin,Total 1.1 mg/dL (0.2-1.3); Blood Urea Nitrogen 22 mg/dL (9-20); Calcium 7.7 mg/dL (8.4-10.2); Carbon Dioxide 21 mmol/L (22-30); Chloride 110 mmol/L (98-107); Estimated CRCL calculation 62 ml/min; Estimated Glomerular Filt Rate > 60; Glucose 85 mg/dL (65-110); Magnesium 1.7 mg/dL (1.6-2.3); Phosphorus 3.1 mg/dL (2.5-4.5); Potassium 2.9 mmol/L (3.4-5.0); Sodium 137 mmol/L (137-145)
[2024-01-13] MEDS: IPRATROPIUM 0.5 MG/ALBUTEROL SULFATE 2.5 MG AMPUL.NEB 3 ML INHALATION ×3 (07:05→21:08)
[2024-01-13] MEDS: PANTOPRAZOLE 40 MG TABLET PO (09:07)
[2024-01-13] MEDS: METOPROLOL TARTRATE 25 MG TABLET PO ×2 (09:07→20:03)
[2024-01-13] MEDS: ASPIRIN 81 MG ENTERIC TABLET PO (09:07)
[2024-01-13] MEDS: CEFDINIR 300 MG CAPSULE PO ×2 (09:07→20:03)
[2024-01-13] MEDS: POTASSIUM CHLORIDE 20 MEQ PACKET (FOR LIQUID) PO ×2 (09:08→17:30)
[2024-01-13] MEDS: MAGNESIUM SULF 2 GM/WATER 50ML 2 GM/50 ML BAG IVPB (09:08)
--- NOTE | 2024-01-13 09:34 | ECG_ITS ---
SEE SCANNED COPY FOR CONFIRMED REPORT MTDD
--- NOTE | 2024-01-13 10:32 | PM.PNGS ---
Progress Note: A&P Assessment and Plan (1) Perforated viscus: Code(s): R19.8 - Other specified symptoms and signs involving the digestive system and abdomen Status: Acute Assessment and Plan: doing well, cont postop care, vac, ostomy care, encourage OOB/IS, PT/OT, home c HH early next wk Subjective Subjective Date/Time Seen: 01/13/24 10:32 Interval history: no acute issues, wants to leave Review of Systems Review of Systems: All systems reviewed & are unremarkable except as noted in HPI and below Exam Const: General: cooperative, comfortable and no acute distress Resp: Auscultation: diminished lung sounds Cardio: Rate: regular rate Rhythm: regular rhythm GI: Inspection: normal to inspection, non-distended and incision GI Palp: No abdominal tenderness Other: vac C/D/I, ostomy +fxn Objective Data Vital Signs Vital Signs: Vital Signs - 24 hr 01/12/24 13:20 01/12/24 13:28 01/12/24 14:16 Temperature 36.4 C L Pulse Rate 70 72 72 Respiratory Rate 18 18 20 Blood Pressure 147/74 H Pulse Oximetry 100 Oxygen Delivery 01/12/24 17:45 01/12/24 20:45 01/12/24 20:00 Temperature 36.6 C Pulse Rate 76 76 Respiratory Rate 18 Blood Pressure 139/64 Pulse Oximetry 97 Oxygen Delivery Room Air 01/12/24 20:46 01/12/24 20:52 01/12/24 21:01 Temperature 36.6 C Pulse Rate 78 70 72 Respiratory Rate 16 18 18 Blood Pressure 157/65 H Pulse Oximetry 98 Oxygen Delivery 01/13/24 04:30 01/13/24 07:05 01/13/24 07:05 Temperature 36.7 C Pulse Rate 84 80 80 Respiratory Rate 16 18 18 Blood Pressure 143/55 H Pulse Oximetry 97 96 Oxygen Delivery Room Air 01/13/24 07:15 01/13/24 09:07 Temperature Pulse Rate 78 72 Respiratory Rate 18 Blood Pressure Pulse Oximetry Oxygen Delivery Intake/Output Intake/Output: Intake & Output 01/10/24 01/11/24 01/12/24 01/13/24 23:59 23:59 23:59 23:59 Intake Total 780 580 100 200 Output Total 925 300 550 200 Balance -145 280 -450 0 Meds/Results Medications: Active Medications Generic Name Dose Route Start Last Admin Trade Name Freq PRN Reason Stop Dose Admin Acetaminophen 650 mg 01/05/24 20:04 01/06/24 20:11 Acetaminophen Elixir 325 Mg/10.15 Ml Udc PO 650 mg Q6H PRN Administration Mild Pain (1-3) or Fever Hydrocodone Bitart/Acetaminophen 1 tab 01/04/24 10:20 01/06/24 13:56 Hydrocodone/Acetaminophen (*Crx) 5-325 Mg Tablet PO 1 tab Q4H PRN Administration Pain Rated 4-6 Albuterol/Ipratropium 3 ml 01/09/24 14:00 01/13/24 07:05 Ipratropium 0.5 Mg/Albuterol Sulfate 2.5 Mg Ampul.Neb 3 Ml INHALATION 3 ml [id number] SABAS Administration Aspirin 81 mg 01/08/24 09:00 01/13/24 09:07 Aspirin 81 Mg Enteric Tablet PO 81 mg QAM SABAS Administration Cefdinir 300 mg 01/08/24 21:00 01/13/24 09:07 Cefdinir 300 Mg Capsule PO 300 mg Q12HR SABAS Administration Potassium Chloride 40 meq/ 520 mls @ 130 mls/hr 01/13/24 07:58 Sodium Chloride IVPB 01/13/24 11:57 ONCE ONE Metoprolol Tartrate 25 mg 01/04/24 10:20 01/13/24 09:07 Metoprolol Tartrate 25 Mg Tablet PO 25 mg Q12HR SABAS Administration Metronidazole 500 mg 01/08/24 14:00 01/13/24 05:12 Metronidazole 500 Mg Tablet PO 500 mg Q8HR SABAS Administration Miscellaneous Information 1 each 01/08/24 00:01 Dornase Needs To Be Renewed Or It Will Automatically Discontinue. XX 02/07/24 00:00 CLARIFY [facility] Miscellaneous Information 0 each 01/13/24 00:01 [place] And Morphine Orders Require Renewal - Will Auto Discontinue On 01/13 XX 02/12/24 00:00 CLARIFY [facility] Morphine Sulfate 2 mg 01/04/24 10:20 01/04/24 13:30 Morphine Sulfate (*Crx) 2 Mg/Ml Inj IV PUSH 2 mg Q2H PRN Administration Pain Rated 7-10 Ondansetron HCl 4 mg 12/31/23 09:31 04/01/24 17:04 Ondansetron Inj 4 Mg/2 Ml Vial IV PUSH 4 mg Q6H PRN Administration Nausea And Vomiting
[2024-01-13] MEDS: POTASSIUM CHLORIDE INJ 40 MEQ in SODIUM CHLORIDE 0.9% IV 500 ML 130 MEQ IVPB ×2 (11:30→18:43)
--- NOTE | 2024-01-13 16:53 | PM.IMPN ---
Progress Note: A&P Assessment and Plan (1) Perforated viscus: Code(s): R19.8 - Other specified symptoms and signs involving the digestive system and abdomen Status: Acute (2) Septic shock: Code(s): A41.9 - Sepsis, unspecified organism; R65.21 - Severe sepsis with septic shock Status: Acute (3) Acute respiratory failure: Code(s): J96.00 - Acute respiratory failure, unspecified whether with hypoxia or hypercapnia Status: Acute (4) Hypokalemia: Code(s): E87.6 - Hypokalemia Status: Acute (5) Cancer of sigmoid colon: Code(s): C18.7 - Malignant neoplasm of sigmoid colon Status: Acute (6) Chronic obstructive pulmonary disease: Code(s): J44.9 - Chronic obstructive pulmonary disease, unspecified Status: Acute (7) Tobacco abuse: Code(s): Z72.0 - Tobacco use Status: Acute (8) Dysphagia: Code(s): R13.10 - Dysphagia, unspecified Status: Acute (9) Rhabdomyolysis: Code(s): M62.82 - Rhabdomyolysis Status: Acute Plan Patient with a known near obstructing mass in sigmoid colon that was biopsy confirmed adenocarcinoma. initially was scheduled for hand assisted laparoscopic sigmoid colectomy however surgery was canceled due to critical low potassium of 2.5. Hospitalist team was consulted on admission and patient began to have severe abdominal pain. Abdominal x-ray was obtained which showed pneumoperitoneum and subsequently taken to the OR. Patient had urgent exploratory laparotomy (12/31/23) with findings of a gush of pneumoperitoneum, moderate feculent contamination, perforated cecum and an obstructing sigmoid colon cancer and underwent right colectomy with ileocolic anastomosis, sigmoid colectomy and creation of end colostomy. He was subsequent admitted to ICU with septic shock and respiratory failure and started on broad-spectrum antibiotics and antifungal treatment. Successfully extubated on 01/04/2024. Worsening leukocytosis 01/05/2024 CT chest abdomen pelvis has been done showed airway debris/secretions the disc ER right main stem bronchus and right interlobar bronchus. Moderate right and small left pleural effusions. 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 Postsurgical changes in the abdomen with show colonic resection and diverting colostomy with diffuse colon wall edema reflecting component of colitis, mild mesenteric edema and diffuse body wall edema. Add Pulmozyme will also diurese him with Lasix 40 mg IV intermittently. Leukocytosis still persists could also be related to steroid use. Will since no wheezing will stop steroid today Replace Potassium. Hypoxemia has resolved and is been on room air Underlying COPD with possible COPD exacerbation on steroid IV. Stop steroid and monitor Leukocytosis: Improving cefepime a with micafungin. Micafungin 7 days course. Will switch antibiotics to oral metronidazole and cefdinir WILLOW improved being which is post surgical Assuming care. Chart reviewed. White count trending downward. Steroids were stopped yesterday. He completed course of micafungin. She is on oral antibiotics. Platelet count is worse today. Lovenox has been stopped. Potassium low again and this was replaced. Platelet antibodies ordered. The weakness in the right arm probably related to extension of the right arm during surgery possibly. No focal weakness but will monitor with therapy. Will back down on his nebulizer treatments. Okay to stop Pulmozyme. Encouraged him to increase his oral intake. Encouraged patient to go to rehab after discharge. WBC still climbing to 18K now. Plt count better at 84K. Potassium low again and he was refusing oral potassium so IV ordered. Mag level good. Patient did not do well with MBS. He was aspirating on thin liquids and had penetration but no aspiration with mildly thickened, Now requires pureed level 4 diet with mildly thickened l
[2024-01-13 17:18] LABS: Magnesium 2.1 mg/dL (1.6-2.3); Potassium 3.3 mmol/L (3.4-5.0)
[2024-01-13] MEDS: MEGESTROL ACETATE (*CHEMO) ORAL SUSP 40 MG/ML SYR 400 MG PO (17:33)
[2024-01-14] VITALS (7 sets, daily range): BP systolic 141–150; BP diastolic 69–79; PULSE 70–102; RESP 17–18; TEMP 36.4–37; O2SAT 98–99
[2024-01-14] MEDS: metroNIDAZOLE 500 MG TABLET PO ×3 (04:59→21:10)
[2024-01-14 05:11] LABS: Basophils Percent Auto 0.1 % (0.2-1.2); Eosinophils Percent Auto 0.2 % (0-4.4); Hematocrit 33.6 % (42.0-52.0); Immature Granulocyte Absolute 0.17 K/mm3 (0.00-0.031); Immature Granulocyte Percent A 1.1 % (0-0.5); Lymphocytes Absolute Auto 0.82 K/mm3 (0.9-3.2); Lymphocytes Percent Auto 5.4 % (18.3-44.2); Mean Corpuscular HGB Conc 32.7 g/dl (32-36); Mean Corpuscular Hemoglobin 31.6 pg (26-34); Mean Corpuscular Volume 96.6 fl (80-100); Mean Platelet Volume 9.9 fl (7.4-10.4); Monocytes Absolute Auto 1.6 K/mm3 (0.1-0.6); Monocytes Percent Auto 10.7 % (2.6-8.5); Neutrophils Absolute Auto 12.4 K/mm3 (1.3-6.7); Neutrophils Percent Auto 82.5 % (45.5-73.1); Platelet Count Result 152 k/mm3 (150-375); Red Blood Count 3.48 M/mm3 (4.6-6.20); Red Cell Distribution Width 17.1 % (11.5-14.5); White Blood Count 15.1 K/mm3 (4.5-10.0)
[2024-01-14 05:35] LABS: Anion Gap 5 mmol/L (4-12); Blood Urea Nitrogen 21 mg/dL (9-20); Calcium 7.8 mg/dL (8.4-10.2); Carbon Dioxide 20 mmol/L (22-30); Chloride 112 mmol/L (98-107); Estimated CRCL calculation 62 ml/min; Estimated Glomerular Filt Rate > 60; Glucose 97 mg/dL (65-110); Magnesium 2.1 mg/dL (1.6-2.3); Sodium 137 mmol/L (137-145)
[2024-01-14] MEDS: FLUTICASONE/UMECLIDIN/VILANTER 100-62.5-25 MCG ELLIPTA 1 PUFF INHALATION (08:06)
[2024-01-14] MEDS: METOPROLOL TARTRATE 25 MG TABLET PO ×2 (08:46→21:10)
[2024-01-14] MEDS: POTASSIUM CHLORIDE 20 MEQ PACKET (FOR LIQUID) PO ×2 (08:46→17:21)
[2024-01-14] MEDS: TAMSULOSIN HCL 0.4 MG CAPSULE PO (08:46)
[2024-01-14] MEDS: FINASTERIDE 5 MG TABLET PO (08:47)
[2024-01-14] MEDS: ASPIRIN 81 MG ENTERIC TABLET PO (08:47)
[2024-01-14] MEDS: ATORVASTATIN 20 MG TABLET PO (08:47)
[2024-01-14] MEDS: PANTOPRAZOLE 40 MG TABLET PO (08:47)
[2024-01-14] MEDS: CEFDINIR 300 MG CAPSULE PO ×2 (08:47→21:10)
[2024-01-14] MEDS: ENOXAPARIN 40 MG/0.4 ML SYRINGE SUB-Q (08:53)
[2024-01-14] MEDS: MEGESTROL ACETATE (*CHEMO) ORAL SUSP 40 MG/ML SYR 400 MG PO ×2 (08:53→17:21)
[2024-01-14] MEDS: IRBESARTAN 75 MG TABLET PO (09:16)
--- NOTE | 2024-01-14 13:29 | PCPTNOTE ---
Attempted to see patient for PT, however when getting stuff ready for patient, wound care came to change patient's dressing. Patient unable to be seen at this time.
--- NOTE | 2024-01-14 13:54 | PCOTNOTE ---
Patient refused treatment this session due to pain. Patient reports they just changed his dressing and ripped him open and that it hurts way to bad RN notified of pain. Patient is laying in bed and able to have conversation about pain. Patient seemed calm and not tearful.
--- NOTE | 2024-01-14 14:19 | PM.PNGS ---
Progress Note: A&P Assessment and Plan (1) Perforated viscus: Code(s): R19.8 - Other specified symptoms and signs involving the digestive system and abdomen Status: Acute Assessment and Plan: Wound vac changed and wound healing appropriately. Continue wound vac. Plan to d/c with wound vac. Okay from a surgical standpoint to discharge the patient to [facility] or home with home health for wound vac changes if able to have transportation. Will schedule f/u with Dr. Paris 1 week after discharge. Plan I have discussed the patient's case and plan of care with Dr. Paris. Subjective Subjective Date/Time Seen: 01/14/24 14:19 Patient reports: no new complaints, tolerating a regular diet and afebrile Interval history: Patient with no new complaints. Ostomy function well. Tolerating a diet. Seen with the wound care nurses for wound VAC change today. Exam Const: General: comfortable and no acute distress Orientation/consciousness: patient oriented x3 GI: Inspection: non-distended GI Palp: Yes Soft to palpation, No Tenderness to palpation present (GI) and No Guarding due to palpation present (GI) Auscultation: normal bowel sounds Other: Wound VAC removed and midline abdominal wound with 80-90% granulation tissue, no purulence drainage, there is some mesh visible in the center of the wound in the base. Ostomy functioning well with separation at the edges, viable Objective Data Vital Signs Vital Signs: Vital Signs - 24 hr 01/13/24 20:03 01/13/24 20:33 01/13/24 21:08 Temperature 98.6 F Pulse Rate 102 H 99 78 Respiratory Rate 18 20 Blood Pressure 158/86 H Pulse Oximetry 97 Oxygen Delivery 01/13/24 21:20 01/13/24 20:00 01/14/24 05:42 Temperature 98.6 F Pulse Rate 77 83 Respiratory Rate 20 18 Blood Pressure 150/69 H Pulse Oximetry 98 Oxygen Delivery Room Air 01/14/24 08:06 01/14/24 08:46 01/14/24 08:53 Temperature Pulse Rate 102 H 96 Respiratory Rate 18 Blood Pressure Pulse Oximetry 98 Oxygen Delivery Room Air Intake/Output Intake/Output: Intake & Output 01/11/24 01/12/24 01/13/24 01/14/24 23:59 23:59 23:59 23:59 Intake Total 414 242 1093 240 Output Total 300 550 450 280 Balance 280 -450 840 -40 Meds/Results Medications: Active Medications Generic Name Dose Route Start Last Admin Trade Name Freq PRN Reason Stop Dose Admin Acetaminophen 650 mg 01/05/24 20:04 01/06/24 20:11 Acetaminophen Elixir 325 Mg/10.15 Ml Udc PO 650 mg Q6H PRN Administration Mild Pain (1-3) or Fever Albuterol/Ipratropium 3 ml 01/14/24 07:11 Ipratropium 0.5 Mg/Albuterol Sulfate 2.5 Mg Ampul.Neb 3 Ml INHALATION [id number] PRN Shortness Of Breath Aspirin 81 mg 01/08/24 09:00 01/14/24 08:47 Aspirin 81 Mg Enteric Tablet PO 81 mg QAM SABAS Administration Atorvastatin Calcium 20 mg 01/14/24 09:00 01/14/24 08:47 Atorvastatin 20 Mg Tablet PO 20 mg DAILY SABAS Administration Cefdinir 300 mg 01/08/24 21:00 01/14/24 08:47 Cefdinir 300 Mg Capsule PO 300 mg Q12HR SABAS Administration Enoxaparin Sodium 40 mg 01/14/24 09:00 01/14/24 08:53 Enoxaparin 40 Mg/0.4 Ml Syringe SUB-Q 40 mg DAILY SABAS Administration Finasteride 5 mg 01/14/24 09:00 01/14/24 08:47 Finasteride 5 Mg Tablet PO 5 mg QAM SABAS Administration Fluticasone/Umeclidinium/Vilanterol 1 puff 01/14/24 08:00 01/14/24 08:06 Fluticasone/Umeclidin/Vilanter 100-62.5-25 Mcg Ellipta INHALATION 1 puff DAILYRT SABAS Administration Irbesartan 75 mg 01/14/24 09:00 01/14/24 09:16 Irbesartan 75 Mg Tablet PO 75 mg QAM SABAS Administration Megestrol Acetate 400 mg 01/13/24 17:10 01/14/24 08:53 Megestrol Acetate (*Chemo) Oral Susp 40 Mg/Ml Syr PO 400 mg BID SABAS Administration Metoprolol Tartrate 25 mg 01/04/24 10:20 01/14/24 08:46 Metoprolol Tartrate 25 Mg Tablet PO 25 mg Q12HR SABAS Administration Metronidazole 500 m
--- NOTE | 2024-01-14 15:07 | PCPTNOTE ---
Patient refused treatment this session. Patient did not give reason why, other than reporting he's too tired.
--- NOTE | 2024-01-14 16:09 | PM.IMPN ---
Progress Note: A&P Assessment and Plan (1) Perforated viscus: Code(s): R19.8 - Other specified symptoms and signs involving the digestive system and abdomen Status: Acute (2) Septic shock: Code(s): A41.9 - Sepsis, unspecified organism; R65.21 - Severe sepsis with septic shock Status: Acute (3) Acute respiratory failure: Code(s): J96.00 - Acute respiratory failure, unspecified whether with hypoxia or hypercapnia Status: Acute (4) Hypokalemia: Code(s): E87.6 - Hypokalemia Status: Acute (5) Cancer of sigmoid colon: Code(s): C18.7 - Malignant neoplasm of sigmoid colon Status: Acute (6) Chronic obstructive pulmonary disease: Code(s): J44.9 - Chronic obstructive pulmonary disease, unspecified Status: Acute (7) Tobacco abuse: Code(s): Z72.0 - Tobacco use Status: Acute (8) Dysphagia: Code(s): R13.10 - Dysphagia, unspecified Status: Acute (9) Rhabdomyolysis: Code(s): M62.82 - Rhabdomyolysis Status: Acute Plan Patient with a known near obstructing mass in sigmoid colon that was biopsy confirmed adenocarcinoma. initially was scheduled for hand assisted laparoscopic sigmoid colectomy however surgery was canceled due to critical low potassium of 2.5. Hospitalist team was consulted on admission and patient began to have severe abdominal pain. Abdominal x-ray was obtained which showed pneumoperitoneum and subsequently taken to the OR. Patient had urgent exploratory laparotomy (12/31/23) with findings of a gush of pneumoperitoneum, moderate feculent contamination, perforated cecum and an obstructing sigmoid colon cancer and underwent right colectomy with ileocolic anastomosis, sigmoid colectomy and creation of end colostomy. He was subsequent admitted to ICU with septic shock and respiratory failure and started on broad-spectrum antibiotics and antifungal treatment. Successfully extubated on 01/04/2024. Worsening leukocytosis 01/05/2024. CT chest abdomen pelvis has been done showed airway debris/secretions the distal trachea, right main stem bronchus and right interlobar bronchus. Moderate right and small left pleural effusions. 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 Postsurgical changes in the abdomen with show colonic resection and diverting colostomy with diffuse colon wall edema reflecting component of colitis, mild mesenteric edema and diffuse body wall edema. Pulmozyme was added and he was started on diuretics. Leukocytosis still persists could also be related to steroid use. Hypoxemia resolved. Steroids stopped 01/07. Completed 7 day course of Micafungin and IV abx switched to oral metronidazole and cefdinir. Assuming care. Chart reviewed. White count trending downward. Steroids were stopped yesterday. He completed course of micafungin. She is on oral antibiotics. Platelet count is worse today. Lovenox has been stopped. Potassium low again and this was replaced. Platelet antibodies ordered. The weakness in the right arm probably related to extension of the right arm during surgery possibly. No focal weakness but will monitor with therapy. Will back down on his nebulizer treatments. Okay to stop Pulmozyme. Encouraged him to increase his oral intake. Encouraged patient to go to rehab after discharge. WBC still climbing to 18K now. Plt count better at 84K. Potassium low again and he was refusing oral potassium so IV ordered. Mag level good. Patient did not do well with MBS. He was aspirating on thin liquids and had penetration but no aspiration with mildly thickened, Now requires pureed level 4 diet with mildly thickened liquid. Etilogy unclear. Will check CT brain to assess for new/old CVA. Speech therapy to work with ynes. CXR clear on 01/07/24. Repeat CXR to assess for aspiration. He remains on abx. Patient's potassium better. Will order replacement again. Repeat CXR
[2024-01-15] VITALS (15 sets, daily range): BP systolic 112–146; BP diastolic 54–95; PULSE 79–113; RESP 14–20; TEMP 36.1–36.7; O2SAT 96–100
[2024-01-15 05:55] LABS: Basophils Percent Auto 0.1 % (0.2-1.2); Eosinophils Percent Auto 0.2 % (0-4.4); Hemoglobin 10.3 g/dL (14.0-18.0); Immature Granulocyte Absolute 0.11 K/mm3 (0.00-0.031); Immature Granulocyte Percent A 0.9 % (0-0.5); Lymphocytes Percent Auto 10.3 % (18.3-44.2); Mean Corpuscular HGB Conc 32.2 g/dl (32-36); Mean Corpuscular Hemoglobin 31.6 pg (26-34); Mean Corpuscular Volume 98.2 fl (80-100); Mean Platelet Volume 10.4 fl (7.4-10.4); Monocytes Absolute Auto 1.1 K/mm3 (0.1-0.6); Monocytes Percent Auto 9.7 % (2.6-8.5); Neutrophils Absolute Auto 9.2 K/mm3 (1.3-6.7); Neutrophils Percent Auto 78.8 % (45.5-73.1); Platelet Count Result 156 k/mm3 (150-375); Red Blood Count 3.26 M/mm3 (4.6-6.20); Red Cell Distribution Width 16.9 % (11.5-14.5); White Blood Count 11.7 K/mm3 (4.5-10.0)
[2024-01-15] MEDS: metroNIDAZOLE 500 MG TABLET PO ×3 (05:55→20:25)
[2024-01-15 06:10] LABS: Anion Gap 9 mmol/L (4-12); Blood Urea Nitrogen 22 mg/dL (9-20); Calcium 7.5 mg/dL (8.4-10.2); Carbon Dioxide 15 mmol/L (22-30); Chloride 112 mmol/L (98-107); Estimated CRCL calculation 70 ml/min; Estimated Glomerular Filt Rate > 60; Glucose 67 mg/dL (65-110); Potassium 3.8 mmol/L (3.4-5.0); Sodium 136 mmol/L (137-145)
[2024-01-15] MEDS: FLUTICASONE/UMECLIDIN/VILANTER 100-62.5-25 MCG ELLIPTA 1 PUFF INHALATION (07:07)
[2024-01-15] MEDS: IPRATROPIUM 0.5 MG/ALBUTEROL SULFATE 2.5 MG AMPUL.NEB 3 ML INHALATION ×3 (07:07→20:10)
[2024-01-15] MEDS: POTASSIUM CHLORIDE 20 MEQ PACKET (FOR LIQUID) PO ×2 (09:52→16:49)
[2024-01-15] MEDS: MEGESTROL ACETATE (*CHEMO) ORAL SUSP 40 MG/ML SYR 400 MG PO ×2 (09:53→16:49)
[2024-01-15] MEDS: ENOXAPARIN 40 MG/0.4 ML SYRINGE SUB-Q (09:55)
[2024-01-15] MEDS: IRBESARTAN 75 MG TABLET PO (09:58)
[2024-01-15] MEDS: METOPROLOL TARTRATE 25 MG TABLET PO ×2 (10:00→20:19)
[2024-01-15] MEDS: ASPIRIN 81 MG ENTERIC TABLET PO (10:01)
[2024-01-15] MEDS: CEFDINIR 300 MG CAPSULE PO ×2 (10:01→20:19)
[2024-01-15] MEDS: TAMSULOSIN HCL 0.4 MG CAPSULE PO (10:01)
[2024-01-15] MEDS: PANTOPRAZOLE 40 MG TABLET PO (10:02)
[2024-01-15] MEDS: ATORVASTATIN 20 MG TABLET PO (10:02)
[2024-01-15] MEDS: FINASTERIDE 5 MG TABLET PO (10:02)
--- NOTE | 2024-01-15 10:57 | PCNFU ---
Nutrition Follow-Up Complete: Increased Energy Needs as related to mechanical ventilation as evidenced by NPO. Goal: Meet estimated nutritional needs Patient has limited progress towards goal. We will continue current goal. Pt current nutrition is Pureed, Level 4 with Moderately Thick liquids, Level 2. Last recorded weight is 57 kg, down from 58.6 kg on admit. Bowel Motility: ostomy Labs Reviewed:Na 136, Hct 32.0, Hgb 10.3 Meds Noted:Lopressor, Flagyl, Protonix Skin: Wound vac-medial Abdomen. Additional Notes: Patient remains on Pureed diet, Level 4 with Moderately Thick, Level 2. He is refusing meals. Diet supplement of Ensure Enlive TID on trays are being offered providing an additional 350 kcals and 20 gms protein. PO intake encouraged. Will monitor weight, labs, skin, diet orders, meds every 5 days.
[2024-01-15 12:21] LABS: Lactic Acid Reflex 1.3 mmol/L (0.7-2.0)
[2024-01-15 12:27] LABS: Alanine Aminotransferase 15 U/L (6-50); Albumin Level 2.6 g/dL (3.5-5.1); Alkaline Phosphatase 77 U/L (38-126); Aspartate Amino Transferase 26 U/L (17-59); CRP 6.3 mg/dL (<1.0)
[2024-01-15 12:59] LABS: Procalcitonin 1.2 ng/mL
[2024-01-15 13:09] LABS: Add Urine Microscopic? YES; Appearance Urine Clear (Clear); Bacteria Urine None Seen /hpf; Bilirubin Urine 2+ (Negative); Blood Urine Negative (Negative); Color Urine Dark Yellow (Yellow); Glucose Urine UA Negative (Negative); Hyaline Casts Urine Present /lpf; Ketones Urine 2+ mg/dL (Negative); Leukocyte Esterase Ur 1+ LEU/UL (Negative); Need Manual Microscopic Reviewed; Nitrate Urine Positive (Negative); Protein Urine 1+ mg/dL (Negative); Specific Grav Ur 1.028 (1.001-1.035); Squamous Epithelial Cell Urine Occasional /hpf (Few); WBC Urine 0-5 /hpf (0-3)
--- NOTE | 2024-01-15 13:19 | PCPTNOTE ---
Patient refused treatment this session. Patient reported he just got comfortable and did not want to move, patient also reported he was having trouble breathing. Patient's O2 SATs 97%. RN aware.
--- NOTE | 2024-01-15 13:59 | PM.IMPN ---
Progress Note: A&P Assessment and Plan (1) Metabolic acidosis: Code(s): E87.20 - Acidosis, unspecified Status: Acute (2) Perforated viscus: Code(s): R19.8 - Other specified symptoms and signs involving the digestive system and abdomen Status: Acute (3) Septic shock: Code(s): A41.9 - Sepsis, unspecified organism; R65.21 - Severe sepsis with septic shock Status: Acute (4) Acute respiratory failure: Code(s): J96.00 - Acute respiratory failure, unspecified whether with hypoxia or hypercapnia Status: Acute (5) Hypokalemia: Code(s): E87.6 - Hypokalemia Status: Acute (6) Cancer of sigmoid colon: Code(s): C18.7 - Malignant neoplasm of sigmoid colon Status: Acute (7) Dysphagia: Code(s): R13.10 - Dysphagia, unspecified Status: Acute (8) Rhabdomyolysis: Code(s): M62.82 - Rhabdomyolysis Status: Acute (9) Chronic obstructive pulmonary disease: Code(s): J44.9 - Chronic obstructive pulmonary disease, unspecified Status: Acute (10) Tobacco abuse: Code(s): Z72.0 - Tobacco use Status: Acute Plan Patient with a known near obstructing mass in sigmoid colon that was biopsy confirmed adenocarcinoma. initially was scheduled for hand assisted laparoscopic sigmoid colectomy however surgery was canceled due to critical low potassium of 2.5. Hospitalist team was consulted on admission and patient began to have severe abdominal pain. Abdominal x-ray was obtained which showed pneumoperitoneum and subsequently taken to the OR. Patient had urgent exploratory laparotomy (12/31/23) with findings of a gush of pneumoperitoneum, moderate feculent contamination, perforated cecum and an obstructing sigmoid colon cancer and underwent right colectomy with ileocolic anastomosis, sigmoid colectomy and creation of end colostomy. He was subsequent admitted to ICU with septic shock and respiratory failure and started on broad-spectrum antibiotics and antifungal treatment. Successfully extubated on 01/04/2024. Worsening leukocytosis 01/05/2024. CT chest abdomen pelvis has been done showed airway debris/secretions the distal trachea, right main stem bronchus and right interlobar bronchus. Moderate right and small left pleural effusions. 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 Postsurgical changes in the abdomen with show colonic resection and diverting colostomy with diffuse colon wall edema reflecting component of colitis, mild mesenteric edema and diffuse body wall edema. Pulmozyme was added and he was started on diuretics. Leukocytosis still persists could also be related to steroid use. Hypoxemia resolved. Steroids stopped 01/07. Completed 7 day course of Micafungin and IV abx switched to oral metronidazole and cefdinir. Assuming care. Chart reviewed. White count trending downward. Steroids were stopped yesterday. He completed course of micafungin. She is on oral antibiotics. Platelet count is worse today. Lovenox has been stopped. Potassium low again and this was replaced. Platelet antibodies ordered. The weakness in the right arm probably related to extension of the right arm during surgery possibly. No focal weakness but will monitor with therapy. Will back down on his nebulizer treatments. Okay to stop Pulmozyme. Encouraged him to increase his oral intake. Encouraged patient to go to rehab after discharge. WBC still climbing to 18K now. Plt count better at 84K. Potassium low again and he was refusing oral potassium so IV ordered. Mag level good. Patient did not do well with MBS. He was aspirating on thin liquids and had penetration but no aspiration with mildly thickened, Now requires pureed level 4 diet with mildly thickened liquid. Etilogy unclear. Will check CT brain to assess for new/old CVA. Speech therapy to work with ynes. CXR clear on 01/07/24. Repeat CXR to assess for aspiratio
--- NOTE | 2024-01-15 14:06 | PM.PNGS ---
Progress Note: A&P Assessment and Plan (1) Perforated viscus: Code(s): R19.8 - Other specified symptoms and signs involving the digestive system and abdomen Status: Acute Assessment and Plan: Clinically improved. Tolerating a diet. Ostomy functioning well. Continue wound VAC. Care coordination working on discharge planning and awaiting home wound VAC approval. Plan is to set him up with home health as he is refusing SNF placement. Plan I have discussed the patient's case and plan of care with Dr. Paris. Subjective Subjective Date/Time Seen: 01/15/24 14:06 Patient reports: no new complaints, tolerating a regular diet and afebrile Interval history: Patient seen today. No acute events overnight. Ostomy function well. Tolerating a diet. Patient's family currently refusing to provide any transportation or help due to his noncompliance with recommendations. Care coordination reports insurance did not approve ZAK. Patient is adamant about going home with home health. Care coordination reports wound VAC approval is still pending. Exam Const: General: comfortable and no acute distress GI: Inspection: non-distended GI Palp: Yes Soft to palpation, Yes Tenderness to palpation present (GI) (Tender near abdominal wound, otherwise no diffuse tenderness), No Guarding due to palpation present (GI) and No Rebound tenderness present Auscultation: normal bowel sounds Other: Ostomy functioning well with stool in bag, stoma viable. Wound VAC in place over abdominal wound, dressing dry and intact Objective Data Vital Signs Vital Signs: Vital Signs - 24 hr 01/14/24 14:40 01/14/24 20:41 01/14/24 21:10 Temperature 98.2 F 97.5 F L Pulse Rate 70 81 81 Respiratory Rate 17 17 Blood Pressure 143/79 H 141/73 H Pulse Oximetry 99 98 Oxygen Delivery Fraction of Inspired Oxygen 01/14/24 20:00 01/15/24 05:35 01/15/24 07:07 Temperature 98.1 F Pulse Rate 79 92 Respiratory Rate 18 18 Blood Pressure 135/77 Pulse Oximetry 100 96 Oxygen Delivery Room Air Room Air Fraction of Inspired Oxygen 01/15/24 07:07 01/15/24 07:17 01/15/24 07:54 Temperature 97.3 F L Pulse Rate 92 93 81 Respiratory Rate 18 18 14 Blood Pressure 141/86 H Pulse Oximetry 100 Oxygen Delivery Fraction of Inspired Oxygen 01/15/24 08:17 01/15/24 10:00 01/15/24 11:41 Temperature 98.0 F Pulse Rate 81 99 Respiratory Rate 18 16 Blood Pressure 118/95 H Pulse Oximetry 100 98 Oxygen Delivery Room Air Fraction of Inspired Oxygen 21 01/15/24 13:30 01/15/24 13:40 Temperature Pulse Rate 92 96 Respiratory Rate 20 20 Blood Pressure Pulse Oximetry Oxygen Delivery Fraction of Inspired Oxygen Intake/Output Intake/Output: Intake & Output 01/12/24 01/13/24 01/14/24 01/15/24 23:59 23:59 23:59 23:59 Intake Total 100 1290 590 250 Output Total 550 450 380 300 Balance -450 840 210 -50 Meds/Results Medications: Active Medications Generic Name Dose Route Start Last Admin Trade Name Freq PRN Reason Stop Dose Admin Acetaminophen 650 mg 01/05/24 20:04 01/06/24 20:11 Acetaminophen Elixir 325 Mg/10.15 Ml Udc PO 650 mg Q6H PRN Administration Mild Pain (1-3) or Fever Albuterol/Ipratropium 3 ml 01/15/24 14:00 Ipratropium 0.5 Mg/Albuterol Sulfate 2.5 Mg Ampul.Neb 3 Ml INHALATION [id number] [facility] Aspirin 81 mg 01/08/24 09:00 01/15/24 10:01 Aspirin 81 Mg Enteric Tablet PO 81 mg QAM SABAS Administration Atorvastatin Calcium 20 mg 01/14/24 09:00 01/15/24 10:02 Atorvastatin 20 Mg Tablet PO 20 mg DAILY SABAS Administration Cefdinir 300 mg 01/08/24 21:00 01/15/24 10:01 Cefdinir 300 Mg Capsule PO 300 mg Q12HR SABAS Administration Enoxaparin Sodium 40 mg 01/14/24 09:00 01/15/24 09:55 Enoxaparin 40 Mg/0.4 Ml Syringe SUB-Q 40 mg DAILY [facility] Administration Finasteride 5 mg 01/14/24 09:00 01/15/24 10:02 Finasteride 5 Mg Tabl
[2024-01-15] MEDS: DEXTROSE 5%/0.9% SOD CHL 1,000 ML 70 ML IV CONT (15:00)
[2024-01-16] VITALS (15 sets, daily range): BP systolic 113–125; BP diastolic 56–73; PULSE 84–116; RESP 16–21; TEMP 36.4–36.7; O2SAT 95–99
[2024-01-16] MEDS: metroNIDAZOLE 500 MG TABLET PO ×3 (05:22→21:31)
[2024-01-16 05:37] LABS: Basophils Percent Auto 0.2 % (0.2-1.2); Eosinophils Percent Auto 0.2 % (0-4.4); Hematocrit 32.9 % (42.0-52.0); Immature Granulocyte Absolute 0.07 K/mm3 (0.00-0.031); Immature Granulocyte Percent A 0.7 % (0-0.5); Lymphocytes Percent Auto 12.7 % (18.3-44.2); Mean Corpuscular HGB Conc 30.4 g/dl (32-36); Mean Corpuscular Hemoglobin 31.3 pg (26-34); Mean Corpuscular Volume 102.8 fl (80-100); Mean Platelet Volume 10.1 fl (7.4-10.4); Monocytes Percent Auto 10.4 % (2.6-8.5); Neutrophils Absolute Auto 7.2 K/mm3 (1.3-6.7); Neutrophils Percent Auto 75.8 % (45.5-73.1); Platelet Count Result 160 k/mm3 (150-375); Red Cell Distribution Width 17.1 % (11.5-14.5); White Blood Count 9.5 K/mm3 (4.5-10.0)
[2024-01-16 05:50] LABS: Alanine Aminotransferase 14 U/L (6-50); Albumin Level 2.4 g/dL (3.5-5.1); Alkaline Phosphatase 67 U/L (38-126); Anion Gap 4 mmol/L (4-12); Aspartate Amino Transferase 25 U/L (17-59); Bilirubin,Total 0.8 mg/dL (0.2-1.3); Blood Urea Nitrogen 23 mg/dL (9-20); Calcium 7.4 mg/dL (8.4-10.2); Carbon Dioxide 18 mmol/L (22-30); Chloride 113 mmol/L (98-107); Estimated CRCL calculation 90 ml/min; Estimated Glomerular Filt Rate > 60; Glucose 108 mg/dL (65-110); Magnesium 1.9 mg/dL (1.6-2.3); Potassium 3.5 mmol/L (3.4-5.0); Sodium 135 mmol/L (137-145)
[2024-01-16] MEDS: IPRATROPIUM 0.5 MG/ALBUTEROL SULFATE 2.5 MG AMPUL.NEB 3 ML INHALATION ×3 (07:48→20:24)
[2024-01-16] MEDS: FLUTICASONE/UMECLIDIN/VILANTER 100-62.5-25 MCG ELLIPTA 1 PUFF INHALATION (07:49)
[2024-01-16] MEDS: PANTOPRAZOLE 40 MG TABLET PO (09:36)
[2024-01-16] MEDS: TAMSULOSIN HCL 0.4 MG CAPSULE PO (09:36)
[2024-01-16] MEDS: METOPROLOL TARTRATE 25 MG TABLET PO (09:37)
[2024-01-16] MEDS: CEFDINIR 300 MG CAPSULE PO ×2 (09:37→21:31)
[2024-01-16] MEDS: ASPIRIN 81 MG ENTERIC TABLET PO (09:37)
[2024-01-16] MEDS: POTASSIUM CHLORIDE 20 MEQ PACKET (FOR LIQUID) PO ×2 (09:37→18:25)
[2024-01-16] MEDS: FINASTERIDE 5 MG TABLET PO (09:37)
[2024-01-16] MEDS: IRBESARTAN 75 MG TABLET PO (09:37)
[2024-01-16] MEDS: ATORVASTATIN 20 MG TABLET PO (09:37)
--- NOTE | 2024-01-16 09:39 | PCSTNOTE ---
Please refer to the Modified Barium Swallow Evaluation in the EMR.
[2024-01-16] MEDS: DEXTROSE 5%/0.9% SOD CHL 1,000 ML 70 ML IV CONT (09:41)
[2024-01-16] MEDS: MEGESTROL ACETATE (*CHEMO) ORAL SUSP 40 MG/ML SYR 400 MG PO ×2 (09:41→18:25)
[2024-01-16] MEDS: ENOXAPARIN 40 MG/0.4 ML SYRINGE SUB-Q (09:41)
--- NOTE | 2024-01-16 09:52 | PCSTNOTE ---
Patient is being discharged from skilled ST as repeat MBS indicated patient must stay on current diet level and patient is not interested in ST tasks.
--- NOTE | 2024-01-16 12:10 | PM.IMPN ---
Progress Note: A&P Assessment and Plan (1) Metabolic acidosis: Code(s): E87.20 - Acidosis, unspecified Status: Acute (2) Perforated viscus: Code(s): R19.8 - Other specified symptoms and signs involving the digestive system and abdomen Status: Acute (3) Septic shock: Code(s): A41.9 - Sepsis, unspecified organism; R65.21 - Severe sepsis with septic shock Status: Acute (4) Acute respiratory failure: Code(s): J96.00 - Acute respiratory failure, unspecified whether with hypoxia or hypercapnia Status: Acute (5) Hypokalemia: Code(s): E87.6 - Hypokalemia Status: Acute (6) Cancer of sigmoid colon: Code(s): C18.7 - Malignant neoplasm of sigmoid colon Status: Acute (7) Dysphagia: Code(s): R13.10 - Dysphagia, unspecified Status: Acute (8) Rhabdomyolysis: Code(s): M62.82 - Rhabdomyolysis Status: Acute (9) Chronic obstructive pulmonary disease: Code(s): J44.9 - Chronic obstructive pulmonary disease, unspecified Status: Acute (10) Tobacco abuse: Code(s): Z72.0 - Tobacco use Status: Acute Plan Patient with a known near obstructing mass in sigmoid colon that was biopsy confirmed adenocarcinoma. initially was scheduled for hand assisted laparoscopic sigmoid colectomy however surgery was canceled due to critical low potassium of 2.5. Hospitalist team was consulted on admission and patient began to have severe abdominal pain. Abdominal x-ray was obtained which showed pneumoperitoneum and subsequently taken to the OR. Patient had urgent exploratory laparotomy (12/31/23) with findings of a gush of pneumoperitoneum, moderate feculent contamination, perforated cecum and an obstructing sigmoid colon cancer and underwent right colectomy with ileocolic anastomosis, sigmoid colectomy and creation of end colostomy. He was subsequent admitted to ICU with septic shock and respiratory failure and started on broad-spectrum antibiotics and antifungal treatment. Successfully extubated on 01/04/2024. Worsening leukocytosis 01/05/2024. CT chest abdomen pelvis has been done showed airway debris/secretions the distal trachea, right main stem bronchus and right interlobar bronchus. Moderate right and small left pleural effusions. 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 Postsurgical changes in the abdomen with show colonic resection and diverting colostomy with diffuse colon wall edema reflecting component of colitis, mild mesenteric edema and diffuse body wall edema. Pulmozyme was added and he was started on diuretics. Leukocytosis still persists could also be related to steroid use. Hypoxemia resolved. Steroids stopped 01/07. Completed 7 day course of Micafungin and IV abx switched to oral metronidazole and cefdinir. Assuming care. Chart reviewed. White count trending downward. Steroids were stopped yesterday. He completed course of micafungin. She is on oral antibiotics. Platelet count is worse today. Lovenox has been stopped. Potassium low again and this was replaced. Platelet antibodies ordered. The weakness in the right arm probably related to extension of the right arm during surgery possibly. No focal weakness but will monitor with therapy. Will back down on his nebulizer treatments. Okay to stop Pulmozyme. Encouraged him to increase his oral intake. Encouraged patient to go to rehab after discharge. Pt is medically stable for DC. Wound vac has been approved. OK to Dc by primary team which is surgery. Subjective Date/time seen: 01/16/24 12:10 Interval history: 68yo male with CKD, COPD, HTN, HepC and recently diagnosed colon CA here for colon CA resection and hypokalemia. Pt sp exploratory laparotomy, right colectomy with ileocolic anastomosis, sigmoid colectomy, creation of end colostomy. Pt with ostomy and VAC therapy Wound VAC in place over abdominal wou
--- NOTE | 2024-01-16 12:41 | ECG_ITS ---
SEE SCANNED COPY FOR CONFIRMED REPORT MTDD
--- NOTE | 2024-01-16 16:28 | PM.PNGS ---
Progress Note: A&P Assessment and Plan (1) Perforated viscus: Code(s): R19.8 - Other specified symptoms and signs involving the digestive system and abdomen Status: Acute Assessment and Plan: Tolerating a diet and ostomy functioning well. Surgically stable for discharge. Wound vac approved, but home health fell through. Patient also found to be in atrial fibrillation today, hospitalist consulted Cardiology. Hopefully he can discharge in the next few days if medically stable and home health is set up. Plan I have discussed the patient's case and plan of care with Dr. Paris. Subjective Subjective Date/Time Seen: 01/16/24 10:28 Patient reports: no new complaints Interval history: Patient doing well this morning when I saw him. He was tolerating a diet and ostomy function well. He had no specific complaints at this time. I did receive a call from nursing this afternoon reporting that the patient became lightheaded when getting up with therapy. They felt that his heart rate was irregular. I ordered an EKG that showed atrial fibrillation. Nursing calling hospitalist and will be consulting cardiology. Care coordination also reports home health fell through and he could only be accepted by [facility], which could not be at his house until next Sunday. Exam Const: General: alert; No acute distress Orientation/consciousness: patient oriented x3 GI: Inspection: non-distended GI Palp: Yes Soft to palpation, No Tenderness to palpation present (GI) and No Guarding due to palpation present (GI) Auscultation: normal bowel sounds Other: Ostomy functioning well with stool in bag, stoma viable. Wound VAC in place over abdominal wound, dressing dry and intact Objective Data Vital Signs Vital Signs: Vital Signs - 24 hr 01/15/24 20:07 01/15/24 20:11 01/15/24 20:14 Temperature 97.2 F L Pulse Rate 113 H 106 H Respiratory Rate 16 20 Blood Pressure 146/71 H Pulse Oximetry 96 96 Oxygen Delivery Room Air 01/15/24 20:18 01/15/24 20:19 01/15/24 20:00 Temperature Pulse Rate 99 106 H Respiratory Rate 20 Blood Pressure Pulse Oximetry Oxygen Delivery Room Air 01/16/24 04:30 01/16/24 07:49 01/16/24 07:45 Temperature 97.5 F L Pulse Rate 90 91 Respiratory Rate 16 20 Blood Pressure 125/73 Pulse Oximetry 99 97 Oxygen Delivery Room Air 01/16/24 08:00 01/16/24 09:36 01/16/24 09:37 Temperature Pulse Rate 92 116 H 116 H Respiratory Rate 20 16 Blood Pressure 113/66 Pulse Oximetry 95 Oxygen Delivery 01/16/24 13:15 01/16/24 13:23 01/16/24 16:00 Temperature 98.1 F Pulse Rate 92 92 88 Respiratory Rate 20 20 21 H Blood Pressure 115/56 L Pulse Oximetry 97 Oxygen Delivery Intake/Output Intake/Output: Intake & Output 01/13/24 01/14/24 01/15/24 01/16/24 23:59 23:59 23:59 23:59 Intake Total 1290 985 474 4479 Output Total 450 380 500 150 Balance 840 210 -250 970 Meds/Results Medications: Active Medications Generic Name Dose Route Start Last Admin Trade Name Freq PRN Reason Stop Dose Admin Acetaminophen 650 mg 01/05/24 20:04 01/06/24 20:11 Acetaminophen Elixir 325 Mg/10.15 Ml Udc PO 650 mg Q6H PRN Administration Mild Pain (1-3) or Fever Albuterol/Ipratropium 3 ml 01/15/24 14:00 01/16/24 13:15 Ipratropium 0.5 Mg/Albuterol Sulfate 2.5 Mg Ampul.Neb 3 Ml INHALATION 3 ml [id number] SABAS Administration Aspirin 81 mg 01/08/24 09:00 01/16/24 09:37 Aspirin 81 Mg Enteric Tablet PO 81 mg QAM SABAS Administration Atorvastatin Calcium 20 mg 01/14/24 09:00 01/16/24 09:37 Atorvastatin 20 Mg Tablet PO 20 mg DAILY SABAS Administration Cefdinir 300 mg 01/08/24 21:00 01/16/24 09:37 Cefdinir 300 Mg Capsule PO 300 mg Q12HR SABAS Administration Enoxaparin Sodium 40 mg 01/14/24 09:00 01/16/24 09:41 Enoxaparin 40 Mg/0.4 Ml Syringe SUB-Q 40 mg DAILY SABAS Administration Finasteride
[2024-01-16] MEDS: METOPROLOL TARTRATE 50 MG TAB PO (21:31)
[2024-01-17] VITALS (16 sets, daily range): BP systolic 125–127; BP diastolic 58–77; PULSE 71–100; RESP 18–26; TEMP 36.5–36.9; O2SAT 96–99
[2024-01-17] MEDS: metroNIDAZOLE 500 MG TABLET PO ×3 (05:44→20:26)
[2024-01-17 05:53] LABS: Potassium 3.7 mmol/L (3.4-5.0)
[2024-01-17] MEDS: IPRATROPIUM 0.5 MG/ALBUTEROL SULFATE 2.5 MG AMPUL.NEB 3 ML INHALATION ×3 (07:35→20:10)
[2024-01-17] MEDS: FLUTICASONE/UMECLIDIN/VILANTER 100-62.5-25 MCG ELLIPTA 1 PUFF INHALATION (07:46)
[2024-01-17] MEDS: DEXTROSE 5%/0.9% SOD CHL 1,000 ML 70 ML IV CONT ×2 (07:54→23:19)
[2024-01-17] MEDS: ASPIRIN 81 MG ENTERIC TABLET PO (09:37)
[2024-01-17] MEDS: FINASTERIDE 5 MG TABLET PO (09:38)
[2024-01-17] MEDS: ENOXAPARIN 40 MG/0.4 ML SYRINGE SUB-Q (09:38)
[2024-01-17] MEDS: ATORVASTATIN 20 MG TABLET PO (09:38)
[2024-01-17] MEDS: IRBESARTAN 75 MG TABLET PO (09:38)
[2024-01-17] MEDS: CEFDINIR 300 MG CAPSULE PO ×2 (09:38→20:26)
[2024-01-17] MEDS: METOPROLOL TARTRATE 50 MG TAB PO ×2 (09:39→20:25)
[2024-01-17] MEDS: TAMSULOSIN HCL 0.4 MG CAPSULE PO (09:39)
[2024-01-17] MEDS: PANTOPRAZOLE 40 MG TABLET PO (09:39)
[2024-01-17] MEDS: POTASSIUM CHLORIDE 20 MEQ PACKET (FOR LIQUID) PO (09:43)
--- NOTE | 2024-01-17 11:17 | PM.CNCAR ---
Assessment and Plan Assessment and plan (1) Tachycardia: Code(s): R00.0 - Tachycardia, unspecified Status: Acute Assessment and Plan: EKG shows sinus rhythm with PACs. Tele reviewed which also shows sinus, good amount of artifact. There is no clear evidence of AFIB. No additional cardiac evaluation needed at this time. Cardiology will sign off. History of Present Illness History of Present Illness Consult date/time: 01/17/24 11:17 Requesting physician: Carolyn Jefferson MD Consult reason: atrial fibrillation Reason For Visit: Sigmoid Colon Cancer Narrative: We are consulted for atrial fibrillation. This is a 68 year old male with cornary artery disease, CKD, COPD, hypertension, hepatitis C who underwent exploratory laparatomy, right colectomy with ileocolic anastomosis, sigmoid colectomy, creation of end colostomy. Yesterday, patient had shortness of breath while taking medications. EKG obtained which showed possible AFIB. Patient feels okay today. No chest pain, palpitations, shortness of breath. Hoping to go home soon. Review of Systems Review of Systems: All systems reviewed & are unremarkable except as noted in HPI and below (HPI) [facility] Past Medical History Medical History Abdominal aortic aneurysm 4.2 cm infra[address]al AAA on CT in 11/2023. Benign prostatic hyperplasia with nocturia Cancer of sigmoid colon Chronic kidney disease, stage 3 Chronic obstructive pulmonary disease PFT 02/16/2022: Moderately severe obstructive airway disease with evidence of air trapping without bronchodilator response. Severely reduced lung diffusion capacity. FEV1 to FVC ratio 41%. Coronary artery disease Per patient a cardiac catheterization done 8 years ago showed 70% blockage in an unknown artery, no intervention undertaken. Essential hypertension Hepatitis C Hyperlipidemia Tobacco abuse Surgical History Surgical History History of cardiac catheterization History of umbilical hernia repair (01/27/19) With mesh Family History Family History Mother Cerebrovascular accident Sibling Cerebrovascular accident, Onset Age: 57 Diabetes mellitus Hypertension Heart disease Father Diabetes mellitus Hypertension Heart disease Other Family history of lupus erythematosus Social History Social History Social History: Surrogate medical decision maker: Valentina Diaz, daughter. Code status: Full code. Smoking packs per day: 1 Smoking cigarettes per day: 20.0 Years smoked: 60 Smoking pack-years: 60.00 Smoking status: Current every day smoker Second hand tobacco smoke exposure: Yes Alcohol intake: never Substance use: never Substance use type: does not use Do You Feel Safe in your Home?: Yes Lack of Transportation: No Lack of Food: Never True Current Housing: I Have Housing Concerned About Future Housing: No Difficulty Paying Gas/Electric Bills: No Difficulty Paying for Meds: No Currently Unemployed: No Education: Grade School Difficulty w/ Childcare or Family Care: No Living arrangements: with family Additional living arrangements comments: Lives with grandson. 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 Spiritual care concerns: No Meds Home Medications and Allergies Home Medications Medication Instructions Recorded Confirmed Type aspirin 81 mg tablet,delayed 81 mg PO DAILY 05/09/22 12/28/23 History release budesonide 160 mcg-glycopyr 9 2 inh inhalation BID #32.1 grams 10/16/23 12/28/23 Rx mcg-formot 4.8 mcg/actuation HFA inhaler (Breztri Aerosphere) atorvastatin 20 mg tablet See Rx Instructions .Route 10/18/23 12/28/23 Rx .COMPLEX #90 tabs finasteride 5 mg tablet 5 m
--- NOTE | 2024-01-17 12:15 | PM.IMPN ---
Progress Note: A&P Assessment and Plan (1) Metabolic acidosis: Code(s): E87.20 - Acidosis, unspecified Status: Acute (2) Perforated viscus: Code(s): R19.8 - Other specified symptoms and signs involving the digestive system and abdomen Status: Acute (3) Septic shock: Code(s): A41.9 - Sepsis, unspecified organism; R65.21 - Severe sepsis with septic shock Status: Acute (4) Acute respiratory failure: Code(s): J96.00 - Acute respiratory failure, unspecified whether with hypoxia or hypercapnia Status: Acute (5) Hypokalemia: Code(s): E87.6 - Hypokalemia Status: Acute (6) Cancer of sigmoid colon: Code(s): C18.7 - Malignant neoplasm of sigmoid colon Status: Acute (7) Dysphagia: Code(s): R13.10 - Dysphagia, unspecified Status: Acute (8) Rhabdomyolysis: Code(s): M62.82 - Rhabdomyolysis Status: Acute (9) Chronic obstructive pulmonary disease: Code(s): J44.9 - Chronic obstructive pulmonary disease, unspecified Status: Acute (10) Tobacco abuse: Code(s): Z72.0 - Tobacco use Status: Acute Plan Patient with a known near obstructing mass in sigmoid colon that was biopsy confirmed adenocarcinoma. initially was scheduled for hand assisted laparoscopic sigmoid colectomy however surgery was canceled due to critical low potassium of 2.5. Hospitalist team was consulted on admission and patient began to have severe abdominal pain. Abdominal x-ray was obtained which showed pneumoperitoneum and subsequently taken to the OR. Patient had urgent exploratory laparotomy (12/31/23) with findings of a gush of pneumoperitoneum, moderate feculent contamination, perforated cecum and an obstructing sigmoid colon cancer and underwent right colectomy with ileocolic anastomosis, sigmoid colectomy and creation of end colostomy. He was subsequent admitted to ICU with septic shock and respiratory failure and started on broad-spectrum antibiotics and antifungal treatment. Successfully extubated on 01/04/2024. Worsening leukocytosis 01/05/2024. CT chest abdomen pelvis has been done showed airway debris/secretions the distal trachea, right main stem bronchus and right interlobar bronchus. Moderate right and small left pleural effusions. 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 Postsurgical changes in the abdomen with show colonic resection and diverting colostomy with diffuse colon wall edema reflecting component of colitis, mild mesenteric edema and diffuse body wall edema. Pulmozyme was added and he was started on diuretics. Leukocytosis still persists could also be related to steroid use. Hypoxemia resolved. Steroids stopped 01/07. Completed 7 day course of Micafungin and IV abx switched to oral metronidazole and cefdinir. Assuming care. Chart reviewed. White count trending downward. Steroids were stopped yesterday. He completed course of micafungin. She is on oral antibiotics. Platelet count is worse today. Lovenox has been stopped. Potassium low again and this was replaced. Platelet antibodies ordered. The weakness in the right arm probably related to extension of the right arm during surgery possibly. No focal weakness but will monitor with therapy. Will back down on his nebulizer treatments. Okay to stop Pulmozyme. Encouraged him to increase his oral intake. Encouraged patient to go to rehab after discharge. Pt is medically stable for DC. Wound vac has been approved. OK to Dc by primary team which is surgery. P is weak advised rehab but prefers to go home with home health services and wound care at home Pt is slightly tachycardic today HR in [address] ok to Dc as per cardiology MD Subjective Date/time seen: 01/17/24 12:15 Interval history: 68yo male with CKD, COPD, HTN, HepC and recently diagnosed colon CA here for colon CA resection and hypokalemia. Pt sp expl
--- NOTE | 2024-01-17 14:07 | PCPTNOTE ---
Patient refused treatment this session. Educated patient on the importance of therapy and getting up, and gave encouragement for participation. Patient continued to refuse.
--- NOTE | 2024-01-17 14:39 | PC.NURSE ---
On 01/17/24, the student, [Margoth Freeman], provided care and completed [facility] documentation on this patient. I have reviewed the student's documentation and agree with the findings.
--- NOTE | 2024-01-17 15:48 | PM.PNGS ---
Progress Note: A&P Assessment and Plan (1) Perforated viscus: Code(s): R19.8 - Other specified symptoms and signs involving the digestive system and abdomen Status: Acute Assessment and Plan: Tolerating a diet and ostomy functioning well. Home wound vac approved. HH not set up until next Sunday. Plan to change wound vac tomorrow and discharge home with HH. Plan I have discussed the patient's case and plan of care with Dr. Paris. Subjective Subjective Date/Time Seen: 01/17/24 15:48 Patient reports: no new complaints, tolerating a regular diet and afebrile Interval history: Patient doing well. No new complaints. Ostomy functioning well. Plan for wound vac change tomorrow. Exam Const: General: comfortable; No acute distress Orientation/consciousness: patient oriented x3 GI: Inspection: non-distended GI Palp: Yes Soft to palpation, No Tenderness to palpation present (GI) and No Guarding due to palpation present (GI) Auscultation: normal bowel sounds Other: Ostomy functioning well with stool in bag, stoma viable. Wound VAC in place over abdominal wound, dressing dry and intact Objective Data Vital Signs Vital Signs: Vital Signs - 24 hr 01/16/24 16:00 01/16/24 16:00 01/16/24 20:25 Temperature 98.1 F Pulse Rate 88 88 Respiratory Rate 21 H Blood Pressure 115/56 L Pulse Oximetry 97 99 Oxygen Delivery Room Air 01/16/24 20:26 01/16/24 20:52 01/16/24 21:31 Temperature 97.8 F Pulse Rate 91 91 90 Respiratory Rate 20 20 Blood Pressure 119/63 Pulse Oximetry 99 Oxygen Delivery 01/16/24 20:00 01/16/24 20:36 01/16/24 20:00 Temperature Pulse Rate 93 84 Respiratory Rate 20 Blood Pressure Pulse Oximetry Oxygen Delivery Room Air 01/17/24 00:00 01/17/24 04:00 01/17/24 07:35 Temperature Pulse Rate 71 100 88 Respiratory Rate 20 Blood Pressure Pulse Oximetry Oxygen Delivery 01/17/24 07:49 01/17/24 07:49 01/17/24 08:00 Temperature 97.7 F Pulse Rate 94 82 Respiratory Rate 20 26 H Blood Pressure 127/58 L Pulse Oximetry 97 99 Oxygen Delivery Room Air 01/17/24 09:39 01/17/24 08:00 01/17/24 08:00 Temperature Pulse Rate 95 100 Respiratory Rate Blood Pressure Pulse Oximetry 99 Oxygen Delivery Room Air 01/17/24 12:00 01/17/24 08:45 01/17/24 12:55 Temperature Pulse Rate 75 90 Respiratory Rate 20 Blood Pressure Pulse Oximetry 99 Oxygen Delivery Room Air 01/17/24 13:02 Temperature Pulse Rate 78 Respiratory Rate 18 Blood Pressure Pulse Oximetry Oxygen Delivery Intake/Output Intake/Output: Intake & Output 01/14/24 01/15/24 01/16/24 01/17/24 23:59 23:59 23:59 23:59 Intake Total 592 128 3265 490 Output Total 380 500 300 100 Balance 210 -250 2370 390 Meds/Results Medications: Active Medications Generic Name Dose Route Start Last Admin Trade Name Freq PRN Reason Stop Dose Admin Acetaminophen 650 mg 01/05/24 20:04 01/06/24 20:11 Acetaminophen Elixir 325 Mg/10.15 Ml Udc PO 650 mg Q6H PRN Administration Mild Pain (1-3) or Fever Albuterol/Ipratropium 3 ml 01/15/24 14:00 01/17/24 12:56 Ipratropium 0.5 Mg/Albuterol Sulfate 2.5 Mg Ampul.Neb 3 Ml INHALATION 3 ml [id number] SABAS Administration Aspirin 81 mg 01/08/24 09:00 01/17/24 09:37 Aspirin 81 Mg Enteric Tablet PO 81 mg QAM SABAS Administration Atorvastatin Calcium 20 mg 01/14/24 09:00 01/17/24 09:38 Atorvastatin 20 Mg Tablet PO 20 mg DAILY SABAS Administration Cefdinir 300 mg 01/08/24 21:00 01/17/24 09:38 Cefdinir 300 Mg Capsule PO 300 mg Q12HR SABAS Administration Enoxaparin Sodium 40 mg 01/14/24 09:00 01/17/24 09:38 Enoxaparin 40 Mg/0.4 Ml Syringe SUB-Q 40 mg DAILY SABAS Administration Finasteride 5 mg 01/14/24 09:00 01/17/24 09:38 Finasteride 5 Mg Tablet PO 5 mg QAM SABAS Administration Fluticasone/Umeclidinium/Vilanterol 1 puff 12/30
[2024-01-18] VITALS (9 sets, daily range): BP systolic 147; BP diastolic 68; PULSE 70–98; RESP 20; TEMP 36.4; O2SAT 95–98
[2024-01-18] MEDS: metroNIDAZOLE 500 MG TABLET PO (05:04)
[2024-01-18] MEDS: IPRATROPIUM 0.5 MG/ALBUTEROL SULFATE 2.5 MG AMPUL.NEB 3 ML INHALATION ×2 (07:40→13:41)
[2024-01-18] MEDS: FLUTICASONE/UMECLIDIN/VILANTER 100-62.5-25 MCG ELLIPTA 1 PUFF INHALATION (07:41)
--- NOTE | 2024-01-18 10:11 | PM.DS ---
DS: Admitting Diagnosis Discharge Date 01/18/2024 Admitting Diagnosis Obstructing sigmoid colon cancer DS: Discharge Diagnosis Discharge Diagnosis (1) Septic shock: Code(s): A41.9 - Sepsis, unspecified organism; R65.21 - Severe sepsis with septic shock Status: Acute Assessment and Plan: secondary to perforated viscus, now resolved status post laparotomy (2) Perforated viscus: Code(s): R19.8 - Other specified symptoms and signs involving the digestive system and abdomen Status: Acute Assessment and Plan: status post laparotomy and right colectomy, routine postoperative care (3) Cancer of sigmoid colon: Code(s): C18.7 - Malignant neoplasm of sigmoid colon Status: Acute Assessment and Plan: status post sigmoid colectomy with end-colostomy, doing well, continue routine postoperative care, path reviewed, follow-up 2 weeks, home with home health (4) COPD (chronic obstructive pulmonary disease): Qualifiers: COPD type: unspecified COPD Qualified Code(s): J44.9 - Chronic obstructive pulmonary disease, unspecified Code(s): J44.9 - Chronic obstructive pulmonary disease, unspecified Status: Acute Assessment and Plan: stable, continue home regimen (5) Tachycardia: Code(s): R00.0 - Tachycardia, unspecified Status: Acute Assessment and Plan: stable, appreciate cardiology input (6) Tobacco abuse: Code(s): Z72.0 - Tobacco use Status: Acute Assessment and Plan: discussed smoking cessation, patient not currently interested (7) Wound dehiscence: Code(s): T81.30XA - Disruption of wound, unspecified, initial encounter Status: Acute Assessment and Plan: wound dehiscence with exposed mesh, continue local wound care with wound VAC, no evidence of active infection, home with home health DS: Summary Hospital Course Reason for hospitalization: obstructing sigmoid colon cancer Hospital Course: The patient is a 68-year-old male with multiple medical issues that initially presented for sigmoid colectomy. The patient large obstructing sigmoid colon cancer. On the day of his planned surgery, the patient was noted to be hypokalemic. The decision was made to delay the surgery until the following day to replace his potassium. On the evening of hospital day 0, the patient complained of severe worsening abdominal pain and had signs of septic shock. Workup, including imaging, was significant for perforated viscus, intra-abdominal sepsis. The patient was transferred to the ICU and intubated at that time. He was then taken emergently to the operating room for exploration. The patient was noted to have perforated his cecum and a right hemicolectomy was done. The patient was also noted to have an obstructing sigmoid colon cancer and sigmoid colectomy with end-colostomy was done at that time. Please see full operative report for details. Postoperatively, the patient was transferred back to the ICU in critical condition. Over the next few days, with adequate resuscitation and antibiotics we were able to wean his pressors and the ventilator. The patient was able to be extubated and off all pressors. His colostomy began to function and he was tolerating trophic tube feeds. Once these goals were met, the patient was transferred to the floor. The patient continued to progress well while on the floor. The patient is somewhat noncompliant and did not want to participate in physical therapy, occupational therapy, nursing instructions, etc. The patient did develop a superficial wound dehiscence with noted mesh exposed from previous hernia repair. A VAC dressing has been placed and no active infection has been noted. Given his noncompliance and refusal to go to a rehab facility, the patient will be discharged home with home health and home wound VAC. He will follow up with in 2 weeks. Status at Discharge Functional status
--- NOTE | 2024-01-18 10:12 | PCPTNOTE ---
Patient refused treatment this session. Patient did not give reason why, other then he just woke up and wanted to wait a hour before doing therapy. Attempted to encourage patient to do therapy at this time, patient continued to refuse.
[2024-01-18] MEDS: ASPIRIN 81 MG ENTERIC TABLET PO (11:20)
[2024-01-18] MEDS: METOPROLOL TARTRATE 50 MG TAB PO (11:20)
[2024-01-18] MEDS: ATORVASTATIN 20 MG TABLET PO (11:20)
[2024-01-18] MEDS: IRBESARTAN 75 MG TABLET PO (11:20)
[2024-01-18] MEDS: CEFDINIR 300 MG CAPSULE PO (11:20)
[2024-01-18] MEDS: TAMSULOSIN HCL 0.4 MG CAPSULE PO (11:20)
[2024-01-18] MEDS: PANTOPRAZOLE 40 MG TABLET PO (11:20)
[2024-01-18] MEDS: FINASTERIDE 5 MG TABLET PO (11:21)
[2024-01-18] MEDS: MEGESTROL ACETATE (*CHEMO) ORAL SUSP 40 MG/ML SYR 400 MG PO (11:22)
--- NOTE | 2024-01-18 12:08 | PM.IMPN ---
Progress Note: A&P Assessment and Plan (1) Metabolic acidosis: Code(s): E87.20 - Acidosis, unspecified Status: Acute (2) Perforated viscus: Code(s): R19.8 - Other specified symptoms and signs involving the digestive system and abdomen Status: Acute (3) Septic shock: Code(s): A41.9 - Sepsis, unspecified organism; R65.21 - Severe sepsis with septic shock Status: Acute (4) Acute respiratory failure: Code(s): J96.00 - Acute respiratory failure, unspecified whether with hypoxia or hypercapnia Status: Acute (5) Hypokalemia: Code(s): E87.6 - Hypokalemia Status: Acute (6) Cancer of sigmoid colon: Code(s): C18.7 - Malignant neoplasm of sigmoid colon Status: Acute (7) Dysphagia: Code(s): R13.10 - Dysphagia, unspecified Status: Acute (8) Rhabdomyolysis: Code(s): M62.82 - Rhabdomyolysis Status: Acute (9) Chronic obstructive pulmonary disease: Code(s): J44.9 - Chronic obstructive pulmonary disease, unspecified Status: Acute (10) Tobacco abuse: Code(s): Z72.0 - Tobacco use Status: Acute Plan Patient with a known near obstructing mass in sigmoid colon that was biopsy confirmed adenocarcinoma. initially was scheduled for hand assisted laparoscopic sigmoid colectomy however surgery was canceled due to critical low potassium of 2.5. Hospitalist team was consulted on admission and patient began to have severe abdominal pain. Abdominal x-ray was obtained which showed pneumoperitoneum and subsequently taken to the OR. Patient had urgent exploratory laparotomy (12/31/23) with findings of a gush of pneumoperitoneum, moderate feculent contamination, perforated cecum and an obstructing sigmoid colon cancer and underwent right colectomy with ileocolic anastomosis, sigmoid colectomy and creation of end colostomy. He was subsequent admitted to ICU with septic shock and respiratory failure and started on broad-spectrum antibiotics and antifungal treatment. Successfully extubated on 01/04/2024. Worsening leukocytosis 01/05/2024. CT chest abdomen pelvis has been done showed airway debris/secretions the distal trachea, right main stem bronchus and right interlobar bronchus. Moderate right and small left pleural effusions. 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 Postsurgical changes in the abdomen with show colonic resection and diverting colostomy with diffuse colon wall edema reflecting component of colitis, mild mesenteric edema and diffuse body wall edema. Pulmozyme was added and he was started on diuretics. Leukocytosis still persists could also be related to steroid use. Hypoxemia resolved. Steroids stopped 01/07. Completed 7 day course of Micafungin and IV abx switched to oral metronidazole and cefdinir. Assuming care. Chart reviewed. White count trending downward. Steroids were stopped yesterday. He completed course of micafungin. She is on oral antibiotics. Platelet count is worse today. Lovenox has been stopped. Potassium low again and this was replaced. Platelet antibodies ordered. The weakness in the right arm probably related to extension of the right arm during surgery possibly. No focal weakness but will monitor with therapy. Will back down on his nebulizer treatments. Okay to stop Pulmozyme. Encouraged him to increase his oral intake. Encouraged patient to go to rehab after discharge. Pt is medically stable for DC. Wound vac has been approved. OK to Dc by primary team which is surgery. P is weak advised rehab but prefers to go home with home health services and wound care at home Pt heart rate is stable today ok to Dc as per cardiology MD Subjective Date/time seen: 01/18/24 12:08 Interval history: 68yo male with CKD, COPD, HTN, HepC and recently diagnosed colon CA here for colon CA resection and hypokalemia. Pt sp exploratory laparotomy, ri
[2024-01-18] MEDS: ACETAMINOPHEN ELIXIR 325 MG/10.15 ML UDC 650 MG PO (12:58)
[2024-01-22 22:33] LABS: Platelet Ab,Indirect (IgA) NEGATIVE (NEGATIVE); Platelet Ab,Indirect (IgG) NEGATIVE (NEGATIVE); Platelet Ab,Indirect (IgM) NEGATIVE (NEGATIVE)
[2024-01-27 12:29] LABS: Heparin Induced Platelet Antib Negative (Negative)
== END 2024-01-18 14:15 | disposition home health service (06) | DRG 853 ==
LOC: ANH3MEDSUR 09:49 → ANHICU 20:30 → ANHIMU 01-05 19:08 → ANH2MED 01-06 18:30
PROVIDERS: Anesthesiology; Hospitalist; Internal Medicine; Nurse Practitioner Family; Physician Assistant; Admitting Provider Surgery; PCP Physician Assistant; Visit Provider Surgery
PROC: 0D1M0Z4 Bypass Descending Colon to Cutaneous, Open Approach (ICD-10-PCS; CPT 49000; principal; 2023-12-31 21:00)
DX: A41.9 Sepsis, unspecified organism (principal); J96.01 Acute respiratory failure with hypoxia; R65.21 Severe sepsis with septic shock; K65.8 Other peritonitis; K63.1 Perforation of intestine (nontraumatic); C18.7 Malignant neoplasm of sigmoid colon; T81.30XA Disruption of wound, unspecified, initial encounter; M62.82 Rhabdomyolysis; N17.9 Acute kidney failure, unspecified; E87.6 Hypokalemia; J44.9 Chronic obstructive pulmonary disease, unspecified; R19.8 Other specified symptoms and signs involving the digestive system and abdomen; I25.10 Atherosclerotic heart disease of native coronary artery without angina pectoris; I12.9 Hypertensive chronic kidney disease with stage 1 through stage 4 chronic kidney disease, or unspecified chronic kidney disease; N18.30 Chronic kidney disease, stage 3 unspecified; E78.5 Hyperlipidemia, unspecified; R00.0 Tachycardia, unspecified; F17.210 Nicotine dependence, cigarettes, uncomplicated; D64.9 Anemia, unspecified; Z86.19 Personal history of other infectious and parasitic diseases; N40.1 Benign prostatic hyperplasia with lower urinary tract symptoms; R35.1 Nocturia; E88.09 Other disorders of plasma-protein metabolism, not elsewhere classified; E87.8 Other disorders of electrolyte and fluid balance, not elsewhere classified; I71.40 Abdominal aortic aneurysm, without rupture, unspecified; D69.6 Thrombocytopenia, unspecified; Z53.09 Procedure and treatment not carried out because of other contraindication
CPT/HCPCS: 31500; 36415; 36600; 70450; 71045; 71250; 74019; 74176; 76775; 80048; 80053; 80069; 80076; 81001; 82375; 82550; 82570; 82805; 82948; 83050; 83605; 83735; 84100; 84132; 84145; 84300; 85014; 85018; 85025; 85027; 85055; 85610; 85730; 86022; 86140; 87040; 87493; 88307; 88309; 88342; 92526; 92610; 92611; 93005; 93306; 94002; 94003; 94640; 97110; 97116; 97162; 97165; 97530; 97535; A9270; C9113; J0330; J0613; J0690; J0692; J1650; J1720; J1836; J1885; J1940; J2248; J2250; J2270; J2371; J2405; J2919; J3010; J3475; J3480; J7030; J7040; J7042; J7060; J7070; J7120; P9047

== ENCOUNTER 2024-01-20 11:00 | Inpatient (IN) | payer MEDICARE, MEDICAID, SELFPAY ==
[2024-01-20] VITALS (26 sets, daily range): BP systolic 81–175; BP diastolic 47–97; PULSE 97–147; RESP 18–99; TEMP 36.6–37.1; O2SAT 94–100; BMI 21.8
--- NOTE | ~2024-01-20 | XR_ITS ---
XR chest 1V portable 01/23/2024 13:47 Indication: CHF. Weakness. Procedure: AP portable chest Comparison: Comparison to multiple prior studies sequentially, with oldest reviewed study dated 05/2024. Findings: Heart size normal. Small right pleural effusion with right basilar atelectasis. No edema or pneumothorax. No acute osseous abnormality. Impression: 1: Small right pleural effusion with underlying compressive atelectasis. Reviewed, dictated and finalized at location B. Impression: 1: Small right pleural effusion with underlying compressive atelectasis.
--- NOTE | ~2024-01-20 | CT_ITS ---
EXAMINATION: CTA chest PE protocol DATE: 01/20/2024 12:34 CDT INDICATION: Dyspnea TECHNIQUE: Computed tomographic angiography (CTA) of the chest was performed with 100 mL Omnipaque-35 0 intravenous contrast. The dose-length product was 240.25 mGy-cm. Maximum intensity projection 3D-re constructions of the aorta and other arteries were constructed by the technologist on a separate work station. Automated exposure control and iterative reconstruction technique were employed. COMPARISON: CT dated 01/05/2024. FINDINGS: Moderate pleural effusions. Heart size normal. Right hilar lymphadenopathy. No large centra l pulmonary embolism. Peripheral pulmonary artery evaluation limited by motion artifact. Emphysema. D ependent atelectasis. No pneumothorax. No endobronchial lesions. No acute osseous abnormality. Mild t horacic spondylosis. IMPRESSION: 1. No large central pulmonary embolism. 2: Moderate pleural effusions. Reviewed, dictated and finalized at location A.
--- NOTE | ~2024-01-20 | XR_ITS ---
XR chest 1V portable 01/20/2024 12:02 Indication: Dyspnea Procedure: AP portable chest Comparison: Comparison to multiple prior studies sequentially, with oldest reviewed study dated 05/2024. Findings: Small pleural effusions. Left basilar infiltrates may represent atelectasis or pneumonia. T he lungs are hyperinflated which is consistent with, but not diagnostic of chronic obstructive pulmon jose disease. No acute osseous abnormality. Impression: 1: Left basilar infiltrates may represent atelectasis or pneumonia. 2: Small pleural effusions. Reviewed, dictated and finalized at location A. Impression: 1: Left basilar infiltrates may represent atelectasis or pneumonia. 2: Small pleural effusions.
--- NOTE | 2024-01-20 11:04 | ECG_ITS ---
SEE SCANNED COPY FOR CONFIRMED REPORT MTDD
[2024-01-20 11:30] LABS: Basophils Percent Auto 0.2 % (0.2-1.2); Eosinophils Percent Auto 0.1 % (0-4.4); Hematocrit 33.1 % (42.0-52.0); Hemoglobin 10.7 g/dL (14.0-18.0); Immature Granulocyte Absolute 0.14 K/mm3 (0.00-0.031); Immature Granulocyte Percent A 0.9 % (0-0.5); Lymphocytes Absolute Auto 1.96 K/mm3 (0.9-3.2); Lymphocytes Percent Auto 13.3 % (18.3-44.2); Mean Corpuscular HGB Conc 32.3 g/dl (32-36); Mean Corpuscular Hemoglobin 31.7 pg (26-34); Mean Corpuscular Volume 97.9 fl (80-100); Mean Platelet Volume 10.4 fl (7.4-10.4); Monocytes Percent Auto 6.7 % (2.6-8.5); Neutrophils Absolute Auto 11.7 K/mm3 (1.3-6.7); Neutrophils Percent Auto 78.8 % (45.5-73.1); Platelet Count Result 258 k/mm3 (150-375); Red Blood Count 3.38 M/mm3 (4.6-6.20); Red Cell Distribution Width 16.5 % (11.5-14.5); White Blood Count 14.8 K/mm3 (4.5-10.0)
[2024-01-20] MEDS: IPRATROPIUM 0.5 MG/ALBUTEROL SULFATE 2.5 MG AMPUL.NEB 3 ML INHALATION (11:35)
[2024-01-20 11:47] LABS: INR 1.3; Partial Thromboplastin Time 29.6 Seconds (22.3-36.8); Prothrombin Time 17.1 Seconds (11.1-14.7)
[2024-01-20] MEDS: methylPREDNISolone SOD SUCC 125 MG VIAL IV PUSH (11:47)
[2024-01-20 11:52] LABS: Lactic Acid Reflex 2.6 mmol/L (0.7-2.0); Magnesium 1.8 mg/dL (1.6-2.3)
[2024-01-20 11:53] LABS: Alanine Aminotransferase 15 U/L (6-50); Albumin Level 2.8 g/dL (3.5-5.1); Alkaline Phosphatase 105 U/L (38-126); Anion Gap 10 mmol/L (4-12); Aspartate Amino Transferase 26 U/L (17-59); Bilirubin,Total 0.8 mg/dL (0.2-1.3); Blood Urea Nitrogen 18 mg/dL (9-20); Calcium 8.3 mg/dL (8.4-10.2); Carbon Dioxide 15 mmol/L (22-30); Chloride 114 mmol/L (98-107); Estimated CRCL calculation 54 ml/min; Estimated Glomerular Filt Rate > 60; Glucose 93 mg/dL (65-110); Potassium 4.1 mmol/L (3.4-5.0); Sodium 139 mmol/L (137-145)
[2024-01-20] MEDS: CEFEPIME 1 GM/NS 50 ML 1 GM/50 ML BAG IVPB (12:04)
[2024-01-20 12:05] LABS: Base Excess ABG -8.3 mEq/l (+/-2.0); Fractional Inspired Oxygen 40 %; HCO3 ABG 14.2 mEq/l (22.0-26.0); Oxygen Content ABG 15.4 %vol (16.0-22.0); Oxygen Saturation ABG 99.3 % (95.0-100.0); Oxyhemoglobin 97.8 % THb (90.0-100.0); PO2 ABG 174.4 mmHg (80.0-100.0); PO2 FiO2 Ratio Arterial Blood 4.36 %; Total Hemoglobin 10.9 g/dL (12.0-18.0); pH ABG 7.436 (7.350-7.450)
[2024-01-20 12:08] LABS: Device NON-INVASIVE VENT; Modified Allen's Test Pass; PCO2 ABG 21.6 mmHg (35.0-45.0); Site Drawn LEFT RADIAL
[2024-01-20 12:09] LABS: Non-Invasive Expiratory Pressure 8 CMH2O; Non-Invasive Inspiratory Pressure 16 CMH2O; Non-Invasive Vent Rate 4 /MIN
[2024-01-20 12:11] LABS: NT Pro B Type Natriuretic Pept 11100 pg/mL (19.9-100); Troponin I 0.102 ng/mL (0.000-0.034)
[2024-01-20 12:13] LABS: Troponin I 0.102 ng/mL (0.000-0.034)
--- NOTE | 2024-01-20 12:17 | ED.SOB ---
HPI - SOB/Dyspnea General Chief Complaint: Shortness of Breath/Dyspnea Stated Complaint: SOB Time Seen by Provider: 01/20/24 11:11 History of Present Illness HPI Narrative: This is a 68-year-old male, with history of COPD, previously admitted to this hospital for malignant neoplasm of the colon status post colectomy, ileostomy and complicating sepsis, who returns to the emergency department by EMS for shortness of breath. The patient states overnight, he felt like his normal self this morning when he woke he felt short of breath with cough (nonbloody nonproductive) and palpitations. He has no other complaints at this time. Related Data Home Medications Medication Instructions Recorded Confirmed aspirin 81 mg tablet,delayed 81 mg PO DAILY 05/09/22 01/20/24 release diphenhydramine 25 2 tablet PO HS PRN Insomnia 12/10/23 01/20/24 mg-acetaminophen 500 mg tablet (Tylenol PM Extra Strength) albuterol sulfate 2.5 mg/3 mL 2.5 mg inhalation Q4-6H PRN 12/28/23 01/20/24 (0.083 %) solution for nebulization Shortness Of Breath Or Wheezing irbesartan 300 1 tablet PO DAILY 12/28/23 01/20/24 mg-hydrochlorothiazide 12.5 mg tablet tamsulosin 0.4 mg capsule 0.4 mg PO QAM 12/28/23 01/20/24 atorvastatin 20 mg tablet 20 mg PO DAILY 01/20/24 01/20/24 Allergies Allergy/AdvReac Type Severity Reaction Status Date / Time Penicillins Allergy Severe Swelling Verified 12/31/23 08:19 Review of Systems Review of Systems: CONSTITUTIONAL: Denies fever, chills, or sweats. ENT: Denies rhinorrhea, congestion, sore throat, or otalgia. CARDIOVASCULAR: Palpitations Denies chest pain, or edema. RESPIRATORY: Cough and dyspnea GASTROINTESTINAL: Denies abdominal pain, nausea, vomiting, or diarrhea. GENITOURINARY: Denies dysuria or hematuria. SKIN: Denies rash or itching. MUSCULOSKELETAL: Denies back pain, joint pain, or myalgia. NEUROLOGIC: Denies headache, numbness, dizziness, or weakness. PSYCHIATRIC: Denies anxiety or depression. FOR[facility]LY [facility], [facility] Past Medical History Medical History Abdominal aortic aneurysm 4.2 cm infrarenal AAA on CT in 11/2023. Benign prostatic hyperplasia with nocturia Cancer of sigmoid colon Chronic kidney disease, stage 3 Chronic obstructive pulmonary disease PFT 02/16/2022: Moderately severe obstructive airway disease with evidence of air trapping without bronchodilator response. Severely reduced lung diffusion capacity. FEV1 to FVC ratio 41%. Coronary artery disease Per patient a cardiac catheterization done 8 years ago showed 70% blockage in an unknown artery, no intervention undertaken. Essential hypertension Hepatitis C Hyperlipidemia Tobacco abuse Surgical History Surgical History History of cardiac catheterization History of umbilical hernia repair (01/27/19) With mesh Family History Family History (Updated 01/20/24 @ 16:06 by Chava Tobar RN) Mother No problems noted. Sibling Diabetes mellitus Heart disease Hypertension Cerebrovascular accident, Onset Age: 57 Father Diabetes mellitus Heart disease Hypertension Cerebrovascular accident Other Family history of lupus erythematosus Social History Social History Social History: Surrogate medical decision maker: Valentina Diaz, daughter. Code status: Full code. Smoking packs per day: 1 Smoking cigarettes per day: 20.0 Years smoked: 63 Smoking pack-years: 63.00 Smoking status: Former smoker Tobacco type: cigarettes Second hand tobacco smoke exposure: Yes Alcohol intake: never Substance use: never Substance use type: does not use Do You Feel Safe in your Home?: Yes Lack of Transportation: No Lack of Food: Often True Current Housing: I Have Housing Concerned About Future Housing: No Difficulty Paying Gas/Electr
[2024-01-20] MEDS: DOXYCYCLINE HYCLATE 100 MG TABLET PO (12:52)
--- NOTE | 2024-01-20 12:56 | PC.NURSE ---
Dr. Michael notified of pt bp, VO discontinue fluids at 1L LR, do not continue 900mL.
[2024-01-20 14:23] LABS: Reflex Lactic Acid Yes or No Add Lactic
--- NOTE | 2024-01-20 16:43 | PM.IMHP ---
H&P: HPI History of Present Illness Date/Time: 01/20/24 23:20 Chief Complaint: SOB Narrative: 69 y/o M presents here with shortness of breath with PMH of AAA (4.2 cm infrarenal AAA on CT in 11/2023), BPH, CKD S3, COPD, CAD, HTN, hepatitis C, HLD, and smoker (cessation on 12/31/23). Patient presents here for further evaluation of shortness of breath from home via EMS. Reports acute onset of shortness of breath today (01/19) this morning that worsens with lying flat and has associated productive cough. Sputum production is nonbloody and scant. Denies fever, chills, body aches, or fatigue. Denies any choking episodes or difficulty swallowing. Patient does not normally need supplemental oxygen. Patient recently quit smoking (12/31/23) due to his last admission. Patient was recently admitted here from 12/31/2023 to 01/18/2024. Patient was directly admitted for treatment of his colon cancer, was previously scheduled for an assisted laparoscopic sigmoid colectomy but surgery was canceled due to critical hypokalemia (2.5). previous imaging showed a near obstructing mass in his sigmoid colon and biopsies confirmed adenocarcinoma. Patient emergently taken to the OR later that evening on 12/30 due to patient having firm/ rigid abdomen on exam and CXR showing free air. Per operative notes, patient found to have a perforated cecum and instructing sigmoid colon cancer and a right colectomy with ileocolic anastomosis, sigmoid colectomy, creation of end colostomy was performed. Then admitted to the ICU for septic shock, broad-spectrum antibiotics, and antifungal treatment. Extubated on 01/03. Ultimately discharged with a home wound VAC with plan to follow-up with general surgery in 2 weeks, patient refused to go to a rehab facility and was discharged home with home health. Patient is also denying abdominal pain. Reports that home health has been able to see him and monitor his wound vac. Reports feeling improved now. Initial VS at presentation: 98.5F, HR 120, RR 34, 130/90, and 95% on RA. ED workup showed: WBC 14.8, stable/chronic anemia, INR 1.3, CO2 15, lactic acid 2.6, initial troponin 0.102, UA not suspicious for UTI. CXR showed left bibasilar infiltrates may represent atelectasis or pneumonia. Chest CTA showed no PE and moderate pleural effusions. Review of Systems Review of Systems: All systems reviewed & are unremarkable except as noted in HPI and below PENDING SALE TO [facility] Past Medical History Medical History Abdominal aortic aneurysm 4.2 cm infrarenal AAA on CT in 11/2023. Benign prostatic hyperplasia with nocturia Cancer of sigmoid colon Chronic kidney disease, stage 3 Chronic obstructive pulmonary disease PFT 02/16/2022: Moderately severe obstructive airway disease with evidence of air trapping without bronchodilator response. Severely reduced lung diffusion capacity. FEV1 to FVC ratio 41%. Coronary artery disease Per patient a cardiac catheterization done 8 years ago showed 70% blockage in an unknown artery, no intervention undertaken. Essential hypertension Hepatitis C Hyperlipidemia Tobacco abuse Surgical History Surgical History History of cardiac catheterization History of umbilical hernia repair (01/27/19) With mesh Family History Family History Mother No problems noted. Sibling Diabetes mellitus Heart disease Hypertension Cerebrovascular accident, Onset Age: 57 Father Diabetes mellitus Heart disease Hypertension Cerebrovascular accident Other Family history of lupus erythematosus Social History Social History Social History: Surrogate medical decision maker: Valentina Diaz, daughter. Code status: Full code. Smoking packs per day: 1 Smoking cigarettes per day: 20.0
--- NOTE | 2024-01-20 17:23 | PC.NURSE ---
Call placed to notify Ny ORTHOPEDIC RADIOLOGIC TECHNOLOGIST x2 earlier in the shift with to notify of the pts admit to unit IMU [id number]. Received a return call from the pharmacy et report has been given that the pt home medications are in the chart. The MANAGER NURSING endorses the pt had undigested pills noted in his colostomy bag.
[2024-01-20 18:16] LABS: Lactic Acid 2.2 mmol/L (0.7-2.0)
[2024-01-20 18:36] LABS: Troponin I 0.099 ng/mL (0.000-0.034)
--- NOTE | 2024-01-20 19:45 | PC.NURSE ---
POC reviewed with Ny ENGINE COWLING INSTALLER. Per Ny ENGINE COWLING INSTALLER there is a concern with swallowing, et thickened liquid status et will review the POC. Report given to oncoming RN on diet et 182 medication pending due to concern with swallowing. For pt safety the pt will remain NPO. Medication et diet endorsed to Nneka VERDIN to follow up with ENGINE COWLING INSTALLER. The pt has remain NPO since arriving to the unit
--- NOTE | 2024-01-20 19:56 | PC.NURSE ---
Unable to collect sputum specimen et UA
[2024-01-20 20:31] LABS: Troponin I 0.094 ng/mL (0.000-0.034)
[2024-01-20 21:23] LABS: Procalcitonin 0.4 ng/mL
[2024-01-20] MEDS: predniSONE 20 MG TABLET 40 MG PO (21:30)
[2024-01-20 21:58] LABS: Appearance Urine Clear (Clear); Bacteria Urine None Seen /hpf; Bilirubin Urine Negative (Negative); Blood Urine Negative (Negative); Color Urine Yellow (Yellow); Glucose Urine UA Negative (Negative); Hyaline Casts Urine Present /lpf; Ketones Urine Negative (Negative); Leukocyte Esterase Ur Negative LEU/UL (Negative); Need Manual Microscopic Reviewed; Nitrate Urine Negative (Negative); Protein Urine Trace mg/dL (Negative); Squamous Epithelial Cell Urine None Seen /hpf (Few); Urobilinogen Urine 0.2 mg/dL (<2.0); WBC Urine 0-5 /hpf (0-3)
[2024-01-20 22:04] LABS: Add Urine Microscopic? YES; Specific Grav Ur 1.058 (1.001-1.035)
[2024-01-20] MEDS: DOXYCYCLINE 100 MG/NS 100 ML 100 MG/100 ML BAG IVPB (23:40)
[2024-01-21] VITALS (19 sets, daily range): BP systolic 136–160; BP diastolic 79–92; PULSE 100–122; RESP 18–20; TEMP 36.1–36.7; O2SAT 94–100
[2024-01-21] MEDS: CEFEPIME 2 GM/NS 50 ML 2 GM/50 ML BAG IVPB ×2 (00:42→12:17)
[2024-01-21] MEDS: LACTATED RINGERS 1,000 ML 100 ML IV CONT (03:48)
[2024-01-21 04:06] LABS: Basophils Percent Auto 0.1 % (0.2-1.2); Hematocrit 26.2 % (42.0-52.0); Hemoglobin 8.3 g/dL (14.0-18.0); Immature Granulocyte Absolute 0.07 K/mm3 (0.00-0.031); Immature Granulocyte Percent A 0.8 % (0-0.5); Lymphocytes Absolute Auto 0.54 K/mm3 (0.9-3.2); Lymphocytes Percent Auto 6.2 % (18.3-44.2); Mean Corpuscular HGB Conc 31.7 g/dl (32-36); Mean Corpuscular Hemoglobin 31.1 pg (26-34); Mean Corpuscular Volume 98.1 fl (80-100); Monocytes Absolute Auto 0.2 K/mm3 (0.1-0.6); Monocytes Percent Auto 2.2 % (2.6-8.5); Neutrophils Absolute Auto 7.9 K/mm3 (1.3-6.7); Neutrophils Percent Auto 90.7 % (45.5-73.1); Platelet Count Result 185 k/mm3 (150-375); Red Blood Count 2.67 M/mm3 (4.6-6.20); Red Cell Distribution Width 16.6 % (11.5-14.5); White Blood Count 8.7 K/mm3 (4.5-10.0)
[2024-01-21 04:22] LABS: Lactic Acid Reflex 0.8 mmol/L (0.7-2.0)
[2024-01-21 04:23] LABS: Anion Gap 4 mmol/L (4-12); Blood Urea Nitrogen 20 mg/dL (9-20); Calcium 7.9 mg/dL (8.4-10.2); Carbon Dioxide 18 mmol/L (22-30); Chloride 112 mmol/L (98-107); Estimated CRCL calculation 58 ml/min; Estimated Glomerular Filt Rate > 60; Glucose 127 mg/dL (65-110); Potassium 3.9 mmol/L (3.4-5.0); Sodium 134 mmol/L (137-145)
[2024-01-21] MEDS: predniSONE 20 MG TABLET 40 MG PO (09:05)
--- NOTE | 2024-01-21 09:36 | PM.IMPN ---
Progress Note: A&P Assessment and Plan (1) Sepsis: Code(s): A41.9 - Sepsis, unspecified organism Status: Acute (2) Acute dyspnea: Code(s): R06.00 - Dyspnea, unspecified Status: Acute (3) Acute respiratory failure: Code(s): J96.00 - Acute respiratory failure, unspecified whether with hypoxia or hypercapnia Status: Acute (4) Chronic obstructive pulmonary disease: Code(s): J44.9 - Chronic obstructive pulmonary disease, unspecified Status: Acute Plan Sepsis, community-acquired pneumonia, COPD exacerbation, hypoxemia ?Code(s): A41.9 - Sepsis, unspecified organism ?Status:?Acute ?Assessment and Plan: upon arrival in the ED, patient had hypoxemia, tachycardia tachypnea, leukocytosis 14,800 , x-rays suggested pneumonia with left lower lobe infiltrate - lactic acid: 2.6 -> 2.2 - lactic elevated, procalcitonin added: 0.4 - started on cefepime and doxycycline on 01/19 - MRSA negative on 12/31/23 and 01/20/24 - blood cultures drawn on 01/19 - UA added continue nebulizer, prednisone p.o. continue O2 therapy to keep pulse ox above 92 DC IV fluid because of fluid overloaded acute on chronic systolic heart failure ? echo, previous (01/03/24): LV systolic function mildly reduced and EF 40-45%, grade 1 diastolic dysfunction mild TV regurgitation start Lasix 40 mg b.i.d. IV push consult maltster SVT engine monitor showed short episodes of SVT about 10 patient denied lightheadedness, palpitation cardiology is on board Follow maltster recommendation Pleural effusion: ?Code(s): J90 - Pleural effusion, not elsewhere classified ?Status:?Acute ?Assessment and Plan: similar in size compared to imaging done on 01/05/24 - monitor I&Os - monitor daily weights possible due to CHF Cancer of sigmoid colon: ?Code(s): C18.7 - Malignant neoplasm of sigmoid colon ?Status:?Acute ?Assessment and Plan: - underwent an exploratory laparotomy, right colectomy with ileocolic anastomosis, sigmoid colectomy, creation of end colostomy on 12/30. done by [facility] AGUILAR. found to have a perforated cecum. - previous imaging showed obstructing sigmoid colon cancer - d/c'd home on 01/16 with home health and a home wound vac and plan for follow-up in 2 weeks - wound consulted for vac - daytime RN noted undigested medications in patient's ostomy output Subjective Date/time seen: 01/21/24 09:36 Interval history: I saw and examined patient today, patient feels dyspnea is improving, patient still has some cough with white phlegm, patient denies chest pain. Patient has dyspnea with exertion patient is afebrile, blood pressure stable. electronic device monitor showed short episode SVT Exam Narrative: GENERAL: Pleasant, in no acute distress. Well-nourished. - EYES: EOMI. Anicteric. - HENT: Moist mucous membranes. - LUNGS: coarse breath sound bilaterally, tachypnea - CARDIOVASCULAR: Regular rate and rhythm. No murmur. No JVD. - ABDOMEN: Soft, non-tender and non-distended. No palpable masses. liquid stool from colostomy - EXTREMITIES: No edema. Peripheral pulses 2+. Non-tender. - NEUROLOGIC: No focal neurological deficits. CN II-XII grossly intact. - PSYCHIATRIC: Awake, Alert and oriented x 3. Appropriate mood and affect. - SKIN: No rashes or lesions. Warm. - LYMPH: No cervical lymphadenopathy. Objective Data Vital Signs Vital Signs: Vital Signs - 24 hr 01/20/24 10:58 01/20/24 11:06 01/20/24 11:33 Temperature 98.5 F Pulse Rate 120 H 129 H Respiratory Rate 34 H 33 H Blood Pressure 130/90 Pulse Oximetry 95 98 100 Oxygen Delivery Room Air Nasal Cannula BiPAP Oxygen Flow Rate 2 01/20/24 11:35 01/20/24 12:13 01/20/24 11:15 Temperature Pulse Rate 128 H 131 H 133 H Respiratory Rate 32 H 33 H 30 H Blood Pressure 117/75 Pulse Oximetry 100 100 Oxygen Delivery BiPAP Oxygen Flow Rate 01/20/24 12:57 01/20/24 1
[2024-01-21] MEDS: DOXYCYCLINE 100 MG/NS 100 ML 100 MG/100 ML BAG IVPB (10:32)
--- NOTE | 2024-01-21 12:32 | ECG_ITS ---
SEE SCANNED COPY FOR CONFIRMED REPORT MTDD
--- NOTE | 2024-01-21 14:03 | PM.CNCAR ---
Assessment and Plan Assessment and plan (1) Tachycardia: Code(s): R00.0 - Tachycardia, unspecified Status: Acute Assessment and Plan: Telemetry shows predominantly a sinus tachycardia/sinus rhythm with frequent atrial premature complexes. He does have intermittent short runs of regular, narrow complex tachycardia consistent with SVT. He is asymptomatic with this. However, we will start low-dose beta-reina for SVT suppression. Continue to monitor on telemetry. (2) CHF exacerbation: Qualifiers: Heart failure type: unspecified Qualified Code(s): I50.9 - Heart failure, unspecified Code(s): I50.9 - Heart failure, unspecified Status: Acute Assessment and Plan: Echocardiogram performed during last hospitalization showed EF 40-45%, grade 1 diastolic dysfunction, mild TR. Evidence pulmonary congestion chest imaging. Agree with IV furosemide for today. Strict intake and output Daily weights He is not on any medical therapy at this point. Will start Entresto today. As above, will also be starting low dose Toprol XL. Ideally, would also like to add spironolactone, Jardiance. Closely monitor blood pressure and kidney function (3) Acute dyspnea: Code(s): R06.00 - Dyspnea, unspecified Status: Acute Assessment and Plan: Secondary to COPD, pneumonia, mild CHF. Improving. (4) Dysphagia: Code(s): R13.10 - Dysphagia, unspecified Status: Acute Assessment and Plan: Thickened liquids have been recommended. History of Present Illness History of Present Illness Consult date/time: 01/21/24 14:03 Reason For Visit: CHF Exacerbation,Pulmonary Edema,Dyspnea Narrative: Seth Guajardo is a 68 year old male with coronary artery disease, CKD, COPD, hypertension, hepatitis C who underwent exploratory laparotomy, right colectomy with ileocolic anastomosis, sigmoid colectomy, creation of end colostomy during recent hospitalization. He presents to the hospital now with a chief complaint of shortness of breath. He is currently being treated for sepsis, pneumonia, possible COPD. He also has evidence of congestion on his chest x-ray and moderate pleural effusion seen on chest CT. Cardiology is being asked to see him because of SVT. His telemetry demonstrates sinus rhythm/sinus tachycardia with frequent PACs and intermittent, short periods of SVT. Patient denies history of SVT. He denies feeling any palpitations, chest pain, shortness of breath. [facility] Past Medical History Medical History Abdominal aortic aneurysm 4.2 cm infrarenal AAA on CT in 11/2023. Benign prostatic hyperplasia with nocturia Cancer of sigmoid colon Chronic kidney disease, stage 3 Chronic obstructive pulmonary disease PFT 02/16/2022: Moderately severe obstructive airway disease with evidence of air trapping without bronchodilator response. Severely reduced lung diffusion capacity. FEV1 to FVC ratio 41%. Coronary artery disease Per patient a cardiac catheterization done 8 years ago showed 70% blockage in an unknown artery, no intervention undertaken. Essential hypertension Hepatitis C Hyperlipidemia Tobacco abuse Surgical History Surgical History History of cardiac catheterization History of umbilical hernia repair (01/27/19) With mesh Family History Family History Mother No problems noted. Sibling Diabetes mellitus Heart disease Hypertension Cerebrovascular accident, Onset Age: 57 Father Diabetes mellitus Heart disease Hypertension Cerebrovascular accident Other Family history of lupus erythematosus Social History Social History Social History: Surrogate medical decision maker: Valentina Diaz, daughter. Code stat
--- NOTE | 2024-01-21 15:38 | PM.CNGS ---
Assessment and Plan Assessment and plan (1) Open abdominal wall wound: Code(s): S31.109A - Unspecified open wound of abdominal wall, unspecified quadrant without penetration into peritoneal cavity, initial encounter Status: Acute Assessment and Plan: Open abdominal wound healing well. Continue wound Vac therapy. No indication for any surgical intervention. Will plan to have him follow-up with Dr. Paris after discharge. Will sign off. Call with any other surgical questions or concerns. (2) Colostomy in place: Code(s): Z93.3 - Colostomy status Status: Acute Assessment and Plan: Colostomy with separation from the skin edges, but stoma is viable. There was some necrotic tissue that was sloughing off of the stoma mucosa and was debrided at the bedside today. Continue routine ostomy care. (3) CHF exacerbation: Qualifiers: Heart failure type: unspecified Qualified Code(s): I50.9 - Heart failure, unspecified Code(s): I50.9 - Heart failure, unspecified Status: Acute (4) Pleural effusion: Code(s): J90 - Pleural effusion, not elsewhere classified Status: Acute (5) Tachycardia: Code(s): R00.0 - Tachycardia, unspecified Status: Acute (6) Chronic obstructive pulmonary disease: Code(s): J44.9 - Chronic obstructive pulmonary disease, unspecified Status: Acute Plan I have discussed the patient's case and plan of care with Dr. Paris. History of Present Illness Consult details Consult date: 01/21/24 Reason for consult: other (Wound debridement) Requesting physician: Lior Walters MD Narrative: This is a 68-year-old man known to our service following a hospitalization for septic shock secondary to bowel perforation, obstructing sigmoid colon cancer. He underwent exploratory laparotomy, right colectomy, sigmoid colectomy, creation of end colostomy on 12/31/[address] Paris. He was discharged home on 01/18/24 and returned to the ER yesterday for shortness of breath and palpitations. He was admitted with a CHF exacerbation, pleural effusions, possible pneumonia. Wound care was consulted for his open abdominal wound which he had a wound vac in place for and was set up with home health on discharge. The wound care nurses then contacted me regarding some necrotic tissue at his stoma during their dressing change. Our service is now consulted and he was seen in the IMU during the dressing change with the wound care nurses. Patient denies any abdominal pain, nausea, vomiting, or fevers. His only complaint at this time is shortness of breath. Review of Systems Review of Systems: All systems reviewed & are unremarkable except as noted in HPI and below PMFSH Past Medical History Medical History Abdominal aortic aneurysm 4.2 cm infrarenal AAA on CT in 11/2023. Benign prostatic hyperplasia with nocturia Cancer of sigmoid colon Chronic kidney disease, stage 3 Chronic obstructive pulmonary disease PFT 02/16/2022: Moderately severe obstructive airway disease with evidence of air trapping without bronchodilator response. Severely reduced lung diffusion capacity. FEV1 to FVC ratio 41%. Coronary artery disease Per patient a cardiac catheterization done 8 years ago showed 70% blockage in an unknown artery, no intervention undertaken. Essential hypertension Hepatitis C Hyperlipidemia Tobacco abuse Surgical History Surgical History History of cardiac catheterization History of umbilical hernia repair (01/27/19) With mesh Family History Family History Mother No problems noted. Sibling Diabetes mellitus Heart disease Hypertension Cerebrovascular accident, Onset Age: 57 Father Diabetes mellitus Heart disease Hypertension Cerebrovascular accident Other Famil
[2024-01-21] MEDS: FUROSEMIDE INJ 40 MG/4 ML VIAL IV PUSH (17:49)
[2024-01-21] MEDS: SACUBITRIL/VALSARTAN 24-26 MG TABLET 1 TAB PO (22:17)
[2024-01-21] MEDS: diphenhydrAMINE HCl INJ 50 MG/ML VIAL IV PUSH (23:22)
[2024-01-22] VITALS (18 sets, daily range): BP systolic 129–149; BP diastolic 73–91; PULSE 68–104; RESP 16–20; TEMP 35.9–36.9; O2SAT 98–100; BMI 21.9
--- NOTE | 2024-01-22 00:47 | PC.NURSE ---
After starting administration of Doxycycline ABT in LFA patient states that it is burning him. IV WNL and flushed. Patient states normal saline flush is also burning him. Another IV access initiated in L wrist, IV ABT reconnected and patient continued to complain of burning. Dr. Kim made aware of patient's complaint with IV ABTs. New order for Bendryl IV push given. Another attempt made to start IV ABT and patient c/o burning. IV ABT disconnected. Teaching given about ABTs and offering consideration for a midline/PICC patient declined placement of PICC line and peripheral infusion of ABTs. Dr. Kim made aware no orders.
[2024-01-22] MEDS: predniSONE 20 MG TABLET 40 MG PO (10:01)
[2024-01-22] MEDS: FUROSEMIDE INJ 40 MG/4 ML VIAL IV PUSH (10:01)
[2024-01-22] MEDS: METOPROLOL SUCCINATE EXT REL 12.5 MG TABCR PO (10:01)
[2024-01-22] MEDS: SACUBITRIL/VALSARTAN 24-26 MG TABLET 1 TAB PO ×2 (10:02→22:37)
--- NOTE | 2024-01-22 10:43 | PM.IMPN ---
Progress Note: A&P Assessment and Plan (1) Sepsis: Code(s): A41.9 - Sepsis, unspecified organism Status: Acute (2) Acute dyspnea: Code(s): R06.00 - Dyspnea, unspecified Status: Acute (3) Acute respiratory failure: Code(s): J96.00 - Acute respiratory failure, unspecified whether with hypoxia or hypercapnia Status: Acute (4) Chronic obstructive pulmonary disease: Code(s): J44.9 - Chronic obstructive pulmonary disease, unspecified Status: Acute Plan Sepsis, community-acquired pneumonia, COPD exacerbation, hypoxemia ?Code(s): A41.9 - Sepsis, unspecified organism ?Status:?Acute ?Assessment and Plan: upon arrival in the ED, patient had hypoxemia, tachycardia tachypnea, leukocytosis 14,800 , x-rays suggested pneumonia with left lower lobe infiltrate - lactic acid: 2.6 -> 2.2 - lactic elevated, procalcitonin added: 0.4 - started on cefepime and doxycycline on 01/19 - MRSA negative on 12/31/23 and 01/20/24 - blood cultures drawn on 01/19 - UA added continue nebulizer, prednisone p.o. continue O2 therapy to keep pulse ox above 92 DC IV fluid because of fluid overloaded acute on chronic systolic heart failure ? echo, previous (01/03/24): LV systolic function mildly reduced and EF 40-45%, grade 1 diastolic dysfunction mild TV regurgitation started Lasix 40 mg b.i.d. IV push Appreciate weekend anchor consultation Patient has negative input output-1.2 L Change furosemide 40 mg b.i.d. p.o., continue Entresto p.o., start spironolactone per weekend anchor 01/21 SVT school bus monitor showed short episodes of SVT about 10 patient denied lightheadedness, palpitation cardiology is on board Follow weekend anchor recommendation Pleural effusion: ?Code(s): J90 - Pleural effusion, not elsewhere classified ?Status:?Acute ?Assessment and Plan: similar in size compared to imaging done on 01/05/24 - monitor I&Os - monitor daily weights possible due to CHF Cancer of sigmoid colon: ?Code(s): C18.7 - Malignant neoplasm of sigmoid colon ?Status:?Acute ?Assessment and Plan: - underwent an exploratory laparotomy, right colectomy with ileocolic anastomosis, sigmoid colectomy, creation of end colostomy on 12/30. done by [facility] AGUILAR. found to have a perforated cecum. - previous imaging showed obstructing sigmoid colon cancer - d/c'd home on 01/16 with home health and a home wound vac and plan for follow-up in 2 weeks - wound consulted for vac - daytime RN noted undigested medications in patient's ostomy output Subjective Date/time seen: 01/22/24 10:43 Interval history: I saw and examined patient today, patient feels dyspnea is improving, patient still has some cough with white phlegm, patient denies chest pain. patient afebrile, blood pressure stable, patient is on nasal cannular Exam Narrative: GENERAL: Pleasant, in no acute distress. Well-nourished. - EYES: EOMI. Anicteric. - HENT: Moist mucous membranes. - LUNGS: coarse breath sound bilaterally, tachypnea - CARDIOVASCULAR: Regular rate and rhythm. No murmur. No JVD. - ABDOMEN: Soft, non-tender and non-distended. No palpable masses. liquid stool from colostomy - EXTREMITIES: No edema. Peripheral pulses 2+. Non-tender. - NEUROLOGIC: No focal neurological deficits. CN II-XII grossly intact. - PSYCHIATRIC: Awake, Alert and oriented x 3. Appropriate mood and affect. - SKIN: No rashes or lesions. Warm. - LYMPH: No cervical lymphadenopathy. Objective Data Vital Signs Vital Signs: Vital Signs - 24 hr 01/21/24 11:43 01/21/24 12:00 01/21/24 12:00 Temperature 97.2 F L Pulse Rate 107 H 122 H Respiratory Rate 20 Blood Pressure 156/88 H Pulse Oximetry 100 100 Oxygen Delivery Nasal Cannula Oxygen Flow Rate 2 Fraction of Inspired Oxygen 01/21/24 14:00 01/21/24 16:15 01/21/24 16:30 Temperature 97.0 F L Pulse Rate 120 H 107 H 107 H Respiratory Rate 20 Blood
[2024-01-22 11:01] LABS: Basophils Percent Auto 0.1 % (0.2-1.2); Eosinophils Percent Auto 0.1 % (0-4.4); Hematocrit 29.3 % (42.0-52.0); Hemoglobin 9.6 g/dL (14.0-18.0); Immature Granulocyte Absolute 0.08 K/mm3 (0.00-0.031); Immature Granulocyte Percent A 0.9 % (0-0.5); Lymphocytes Absolute Auto 1.18 K/mm3 (0.9-3.2); Lymphocytes Percent Auto 13.7 % (18.3-44.2); Mean Corpuscular HGB Conc 32.8 g/dl (32-36); Mean Corpuscular Hemoglobin 31.5 pg (26-34); Mean Corpuscular Volume 96.1 fl (80-100); Monocytes Absolute Auto 0.9 K/mm3 (0.1-0.6); Monocytes Percent Auto 10.1 % (2.6-8.5); Neutrophils Absolute Auto 6.5 K/mm3 (1.3-6.7); Neutrophils Percent Auto 75.1 % (45.5-73.1); Platelet Count Result 245 k/mm3 (150-375); Red Blood Count 3.05 M/mm3 (4.6-6.20); Red Cell Distribution Width 16.4 % (11.5-14.5); White Blood Count 8.6 K/mm3 (4.5-10.0)
--- NOTE | 2024-01-22 11:05 | PCPTNOTE ---
Attempted PT evaluation, pt adamantly refused stating tomorrow. Pt reports being probed all night and is too weak to get to a chair. RN aware.
[2024-01-22 11:11] LABS: Anion Gap 3 mmol/L (4-12); Blood Urea Nitrogen 24 mg/dL (9-20); Calcium 7.7 mg/dL (8.4-10.2); Carbon Dioxide 24 mmol/L (22-30); Chloride 108 mmol/L (98-107); Estimated CRCL calculation 58 ml/min; Estimated Glomerular Filt Rate > 60; Glucose 107 mg/dL (65-110); Potassium 3.2 mmol/L (3.4-5.0); Sodium 135 mmol/L (137-145)
--- NOTE | 2024-01-22 11:36 | PM.PNCARD ---
Progress Note: A&P Assessment and Plan (1) Tachycardia: Code(s): R00.0 - Tachycardia, unspecified Status: Acute Assessment and Plan: Telemetry shows predominantly a sinus tachycardia/sinus rhythm with frequent atrial premature complexes. He does have intermittent short runs of regular, narrow complex tachycardia consistent with SVT. He is asymptomatic with this. Will increase metoprolol to 25mg daily as he is still having some runs of SVT. This can be titrated as needed. Continue to monitor on telemetry (2) CHF exacerbation: Qualifiers: Heart failure type: unspecified Qualified Code(s): I50.9 - Heart failure, unspecified Code(s): I50.9 - Heart failure, unspecified Status: Acute Assessment and Plan: Echocardiogram performed during last hospitalization showed EF 40-45%, grade 1 diastolic dysfunction, mild TR. Evidence pulmonary congestion chest imaging. Shift to furosemide 40mg p.o. b.i.d today Strict intake and output Daily weights Tolerating Entresto As above, will also be starting low dose Toprol XL. Will add spironolactone today Closely monitor blood pressure, kidney function, and electrolytes (3) Acute dyspnea: Code(s): R06.00 - Dyspnea, unspecified Status: Acute Assessment and Plan: Secondary to COPD, pneumonia, mild CHF. Improving. (4) Dysphagia: Code(s): R13.10 - Dysphagia, unspecified Status: Acute Assessment and Plan: Thickened liquids have been recommended. Plan Cardiology will sign off please call with any questions. Subjective Date/time seen: 01/22/24 11:36 Interval history: Cardiology follow up for SVT, CHF Date of service 01/22/24: No palpitations, chest pain, shortness of breath. His rhythm is stable on telemetry, still has intermittent, self-limited runs of SVT. Exam Const: General: comfortable, no acute distress, alert and awake Orientation/consciousness: patient oriented x3 HENMT: Head: normal to inspection Eyes: General: appearance normal, both eyes and all related structures Pupils: Equal, round and reactive pupils present Neck: Neck: normal visual inspection, supple and no JVD Carotids: normal carotid upstroke Resp: Effort & Inspection: normal respiratory effort Auscultation: not clear to auscultation bilaterally and rales Cardio: Rate: tachycardic Rhythm: regular rhythm and abnormal rhythm with ectopic beats Heart sounds: S1 normal heart sound present, S2 normal heart sound present and no murmurs GI: Auscultation: normal bowel sounds Skin: General skin exam: normal color Neuro: General: patient oriented x3 Cranial nerves: Yes Equal, round and reactive pupils present Extrem: General: edema (mild pretibial and pedal edema ) bilateral Psych: Appearance: grossly normal Mental Status: mental status grossly normal Objective Data Vital Signs Vital Signs: Vital Signs - 24 hr 01/21/24 11:43 01/21/24 12:00 01/21/24 12:00 Temperature 36.2 C L Pulse Rate 107 H 122 H Respiratory Rate 20 Blood Pressure 156/88 H Pulse Oximetry 100 100 Oxygen Delivery Nasal Cannula Oxygen Flow Rate 2 Fraction of Inspired Oxygen 01/21/24 14:00 01/21/24 16:15 01/21/24 16:30 Temperature 36.1 C L Pulse Rate 120 H 107 H 107 H Respiratory Rate 20 Blood Pressure 139/79 Pulse Oximetry 100 Oxygen Delivery Oxygen Flow Rate Fraction of Inspired Oxygen 01/21/24 16:30 01/21/24 20:04 01/21/24 18:00 Temperature 36.5 C Pulse Rate 107 H 110 H Respiratory Rate 20 Blood Pressure 136/92 H Pulse Oximetry 100 100 Oxygen Delivery Nasal Cannula Oxygen Flow Rate 2 Fraction of Inspired Oxygen 01/22/24 00:00 01/21/24 20:00 01/21/24 20:00 Temperature 36.3 C L Pulse Rate 79 101 H Respiratory Rate 18 Blood Pressure 149/84 H Pulse Oximetry 100 100 Oxygen Delivery Nasal Cannula Oxygen Flow Rate 2 Fraction of Inspired Oxygen
[2024-01-22 11:43] LABS: Procalcitonin 0.3 ng/mL
[2024-01-22] MEDS: DOXYCYCLINE 100 MG/NS 100 ML 100 MG/100 ML BAG IVPB ×2 (12:31→22:44)
[2024-01-22] MEDS: hydroCHLOROthiazide 12.5 MG CAPSULE PO (12:33)
[2024-01-22] MEDS: IRBESARTAN 150 MG TABLET 300 MG PO (12:33)
[2024-01-22] MEDS: TAMSULOSIN HCL 0.4 MG CAPSULE PO (12:34)
[2024-01-22] MEDS: PANTOPRAZOLE 40 MG TABLET PO ×2 (12:34→22:38)
[2024-01-22] MEDS: FINASTERIDE 5 MG TABLET PO (12:34)
[2024-01-22] MEDS: ASPIRIN 81 MG ENTERIC TABLET PO (12:34)
[2024-01-22] MEDS: POTASSIUM CHLORIDE 10 MEQ ER TABLET PO (12:34)
[2024-01-22] MEDS: ATORVASTATIN 20 MG TABLET PO (12:34)
[2024-01-22] MEDS: CEFEPIME 2 GM/NS 50 ML 2 GM/50 ML BAG IVPB (12:36)
[2024-01-22] MEDS: FUROSEMIDE 40 MG TABLET PO (17:20)
[2024-01-23] VITALS (19 sets, daily range): BP systolic 109–154; BP diastolic 62–82; PULSE 81–114; RESP 12–18; TEMP 36.4–37.1; O2SAT 97–100
[2024-01-23] MEDS: CEFEPIME 2 GM/NS 50 ML 2 GM/50 ML BAG IVPB ×3 (01:23→23:46)
[2024-01-23] MEDS: FLUTICASONE/UMECLIDIN/VILANTER 100-62.5-25 MCG ELLIPTA 1 PUFF INHALATION (07:21)
[2024-01-23] MEDS: ASPIRIN 81 MG ENTERIC TABLET PO (10:08)
[2024-01-23] MEDS: predniSONE 20 MG TABLET 40 MG PO (10:08)
[2024-01-23] MEDS: PANTOPRAZOLE 40 MG TABLET PO ×2 (10:09→21:34)
[2024-01-23] MEDS: ATORVASTATIN 20 MG TABLET PO (10:09)
[2024-01-23] MEDS: METOPROLOL SUCCINATE EXT REL 25 MG TABCR PO (10:09)
[2024-01-23] MEDS: hydroCHLOROthiazide 12.5 MG CAPSULE PO (10:09)
[2024-01-23] MEDS: FINASTERIDE 5 MG TABLET PO (10:09)
[2024-01-23] MEDS: POTASSIUM CHLORIDE 10 MEQ ER TABLET PO (10:09)
[2024-01-23] MEDS: SACUBITRIL/VALSARTAN 24-26 MG TABLET 1 TAB PO ×2 (10:10→21:34)
[2024-01-23] MEDS: SPIRONOLACTONE 25 MG TABLET PO (10:10)
[2024-01-23] MEDS: TAMSULOSIN HCL 0.4 MG CAPSULE PO (10:10)
[2024-01-23] MEDS: FUROSEMIDE 40 MG TABLET PO ×2 (10:12→18:30)
--- NOTE | 2024-01-23 10:20 | PC.NURSE ---
patient refused to take medicine with thickened water as prescribed by speech therapy and physician. Educated patient on why he is on thickened liquids. Patient still refused to make medications with thickened liquids.
[2024-01-23 11:09] LABS: Basophils Percent Auto 0.1 % (0.2-1.2); Hematocrit 36.1 % (42.0-52.0); Hemoglobin 11.3 g/dL (14.0-18.0); Immature Granulocyte Absolute 0.05 K/mm3 (0.00-0.031); Immature Granulocyte Percent A 0.6 % (0-0.5); Lymphocytes Absolute Auto 1.57 K/mm3 (0.9-3.2); Lymphocytes Percent Auto 19.4 % (18.3-44.2); Mean Corpuscular HGB Conc 31.3 g/dl (32-36); Mean Corpuscular Hemoglobin 30.6 pg (26-34); Mean Corpuscular Volume 97.8 fl (80-100); Mean Platelet Volume 10.2 fl (7.4-10.4); Monocytes Absolute Auto 0.9 K/mm3 (0.1-0.6); Monocytes Percent Auto 10.7 % (2.6-8.5); Neutrophils Absolute Auto 5.6 K/mm3 (1.3-6.7); Neutrophils Percent Auto 69.2 % (45.5-73.1); Platelet Count Result 263 k/mm3 (150-375); Red Blood Count 3.69 M/mm3 (4.6-6.20); Red Cell Distribution Width 15.6 % (11.5-14.5); White Blood Count 8.1 K/mm3 (4.5-10.0)
[2024-01-23 11:30] LABS: Anion Gap 6 mmol/L (4-12); Blood Urea Nitrogen 28 mg/dL (9-20); Calcium 8.4 mg/dL (8.4-10.2); Carbon Dioxide 24 mmol/L (22-30); Chloride 106 mmol/L (98-107); Estimated CRCL calculation 53 ml/min; Estimated Glomerular Filt Rate > 60; Glucose 116 mg/dL (65-110); Potassium 3.5 mmol/L (3.4-5.0); Sodium 136 mmol/L (137-145)
[2024-01-23 12:22] LABS: Procalcitonin 0.3 ng/mL
--- NOTE | 2024-01-23 12:35 | PM.IMPN ---
Progress Note: A&P Assessment and Plan (1) Sepsis: Code(s): A41.9 - Sepsis, unspecified organism Status: Acute (2) Acute dyspnea: Code(s): R06.00 - Dyspnea, unspecified Status: Acute (3) Acute respiratory failure: Code(s): J96.00 - Acute respiratory failure, unspecified whether with hypoxia or hypercapnia Status: Acute (4) Chronic obstructive pulmonary disease: Code(s): J44.9 - Chronic obstructive pulmonary disease, unspecified Status: Acute Plan Sepsis, community-acquired pneumonia, COPD exacerbation, hypoxemia ?Code(s): A41.9 - Sepsis, unspecified organism ?Status:?Acute ?Assessment and Plan: upon arrival in the ED, patient had hypoxemia, tachycardia tachypnea, leukocytosis 14,800 , x-rays suggested pneumonia with left lower lobe infiltrate - lactic acid: 2.6 -> 2.2 - lactic elevated, procalcitonin added: 0.4 - started on cefepime and doxycycline on 01/19 - MRSA negative on 12/31/23 and 01/20/24 - blood cultures drawn on 01/19 - UA added continue nebulizer, prednisone p.o. continue O2 therapy to keep pulse ox above 92 DC IV fluid because of fluid overloaded will continue cefepime doxycycline IV today, we switched to oral medication tomorrow acute on chronic systolic heart failure ? echo, previous (01/03/24): LV systolic function mildly reduced and EF 40-45%, grade 1 diastolic dysfunction mild TV regurgitation started Lasix 40 mg b.i.d. IV push Appreciate system administrator consultation Patient has negative input output-1.2 L Change furosemide 40 mg b.i.d. p.o., continue Entresto p.o., start spironolactone per system administrator 01/21 SVT application support manager showed short episodes of SVT about 10 patient denied lightheadedness, palpitation cardiology is on board Follow system administrator recommendation Pleural effusion: ?Code(s): J90 - Pleural effusion, not elsewhere classified ?Status:?Acute ?Assessment and Plan: similar in size compared to imaging done on 01/05/24 - monitor I&Os - monitor daily weights possible due to CHF repeat chest x-ray Cancer of sigmoid colon: ?Code(s): C18.7 - Malignant neoplasm of sigmoid colon ?Status:?Acute ?Assessment and Plan: - underwent an exploratory laparotomy, right colectomy with ileocolic anastomosis, sigmoid colectomy, creation of end colostomy on 12/30. done by [facility] AGUILAR. found to have a perforated cecum. - previous imaging showed obstructing sigmoid colon cancer - d/c'd home on 01/16 with home health and a home wound vac and plan for follow-up in 2 weeks - wound consulted for vac - daytime RN noted undigested medications in patient's ostomy output patient may benefit from rehab after discharge consult PT OT home health care case manager for evaluation and assisting placement Subjective Date/time seen: 01/23/24 12:35 Interval history: I saw exam patient today, patient feels tired, patient denies short of breath, chest pain at rest. per nurse report, patient could not finish rehab yesterday, but was able to move out of bed today with the assistance of physical therapist. Labs reviewed, patient is afebrile, blood pressure stable Exam Narrative: GENERAL: Pleasant, in no acute distress. Well-nourished. - EYES: EOMI. Anicteric. - HENT: Moist mucous membranes. - LUNGS: lungs clear bilaterally - CARDIOVASCULAR: Regular rate and rhythm. No murmur. No JVD. - ABDOMEN: Soft, non-tender and non-distended. No palpable masses. liquid stool from colostomy - EXTREMITIES: No edema. Peripheral pulses 2+. Non-tender. - NEUROLOGIC: No focal neurological deficits. CN II-XII grossly intact. - PSYCHIATRIC: Awake, Alert and oriented x 3. Appropriate mood and affect. - SKIN: No rashes or lesions. Warm. - LYMPH: No cervical lymphadenopathy. Objective Data Vital Signs Vital Signs: Vital Signs - 24 hr 01/22/24 15:33 01/22/24 16:00 01/22/24 14:00 Temperature 96.7 F L Pulse Rate 88 98 Resp
[2024-01-23] MEDS: DOXYCYCLINE 100 MG/NS 100 ML 100 MG/100 ML BAG IVPB (12:49)
--- NOTE | 2024-01-23 13:00 | P.CDI_ITS ---
CDI Query Clarification Request BMI 21.9 Nutritional Diagnostic Statement Severe protein calorie malnutrition related to inadequate protein energy intake as evidenced by a significant weight loss of -23% x 1 year, reduced po intake, and NFPE findings for moderate muscle wasting (mu-ism,clavicle) and moderate subcutaneous fat loss (cheeks). Please refer to the comprehensive nutrition assessment for further information. Please clarify severity of protein calorie malnutrition if known: * Mild * Moderate * Severe * Other/Unspecified <Maddison Daniels RN - Last Filed: 01/23/24 13:04> moderate malnutrition BMI 21.9 Nutritional Diagnostic Statement Severe protein calorie malnutrition related to inadequate protein energy intake as evidenced by a significant weight loss of -23% x 1 year, reduced po intake, and NFPE findings for moderate muscle wasting (mu-ism,clavicle) and moderate subcutaneous fat loss (cheeks). Please refer to the comprehensive nutrition assessment for further information. Please clarify severity of protein calorie malnutrition if known: * Mild * Moderate * Severe * Other/Unspecified <Lior Walters MD - Last Filed: 01/23/24 13:36>
--- NOTE | 2024-01-23 13:41 | PCOTNOTE ---
Attempted to see pt. for occupational therapy evaluation. Pt. currently having testing done in room and unable to participate at this time. Nursing aware. Following
[2024-01-23 16:46] LABS: Glucose Point of Care 189 mg/dl (65-105)
[2024-01-23] MEDS: DOXYCYCLINE HYCLATE 100 MG TABLET PO (21:34)
[2024-01-24] VITALS (14 sets, daily range): BP systolic 111–113; BP diastolic 64–67; PULSE 71–109; RESP 17–20; TEMP 36.7–36.8; O2SAT 87–99
[2024-01-24 04:31] LABS: Hematocrit 29.4 % (42.0-52.0); Hemoglobin 9.7 g/dL (14.0-18.0); Immature Granulocyte Percent A 1.2 % (0-0.5); Lymphocytes Absolute Auto 1.48 K/mm3 (0.9-3.2); Lymphocytes Percent Auto 18.1 % (18.3-44.2); Mean Corpuscular Hemoglobin 30.9 pg (26-34); Mean Corpuscular Volume 93.6 fl (80-100); Mean Platelet Volume 10.3 fl (7.4-10.4); Monocytes Absolute Auto 0.8 K/mm3 (0.1-0.6); Monocytes Percent Auto 9.8 % (2.6-8.5); Neutrophils Absolute Auto 5.8 K/mm3 (1.3-6.7); Neutrophils Percent Auto 70.9 % (45.5-73.1); Platelet Count Result 254 k/mm3 (150-375); Red Blood Count 3.14 M/mm3 (4.6-6.20); Red Cell Distribution Width 15.5 % (11.5-14.5); White Blood Count 8.2 K/mm3 (4.5-10.0)
[2024-01-24 04:54] LABS: Anion Gap 0 mmol/L (4-12); Blood Urea Nitrogen 32 mg/dL (9-20); Calcium 7.7 mg/dL (8.4-10.2); Carbon Dioxide 27 mmol/L (22-30); Chloride 104 mmol/L (98-107); Estimated CRCL calculation 60 ml/min; Estimated Glomerular Filt Rate > 60; Glucose 112 mg/dL (65-110); Potassium 3.2 mmol/L (3.4-5.0); Sodium 131 mmol/L (137-145)
[2024-01-24 05:13] LABS: Procalcitonin 0.2 ng/mL
[2024-01-24] MEDS: FLUTICASONE/UMECLIDIN/VILANTER 100-62.5-25 MCG ELLIPTA 1 PUFF INHALATION (08:59)
[2024-01-24] MEDS: ATORVASTATIN 20 MG TABLET PO (09:03)
[2024-01-24] MEDS: POTASSIUM CHLORIDE 10 MEQ ER TABLET PO (09:03)
[2024-01-24] MEDS: FUROSEMIDE 40 MG TABLET PO (09:03)
[2024-01-24] MEDS: PANTOPRAZOLE 40 MG TABLET PO (09:04)
[2024-01-24] MEDS: TAMSULOSIN HCL 0.4 MG CAPSULE PO (09:04)
[2024-01-24] MEDS: METOPROLOL SUCCINATE EXT REL 25 MG TABCR PO (09:04)
[2024-01-24] MEDS: DOXYCYCLINE HYCLATE 100 MG TABLET PO (09:05)
[2024-01-24] MEDS: SACUBITRIL/VALSARTAN 24-26 MG TABLET 1 TAB PO (09:05)
[2024-01-24] MEDS: SPIRONOLACTONE 25 MG TABLET PO (09:05)
[2024-01-24] MEDS: FINASTERIDE 5 MG TABLET PO (09:05)
[2024-01-24] MEDS: ASPIRIN 81 MG ENTERIC TABLET PO (09:05)
[2024-01-24] MEDS: predniSONE 20 MG TABLET 40 MG PO (09:06)
--- NOTE | 2024-01-24 10:54 | PM.IMPN ---
Progress Note: A&P Assessment and Plan (1) Sepsis: Code(s): A41.9 - Sepsis, unspecified organism Status: Acute (2) Acute dyspnea: Code(s): R06.00 - Dyspnea, unspecified Status: Acute (3) Acute respiratory failure: Code(s): J96.00 - Acute respiratory failure, unspecified whether with hypoxia or hypercapnia Status: Acute (4) Chronic obstructive pulmonary disease: Code(s): J44.9 - Chronic obstructive pulmonary disease, unspecified Status: Acute Plan Sepsis, community-acquired pneumonia, COPD exacerbation, hypoxemia ?Code(s): A41.9 - Sepsis, unspecified organism ?Status:?Acute ?Assessment and Plan: upon arrival in the ED, patient had hypoxemia, tachycardia tachypnea, leukocytosis 14,800 , x-rays suggested pneumonia with left lower lobe infiltrate - lactic acid: 2.6 -> 2.2 - lactic elevated, procalcitonin added: 0.4 - started on cefepime and doxycycline on 01/19 - MRSA negative on 12/31/23 and 01/20/24 - blood cultures drawn on 01/19 - UA added continue nebulizer, prednisone p.o. continue O2 therapy to keep pulse ox above 92 DC IV fluid because of fluid overloaded will continue cefepime doxycycline IV today, we switched to oral medication tomorrow 01/23 : patient denies cough, shortness breath, patient is afebrile, white blood cell within normal limit, lungs clear, patient will be discharged home with doxycycline and cefdinir. continue home medications acute on chronic systolic heart failure ? echo, previous (01/03/24): LV systolic function mildly reduced and EF 40-45%, grade 1 diastolic dysfunction mild TV regurgitation started Lasix 40 mg b.i.d. IV push Appreciate um nurse consultation Patient has negative input output-1.2 L Change furosemide 40 mg b.i.d. p.o., continue Entresto p.o., start spironolactone per um nurse 01/21 SVT residential monitor showed short episodes of SVT about 10 patient denied lightheadedness, palpitation cardiology is on board appreciate cardiology consultation, cultures recommend discharge patient today, patient continue furosemide 40 mg b.i.d. p.o., Entresto 1 tablet b.i.d. p.o., succinate 37.5 daily p.o. Pleural effusion: ?Code(s): J90 - Pleural effusion, not elsewhere classified ?Status:?Acute ?Assessment and Plan: similar in size compared to imaging done on 01/05/24 - monitor I&Os - monitor daily weights possible due to CHF repeat chest x-ray, no pulmonary congestion Cancer of sigmoid colon: ?Code(s): C18.7 - Malignant neoplasm of sigmoid colon ?Status:?Acute ?Assessment and Plan: - underwent an exploratory laparotomy, right colectomy with ileocolic anastomosis, sigmoid colectomy, creation of end colostomy on 12/30. done by [facility]. found to have a perforated cecum. - previous imaging showed obstructing sigmoid colon cancer - d/c'd home on 01/16 with home health and a home wound vac and plan for follow-up in 2 weeks - wound consulted for vac - daytime RN noted undigested medications in patient's ostomy output patient may benefit from rehab after discharge consult PT OT healthcare sales representative for evaluation and assisting placement patient's nurse and I discussed with patient and patient's sister at bedside about rehab placement because patient will benefit from close monitoring and physical recover. but patient and patient's sister declines rehab placement, we will send home health after patient discharge Subjective Date/time seen: 01/24/24 10:54 Interval history: I saw exam patient today, patient denies short of breath, chest pain at rest. per nurse report, patient could ambulated with physical therapist, patient also denies abdomen pain, nausea vomiting, headache, focal weakness. Labs reviewed, patient is afebrile, blood pressure stable Exam Narrative: GENERAL: Pleasant, in no acute distress. Well-nourished. - EYES: EOMI. Anicteric. - HENT: Moist mucous
--- NOTE | 2024-01-24 11:01 | PM.DS ---
DS: Admitting Diagnosis Discharge Date 01/23 Admitting Diagnosis (1) Sepsis: ?Code(s): A41.9 - Sepsis, unspecified organism ?Status:?Acute (2) Acute dyspnea: ?Code(s): R06.00 - Dyspnea, unspecified ?Status:?Acute (3) Acute respiratory failure: ?Code(s): J96.00 - Acute respiratory failure, unspecified whether with hypoxia or hypercapnia ?Status:?Acute (4) Chronic obstructive pulmonary disease: ?Code(s): J44.9 - Chronic obstructive pulmonary disease, unspecified ?Status:?Acute DS: Discharge Diagnosis Discharge Diagnosis (1) Sepsis: Code(s): A41.9 - Sepsis, unspecified organism Status: Acute (2) Acute dyspnea: Code(s): R06.00 - Dyspnea, unspecified Status: Acute (3) Acute respiratory failure: Code(s): J96.00 - Acute respiratory failure, unspecified whether with hypoxia or hypercapnia Status: Acute (4) Chronic obstructive pulmonary disease: Code(s): J44.9 - Chronic obstructive pulmonary disease, unspecified Status: Acute DS: Summary Hospital Course Hospital Course: 69 y/o M presents here with shortness of breath with PMH of AAA (4.2 cm infrarenal AAA on CT in 11/2023), BPH, CKD S3, COPD, CAD, HTN, hepatitis C, HLD, and smoker (cessation on 12/31/23). Patient presents here for further evaluation of shortness of breath from home via EMS. Reports acute onset of shortness of breath today (01/19) this morning that worsens with lying flat and has associated productive cough.? Sputum production is nonbloody and scant.? Denies fever, chills, body aches, or fatigue. Denies any choking episodes or difficulty swallowing. Patient does not normally need supplemental oxygen. Patient recently quit smoking (12/31/23) due to his last admission. Patient was recently admitted here from 12/31/2023 to 01/18/2024.? Patient was directly admitted for treatment of his colon cancer, was previously scheduled for an assisted laparoscopic sigmoid colectomy but surgery was canceled due to critical hypokalemia (2.5).? previous imaging showed a near obstructing mass in his sigmoid colon and biopsies confirmed adenocarcinoma.? Patient emergently taken to the OR later that evening on 12/30 due to patient having firm/ rigid abdomen on exam and CXR showing free air.? Per operative notes, patient? found to have a perforated cecum and instructing sigmoid colon cancer and a right colectomy with ileocolic anastomosis, sigmoid colectomy, creation of end colostomy was performed.? Then admitted to the ICU for septic shock, broad-spectrum antibiotics, and antifungal treatment.? Extubated on 01/03.? Ultimately discharged with a home wound VAC with plan to follow-up with general surgery in 2 weeks, patient refused to go to a rehab facility and was discharged home with home health. Patient is also denying abdominal pain. Reports that home health has been able to see him and monitor his wound vac. Reports feeling improved now. Initial VS at presentation: 98.5F, HR 120, RR 34, 130/90, and 95% on RA. ED workup showed: WBC 14.8, stable/chronic anemia, INR 1.3, CO2 15, lactic acid 2.6, initial troponin 0.102, UA not suspicious for? UTI.? CXR showed left bibasilar infiltrates may represent atelectasis or pneumonia.? Chest CTA showed no PE and moderate pleural effusions. the following med issues have been addressed during hospitalization Sepsis, community-acquired pneumonia, COPD exacerbation, hypoxemia ?Code(s): A41.9 - Sepsis, unspecified organism ?Status:?Acute ?Assessment and Plan: upon arrival in the ED, patient had hypoxemia, tachycardia tachypnea, leukocytosis 14,800 , x-rays suggested pneumonia with left lower lobe infiltrate - lactic acid: 2.6 -> 2.2 - lactic elevated, procalcitonin added: 0.4 - started on cefepime and doxycycline on 01/19 - MRSA negative on 12/31/23 and 01/20/24 - blood cultures drawn on 01/19 - UA added continue nebulizer, prednisone p.o. continue O2 therapy to
[2024-01-24] MEDS: KCL 20 MEQ/SW 100 ML 100 ML 50 MEQ IVPB (12:21)
[2024-01-24] MEDS: POTASSIUM CHLORIDE 20 MEQ PACKET (FOR LIQUID) 40 MEQ PO (12:22)
--- NOTE | 2024-01-24 15:20 | HOMEO2EVAL ---
Evaluation was performed at [facility] Home Oxygen Evaluation RC: Home Oxygen (O2) Evaluation Start: 01/24/24 12:17 Freq: ONCE Status: Active Protocol: RPE Activity Type Activity Date Activity User E-sign Co-sign Detail Recorded Client Recorded Date Recorded By Document 01/24/24 14:00 APOLLO [email or web address] 01/24/24 15:20 APOLLO Document 01/24/24 14:03 APOLLO [email or web address] 01/24/24 15:20 APOLLO Document 01/24/24 14:04 APOLLO [email or web address] 01/24/24 15:20 APOLLO Document 01/24/24 14:05 APOLLO [email or web address] 01/24/24 15:20 APOLLO Document 01/24/24 14:15 APOLLO [email or web address] 01/24/24 15:20 APOLLO 01/24/24 01/24/24 01/24/24 14:00 14:03 14:04 Home O2 Evaluation [Oxygen] -Test Phase Resting Exercise Exercise -Oxygen Delivery Room Air Room Air Nasal Cannula -Oxygen Flow Rate (L/min) 1 [Pulse Oximetry] -Pulse Oximetry (90-100 %) 94 87 L 88 L [Comments] -Home Oxygen Evaluation Comments [Charges] -Evaluation Charges O2 Evaluation by Pulmonary 01/24/24 01/24/24 14:05 14:15 Home O2 Evaluation [Oxygen] -Test Phase Exercise Resting -Oxygen Delivery Nasal Cannula Room Air -Oxygen Flow Rate (L/min) 2 [Pulse Oximetry] -Pulse Oximetry (90-100 %) 92 95 [Comments] -Home Oxygen Evaluation Comments PT UP TO SIDE OF BED, UNABLE TO STAND. REQUIRES 2 L HOME O2 WITH EXERTION, ROOM AIR AT REST [Charges] -Evaluation Charges
--- NOTE | 2024-01-24 15:25 | PCRCNOTE ---
HOME O2 EVAL DONE, PT REQUIRES 2 L WITH EXERTION. ROOM AIR AT REST. WILL ARRANGE WITH [facility] AND BRING TANK TO ROOM PRIOR TO D/C.
== END 2024-01-24 16:03 | disposition home health service (06) | DRG 193 ==
LOC: ANHED 13:33 → ANHIMU 14:56
PROVIDERS: Student in an Organized Health Care Education/Training Program; Admitting Provider Internal Medicine; Emergency Provider Preventive Medicine Aerospace Medicine; PCP Physician Assistant; Visit Provider Hospitalist
DX: J18.9 Pneumonia, unspecified organism (principal); I50.23 Acute on chronic systolic (congestive) heart failure; J96.01 Acute respiratory failure with hypoxia; I13.0 Hypertensive heart and chronic kidney disease with heart failure and stage 1 through stage 4 chronic kidney disease, or unspecified chronic kidney disease; C18.7 Malignant neoplasm of sigmoid colon; J44.0 Chronic obstructive pulmonary disease with (acute) lower respiratory infection; J44.1 Chronic obstructive pulmonary disease with (acute) exacerbation; I47.10 Supraventricular tachycardia, unspecified; J98.11 Atelectasis; N18.30 Chronic kidney disease, stage 3 unspecified; R13.10 Dysphagia, unspecified; E78.5 Hyperlipidemia, unspecified; I25.10 Atherosclerotic heart disease of native coronary artery without angina pectoris; I71.43 Infrarenal abdominal aortic aneurysm, without rupture; N40.1 Benign prostatic hyperplasia with lower urinary tract symptoms; R35.1 Nocturia; Z86.19 Personal history of other infectious and parasitic diseases; Z87.891 Personal history of nicotine dependence; Z79.82 Long term (current) use of aspirin
CPT/HCPCS: 36415; 36600; 71045; 71275; 80048; 80053; 81001; 82805; 82948; 83605; 83735; 83880; 84145; 84484; 85025; 85610; 85730; 87040; 93005; 94002; 94618; 94640; 96361; 96365; 96375; 97161; 97166; 99285; A9270; G0378; J0692; J1200; J1940; J2919; J3480; J7120; J7512; Q9967

== ENCOUNTER 2024-01-31 13:28 | Outpatient (CLI) | payer MEDICARE, MEDICAID, SELFPAY ==
--- NOTE | ~2024-01-31 | XR_ITS ---
EXAMINATION: XR enema water soluble DATE: 01/31/2024 14:35 INDICATION: Assess rectal stump TECHNIQUE: A food and beverage operations manager radiograph was obtained. A catheter was inserted into the patient's rectum. Contra st was infused by gravity. 13 fluoroscopic images were recorded. Fluoroscopy exposure time was 0.5 mi nutes. COMPARISON: CT dated 01/05/2024 FINDINGS: Contrast fills the Mascorro's pouch which includes the rectum and small portion of the distal sigmoid colon. No evident stricture, mucosal irregularities or abnormal filling defects appreciated. IMPRESSION: 1. Normal appearance of a Mascorro's pouch. Reviewed, dictated and finalized at location A.
== END 2024-01-31 13:29 | disposition home or self-care (01) ==
LOC: ANHIMG 13:30
PROVIDERS: PCP Physician Assistant; Visit Provider Surgery
DX: Z93.3 Colostomy status (principal)
CPT/HCPCS: 74270